=== PATIENT | female | born 1985 | race African-American/Black ===

== ENCOUNTER 2022-12-30 20:33 | Emergency (ER) | payer OTHER, SELFPAY ==
[2022-12-30 20:37] VITALS: BP 110/69; PULSE 77; RESP 18; TEMP 37.3; O2SAT 100; BMI 36.2
--- NOTE | 2022-12-30 20:52 | XR_ITS ---
The [address] [address] Patient Name: JAKE LEZAMA MRN: [id number] date: 1985 Sex: F Assigned Patient Location: ER Current Patient Location: ER Accession/Order Number: [id number] Exam Date: 12/30/2022 21:05 Report Date: 12/30/2022 21:29 At the request of: MUNIRA HYMAN Procedure: XR abdomen 1V EXAM: XR abdomen 1V HISTORY: Abdominal pain COMPARISON: X-rays 01/19/2022 TECHNIQUE: 2 views FINDINGS: IMPRESSION: Stool within the colon, however, the stool burden is unremarkable. The bowel gas pattern is nonobstructed. No free intraperitoneal air or visualized intra-abdominal calcification. Surgical clips within the left aspect of the epigastrium. No visualized osseous abnormality. Electronically authenticated by: LUCY GEORGE Date: 12/30/2022 21:29
--- NOTE | 2022-12-30 21:34 | ED.GENADUL1 ---
HPI - General Adult General Chief complaint: Abdominal Pain Stated complaint: Abdominal Pain Time Seen by Provider: 12/30/22 20:42 Source: patient Mode of arrival: walk-in Limitations: no limitations History of Present Illness HPI narrative: for the last week, the patient has not been passing formed stool like she normally does. She told me that she passes gas and small amounts of stool but not normal amounts. She has tried taking miralax and suppositories without improvement. She admits that she has been eating normally and not reducing her oral food intake. She also noted that she has hemorrhoids and has been seeing blood on the tissue paper. She admits to straining to try and pass the stool. Related Data Home Medications Medication Instructions Recorded Confirmed ergocalciferol (vitamin D2) 1,250 1,250 mcg PO DAILY 12/30/22 12/30/22 mcg (50,000 unit) capsule Previous Rx's Medication Instructions Recorded hyoscyamine sulfate 0.125 mg 0.125 mg PO Q6H PRN abdominal pain 12/30/22 sublingual tablet (Levsin/SL) #20 tabs peg 3350-electrolytes 236 240 ml PO .q20min #2,000 mL 12/30/22 gram-22.74 gram-6.74 gram-5.86 gram solution (Golytely) Allergies Allergy/AdvReac Type Severity Reaction Status Date / Time No Known Drug Allergies Allergy Verified 12/30/22 20:42 Exam Narrative Exam Narrative: Nurses notes and vital signs reviewed and patient is not hypoxic. afebrile General: Well-appearing and in no apparent distress. Skin: Warm, dry, no pallor noted. No rash. Eye: Pupils are equal, round and EOMI. No scleral icterus. Cardiovascular: Regular Rate and Rhythm without murmur, gallop or rub. Respiratory: No accessory muscle use or respiratory distress. Lungs are clear to auscultation, no wheezing, rales or rhonchi Back: No CVA tenderness Musculoskeletal: normal ROM GI: Abdomen is soft, non-distended. Normal bowel sounds. No masses appreciated. No tenderness to palpation. No rebound, guarding, or rigidity noted. Neurological: A&O x4. No cranial nerve dysfunction observed. No truncal ataxia. Moves all extremities. Sensation intact. Psychiatric: Cooperative and interactive. Normal mood and affect. Constitutional Vital Signs, click to edit/add: Last Vital Signs Temp 99.2 F 12/30/22 20:37 Pulse 77 12/30/22 20:37 Resp 18 12/30/22 20:37 BP 110/69 12/30/22 20:37 Pulse Ox 100 12/30/22 20:37 O2 Del Method Room Air 12/30/22 20:37 Course Vital Signs Vital signs: Vital Signs Temperature 99.2 F 12/30/22 20:37 Pulse Rate 77 12/30/22 20:37 Respiratory Rate 18 12/30/22 20:37 Blood Pressure 110/69 12/30/22 20:37 Pulse Oximetry 100 12/30/22 20:37 Oxygen Delivery Method Room Air 12/30/22 20:37 Temperature 99.2 F 12/30/22 20:37 Pulse Rate 77 12/30/22 20:37 Respiratory Rate 18 12/30/22 20:37 Blood Pressure 110/69 12/30/22 20:37 Pulse Oximetry 100 12/30/22 20:37 Oxygen Delivery Method Room Air 12/30/22 20:37 Medical Decision Making MDM Narrative Medical decision making narrative: x-rays reveal a distal colonic stool. The emergency Department nurses ordered to give the patient soapsuds enema. The patient was then discharged home with instructions to maintain a clear liquid diet until her constipation resolves, a prescription for GoLYTELY solution for constipation and Levsin for any pain. Given referral to Dr. Dupont for follow-up. Imaging Data Abdominal x-ray: Radiologist's impression: Patient Name: JAKE LEZAMA MRN: [id number] date: 1985 Sex: F Assigned Patient Location: ER Current Patient Location: Accession/Order Number: [id number] Exam Date: 12/30/2022 21:05 Report Date: 12/30/2022 21:29 At the request of: MUNIRA HYMAN Procedure: XR abdomen 1V EXAM: XR abdomen 1V HISTORY: Abdominal pain COMPARISON: X-rays 01/19/2022 TECHNIQUE: 2 views FINDINGS: IMPRESSION: Stool within the colon, however, the stool burden is unremarkable. The bowel gas pattern is nonobstructed. No free intraperitoneal air or visualized intra-abdominal calcification. Surgical clips within the left aspect of the epigastrium. No visualized osseous abnormality. Electronically authenticated by: LUCY GEORGE Date: 12/30/2022 21:29 Discharge Plan Discharge Chief Complaint: Abdominal Pain Clinical Impression: Constipation Patient Disposition: Home, Self-Care Time of Disposition Decision: 21:36 Prescriptions / Home Meds: New peg 3350-electrolytes [Golytely] 236-22.74-6.74 -5.86 gram recon soln 240 ml PO .q20min Qty: 2000 0RF Rx Instructions: until fecal effluent is clear hyoscyamine sulfate [Levsin/SL] 0.125 mg tablet, sublingual 0.125 mg PO Q6H PRN (Reason: abdominal pain) Qty: 20 0RF No Action ergocalciferol (vitamin D2) 1,250 mcg (50,000 unit) capsule 1,250 mcg PO DAILY Instructions: Constipation (ED), Hemorrhoids (ED) Stand Alone Forms: Portal Instructions Referrals: [facility] [Primary Care Provider] - 1 week Lukasz Dupont MD [Physician] - As soon as possible
--- NOTE | 2022-12-30 21:45 | PC.NURSE ---
Soap suds enema administered as ordered. Patient laying in bed at this time, patient will hold enema and go to BR after holding enema.
--- NOTE | 2022-12-30 22:02 | PC.NURSE ---
Patient up to BR and reports having large formed BM
== END 2022-12-30 22:03 | disposition home or self-care (01) ==
PROVIDERS: Emergency Provider Emergency Medicine
DX: K59.00 Constipation, unspecified (principal)
CPT/HCPCS: 74018; 99283

== ENCOUNTER 2024-02-02 16:22 | Emergency (ER) | payer OTHER, SELFPAY ==
[2024-02-02 16:27] VITALS: BP 112/73; PULSE 98; TEMP 36.7; O2SAT 98; BMI 31.2
--- OUTSIDE RECORDS SUMMARY | 2024-02-02 16:32 | XMS_ITS | CCD ---
Author Organization [facility] ion [facility] Care Team Providers Care Blending Machine Feeder Name Role Phone QIAN YIN Admitting Unavailable QIAN YIN Consulting Unavailable QIAN YIN Attending Unavailable [facility] Primary Care Unava ilable LISANDRA ARGUETA Consulting Unavailable SANDRA MARQUEZ Consulting Unavailable ELIZABETH CHAN Consulting Unavailable NON STAFF Primary Care Provider Unavailabl e NON STAFF Attending Provider Unavailable DAMARI, ELIGIO A Primary Care Unavailable DAMARI, ELIGIO A Primary Care Unavailable PANGULUR, MARYCARMEN N Admitting Unavailable PANGULUR, MARYCARMEN Blue Attending Unavailable DAMARI, ELIGIO A Primary Care Unavailable PANGULUR, MARYCARMEN N Admitting Unavailable PANGULUR, MARYCARMEN N Attending Unavailable DAMARI, ELIGIO A Primary Care Unavailable Christine Alarcon MD Primary Care Provider ROBYN-CHRISTINE ALFORD Primary Care Unavailable HAMDANI, ETTA YARELY T Admitting Unavailabl e CACHORRO, ETTA YARELY T Attending Unavailabl e JOSELITO MAO Attending Unavailable MD Carlos Champagne Attending Provider Carlos Champagne Attending Unavailable Carlos Champagne Admitting Unavailable Services, [facility] Primary Care Provider MELISSA SIMMONS Attending Unavailable [facility], [facility] Primary Care Unava ilable ROBYN-CHRISTINE ALFORD Attending Unavailable AL-NSOURCHRISTINE Referring Unavailable AL-NSOURJULIETTED Ching Primary Care Unavailable AL-NSOURCHRISTINE A Referring Unavailable AL-NSOUR, JULIETTED Ching Primary Care Unavailable AL-NSOURCHRISTINE A Referring Unavailable AL-NSOUR, JULIETTED A Primary Care Unavailable AL-NSOUR, MOHAMMAD A Referring Unavailable AL-NSOUR, MOHAMMAD A Attending Unavailable AL-NSOUR, MOHAMMAD A Primary Care Unavailable AL-NSOUR, MOHAMMAD A Attending Unavailable AL-NSOUR, MOHAMMAD A Referring Unavailable AL-NSOUR, MOHAMMAD A Primary Care Unavailable ACUÑA, CHELSIE L Primary Care Unavailable AL-NSOUR, MOHAMMAD A Referring Unavailable PANTERA, HEIDI Admitting Unavailable PANTERA, HEIDI Attending Unavailable AL-NSOUR, MOHAMMAD A Primary Care Unavailable AL-NSOUR, MOHAMMAD A Referring Unavailable AL-NSOUR, MOHAMMAD A Primary Care Unavailable SERVICES, [facility] Unava ilable MENON, IONA Attending Unavailable MENON, IONA Referring Unavailable SERVICES, [facility] Care Unava ilable SHEREE, CHELSIE L Referring Unavailable SERVICES, [facility] Unava ilable KOLEDA, MARIO ALBERTO Referring Unavailable SERVICES, [facility] Unava ilable DAUDI, SAYEEMA N Referring Unavailable SERVICES, [facility] Care Unava ilable DAUDI, SAYEEMA N Referring Unavailable SERVICES, [facility] Unava ilable PANGULUR MARYCARMEN N. Referring Unavailabl e SERVICES, [facility] Primary Care Unava ilable SERVICES, [facility] Primary Care Unava ilable GRACY ROCHA Attending UnavailGRACY Aviles Attending Unavailabl e GRACY ROCHA Referring Unavailabl e SERVICES, [facility] Unava ilable BJORN PIÑA Referring Unavailable SERVICES, [facility] Unava ilable Medications Current Medications Medication Drug Class(es) Dates Sig (Normalized) Sig (Original) benzoyl peroxide 50 mg/ml topical solution (3 sources) BENZOYL PEROXIDE 5 % external wash Apply topically 2 times daily APPLY TO AFFECTED AREA 0 Active bisacodyl 5 mg delayed release oral tablet (1 source) Stimulant Laxative Start: 06-02-2023 bisacodyl 5 MG EC tablet Indications: Rectal bleeding Please follow instructions given to you by your provider. 4 tablet 0 06/02/2023 Active calcium chloride 0.0014 meq/ml / potassium chloride 0.004 meq/ml / sodium chloride 0.103 meq/ml / sodium lactate 0.028 meq/ml injectable solution (1 source) Start: 04-28-2023 lactated ringers IV soln infusion Calcium Citrate / Vitamin D (3 sources) Calcium Citrate-Vitamin D (CALCIUM CITRATE CHEWY BITE PO) Take by mouth 2 times daily 0 Active clindamycin 10 mg/ml topical lotion (8 sources) Lincosamide Antibacterial Start: 09-19-2023 Clindamycin Phosphate Active 1 APPLIC TOPICAL Daily September 19, 2023 12:00am Start: 02-09-2023 clindamycin (C LEOCIN T) 1 % lotion APPLY TOPICALLY DAILY. APPLY THIN LATER TO AFFECTED AREAS ON THE BODY DURING FLARES 0 02/09/2023 Active ergocalciferol 1.25 mg oral capsule (3 sources) Provitamin D2 Compound Start: 12-23-2022 vitamin D (ERGOCALCIFEROL) 1.25 MG (29253 UT) CAPS capsule TAKE 1 CAPSULE WEEKLY 0 12/23/2022 Active hydrocortisone 25 mg/ml topical cream (2 sources) Corticosteroid Start: 08-30-2023 hydrocortisone (ANUSOL-HC) 2.5 % rectal cream Topical BID 08/30/2023 Active Start: 08-30-2023 hydrocortisone (ANUSOL-HC) 2.5 % CREA rectal cream Topical BID 28 g 0 08/30/2023 Active 10 ml lidocaine hydrochloride 10 mg/ml injection (1 source) Antiarrhythmic, Amide Local Anesthetic Start: 04-28-2023 End: 04-29-2023 lidocaine PF 1 % injection 1 mL lubiprostone 0.024 mg oral capsule (3 sources) Chloride Channel Activator Start: 06-05-2023 take 1 capsule by mouth once daily at breakfast lubiprostone (AMITIZA) 24 MCG capsule Take 1 capsule by mouth daily (with breakfast) 30 capsule 2 06/05/2023 Active Start: 03-01-2023 take 1 capsule by [facility] once daily at breakfast lubiprostone (AMITIZA) 24 MCG capsule Take 1 capsule by mouth daily (with breakfast) 30 capsule 2 03/01/2023 Active minocycline 50 mg oral capsule (6 sources) Tetracycline-class Drug Start: 09-19-2023 take 50 mg by mouth once daily Minocycline Active 50 MG PO Daily September 19, 2023 12:00am End: 11-29-2023 take 1 tablet by mouth in the morning minocycline (DYNACIN) 50 MG tablet Take 1 tablet (50 mg total) by mouth in the morning. 11/29/2023 Discontinued Multiple Vitamins-Minerals (MULTIVITAMIN ADULT PO) (3 sources) Multiple Vitamins-Minerals (MULTIVITAMIN ADULT PO) Take by mouth 2 times daily 0 Active Amhswqhzgrgs-Urv-Whce-Fa -Vit K (Bariatric Multivitamins) 45 mg iron- 800 mcg-120 mcg capsule (5 sources) Start: take 1 capsule by mouth once Mpirehpwljkb-Hib-Jyow-Fa -Vit K (Bariatric Multivitamins) 45 mg iron- 800 mcg-120 mcg capsule Active CAP PO September 19, 2023 12:00am pantoprazole 40 mg delayed release oral tablet (3 sources) Proton Pump Inhibitor Start: take 1 tablet by mouth in the morning pantoprazole (PROTONIX) 40 MG tablet TAKE 1 TABLET BY MOUTH IN THE MORNING AND IN THE EVENING 60 tablet 0 04/24/2023 Active Start: 03-28-2023 take 1 tablet by ramon th in the morning pantoprazole (PROTONIX) 40 MG tablet Take 1 tablet by mouth in the morning and 1 tablet in the evening. 60 tablet 0 03/28/2023 Active phentermine hydrochloride 37.5 mg oral tablet (4 sources) Sympathomimetic Amine Anorectic Start: 10-30-2023 take 1 tablet by mouth once daily 30 minutes after breakfast Phentermine (Adipex-P) 37.5 mg tablet Active 37.5 MG PO Daily October 30, 2023 12:00am must administer 30 minutes before or 1-2 hours after breakfast polyethylene glycol 3350 81076 mg powder for oral solution (1 source) Osmotic Laxative Start: 06-02-2023 polyethylene glycol (GLYCOLAX) 17 GM/SCOOP powder Indications: Rectal bleeding Please follow instructions provided to you by your provider. 238 g 0 06/02/2023 Active 5 ml sodium chloride 9 mg/ml injection (3 sources) Start: 04-28-2023 sodium chloride flush 0.9 % injection 5-40 mL Start: 04-28-2023 0.9 % sodium c hloride infusion Start: 04-28-2023 sodium chlorid e flush 0.9 % injection 5-40 mL sulfacetamide sodium 100 mg/ml topical lotion (1 source) Sulfonamide Antibacterial Start: 07-17-2023 sulfacetamide sodium , acne, 10 % suspension Apply thin layer to face once daily, 30 day supply. 07/17/2023 Active tretinoin 0.25 mg/ml topical cream (8 sources) Retinoid Start: 09-19-2023 Tretinoin Acti ve APPLIC TOPICAL Daily at bedtime September 19, 2023 12:00am tretinoin (RETIN -A) 0.025 % cream APPLY TO AFFECTED AREA EVERY DAY AT BEDTIME 0 Active Completed/Discontinued Medications Medication Drug Class(es) Dates Sig (Normalized) Sig (Original) ascorbic acid 250 mg chewable tablet (4 sources) Vitamin C End: 11-29-2023 ascorbic acid, vitamin C, 250 mg tablet,chewable Chew and swallow. 11/29/2023 Discontinued Ascorbic Acid (V ITAMIN C ADULT GUMMIES PO) Take by mouth Takes 2 gummies daily 0 Active calcium citrate 1500 mg / ergocalciferol 200 unt oral tablet (1 source) Provitamin D2 Compound End: 11-29-2023 calcium citrate-vitamin D2 315 mg-5 mcg (200 unit) tablet Take 2 capsules by mouth. 11/29/2023 Discontinued cyclobenzaprine hydrochloride 5 mg oral tablet (5 sources) Muscle Relaxant Start: 03-28-2022 End: 11-29-2023 cyclobenzaprine (FLEXERIL) 5 mg tablet 1-2 tablet at bedtime as needed 03/28/2022 11/29/2023 Discontinued take 1 tablet by ramon th three times daily as needed cyclobenzaprine (FLEXERIL) 10 mg tablet Take 1 tablet (10 mg total) by mouth 3 (three) times a day as needed. Active ibuprofen 800 mg oral tablet (1 source) Nonsteroidal Anti-inflammatory Drug Start: 06-12-2023 End: 11-29-2023 take 1 tablet by mouth every six hours as needed for pain ibuprofen (MOTRIN) 800 mg tablet Take 1 tablet (800 mg total) by mouth every 6 (six) hours as needed for pain. 30 tablet 06/12/2023 11/29/2023 Discontinued omeprazole 40 mg delayed release oral capsule (1 source) Proton Pump Inhibitor Start: 02-21-2022 End: 11-29-2023 omeprazole (PriLOSEC) 40 mg capsule 1 capsule 30 minutes before morning meal 02/21/2022 11/29/2023 Discontinued ondansetron 4 mg disintegrating oral tablet (1 source) Serotonin-3 Receptor Antagonist Start: 04-10-2022 End: 11-29-2023 take 1 tablet by mouth every eight hours as needed for nausea ondansetron ODT (ZOFRAN ODT) 4 mg disintegrating tablet Dissolve 1 tablet (4 mg total) on tongue every 8 (eight) hours as needed for nausea for up to 10 doses. 10 tablet 04/10/2022 11/29/2023 Discontinued Semaglutide (5 sources) Start: 09-19-2023 End: 10-30-2023 Semaglutide (Ozempic) 0.25 mg or 0.5 mg (2 mg/3 mL) pen injector Discontinued 0.25 MG SUBCUT every week 1.84 September 19, 2023 12:00am October 30, 2023 9:35am Start: 09-19-2023 Semaglutide (O zempic) 0.25 mg or 0.5 mg (2 mg/3 mL) pen injector Active 0.25 MG SUBCUT every week 1.84 September 19, 2023 12:00am Problems Active Problems Problem Classification Problem Date Documented Da te Episodic/Chronic Abdominal pain (1 source) Epigastric pain; Translations: [Epigastric pain] Onset: 03-08-2023 Episodic Administrative/social admission (20 sources) Patient encounter status; Translations: [Exercise counseling] 09-19-2023 Episodic Cancer of other GI organs; peritoneum (2 sources) Malignant carcinoid tumor of small intestine; 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] Onset: 04-28-2023 04-28-2023 Chronic Cancer; other and unspecified primary (5 sources) H/O: malignant neoplasm; Translations: [Personal history of malignant neoplasm, unspecified] 09-19-2023 Episodic Cancer; other and unspecified primary (7 sources) Personal history of malignant neoplasm, unspecified; Translations: [Personal history of malignant neuroendocrine tumor] 09-19-2023 Episodic Cancer; other and unspecified primary (2 sources) H/O: neoplasm; Translations: [Personal history of benign carcinoid tumor] Onset: 11-29-2023 11-29-2023 Episodic Cancer; other and unspecified primary (1 source) Personal history of benign carcinoid tumor; Translations: [Personal history of benign carcinoid tumor] Onset: 11-29-2023 Episodic Complications of surgical procedures or medical care (15 sources) History of subtotal thyroidectomy; Translations: [Postprocedural hypothyroidism] Onset: 11-29-2023 09-19-2023 Chronic Immunizations and screening for infectious disease (2 sources) Immunization due; Translations: [Encounter for immunization] Onset: 11-29-2023 11-29-2023 Episodic Malignant neoplasm without specification of site (2 sources) Primary malignant neuroendocrine neoplasm of duodenum; Translations: [Other malignant neuroendocrine tumors] Onset: 08-31-2023 08-31-2023 Chronic Neoplasms of unspecified nature or uncertain behavior (1 source) Neoplasm of unspecified behavior of bone, soft tissue, and skin; Translations: [Neoplasm of unspecified behavior of bone, soft tissue, and skin] Onset: 10-04-2023 Episodic Nonmalignant breast conditions (2 sources) Unspecified lump in the right breast, lower inner quadrant; Translations: [Unspecified lump in the left breast, lower inner quadrant] Onset: 12-05-2023 Episodic Nonspecific chest pain (4 sources) Chest pain, unspecified; Translations: [Other chest pain] Onset: 01-19-2022 Episodic Nutritional deficiencies (1 source) Vitamin D deficiency, unspecified; Translations: [Vitamin D deficiency, unspecified] Onset: 12-18-2023 Chronic Other female genital disorders (1 source) Unspecified condition associated with female genital organs and menstrual cycle; Translations: [Unspecified condition associated with female genital organs and menstrual cycle] Onset: 11-10-2023 Episodic Other gastrointestinal disorders (5 sources) Peritoneal cyst; Translations: [Other specified disorders of peritoneum] Onset: 12-23-2019 12-23-2019 Episodic Other gastrointestinal disorders (1 source) Bariatric surgery status; Translations: [Bariatric surgery status] Onset: 12-18-2023 Episodic Other nutritional; endocrine; and metabolic disorders (7 sources) Obese class II; Translations: [Obesity, unspecified] 09-19-2023 Chronic Other nutritional; endocrine; and metabolic disorders (7 sources) Body mass index 30+ - obesity; Translations: [Body mass index (BMI) 35.0-35.9, adult] Onset: 11-29-2023 09-19-2023 Chronic Other nutritional; endocrine; and metabolic disorders (8 sources) Body mass index (BMI) 35.0-35.9, adult; Translations: [Body Mass Index 35.0-35.9, adult] Onset: 11-29-2023 09-19-2023 Chronic Other nutritional; endocrine; and metabolic disorders (5 sources) Obesity, unspecified; Translations: [Obesity, unspecified] 09-19-2023 Chronic Residual codes; unclassified (7 sources) History of sleeve gastrectomy; Translations: [Acquired absence of stomach [part of]] Onset: 11-29-2023 09-19-2023 Episodic Residual codes; unclassified (8 sources) Acquired absence of stomach [part of]; Translations: [Personal history of surgery to other organs] Onset: 11-29-2023 09-19-2023 Episodic Residual codes; unclassified (1 source) History of uterine scar from previous surgery; Translations: [History of uterine scar from previous surgery] Onset: 11-29-2023 Episodic Thyroid disorders (2 sources) Hypothyroidism, unspecified; Translations: [Nontoxic goiter, unspecified] Onset: 08-21-2023 Chronic Unclassified (1 source) Establish Care Onset: 11-29-2023 Unclassified (1 source) Right Foot Pain Onset: 06-12-2023 Past or Other Problems Problem Classification Problem Date Documented Da te Episodic/Chronic Gastrointestinal hemorrhage (2 sources) Hemorrhage of anus and rectum; Translations: [Hemorrhage of anus and rectum] Onset: 06-22-2023 Episodic Mood disorders (1 source) Mood disorders Onset: 11-29-2023 11-29-2023 Other and unspecified benign neoplasm (3 sources) Polyp of duodenum; Translations: [Polyp of stomach and duodenum] Onset: 03-28-2023 03-28-2023 Episodic Other connective tissue disease (1 source) Pain in right foot; Translations: [Pain in right foot] Onset: 06-12-2023 Episodic Other connective tissue disease (1 source) Foot pain Onset: 06-12-2023 Episodic Other gastrointestinal disorders (4 sources) Constipation, unspecified; Translations: [CONSTIPATION UNSPECIFIED] Onset: 01-20-2022 Episodic Other gastrointestinal disorders (2 sources) Other specified disorders of peritoneum; Translations: [Other specified disorders of peritoneum] Onset: 12-23-2019 Episodic Other non-traumatic joint disorders (1 source) Pain in right knee; Translations: [Pain in right knee] Onset: 03-04-2023 Episodic Other non-traumatic joint disorders (1 source) Knee pain Onset: 03-04-2023 Episodic Residual codes; unclassified (7 sources) Acquired absence of both cervix and uterus; Translations: [Acquired absence of both cervix and uterus] Onset: 08-18-2015 09-19-2023 Episodic Results Test Name Value Interpretation Reference Range Facility CBC AND AUTO DIFFon 12-18-19 ABSOLUTE BASOPHIL 0.1 X10E9/L Normal 0.0-0.2 [facility] Comment on above: Performed By: #### 2 132-9, CBCA, CMP, 83092-3, 2777-1, FEPR, 2276-4, 19897-4, 03307-2, 2284-8 #### [facility] ([id number]) [address] [place] [address], [address] [address] #### [id number] #### [facility] ([id number]) [address] [place] [address]68[address] ABSOLUTE NEUTROPHIL 5.6 X10E9/L Normal 1.5-6.6 [facility] Comment on above: Performed By: #### 2 132-9, CBCA, CMP, 55883-4, 2777-1, FEPR, 2276-4, 07560-9, 66660-0, 2284-8 #### [facility] ([id number]) [address] [place] [address], [address] [place] [address] #### 99135-1 #### [facility] ([id number]) [address] [place] [address]111 Basophils/100 WBC (Bld) 1.0 % Normal [facility] Comment on above: Performed By: #### 2 132-9, CBCA, CMP, 39515-1, 2777-1, FEPR, 2276-4, 95565-8, 46466-3, 2284-8 #### [facility] ([id number]) [address], [address] [place] [address] #### 75721-3 #### [facility] ([id number]) [address] [place] [address]144 Eosinophils (Bld) [#/Vol] 0.1 10*3/uL Normal 0.0-0.4 [facility] Comment on above: Performed By: #### 2 132-9, CBCA, CMP, 23601-5, 2777-1, FEPR, 2276-4, 37297-8, 10830-3, 2284-8 #### [facility] ([id number]) [address], [address] [place] [address] #### [id number] #### [facility] ([id number]) [address] [place] [address] Eosinophils/100 WBC (Bld) 0.7 % Normal [facility] Comment on above: Performed By: #### 2 132-9, CBCA, CMP, 28593-5, 2777-1, FEPR, 2276-4, 37015-7, 86632-0, 2284-8 #### [facility] ([id number]) [address], [address] [place] [address] #### 01392-5 #### [facility] ([id number]) [address] [place] [address]84[address] Erythrocyte distribution width (RBC) [Ratio] 14.4 % Normal 11.5-15.0 [facility] Comment on above: Performed By: #### 2 132-9, CBCA, CMP, 06558-5, 2777-1, FEPR, 2276-4, 97076-0, 40549-1, 2284-8 #### [facility] ([id number]) [address], [address] [place] [address] #### 79962-6 #### [facility] ([id number]) [address] [place] [address] 83454 Hematocrit (Bld) [Volume fraction] 39.5 % Normal 35-47 [facility] Comment on above: Performed By: #### 2 132-9, CBCA, CMP, 54869-5, 2777-1, FEPR, 2276-4, 02518-5, 11409-5, 2284-8 #### [facility] ([id number]) [address], [address] [place] [address] #### 72439-9 #### [facility] ([id number]) [address] [place] [address] 04065 Hemoglobin (Bld) [Mass/Vol] 13.0 g/dL Normal 11.7-15.5 [facility] Comment on above: Performed By: #### 2 132-9, CBCA, CMP, 74803-6, 2777-1, FEPR, 2276-4, 95641-1, 64818-3, 2283-8 #### [facility] ([id number]) [address], [address] [place] [address] #### 75979-5 #### [facility] ([id number]) [address] [place] [address] 05565 Lymphocytes (Bld) [#/Vol] 4.0 10*3/uL High 1.0-3.5 [facility] Comment on above: Performed By: #### 2 132-9, CBCA, CMP, 92561-4, 2777-1, FEPR, 2276-4, 28216-6, 21533-2, 228-8 #### [facility] ([id number]) [address], [address] [place] [address] #### 75843-3 #### [facility] ([id number]) [address] [place] [address] 92138 Lymphocytes/100 WBC (Bld) 38.6 % Normal [facility] Comment on above: Performed By: #### 2 132-9, CBCA, CMP, 11913-9, 2777-1, FEPR, 2276-4, 15993-7, 11105-1, 228-8 #### [facility] ([id number]) [address], [address] [place] [address] #### 23846-2 #### [facility] ([id number]) [address] [place] [address] 04312 MCH (RBC) [Entitic mass] 28.2 pg Normal 27-34 [facility] Comment on above: Performed By: #### 2 132-9, CBCA, CMP, 50474-4, 2777-1, FEPR, 2276-4, 62991-7, 02801-7, 2283-8 #### [facility] ([id number]) [address], [address] [place] [address] #### 24005-4 #### [facility] ([id number]) [address] [place] [address]1989 MCHC (RBC) [Mass/Vol] 32.9 g/dL Normal 32-36 [facility] Comment on above: Performed By: #### 2 132-9, CBCA, CMP, 61027-2, 2777-1, FEPR, 2276-4, 42991-9, 68722-7, 228-8 #### [facility] ([id number]) [address], [address] [place] [address] #### 97713-1 #### [facility] ([id number]) [address] [place] [address] 01936 MCV (RBC) [Entitic vol] 86 fL Normal 80-100 [facility] Comment on above: Performed By: #### 2 132-9, CBCA, CMP, 71577-7, 2777-1, FEPR, 2276-4, 15735-3, 83459-9, 2284-8 #### [facility] ([id number]) [address], [address] [place] [address] #### 42638-3 #### [facility] ([id number]) [address] [place] [address]19 Monocytes (Bld) [#/Vol] 0.6 10*3/uL Normal 0-0.9 [facility] Comment on above: Performed By: #### 2 132-9, CBCA, CMP, 52742-2, 2777-1, FEPR, 2276-4, 24906-2, 01821-0, 2284-8 #### [facility] ([id number]) [address], [address] [place] [address] #### 76406-2 #### [facility] ([id number]) [address] [place] [address] 63180 Monocytes/100 WBC (Bld) 5.6 % Normal [facility] Comment on above: Performed By: #### 2 132-9, CBCA, CMP, 91675-5, 2777-1, FEPR, 2276-4, 38755-8, 22556-0, 2284-8 #### [facility] ([id number]) [address], [address] [place] [address] #### 53862-5 #### [facility] ([id number]) [address] [place] [address] 46568 Neutrophils/100 WBC (Bld) 54.1 % Normal [facility] Comment on above: Performed By: #### 2 132-9, CBCA, CMP, 08713-3, 2777-1, FEPR, 2276-4, 00349-0, 00730-3, 2284-8 #### [facility] ([id number]) [address], [address] [place] [address] #### 99306-6 #### [facility] ([id number]) [address] [place] [address] 42541 Platelet mean volume (Bld) [Entitic vol] 7.2 fL Normal 7-12 [facility] Comment on above: Performed By: #### 2 132-9, CBCA, CMP, 22346-6, 2777-1, FEPR, 2276-4, 13098-4, 99862-7, 2284-8 #### [facility] ([id number]) [address], [address] [place] [address] #### 87865-8 #### [facility] ([id number]) [address] [place] [address] 24585 Platelets (Bld) [#/Vol] 442 10*3/uL Normal 150-450 [facility] Comment on above: Performed By: #### 2 132-9, CBCA, CMP, 55634-9, 2777-1, FEPR, 2276-4, 64382-6, 46516-1, 2284-8 #### [facility] ([id number]) [address], [address] [place] [address] #### 71897-5 #### [facility] ([id number]) [address] [place] [address] 65231 RBC COUNT 4.60 X10E12/L Normal 3.80-5.20 [facility] Comment on above: Performed By: #### 2 132-9, CBCA, CMP, 36223-1, 2777-1, FEPR, 2276-4, 29797-7, 78401-8, 2284-8 #### [facility] ([id number]) [address], [address] [place] [address] #### 95542-9 #### [facility] ([id number]) [address] [place] [address] 55283 WBC (Bld) [#/Vol] 10.3 10*3/uL Normal 4.0-11.0 [facility] Comment on above: Performed By: #### 2 132-9, CBCA, CMP, 20347-8, 2777-1, FEPR, 2276-4, 68769-3, 74180-9, 2284-8 #### [facility] ([id number]) [address], [address] [place] [address] #### 82786-6 #### [facility] ([id number]) [address] [place] [address]231 COMPREHENSIVE METABOLIC PANE [facility] [facility] Albumin [Mass/Vol] 4.1 g/dL Normal 3.2-5.3 [facility] Comment on above: Performed By: #### 2 132-9, CBCA, CMP, 95077-7, 2777-1, FEPR, 2276-4, 22636-6, 98887-6, 2284-8 #### [facility] ([id number]) [address], [address] [place] [address] #### 76336-7 #### [facility] ([id number]) [address] [place] [address] ALP [Catalytic activity/Vol] 71 U/L Normal 39-130 [facility] Comment on above: Performed By: #### 2 132-9, CBCA, CMP, 64237-9, 2777-1, FEPR, 2276-4, 93285-6, 10259-1, 2284-8 #### [facility] ([id number]) [address], [address] [place] [address] #### [id number] #### [facility] ([id number]) [address] [place] [address] ALT [Catalytic activity/Vol] 12 U/L Normal 0-31 [facility] Comment on above: Performed By: #### 2 132-9, CBCA, CMP, 08322-8, 2777-1, FEPR, 2276-4, 97335-4, 16410-5, 2284-8 #### [facility] ([id number]) [address], [address] [place] [address] #### 91286-9 #### [facility] ([id number]) [address] [place] [address] Anion gap [Moles/Vol] 8 mmol/L Normal 5-15 [facility] Comment on above: Performed By: #### 2 132-9, CBCA, CMP, 55415-6, 2777-1, FEPR, 2276-4, 94403-7, 66697-8, 2284-8 #### [facility] ([id number]) [address], [address] [place] [address] #### 12028-2 #### [facility] ([id number]) [address] [place] [address] 23092 AST [Catalytic activity/Vol] 15 U/L Normal 0-41 [facility] Comment on above: Performed By: #### 2 132-9, CBCA, CMP, 39526-7, 2777-1, FEPR, 2276-4, 02003-9, 30719-0, 2284-8 #### [facility] ([id number]) [address], [address] [place] [address] #### 68837-8 #### [facility] ([id number]) [address] [place] [address]91 Bilirubin [Mass/Vol] 1.2 mg/dL Normal 0.3-1.2 [facility] Comment on above: Performed By: #### 2 132-9, CBCA, CMP, 23314-5, 2777-1, FEPR, 2276-4, 25660-7, 91437-3, 2284-8 #### [facility] ([id number]) [address], [address] [place] [address] #### 15859-9 #### [facility] ([id number]) [address] [place] [address]2902 Calcium [Mass/Vol] 9.2 mg/dL Normal 8.5-10.5 [facility] Comment on above: Performed By: #### 2 132-9, CBCA, CMP, 06876-5, 2777-1, FEPR, 2276-4, 55681-0, 80972-5, 2284-8 #### [facility] ([id number]) [address], [address] [place] [address] #### 17092-2 #### [facility] ([id number]) [address] [place] [address] 16191 Chloride [Moles/Vol] 105 mmol/L Normal 98-109 [facility] Comment on above: Performed By: #### 2 132-9, CBCA, CMP, 65997-9, 2777-1, FEPR, 2276-4, 85875-2, 71782-8, 2284-8 #### [facility] ([id number]) [address], [address] [place] [address] #### 58029-2 #### [facility] ([id number]) [address] [place] [address] 17037 CO2 [Moles/Vol] 27 mmol/L Normal 22-32 [facility] Comment on above: Performed By: #### 2 132-9, CBCA, CMP, 65245-9, 2777-1, FEPR, 2276-4, 62641-7, 34265-5, 2284-8 #### [facility] ([id number]) [address] [place] [address], [address] [place] [address] #### 85384-3 #### [facility] ([id number]) [address] [place] [address] 63427 Creatinine [Mass/Vol] 0.94 mg/dL Normal 0.40-1.00 [facility] Comment on above: Result Comment: METH OD TRACEABLE TO IDMS STANDARD Performed By: #### 2 132-9, CBCA, CMP, 29921-3, 2777-1, FEPR, 2276-4, 14770-6, 36335-6, 2284-8 #### [facility] ([id number]) [address] [place] [address], [address] [place] [address] #### 48619-2 #### [facility] ([id number]) [address] [place] [address] GFR/1.73 sq M.predicted among non-blacks MDRD (S/P/Bld) [Vol rate/Area] 80 mL/min/{1.73_m2} Normal >59 [facility] Comment on above: Result Comment: Reported eGFR is based on the CKD-EPI 2020 equation that does not use a race coefficient. Performed By: #### 2 132-9, CBCA, CMP, 95227-9, 2777-1, FEPR, 2276-4, 48962-6, 45741-7, 2284-8 #### [facility] ([id number]) [address] [place] [address], [address] [place] [address] #### 70292-1 #### [facility] ([id number]) [address] [place] [address]1978 Glucose [Mass/Vol] 94 mg/dL Normal 65-99 [facility] Comment on above: Performed By: #### 2 132-9, CBCA, CMP, 35005-7, 2777-1, FEPR, 2276-4, 20496-7, 71883-4, 2284-8 #### [facility] ([id number]) [address], [address] [place] [address] #### 81520-0 #### [facility] ([id number]) [address] [place] [address]283 Potassium [Moles/Vol] 3.9 mmol/L Normal 3.5-5.0 [facility] Comment on above: Performed By: #### 2 132-9, CBCA, CMP, 85318-1, 2777-1, FEPR, 2276-4, 53810-2, 63325-9, 2283-8 #### [facility] ([id number]) [address], [address] [place] [address] #### 80033-9 #### [facility] ([id number]) [address] [place] [address] 04878 Protein [Mass/Vol] 7.1 g/dL Normal 6.0-8.0 [facility] Comment on above: Performed By: #### 2 132-9, CBCA, CMP, 24908-4, 2777-1, FEPR, 2276-4, 13633-2, 40336-4, 2283- #### [facility] ([id number]) [address], [address] [place] [address] #### 12248-9 #### [facility] ([id number]) [address] [place] [address] 15042 Sodium [Moles/Vol] 140 mmol/L Normal 134-146 [facility] Comment on above: Performed By: #### 2 132-9, CBCA, CMP, 09933-2, 2777-1, FEPR, 2276-4, 34753-8, 72682-0, 228-8 #### [facility] ([id number]) [address], [address] [place] [address] #### 62018-0 #### [facility] ([id number]) [address] [place] [address] 81176 Urea nitrogen [Mass/Vol] 8 mg/dL Normal 5-23 [facility] Comment on above: Performed By: #### 2 132-9, CBCA, CMP, 14389-1, 2777-1, FEPR, 2276-4, 22212-7, 22688-7, 2284-8 #### [facility] ([id number]) [address], [address] [place] [address] #### 69646-0 #### [facility] ([id number]) [address] [place] [address] 22947 FERRITINon 12-18-2023 Ferritin [Mass/Vol] 19 ng/mL Normal 11-307 [facility] Comment on above: Performed By: #### C BCA, CMP #### [facility] ([id number]) [address], [address] [place] [address] Folate [Mass/Vol]on 12-18-19 24 FOLIC ACID 16.7 ng/mL Normal >5.8 [facility] Comment on above: Result Comment: NEW REFERENCE RANGE Performed By: #### C BCA, CMP #### [facility] ([id number]) [address], [address] [place] [address] IRON PROFILEon 12-18-2023 Iron [Mass/Vol] 62 ug/dL Normal 50-170 [facility] Comment on above: Performed By: #### C BCA, CMP #### [facility] ([id number]) [address], [address] [place] [address] IRON BINDING 368 ug/dL Normal 250-425 [facility] Comment on above: Performed By: #### C BCA, CMP #### [facility] ([id number]) [address], [address] [place] [address] IRON SATURATION 17 % SATURATION Normal 15-50 [facility] Comment on above: Performed By: #### C BCA, CMP #### [facility] ([id number]) [address] [facility] [address] [place] [address] Lipid 1996 panelon 4 Cholesterol [Mass/Vol] 239 mg/dL High 150-200 [facility] Comment on above: Performed By: #### C BCA, CMP #### [facility] ([id number]) [address], [address] [address] Cholesterol in HDL [Mass/Vol] 50 mg/dL Normal >39 [facility] Comment on above: Result Comment: HDL <40 mg/dL - High Risk HDL > or = 40mg/dL- Desirable HDL >60 mg/dL - Negative Risk Performed By: #### C BCA, CMP #### [facility] ([id number]) [address] [address] Cholesterol in LDL [Mass/Vol] 163 mg/dL High <130 [facility] Comment on above: Result Comment: LDL <100 mg/dL - Desirable LDL >160 mg/dL - High Risk Performed By: #### C BCA, CMP #### [facility] ([id number]) [address] [facility] [address] [place] [address] Cholesterol in VLDL [Mass/Vol] 26 mg/dL Normal 0-30 [facility] Comment on above: Performed By: #### C BCA, CMP #### [facility] ([id number]) [address] [address] [place] [address] CHOLESTEROL:HDL 4.8 Normal 1.0-5.0 [facility] Comment on above: Performed By: #### C NAOMI, CMP #### [facility] ([id number]) [address], [address] [place] [address] Triglyceride [Mass/Vol] 128 mg/dL Normal 27-150 P [facility] Comment on above: Performed By: #### Michael SALGADO, CMP #### [facility] ([id number]) [address], [address] [place] [address] MAGNESIUMon 12-18-2023 Magnesium [Mass/Vol] 1.9 mg/dL Normal 1.8-2.6 [facility] Comment on above: Performed By: #### Michael SALGADO, CMP #### [facility] ([id number]) [address], [address] [place] [address] PHOSPHORUSon 12-18-2023 Phosphate [Mass/Vol] 4.9 mg/dL Normal 2.4-4.9 [facility] Comment on above: Performed By: #### Michael SALGADO, CMP #### [facility] ([id number]) [address], [facility] [address] [place] [address] Thiamine (Bld) [Moles/Vol]on 12-18-2023 Thiamin (Vitamin B1), WB 106 nmol/L Normal 70-180 [facility] Comment on above: Result Comment: NOTE ADDITIONAL INFORMATION This test was developed and its performance characteristics determined by [facility] in a manner consistent with CLIA requirements. This test has not been cleared or approved by the U.S. Food and Drug Administration. Test Performed by: [address] [address] Doughnut Machine Operator: Eli Kwong Ph.D.; CLIA# [id number] Performed By: #### Michael SALGADO, CMP #### [facility] ([id number]) [address], [address] [place] [address] VITAMIN B12on 12-18-2023 Cobalamin (Vitamin B12) [Mass/Vol] 190 pg/mL Normal 180-914 [facility] Comment on above: Performed By: #### C NAOMI, CMP #### [facility] ([id number]) [address], [address] [place] [address] Vitamin D+Metabolites [Mass/ Vol]on 12-18-2023 VITAMIN D 25 HYD TOT 19.5 ng/mL Low 30-100 [facility] Comment on above: Result Comment: Vitamin D status 25 [place] Vitamin D Deficiency <20 ng/mL Insufficiency 20-29 ng/mL Sufficiency 30-100 ng/mL Toxicity >100 ng/mL NOTE: A pediatric reference range has not been established by the hazardous waste remover of this kit. The [place] [employer] recommends a Vitamin D level of = or >20ng/mL in infants and children. Performed By: #### C NAOMI, CMP #### [facility] ([id number]) [address], [address] [place] [address] MAMM DIAGNOSTIC BILATERAL W CADon 12-05-2023 MAMM DIAGNOSTIC BILATERAL W CAD MAMM DIAGNOSTIC BILATERAL W CAD JAKE DRAKE MCKINSTRY 1985 [id number], [id number] EXAM: MAMM DIAGNOSTIC BILATERAL W CAD, US BREAST BILAT - LIMITED, 12/05/2023 8:02 AM CLINICAL INDICATIONS: Unspecified lump in the right breast, lower inner quadrant; Unspecified lump in the left breast, lower inner quadrant, COMPARISON: None TECHNIQUE: Bilateral digital tomosynthesis MLO and CC views of the breasts were obtained, with creation of synthetic 2D views. Computer aided detection was utilized. FINDINGS: There are scattered areas of fibroglandular density. There are no suspicious masses, calcifications, or areas of architectural distortion. Bilateral Breast Ultrasound, Limited TECHNIQUE: Multiple real-time richard-scale images were performed in the inner lower quadrant of both breasts. FINDINGS: There is no focal mass, architectural distortion or abnormal vascularity visualized. COMBINED IMPRESSION: No mammographic or sonographic evidence of malignancy. BI-RADS: BI-RADS 1 - Negative RECOMMENDATION: Follow up per ACR recommendations or as clinically indicated.. Clinical follow-up is recommended. RISK ASSESSMENT: TC Lifetime risk: 6.44%. The patient's reported personal and family medical history was used calculate their Tyrer-zick lifetime risk of malignancy. Scores less than 20% are not considered high risk per ACR guidelines and patient should continue with the above recommendation. Patient was given the results before leaving the department. Finalized by Kev Taylor MD on 12/05/2023 8:54 AM 1 b FU ACR Normal [facility] US BREAST BILAT - LIMITEDon 12-05-2023 US BREAST BILAT - LIMITED US BREAST BILAT - LIMITED JAKE AREVALO 1985 [id number], [id number] EXAM: MAMM DIAGNOSTIC BILATERAL W CAD, US BREAST BILAT - LIMITED, 12/05/2023 8:02 AM CLINICAL INDICATIONS: Unspecified lump in the right breast, lower inner quadrant; Unspecified lump in the left breast, lower inner quadrant, COMPARISON: None TECHNIQUE: Bilateral digital tomosynthesis MLO and CC views of the breasts were obtained, with creation of synthetic 2D views. Computer aided detection was utilized. FINDINGS: There are scattered areas of fibroglandular density. There are no suspicious masses, calcifications, or areas of architectural distortion. Bilateral Breast Ultrasound, Limited TECHNIQUE: Multiple real-time richard-scale images were performed in the inner lower quadrant of both breasts. FINDINGS: There is no focal mass, architectural distortion or abnormal vascularity visualized. COMBINED IMPRESSION: No mammographic or sonographic evidence of malignancy. BI-RADS: BI-RADS 1 - Negative RECOMMENDATION: Follow up per ACR recommendations or as clinically indicated.. Clinical follow-up is recommended. RISK ASSESSMENT: TC Lifetime risk: 6.44%. The patient's reported personal and family medical history was used calculate their Tyrer-Cuzick lifetime risk of malignancy. Scores less than 20% are not considered high risk per ACR guidelines and patient should continue with the above recommendation. Patient was given the results before leaving the department. Finalized by Kev Taylor MD on 12/05/2023 8:54 AM 1 b FU ACR Normal [facility] Chromogranin Aon 11-19-2023 Chromogranin A <20 Normal 0-187 [facility] Comment on above: Result Comment: (NOT E) INTERPRETIVE INFORMATION: Chromogranin A, Serum This test is performed using the [employer] CGA II Kryptor kit. Results obtained with different methods or kits cannot be used interchangeably. Results cannot be interpreted as absolute evidence of the presence or absence of malignant disease and should be evaluated in combination with clinical symptoms, diagnostic evidence, and/or other laboratory parameters. The change of CgA concentration over time provides diagnostic information whether a tumor progression has occurred. An increase of CgA serum concentrations of more than 50% to a value of greater than 100 ng/ml between consecutive monitoring visits defines a positive test result, representing a higher probability that a tumor progression has occurred. A change of CgA serum concentrations of equal or less than 50% increase between monitoring visits or to a value of 100 ng/ml or less defines a negative test result, representing a lower probability that a tumor progression has occurred. Nontumor related elevations of Chromogranin A can be observed in gastrointestinal, cardiovascular, and renal disorders, cancers other than neuroendocrine tumors, as well as with proton pump inhibitor (PPI) therapy. It is recommended to stop PPI treatment for at least 14 days prior to testing. Performed By: [facility] [address] [place] [address] Tool Or Die Drawing Checker: Lorne Alarcon MD, PhD CLIA Number: [id number] Performed By: #### C DP, CP #### [place] [address] Doughnut Machine Operator: Naveen Adam MD #### ACHRGA #### [address] [address] Doughnut Machine Operator: Ion Franco MD CBC with Diffon 11-17-2023 Abs. Basophil 0.06 k/uL Normal 0.00-0.20 [facility] Comment on above: Performed By: #### C DP, CP #### [place] [address] Doughnut Machine Operator: Naveen Adam MD #### ACHRGA #### [address] [address] Doughnut Machine Operator: Ion Franco MD Abs.Imm.Granulocyte <0.03 Normal 0.00-0.30 [facility] Comment on above: Performed By: #### C DP, CP #### [place] [address] Doughnut Machine Operator: Naveen Adam MD #### ACHRGA #### [address] [address] Doughnut Machine Operator: Ion Franco MD Abs.Neutrophil (Seg) 5.12 k/uL Normal 1.50-8.10 [facility] Comment on above: Performed By: #### C DP, CP #### [place] [address] Doughnut Machine Operator: Naveen Adam MD #### ACHRGA #### [address] [address] Doughnut Machine Operator: Ion Franco MD Basophils/100 WBC (Bld) 1 % Normal 0-2 M [facility] Comment on above: Performed By: #### C DP, CP #### [address] [address] Doughnut Machine Operator: Naveen Adam MD #### ACHRGA #### [facility] [address] [place] [address] Doughnut Machine Operator: Ion Franco MD Eosinophils (Bld) [#/Vol] 0.08 10*3/uL Normal 0.00-0.44 [facility] Comment on above: Performed By: #### C DP, CP #### [place] [address] Doughnut Machine Operator: Naveen Adam MD #### ACHRGA #### [address] [id number] Doughnut Machine Operator: Ion Franco MD Eosinophils/100 WBC (Bld) 1 % Normal 1-4 [facility] Comment on above: Performed By: #### C DP, CP #### [place] [address] Doughnut Machine Operator: Naveen Adam MD #### ACHRGA #### [address] [id number] Doughnut Machine Operator: Ion Franco MD Erythrocyte distribution width (RBC) [Ratio] 14.0 % Normal 11.8-14.4 [facility] Comment on above: Performed By: #### C DP, CP #### [place] [address] Doughnut Machine Operator: Naveen Adam MD #### ACHRGA #### [facility] [address] [place] [address] Doughnut Machine Operator: Ion Franco MD Hematocrit (Bld) [Volume fraction] 40.7 % Normal 36.3-47.1 [facility] Comment on above: Performed By: #### C DP, CP #### [address] [address] Doughnut Machine Operator: Naveen Adam MD #### ACHRGA #### [facility] [address] [place] [address] Doughnut Machine Operator: Ion Franco MD Hemoglobin (Bld) [Mass/Vol] 12.9 g/dL Normal 11.9-15.1 [facility] Comment on above: Performed By: #### C DP, CP #### [address] [id number] Doughnut Machine Operator: Naveen Adam MD #### ACHRGA #### [facility] [address] [place], [place] [id number] Doughnut Machine Operator: Ion Franco MD Immature granulocytes/100 WBC (Bld) 0 % Normal 0 [facility] Comment on above: Performed By: #### C DP, CP #### [address] [address] Doughnut Machine Operator: Naveen Adam MD #### ACHRGA #### [facility] [address] [place] [address] Doughnut Machine Operator: Ion Franco MD Lymphocytes (Bld) [#/Vol] 2.85 10*3/uL Normal 1.10-3.70 [facility] Comment on above: Performed By: #### C DP, CP #### [address] [address] Doughnut Machine Operator: Naveen Adam MD #### ACHRGA #### [facility] [address] [place] [address] Doughnut Machine Operator: Ion Franco MD Lymphocytes/100 WBC (Bld) 33 % Normal 24-43 [facility] Comment on above: Performed By: #### C DP, CP #### [address] [address] Doughnut Machine Operator: Naveen Adam MD #### VIOLA #### [facility] [address] [place], [place] [id number] Doughnut Machine Operator: Ion Franco MD MCH (RBC) [Entitic mass] 27.5 pg Normal 25.2-33.5 [facility] Comment on above: Performed By: #### C DP, CP #### [address] [address] Doughnut Machine Operator: Naveen Adam MD #### VIOLA #### [facility] [address] [place], [place] [id number] Doughnut Machine Operator: Ion Franco MD MCHC (RBC) [Mass/Vol] 31.7 g/dL Normal 28.4-34.8 [facility] Comment on above: Performed By: #### C DP, CP #### [address] [address] Doughnut Machine Operator: Naveen Adam MD #### ACHRSHINE #### [facility] [address] [place], [place] [id number] Doughnut Machine Operator: Ion Franco MD MCV (RBC) [Entitic vol] 86.8 fL Normal 82.6-102.9 M [facility] Comment on above: Performed By: #### C DP, CP #### [address] [address] Doughnut Machine Operator: Naveen Adam MD #### ACHRGA #### [facility] [address] [place] [address] Doughnut Machine Operator: Ion Farnco MD Monocytes (Bld) [#/Vol] 0.44 10*3/uL Normal 0.10-1.20 [facility] Comment on above: Performed By: #### C DP, CP #### [address] [address] Doughnut Machine Operator: Naveen Adam MD #### ACHRGA #### [facility] [address] [place], [place] [id number] Doughnut Machine Operator: Ion Franco MD Monocytes/100 WBC (Bld) 5 % Normal 3-12 M [facility] Comment on above: Performed By: #### C DP, CP #### [address] [address] Doughnut Machine Operator: Naveen Adam MD #### ACHRGA #### [facility] [address] [place], [place] [id number] Doughnut Machine Operator: Ion Franco MD Neutrophil (Seg) 60 % Normal 36-65 [facility] Comment on above: Performed By: #### C DP, CP #### [address] [address] Doughnut Machine Operator: Naveen Adam MD #### ACHRGA #### [facility] [address] [place], [place] [id number] Doughnut Machine Operator: Ion Franco MD NRBC Automated 0.0 per 100 WBC Normal 0.0 [facility] Comment on above: Performed By: #### C DP, CP #### [address] [address] Doughnut Machine Operator: Naveen Adam MD #### ACHRGA #### [facility] [address] [place], [place] [id number] Doughnut Machine Operator: Ion Franco MD Platelet mean volume (Bld) [Entitic vol] 9.2 fL Normal 8.1-13.5 [facility] Comment on above: Performed By: #### C DP, CP #### [address] [address] Doughnut Machine Operator: Naveen Adam MD #### ACHRGA #### [facility] [address] [place], [place] [id number] Doughnut Machine Operator: Ion Franco MD Platelets (Bld) [#/Vol] 405 10*3/uL Normal 138-453 [facility] Comment on above: Performed By: #### C DP, CP #### [address] [address] Doughnut Machine Operator: Naveen Adam MD #### ACHRGA #### [facility] [address] [place], [place] [id number] Doughnut Machine Operator: Ion Franco MD RBC (Bld) [#/Vol] 4.69 10*6/uL Normal 3.95-5.11 [facility] Comment on above: Performed By: #### C DP, CP #### [address] [address] Doughnut Machine Operator: Naveen Adam MD #### ACHRGA #### [facility] [address] [place] [address] Doughnut Machine Operator: Ion Franco MD WBC (Bld) [#/Vol] 8.6 10*3/uL Normal 3.5-11.3 [facility] Comment on above: Performed By: #### C DP, CP #### [address] [address] Doughnut Machine Operator: Naveen Adam MD #### ACHRGA #### [facility] [address] [place] [address] Doughnut Machine Operator: Ion Franco MD Comp Metabolic Profon 2023 Albumin [Mass/Vol] 4.7 g/dL Normal 3.5-5.2 [facility] Comment on above: Performed By: #### C DP, CP #### [address] [address] Doughnut Machine Operator: Naveen Adam MD #### ACHRGA #### [facility] [address] [place], [place] [id number] Doughnut Machine Operator: Ion Franco MD Albumin/Glob Ratio 2.0 Normal 1.0-2.5 [facility] Comment on above: Performed By: #### C DP, CP #### [address] [address] Doughnut Machine Operator: Naveen Adam MD #### ACHRGA #### [facility] [address] [place], [place] [id number] Doughnut Machine Operator: Ion Franco MD Alkaline Phos 77 U/L Normal 35-104 [facility] Comment on above: Performed By: #### C DP, CP #### [address] [address] Doughnut Machine Operator: Naveen Adam MD #### ACHRGA #### [facility] [address] [place], [place] [id number] Doughnut Machine Operator: Ion Franco MD ALT [Catalytic activity/Vol] 13 U/L Normal 10-35 [facility] Comment on above: Performed By: #### C DP, CP #### [address] [address] Doughnut Machine Operator: Naveen Adam MD #### ACHRGA #### [facility] [address] [place], [place] [id number] Doughnut Machine Operator: Ion Franco MD Anion gap [Moles/Vol] 11 mmol/L Normal 9-16 [facility] Comment on above: Performed By: #### C DP, CP #### [address] [address] Doughnut Machine Operator: Naveen Adam MD #### ACHRGA #### [facility] [address], [place] [id number] Doughnut Machine Operator: Ion Franco MD AST [Catalytic activity/Vol] 20 U/L Normal 10-35 [facility] Comment on above: Performed By: #### C TY, CP #### [address] [address] Doughnut Machine Operator: Naveen Adam MD #### ACHRGA #### [facility] [address] [place] [address] Doughnut Machine Operator: Ion Franco MD Bilirubin [Mass/Vol] 1.3 mg/dL High 0.00-1.20 [facility] Comment on above: Performed By: #### C TY CP #### [address] [address] Doughnut Machine Operator: Naveen Adam MD #### ACHRGA #### [facility] [address] [place], [place] [id number] Doughnut Machine Operator: Ion Franco MD Calcium [Mass/Vol] 9.4 mg/dL Normal 8.6-10.4 [facility] Comment on above: Performed By: #### C TY CP #### [address] [address] Doughnut Machine Operator: Naveen Adam MD #### ACHRGA #### [facility] [address] [place], [place] [id number] Doughnut Machine Operator: Ion Franco MD Chloride [Moles/Vol] 104 mmol/L Normal 98-107 [facility] Comment on above: Performed By: #### C TY CP #### [address] [address] Doughnut Machine Operator: Naveen Adam MD #### ACHRGA #### [facility] [address] [place] [address] Doughnut Machine Operator: Ion Franco MD CO2 [Moles/Vol] 26 mmol/L Normal 20-31 [facility] Comment on above: Performed By: #### C DP, CP #### [facility] [address] [place] [address] Doughnut Machine Operator: Naveen Adam MD #### ACHRSHINE #### [facility] [address] [place], [place] [id number] Doughnut Machine Operator: Ion Franco MD Creatinine [Mass/Vol] 1.0 mg/dL High 0.50-0.90 [facility] Comment on above: Performed By: #### C TY, CP #### [facility] [employer] [address] [place] [address] Doughnut Machine Operator: Naveen Adam MD #### ACHRSHINE #### [facility] [address] [place] [address] Doughnut Machine Operator: Ion Franco MD GFR/1.73 sq M.predicted among non-blacks MDRD (S/P/Bld) [Vol rate/Area] 77 mL/min/{1.73_m2} Normal >60 [facility] Comment on above: Result Comment: These results are not intended for use in patients <18 years of age. eGFR results are calculated without a race factor using the 2020 CKD-EPI equation. Careful clinical correlation is recommended, particularly when comparing to results calculated using previous equations. The CKD-EPI equation is less accurate in patients with extremes of muscle mass, extra-renal metabolism of creatine, excessive creatine ingestion, or following therapy that affects renal tubular secretion. Performed By: #### C DP, CP #### [facility] [address] [place] [address] Doughnut Machine Operator: Naveen Adam MD #### ACHRGA #### [facility] [address] [place] [address] Doughnut Machine Operator: Ion Franco MD Glucose [Mass/Vol] 84 mg/dL Normal 74-99 [facility] Comment on above: Performed By: #### C DP, CP #### [facility] [address] [place] [address] Doughnut Machine Operator: Naveen Adam MD #### ACHRGA #### [facility] [address] [place] [address] Doughnut Machine Operator: Ion Franco MD Potassium [Moles/Vol] 3.9 mmol/L Normal 3.7-5.3 [facility] Comment on above: Performed By: #### C DP, CP #### [address] [address] Doughnut Machine Operator: Naveen Adam MD #### ACHRGA #### [facility] [address] [place] [address] Doughnut Machine Operator: Ion Franco MD Protein [Mass/Vol] 7.5 g/dL Normal 6.6-8.7 [facility] Comment on above: Performed By: #### C DP, CP #### [address] [address] Doughnut Machine Operator: Naveen Adam MD #### ACHRGA #### [facility] [address] [place] [address] Doughnut Machine Operator: Ion Franco MD Sodium [Moles/Vol] 141 mmol/L Normal 136-145 [facility] Comment on above: Performed By: #### C DP, CP #### [address] [address] Doughnut Machine Operator: Naveen Adam MD #### ACHRGA #### [facility] [address] [place] [address] Doughnut Machine Operator: Ion Franco MD Urea nitrogen [Mass/Vol] 5 mg/dL Low 6-20 [facility] Comment on above: Performed By: #### C DP, CP #### [address] [address] Doughnut Machine Operator: Naveen Adam MD #### ACHRGA #### [facility] [address] [place] [address] Doughnut Machine Operator: Ion Franco MD US PELVIC WITH TRANSVAGINALo n 11-11-2023 US PELVIC WITH TRANSVAGINAL US PELVIC WITH TRANSVAGINAL HISTORY: Adnexal cyst. Follow-up exam. History of hysterectomy and bilateral oophorectomy. COMPARISON: 09/20/2021 TECHNIQUE: Multiplanar transabdominal and transvaginal ultrasonography of the pelvis using grayscale imaging, supplemented by color Doppler as needed. FINDINGS: The uterus is absent consistent was prior hysterectomy. .The right ovary and left ovary are not visualized from prior oophorectomy. However, complex right adnexal lesion is visualized with cystic components measuring 3.6 x 5.7 x 3.7 cm which is not significantly changed since prior study.. No other adnexal masses. No fluid in the cul-de-sac.. IMPRESSION: Stable complex cystic right adnexal lesion since prior study which may represent hemorrhagic cyst/endometrioma. Continued follow-up with pelvic ultrasound in 6 months is suggested Absent uterus and ovaries from prior surgery. .. Finalized by Rustam Cardenas MD on 11/11/2023 6:00 AM [facility] 10-05-2023 L Specimen: [id number] Received: 10/05/23 Status: [facility] Num: [id number] Spec Type: Surgical Subm Dr: Carlos Champagne MD Tissues: A Skin-Other than Cyst, tag, debridement or plastic repair (RIGHT ORTHODOX) Procedures: HE, Gross/Micro L4 Age/ Patient Sex Location Account Attending Physician Jake Arevalo 38/F [place] [id number] Carlos Champagne MD SPEC NUM: [id number] RECD: 10/05/23 STATUS: [facility] NUM: [id number] RUTH: 10/05/23- SUBM DR: Carlos Champagne MD ENTERED: 10/05/[address] [facility] [address]: SPEC TYPE: Surgical DEPT: S ENTERED BY: [id number] RECV BY: [id number] ORDERED: HE, Gross/Micro L4 ORDERED: JESSIE Gross/Micro L4 Pathological Diagnosis Skin, right christianity, excisional biopsy: -Benign large epidermal inclusion cyst, excised Clinical Information Neoplasm of unspecified behavior, mass increasing in size primary biopsy, excisional biopsy Gross Description The specimen was received in formalin with the patient's name and right christianity is an unorientated lorenz-richard ellipse of skin measuring 0.8 x 0.4 and excised to a depth of 0.8 cm. The resection margin is inked black. The specimen is trisected to reveal a cystic cavity filled with cystic debris measuring 0.8 x 0.8 x 0.6 cm. The specimen is entirely submitted in cassette A1. Microscopic Description Microscopic examinations are performed supporting the above interpretation -------- Specimen: [id number] Received: 10/05/23 Status: [facility] A[facility]os Num: [id number] Spec Type: Surgical Subm Dr: Carlos Champagne MD Tissues: A Skin-Other than Cyst, tag, debridement or plastic repair (RIGHT ORTHODOX) Procedures: Kd ROMAN/Micro L4 -------- Patient: Jake Arevalo [id number] (Continued) -------- Specimen: Received: 10/05/23 (Continued) Signed (signature on file) Alvaro Villagran MD 10/13/23 1719 -------- Specimen: Received: 10/05/23 Status: [facility] Magañaismael Num: [id number] Spec Type: Surgical Subm Dr: Carlos Champagne MD Tissues: A Skin-Other than Cyst, tag, debridement or plastic repair (RIGHT ORTHODOX) Procedures: Kd ROMAN/Bebe Matthews -------- Patient: Jake Arevalo [id number] (Continued) -------- Specimen: [id number] Received: 10/05/23 (Continued) CPT Codes 49420 -------- -------- Specimen: [id number] Received: 10/05/23 Status: [facility] Num: [id number] Spec Type: Surgical Subm Dr: Carlos Champagne MD Tissues: A Skin-Other than Cyst, tag, debridement or plastic repair (RIGHT ORTHODOX) Procedures: Kd ROMAN/Bebe L4 -------- Patient: Jake Arevalo [id number] (Continued) -------- Signed (signature on file) Alvaro Villagran MD 10/13/23 3829 Normal [facility] CT ABDOMEN PELVIS W IV CONTR [place] 09-05-2023 CT ABDOMEN PELVIS W IV CONTRAST EXAMINATION: CT OF THE ABDOMEN AND PELVIS WITH CONTRAST 08/31/2023 1:11 pm TECHNIQUE: CT of the abdomen and pelvis was performed with the administration of intravenous contrast. Multiplanar reformatted images are provided for review. Automated exposure control, iterative reconstruction, and/or weight based adjustment of the mA/kV was utilized to reduce the radiation dose to as low as reasonably achievable. COMPARISON: 04/18/2023 PET-CT HISTORY: ORDERING SYSTEM PROVIDED HISTORY: Primary malignant neuroendocrine tumor of duodenum (HCC) TECHNOLOGIST PROVIDED HISTORY: STAT Creatinine as needed:->Yes neuroendocrine tumor small intestine, please compare to previous imaging Reason for Exam: neuroendocrine tumor small intestine, please compare to previous imaging. Primary malignant neuroendocrine tumor of duodenum FINDINGS: Lower Chest: No acute abnormality in the lung bases. No pleural or pericardial effusion. Mild cardiomegaly. 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 No suspicious hepatic lesion. Gallbladder is normal in appearance. Spleen is normal in attenuation and size. Pancreas enhances homogeneously without ductal dilatation or peripancreatic inflammation. Adrenal glands are normal caliber. Kidneys enhance symmetrically and normally without hydronephrosis. 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 Bowel is normal in caliber without obstruction or surrounding inflammatory change. The reported neuroendocrine tumor within the duodenum is not able to be appreciated on this exam. Appendectomy. Pelvis: Hysterectomy. Bilobed right adnexal cyst now measuring up to 4.9 cm transverse by 6.4 cm craniocaudal, not substantially changed in size relative to April 2023. Urinary bladder is nearly empty but otherwise appears grossly unremarkable. Peritoneum/Retroperit oneum: No free fluid, free air, or lymphadenopathy. Normal caliber aorta. Bones/Soft Tissues: No suspicious bony lesions. Postoperative changes along the lower anterior abdominal wall, unchanged. No inguinal adenopathy. IMPRESSION: Reported neuroendocrine tumor of the duodenum is not able to be appreciated on this exam. No findings of metastatic disease. Persistent bilobed right adnexal cyst measuring up to 6.4 cm. Recommend further evaluation with pelvic ultrasound on a routine basis. Interpreted by: Iona Ramirez DO Signed by: Iona Ramirez DO 09/05/23 Final result Normal [facility] Chromogranin Aon 09-02-2023 Chromogranin A 22 ng/mL Normal 0-187 [facility] Comment on above: Result Comment: (NOT E) INTERPRETIVE INFORMATION: Chromogranin A, Serum This test is performed using the [employer] CGA II Kryptor kit. Results obtained with different methods or kits cannot be used interchangeably. Results cannot be interpreted as absolute evidence of the presence or absence of malignant disease and should be evaluated in combination with clinical symptoms, diagnostic evidence, and/or other laboratory parameters. The change of CgA concentration over time provides diagnostic information whether a tumor progression has occurred. An increase of CgA serum concentrations of more than 50% to a value of greater than 100 ng/ml between consecutive monitoring visits defines a positive test result, representing a higher probability that a tumor progression has occurred. A change of CgA serum concentrations of equal or less than 50% increase between monitoring visits or to a value of 100 ng/ml or less defines a negative test result, representing a lower probability that a tumor progression has occurred. Nontumor related elevations of Chromogranin A can be observed in gastrointestinal, cardiovascular, and renal disorders, cancers other than neuroendocrine tumors, as well as with proton pump inhibitor (PPI) therapy. It is recommended to stop PPI treatment for at least 14 days prior to testing. Performed By: [facility] [address] [place] [address] Tool Or Die Drawing Checker: Lorne Alarcon MD, PhD CLIA Number: [id number] Performed By: #### Michael CRAWFORD CP #### [employer] [address] [place] [address] Doughnut Machine Operator: Naveen Adam MD #### VIOLA #### [facility] [address] [place] [address] Doughnut Machine Operator: Ion Franco MD CBC with Auto Differentialon 08-31-2023 Basophils (Bld) [#/Vol] 0.10 10*3/uL [employer] Basophils/100 WBC (Bld) 1 % 0 - 2 % B [facility] [employer] Eosinophils (Bld) [#/Vol] 0.10 10*3/uL [facility] Eosinophils/100 WBC (Bld) 1 % 1 - 4 % [facility] [employer] Erythrocyte distribution width (RBC) [Ratio] 14.0 % 11.8 - 14.4 % [facility] Hematocrit (Bld) [Volume fraction] 38.7 % 36.3 - 47.1 % [facility] Hemoglobin (Bld) [Mass/Vol] 12.6 g/dL 11.9 - 15.1 g/dL [facility] Immature granulocytes (Bld) [#/Vol] 0.00 10*3/uL [facility] Immature granulocytes/100 WBC (Bld) 0 % 0 [facility] Interpretation and review of laboratory results Abnormal [facility] Lymphocytes/100 WBC (Bld) 50 % High 24 - 44 % [facility] Lymphocytes/100 WBC (Bld) 5.16 % High [facility] Comment on above: R/O Chronic Lymphopr oliferative Disorder, recommend peripheral blood Flow Cytometry, if clinically indicated. MCH (RBC) [Entitic mass] 28.3 pg 25.2 - 33.5 pg [facility] MCHC (RBC) [Mass/Vol] 32.6 g/dL 28.4 - 34.8 g/dL [facility] MCV (RBC) [Entitic vol] 87.0 fL 82.6 - 102.9 fL [facility] Monocytes/100 WBC (Bld) 7 % 1 - 7 % B ON [facility] Monocytes/100 WBC (Bld) 0.72 % B ON [facility] Morphology Lenin (Bld) [Interp] Normal [facility] Neutrophils/100 WBC (Bld) 41 % 36 - 66 % [facility] Nucleated RBC/100 WBC (Bld) [Ratio] 0.0 % 0.0 per 100 WBC [facility] Platelet mean volume (Bld) [Entitic vol] 9.3 fL 8.1 - 13.5 fL [facility] Platelets (Bld) [#/Vol] 411 10*3/uL [facility] RBC (Bld) [#/Vol] 4.45 10*6/uL 3.95 - 5.1 1 m/uL [facility] Segmented neutrophils/100 WBC (Bld) 4.22 % [facility] WBC other (Bld) [#/Vol] 10.3 B ON [facility] CBC with Diffon 08-31-2023 Abs. Basophil 0.10 k/uL Normal 0.0-0.2 [facility] Comment on above: Performed By: #### C DP, CP #### [address] [address] Doughnut Machine Operator: Naveen Adam MD #### ACHRGA #### [facility] [address] [place], [place] [id number] Doughnut Machine Operator: Ion Franco MD Abs.Imm.Granulocyte 0.00 k/uL Normal 0.00-0.30 [facility] Comment on above: Performed By: #### C DP, CP #### [place] [address] Doughnut Machine Operator: Naveen Adam MD #### ACHRGA #### [facility] [address] [place] [id number] Doughnut Machine Operator: Ion Franco MD Abs.Neutrophil (Seg) 4.22 k/uL Normal 1.8-7.7 [facility] Comment on above: Performed By: #### C TY, CP #### [address] [address] Doughnut Machine Operator: Naveen Adam MD #### ACHRGA #### [facility] [address] [place], [place] [id number] Doughnut Machine Operator: Ion Franco MD Basophils/100 WBC (Bld) 1 % Normal 0-2 M [facility] Comment on above: Performed By: #### C DP, CP #### [place] [address] Doughnut Machine Operator: Naveen Adam MD #### ACHRGA #### [facility] [address] [place] [address] Doughnut Machine Operator: Ion Franco MD Eosinophils (Bld) [#/Vol] 0.10 10*3/uL Normal 0.0-0.4 [facility] Comment on above: Performed By: #### C DP, CP #### [address] [address] Doughnut Machine Operator: Naveen Adam MD #### ACHRGA #### [facility] [address] [place] [address] Doughnut Machine Operator: Ion Franco MD Eosinophils/100 WBC (Bld) 1 % Normal 1-4 [facility] Comment on above: Performed By: #### C DP, CP #### [place] [address] Doughnut Machine Operator: Naveen Adam MD #### ACHRGA #### [address] [address] Doughnut Machine Operator: Ion Franco MD Immature granulocytes/100 WBC (Bld) 0 % Normal 0 [facility] Comment on above: Performed By: #### C DP, CP #### [address] [address] Doughnut Machine Operator: Naveen Adam MD #### ACHRGA #### [address] [address] Doughnut Machine Operator: Ion Franco MD Lymphocytes (Bld) [#/Vol] 5.16 10*3/uL High 1.0-4.8 [facility] Comment on above: Result Comment: R/O Chronic Lymphoproliferative Disorder, recommend peripheral blood Flow Cytometry, if clinically indicated. Performed By: #### C DP, CP #### [place] [address] Doughnut Machine Operator: Naveen Adam MD #### ACHRGA #### [facility] [address] [place] [address] Doughnut Machine Operator: Ion Franco MD Lymphocytes/100 WBC (Bld) 50 % High 24-44 [facility] Comment on above: Performed By: #### C DP, CP #### [address] [address] Doughnut Machine Operator: Naveen Adam MD #### ACHRGA #### [facility] [address] [place] [address] Doughnut Machine Operator: Ion Franco MD Monocytes (Bld) [#/Vol] 0.72 10*3/uL Normal 0.1-0.8 [facility] Comment on above: Performed By: #### C DP, CP #### [address] [address] Doughnut Machine Operator: Naveen Adam MD #### ACHRGA #### [facility] [address] [place] [address] Doughnut Machine Operator: Ion Franco MD Monocytes/100 WBC (Bld) 7 % Normal 1-7 M [facility] Comment on above: Performed By: #### C DP, CP #### [address] [address] Doughnut Machine Operator: Naveen Adam MD #### ACHRGA #### [facility] [address] [place] [address] Doughnut Machine Operator: Ion Franco MD Morphology Lenin (Bld) [Interp] Normal Normal [facility] Comment on above: Performed By: #### C DP, CP #### [address] [address] Doughnut Machine Operator: Naveen Adam MD #### ACHRGA #### [facility] [address] [place] [address] Doughnut Machine Operator: Ion Franco MD Neutrophil (Seg) 41 % Normal 36-66 [facility] Comment on above: Performed By: #### C DP, CP #### [address] [place] [address] Doughnut Machine Operator: Naveen Adam MD #### ACHRGA #### [facility] [address] [place] [address] Doughnut Machine Operator: Ion Franco MD Erythrocyte distribution width (RBC) [Ratio] 14.0 % Normal 11.8-14.4 [facility] Comment on above: Performed By: #### C DP, CP #### [facility] [address] [place] [address] Doughnut Machine Operator: Naveen Adam MD #### ACHRGA #### [facility] [address] [place] [address] Doughnut Machine Operator: Ion Franco MD Hematocrit (Bld) [Volume fraction] 38.7 % Normal 36.3-47.1 [facility] Comment on above: Performed By: #### C DP, CP #### [address] [address] Doughnut Machine Operator: Naveen Adam MD #### ACHRGA #### [facility] [address] [place] [address] Doughnut Machine Operator: Ion Franco MD Hemoglobin (Bld) [Mass/Vol] 12.6 g/dL Normal 11.9-15.1 [facility] Comment on above: Performed By: #### C DP, CP #### [address] [address] Doughnut Machine Operator: Naveen Adam MD #### ACHRGA #### [facility] [address] [place] [address] Doughnut Machine Operator: Ion Franco MD MCH (RBC) [Entitic mass] 28.3 pg Normal 25.2-33.5 [facility] Comment on above: Performed By: #### C DP, CP #### [address] [address] Doughnut Machine Operator: Naveen Adam MD #### ACHRGA #### [facility] [address] [place] [address] Doughnut Machine Operator: Ion Franco MD MCHC (RBC) [Mass/Vol] 32.6 g/dL Normal 28.4-34.8 [facility] Comment on above: Performed By: #### C DP, CP #### [address] [address] Doughnut Machine Operator: Naveen Adam MD #### ACHRGA #### [facility] [address] [place] [address] Doughnut Machine Operator: Ion Franco MD MCV (RBC) [Entitic vol] 87.0 fL Normal 82.6-102.9 M [facility] Comment on above: Performed By: #### C DP, CP #### [place] [address] Doughnut Machine Operator: Naveen Adam MD #### ACHRGA #### [facility] [address] [place] [address] Doughnut Machine Operator: Ion Franco MD NRBC Automated 0.0 per 100 WBC Normal 0.0 [facility] Comment on above: Performed By: #### C DP, CP #### [address] [address] Doughnut Machine Operator: Naveen Adam MD #### ACHRGA #### [facility] [address] [place] [address] Doughnut Machine Operator: Ion Franco MD Platelet mean volume (Bld) [Entitic vol] 9.3 fL Normal 8.1-13.5 [facility] Comment on above: Performed By: #### C DP, CP #### [place] [address] Doughnut Machine Operator: Naveen Adam MD #### ACHRGA #### [facility] [address] [place] [address] Doughnut Machine Operator: Ion Franco MD Platelets (Bld) [#/Vol] 411 10*3/uL Normal 138-453 [facility] Comment on above: Performed By: #### C DP, CP #### [address] [address] Doughnut Machine Operator: Naveen Adam MD #### ACHRGA #### [facility] [address] [place] [address] Doughnut Machine Operator: Ion Franco MD RBC (Bld) [#/Vol] 4.45 10*6/uL Normal 3.95-5.11 [facility] Comment on above: Performed By: #### C DP, CP #### [address] [address] Doughnut Machine Operator: Naveen Adam MD #### ACHRGA #### [facility] [address] [place] [address] Doughnut Machine Operator: Ion Franco MD WBC (Bld) [#/Vol] 10.3 10*3/uL Normal 3.5-11.3 [facility] Comment on above: Performed By: #### C DP, CP #### [address] [address] Doughnut Machine Operator: Naveen Adam MD #### ACHRGA #### [facility] [address] [place], [place] [id number] Doughnut Machine Operator: Ion Franco MD Comp Metabolic Profon 2023 Albumin [Mass/Vol] 4.5 g/dL Normal 3.5-5.2 [facility] Comment on above: Performed By: #### C DP, CP #### [address] [address] Doughnut Machine Operator: Naveen Adam MD #### ACHRGA #### [facility] [address] [place], [place] [id number] Doughnut Machine Operator: Ion Franco MD ALT [Catalytic activity/Vol] 19 U/L Normal 10-35 [facility] Comment on above: Performed By: #### C DP, CP #### [address] [address] Doughnut Machine Operator: Naveen Adam MD #### ACHRGA #### [facility] [address] [place], [place] [id number] Doughnut Machine Operator: Ion Franco MD Anion gap [Moles/Vol] 11 mmol/L Normal 9-16 [facility] Comment on above: Performed By: #### C DP, CP #### [address] [address] Doughnut Machine Operator: Naveen Adam MD #### ACHRGA #### [facility] [address] [place] [id number] Doughnut Machine Operator: Ion Franco MD AST [Catalytic activity/Vol] 23 U/L Normal 10-35 [facility] Comment on above: Performed By: #### C DP, CP #### [address] [address] Doughnut Machine Operator: Naveen Adam MD #### ACHRGA #### [facility] [address] [place] [address] Doughnut Machine Operator: Ion Franco MD Bilirubin [Mass/Vol] 1.2 mg/dL Normal 0.00-1.20 [facility] Comment on above: Performed By: #### C DP, CP #### [address] [address] Doughnut Machine Operator: Naveen Adam MD #### ACHRGA #### [facility] [facility] [address] [place], [place] [id number] [employer] Operator: Ion Franco MD Calcium [Mass/Vol] 9.4 mg/dL Normal 8.6-10.4 [facility] Comment on above: Performed By: #### C DP, CP #### [facility] [address] [place] [address] [employer]nut Machine Operator: Naveen Adam MD #### ACHRGA #### [facility] [address], [place] [id number] Doughnut Machine Operator: Ion Franco MD Chloride [Moles/Vol] 102 mmol/L Normal 98-107 [facility] Comment on above: Performed By: #### C TY, CP #### [address] [address] Doughnut Machine Operator: Naveen Adam MD #### ACHRGA #### [facility] [address] [place] [id number] [employer] Operator: Ion Franco MD CO2 [Moles/Vol] 27 mmol/L Normal 20-31 [facility] Comment on above: Performed By: #### C TY, CP #### [address] [address] Doughnut Machine Operator: Naveen Adam MD #### ACHRGA #### [facility] [address], [place] [id number] [employer]nut Machine Operator: Ion Franco MD Creatinine [Mass/Vol] 0.9 mg/dL Normal 0.50-0.90 [facility] Comment on above: Performed By: #### C TY, CP #### [address] [address] Doughnut Machine Operator: Naveen Adam MD #### ACHRGA #### [facility] [address] [place] [address] Doughnut Machine Operator: Ion Franco MD Glucose [Mass/Vol] 78 mg/dL Normal 74-99 [facility] Comment on above: Performed By: #### C DP, CP #### [facility] [address] [place] [address] Doughnut Machine Operator: Naveen Adam MD #### ACHRGA #### [facility] [address] [place] [address] Doughnut Machine Operator: Ion Franco MD Potassium [Moles/Vol] 4.3 mmol/L Normal 3.7-5.3 [facility] Comment on above: Performed By: #### C DP, CP #### [facility] [address] [place] [address] D[employer]nut Machine Operator: Naveen Adam MD #### ACHRGA #### [facility] [address] [place] [address] Doughnut Machine Operator: Ion Franco MD Protein [Mass/Vol] 7.7 g/dL Normal 6.6-8.7 [facility] Comment on above: Performed By: #### C DP, CP #### [facility] [address] [place] [address] Doughnut Machine Operator: Naveen Adam MD #### ACHRGA #### [facility] [address] [place] [address] Doughnut Machine Operator: Ion Franco MD Sodium [Moles/Vol] 140 mmol/L Normal 136-145 [facility] Comment on above: Performed By: #### C DP, CP #### [facility] [address] [place] [address] Doughnut Machine Operator: Naveen Adam MD #### ACHRGA #### [facility] [address] [place] [address] Doughnut Machine Operator: Ion Franco MD Urea nitrogen [Mass/Vol] 11 mg/dL Normal 6-20 [facility] Comment on above: Performed By: #### C DP, CP #### [facility] [address] [place] [address] Doughnut Machine Operator: Naveen Adam MD #### ACHRGA #### [facility] [address] [place], [place] [phone] Doughnut Machine Operator: Ion Franco MD Albumin/Glob Ratio 1.0 Normal 1.0-2.5 [facility] Comment on above: Performed By: #### C DP, CP #### [address] [address] Doughnut Machine Operator: Naveen Adam MD #### ACHRGA #### [facility] [address], [place] [id number] Doughnut Machine Operator: Ion Franco MD Alkaline Phos 79 U/L Normal 35-104 [facility] Comment on above: Performed By: #### C DP, CP #### [address] [address] Doughnut Machine Operator: Naveen Adam MD #### ACHRGA #### [facility] [address] [place] [phone] D[employer] Operator: Ion Franco MD GFR/1.73 sq M.predicted among non-blacks MDRD (S/P/Bld) [Vol rate/Area] 83 mL/min/{1.73_m2} Normal >60 [facility] Comment on above: Result Comment: These results are not intended for use in patients <18 years of age. eGFR results are calculated without a race factor using the 2020 CKD-EPI equation. Careful clinical correlation is recommended, particularly when comparing to results calculated using previous equations. The CKD-EPI equation is less accurate in patients with extremes of muscle mass, extra-renal metabolism of creatine, excessive creatine ingestion, or following therapy that affects renal tubular secretion. Performed By: #### C DP, CP #### [address] [address] Doughnut Machine Operator: Naveen Adam MD #### ACHRGA #### [facility] [address] [place] [address] Doughnut Machine Operator: Ion Franco MD Comprehensive Metabolic Pane torrey 08-31-2023 Albumin/Globulin [Mass ratio] 1.0 {ratio} 1.0 - 2.5 [facility] ALP [Catalytic activity/Vol] 79 U/L 35 - 104 U/L [facility] Est, Glom Filt Rate 83 - PINF [facility] Comment on above: These results are not intended for use in patients <18 years of age. eGFR results are calculated without a race factor using the 2020 CKD-EPI equation. Careful clinical correlation is recommended, particularly when comparing to results calculated using previous equations. The CKD-EPI equation is less accurate in patients with extremes of muscle mass, extra-renal metabolism of creatine, excessive creatine ingestion, or following therapy that affects renal tubular secretion. [facility] US THYROIDon 08-23-2023 US THYROID US THYROID CLINICAL INFORMATION: Thyroid goiter. TECHNIQUE: Real time sonography of the thyroid gland performed. COMPARISON: No relevant prior studies available. FINDINGS: Postoperative changes of right hemithyroidectomy. No focal sonographic appearance of soft tissue in the right thyroidectomy bed. Left thyroid lobe measures 5.1 x 2.2 x 1.8 cm. Thyroid isthmus measures 0.3 cm. No visualized thyroid nodules are extra thyroidal abnormality by technique. IMPRESSION: * Postoperative changes of right thyroidectomy. * Unremarkable left thyroid lobe and isthmus, by ultrasound. ACR TI-RADS recommendations: TR5 (greater than or equal to 7 points) - FNA if greater than or equal to 1cm, follow-up ultrasound if nodule is 0.5 - 0.9 cm every year for 5 years. TR4 (4 - 6 points) - FNA if greater than or equal to 1.5 cm, follow-up ultrasound if nodule is 1 -1.4 cm at 1, 2, 3 and 5 years. TR3 (3 points) - FNA if greater than or equal to 2.5 cm, follow-up ultrasound if nodule is 1.5 -2.4 cm at 1, 3 and 5 years. TR2 (2 points) & TR1 (0 points) - No FNA or follow-up. Finalized by Nilson Salomon on 08/23/2023 9:12 AM Normal [facility] Surgical Pathology Reporton 04-28-2023 Surgical Pathology Report (NOTE) Path Number: [id number] -- Diagnosis -- A. 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 -NEGATIVE FOR H. PYLORI ORGANISMS ON BEATRIZ STAIN. B. DUODENUM POST POLYPECTOMY SITE, BIOPSY: -DUODENAL MUCOSA WITH A NORMAL VILLOUS ARCHITECTURE AND NO FEATURES OF CELIAC DISEASE. -NEGATIVE FOR NEOPLASM/MALIGNANCY. Tye Logan M.D. 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 JAKE AREVALO, GASTRIC BIOPSY Received in formalin is one lorenz-white tissue fragment, 0.3 x 0.2 x 0.1 cm. Entirely 1cs. B. JAKE AREVALO, DUODENUM POST POLYPECTOMY SITE BIOPSY Received in formalin are five lorenz-white tissue fragments from < 0.1 to 0.3 cm and are 0.9 x 0.2 x 0.1 cm in aggregate. Entirely 1cs. jj tm Griffin Mcdonald/kb2:05/01/2023 Microscopic Description A, B. Microscopic examination performed. B. Synaptophysin and chromogranin immunostains were performed and reveal no nests of neuroendocrine tumor cells. Controls react as expected. Processing Lab: [address] [id number] Interpretation Performed at [address] [id number] SURGICAL PATHOLOGY CONSULTATION Patient Name: JAKE AREVALO [facility] Rec: [id number] [facility] [employer] [facility] ANATOMIC PATHOLOGY [address] [place] [address]. [place], [place] [address] Normal [facility] Surgical Pathology Report (NOTE) Path Number: [id number] INTERPRETATION FINE NEEDLE ASPIRATION, EUS, DUODENAL MASS: NEGATIVE FOR MALIGNANCY. COMMENT: THE CELL BLOCK CONTAINS A FEW FRAGMENTS OF BLAND FIBROMUSCULAR TISSUE. IMMUNOSTAIN FOR SYNAPTOPHYSIN (CONTROL APPROPRIATE) IS NEGATIVE FOR NEUROENDOCRINE NEOPLASM. Electronically Signed Out Vidal Rivas M.D. 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 Gross Description DUODENAL MASS Specimen received in CytoLyt solution, light red fluid. MICROSCOPIC DESCRIPTION Microscopic examination performed. Non Insole Stiffener Thin Prep x 1, Cell Block w/ BEATRIZ x 1, Synapto (no charge) x 1, Ki67 (no charge) x 1 Processing Lab: [address] [id number] Interpretation performed at [address] [address] NONGYNECOLOGICAL CYTOPATHOLOGY CONSULTATION Patient Name: JAKE AREVALO [facility] Rec: [id number] [facility] [employer] [facility] ANATOMIC PATHOLOGY [address] [facility]. [place], [place] [address] Normal [facility] Chromogranin Aon 04-20-2023 Chromogranin A 29 ng/mL Normal 0-187 [facility] Comment on above: Result Comment: (NOT E) INTERPRETIVE INFORMATION: Chromogranin A, Serum This test is performed using the [employer] CGA II Kryptor kit. Results obtained with different methods or kits cannot be used interchangeably. Results cannot be interpreted as absolute evidence of the presence or absence of malignant disease and should be evaluated in combination with clinical symptoms, diagnostic evidence, and/or other laboratory parameters. The change of CgA concentration over time provides diagnostic information whether a tumor progression has occurred. An increase of CgA serum concentrations of more than 50% to a value of greater than 100 ng/ml between consecutive monitoring visits defines a positive test result, representing a higher probability that a tumor progression has occurred. A change of CgA serum concentrations of equal or less than 50% increase between monitoring visits or to a value of 100 ng/ml or less defines a negative test result, representing a lower probability that a tumor progression has occurred. Nontumor related elevations of Chromogranin A can be observed in gastrointestinal, cardiovascular, and renal disorders, cancers other than neuroendocrine tumors, as well as with proton pump inhibitor (PPI) therapy. It is recommended to stop PPI treatment for at least 14 days prior to testing. Performed by [employer], [address] [place] [id number] [email or web address], Ion Franco MD, Lab. Director CLIA Number: [id number] Performed By: #### C DP, CP #### [address] [address] Doughnut Machine Operator: Naveen Adam MD #### ACHRGA #### [employer] [address] [address] Doughnut Machine Operator: Ion Franco MD CBC with Diffon 04-18-2023 Abs. Basophil 0.07 k/uL Normal 0.00-0.20 [facility] Comment on above: Performed By: #### C DP, CP #### [address] [address] Doughnut Machine Operator: Naveen Adam MD #### ACHRGA #### [address] [address] Doughnut Machine Operator: Ion Franco MD Abs.Imm.Granulocyte <0.03 Normal 0.00-0.30 [facility] Comment on above: Performed By: #### C DP, CP #### [address] [address] Doughnut Machine Operator: Naveen Adam MD #### ACHRGA #### [facility] [employer] [address] [place] [address] Doughnut Machine Operator: Ion Franco MD Abs.Neutrophil (Seg) 5.11 k/uL Normal 1.50-8.10 [facility] Comment on above: Performed By: #### C DP, CP #### [address] [address] Doughnut Machine Operator: Naveen Adam MD #### ACHRGA #### [facility] [address] [place] [address] Doughnut Machine Operator: Ion Franco MD Basophils/100 WBC (Bld) 1 % Normal 0-2 [facility] Comment on above: Performed By: #### C DP, CP #### [address] [address] Doughnut Machine Operator: Naveen Adam MD #### ACHRGA #### [facility] [address] [place] [address] Doughnut Machine Operator: Ion Franco MD Eosinophils (Bld) [#/Vol] 0.08 10*3/uL Normal 0.00-0.44 [facility] Comment on above: Performed By: #### C DP, CP #### [address] [address] Doughnut Machine Operator: Naveen Adam MD #### ACHRGA #### [facility] [address] [place] [address] Doughnut Machine Operator: Ion Franco MD Eosinophils/100 WBC (Bld) 1 % Normal 1-4 [facility] Comment on above: Performed By: #### C DP, CP #### [address] [address] Doughnut Machine Operator: Naveen Adam MD #### ACHRGA #### [facility] [address] [place] [address] Doughnut Machine Operator: Ion Franco MD Erythrocyte distribution width (RBC) [Ratio] 13.9 % Normal 11.8-14.4 [facility] Comment on above: Performed By: #### C DP, CP #### [address] [address] Doughnut Machine Operator: Naveen Adam MD #### ACHRGA #### [facility] [address] [place] [address] Doughnut Machine Operator: Ion Franco MD Hematocrit (Bld) [Volume fraction] 40.6 % Normal 36.3-47.1 [facility] Comment on above: Performed By: #### C DP, CP #### [address] [address] Doughnut Machine Operator: Naveen Adam MD #### ACHRGA #### [facility] [address] [place] [address] Doughnut Machine Operator: Ion Franco MD Hemoglobin (Bld) [Mass/Vol] 13.3 g/dL Normal 11.9-15.1 [facility] Comment on above: Performed By: #### C DP, CP #### [address] [address] Doughnut Machine Operator: Naveen Adam MD #### ACHRGA #### [facility] [address] [place] [address] Doughnut Machine Operator: Ion Franco MD Immature granulocytes/100 WBC (Bld) 0 % Normal 0 [facility] Comment on above: Performed By: #### C DP, CP #### [address] [address] Doughnut Machine Operator: Naveen Adam MD #### ACHRGA #### [facility] [address] [place] [address] Doughnut Machine Operator: Ion Franco MD Lymphocytes (Bld) [#/Vol] 3.25 10*3/uL Normal 1.10-3.70 [facility] Comment on above: Performed By: #### C DP, CP #### [address] [address] Doughnut Machine Operator: Naveen Adam MD #### ACHRGA #### [facility] [address] [place] [address] Doughnut Machine Operator: Ion Franco MD Lymphocytes/100 WBC (Bld) 36 % Normal 24-43 [facility] Comment on above: Performed By: #### C DP, CP #### [address] [id number] Doughnut Machine Operator: Naveen Adam MD #### ACHRGA #### [facility] [address] [place], [place] [id number] Doughnut Machine Operator: Ion Franco MD MCH (RBC) [Entitic mass] 28.6 pg Normal 25.2-33.5 [facility] Comment on above: Performed By: #### C TY, CP #### [place] [address] Doughnut Machine Operator: Naveen Adam MD #### ACHRGA #### [facility] [address] [place] [address] Doughnut Machine Operator: Ion Franco MD MCHC (RBC) [Mass/Vol] 32.8 g/dL Normal 28.4-34.8 [facility] Comment on above: Performed By: #### C TY, CP #### [place] [address] Doughnut Machine Operator: Naveen Adam MD #### ACHRGA #### [facility] [address], [place] [id number] Doughnut Machine Operator: Ion Franco MD MCV (RBC) [Entitic vol] 87.3 fL Normal 82.6-102.9 M [facility] Comment on above: Performed By: #### C TY, CP #### [place] [address] Doughnut Machine Operator: Naveen Adam MD #### ACHRGA #### [facility] [address] [place], [place] [id number] Doughnut Machine Operator: Ion Franco MD Monocytes (Bld) [#/Vol] 0.55 10*3/uL Normal 0.10-1.20 [facility] Comment on above: Performed By: #### C DP, CP #### [address] [address] Doughnut Machine Operator: Naveen Adam MD #### ACHRGA #### [facility] [address] [place], [place] [id number] Doughnut Machine Operator: Ion Franco MD Monocytes/100 WBC (Bld) 6 % Normal 3-12 M [facility] Comment on above: Performed By: #### C DP, CP #### [place] [address] Doughnut Machine Operator: Naveen Adam MD #### ACHRGA #### [facility] [address] [place], [place] [id number] Doughnut Machine Operator: Ion Franco MD Neutrophil (Seg) 56 % Normal 36-65 [facility] Comment on above: Performed By: #### C DP, CP #### [place] [address] Doughnut Machine Operator: Naveen Adam MD #### ACHRGA #### [facility] [address] [place], [place] [id number] Doughnut Machine Operator: Ion Franco MD NRBC Automated 0.0 per 100 WBC Normal 0.0 [facility] Comment on above: Performed By: #### C DP, CP #### [place] [address] Doughnut Machine Operator: Naveen Adam MD #### ACHRGA #### [facility] [address] [place] [address] Doughnut Machine Operator: Ion Franco MD Platelet mean volume (Bld) [Entitic vol] 9.2 fL Normal 8.1-13.5 [facility] Comment on above: Performed By: #### C DP, CP #### [facility] [place] [address] Doughnut Machine Operator: Naveen Adam MD #### ACHRGA #### [facility] [address] [place], [place] [id number] Doughnut Machine Operator: Ion Franco MD Platelets (Bld) [#/Vol] 406 10*3/uL Normal 138-453 [facility] Comment on above: Performed By: #### C DP, CP #### [address] [address] Doughnut Machine Operator: Naveen Adam MD #### ACHRGA #### [facility] [address] [place], [place] [id number] Doughnut Machine Operator: Ion Franco MD RBC (Bld) [#/Vol] 4.65 10*6/uL Normal 3.95-5.11 [facility] Comment on above: Performed By: #### C DP, CP #### [address] [address] Doughnut Machine Operator: Naveen Adam MD #### ACHRGA #### [facility] [address] [place], [place] [phone] Doughnut Machine Operator: Ion Franco MD WBC (Bld) [#/Vol] 9.1 10*3/uL Normal 3.5-11.3 [facility] Comment on above: Performed By: #### C DP, CP #### [address] [address] Doughnut Machine Operator: Naveen Adam MD #### ACHRGA #### [facility] [address] [place], [place] [id number] Doughnut Machine Operator: Ion Franco MD Comp Metabolic Profon 2023 Albumin [Mass/Vol] 4.3 g/dL Normal 3.5-5.2 [facility] Comment on above: Performed By: #### C DP, CP #### [address] [address] Doughnut Machine Operator: Naveen Adam MD #### ACHRGA #### [facility] [address] [place], [place] [id number] Doughnut Machine Operator: Ion Franco MD Albumin/Glob Ratio 1.0 Normal 1.0-2.5 [facility] Comment on above: Performed By: #### C DP, CP #### [address] [address] Doughnut Machine Operator: Naveen Adam MD #### ACHRGA #### [facility] [address] [place], [place] [phone] Doughnut Machine Operator: Ion Franco MD Alkaline Phos 80 U/L Normal 35-104 [facility] Comment on above: Performed By: #### C DP, CP #### [address] [address] Doughnut Machine Operator: Naveen Adam MD #### ACHRGA #### [facility] [address] [place], [place] [id number] Doughnut Machine Operator: Ion Franco MD ALT [Catalytic activity/Vol] 18 U/L Normal 10-35 [facility] Comment on above: Performed By: #### C DP, CP #### [address] [address] Doughnut Machine Operator: Naveen Adam MD #### ACHRGA #### [facility] [address] [place], [place] [id number] Doughnut Machine Operator: Ion Franco MD Anion gap [Moles/Vol] 12 mmol/L Normal 9-16 [facility] Comment on above: Performed By: #### C DP, CP #### [address] [address] Doughnut Machine Operator: Naveen Adam MD #### ACHRGA #### [facility] [address] [place] [address] Doughnut Machine Operator: Ion Franco MD AST [Catalytic activity/Vol] 21 U/L Normal 10-35 [facility] Comment on above: Performed By: #### C DP, CP #### [address] [address] Doughnut Machine Operator: Naveen Adam MD #### ACHRGA #### [facility] [address] [place], [place] [id number] Doughnut Machine Operator: Ion Franco MD Bilirubin [Mass/Vol] 0.8 mg/dL Normal 0.00-1.20 [facility] Comment on above: Performed By: #### C DP, CP #### [address] [address] Doughnut Machine Operator: Naveen Adam MD #### ACHRGA #### [facility] [address] [place], [place] [id number] Doughnut Machine Operator: Ion Franco MD Calcium [Mass/Vol] 9.3 mg/dL Normal 8.6-10.4 [facility] Comment on above: Performed By: #### C DP, CP #### [address] [address] Doughnut Machine Operator: Naveen Adam MD #### ACHRGA #### [facility] [address] [place], [place] [id number] Doughnut Machine Operator: Ion Franco MD Chloride [Moles/Vol] 104 mmol/L Normal 98-107 [facility] Comment on above: Performed By: #### C DP, CP #### [address] [address] Doughnut Machine Operator: Naveen Adam MD #### ACHRGA #### [facility] [address] [place] [address] Doughnut Machine Operator: Ion Franco MD CO2 [Moles/Vol] 26 mmol/L Normal 20-31 [facility] Comment on above: Performed By: #### C DP, CP #### [address] [address] Doughnut Machine Operator: Naveen Adam MD #### ACHRGA #### [facility] [address] [place] [address] Doughnut Machine Operator: Ion Franco MD Creatinine [Mass/Vol] 0.9 mg/dL Normal 0.50-0.90 [facility] Comment on above: Performed By: #### C TY, CP #### [address] [id number] Doughnut Machine Operator: Naveen Adam MD #### ACHRGA #### [facility] [address] [place] [address] Doughnut Machine Operator: Ion Franco MD GFR/1.73 sq M.predicted among non-blacks MDRD (S/P/Bld) [Vol rate/Area] mL/min/{1.73_m2} Normal >60 [facility] Comment on above: Result Comment: These results are not intended for use in patients <18 years of age. eGFR results are calculated without a race factor using the 2020 CKD-EPI equation. Careful clinical correlation is recommended, particularly when comparing to results calculated using previous equations. The CKD-EPI equation is less accurate in patients with extremes of muscle mass, extra-renal metabolism of creatine, excessive creatine ingestion, or following therapy that affects renal tubular secretion. Performed By: #### C TY, CP #### [address] [address] [employer] Operator: Naveen Adam MD #### ACHRGA #### [facility] [address] [place] [address] Doughnut Machine Operator: Ion Franco MD Glucose [Mass/Vol] 89 mg/dL Normal 74-99 [facility] Comment on above: Performed By: #### C DP, CP #### [address] [address] Doughnut Machine Operator: Naveen Adam MD #### ACHRGA #### [facility] [address] [place] [address] Doughnut Machine Operator: Ion Franco MD Potassium [Moles/Vol] 4.1 mmol/L Normal 3.7-5.3 [facility] Comment on above: Performed By: #### C DP, CP #### [address] [address] Doughnut Machine Operator: Naveen Adam MD #### ACHRGA #### [facility] [address] [place] [phone] [employer] Operator: Ion Franco MD Protein [Mass/Vol] 7.6 g/dL Normal 6.6-8.7 [facility] Comment on above: Performed By: #### C DP, CP #### [address] [address] D[employer]nut Machine Operator: Naveen Adam MD #### ACHRGA #### [facility] [address] [place] [id number] [employer] Operator: Ion Franco MD Sodium [Moles/Vol] 142 mmol/L Normal 136-145 [facility] Comment on above: Performed By: #### C DP, CP #### [address] [address] Doughnut [employer] Operator: Naveen Adam MD #### ACHRGA #### [facility] [address] [place] [address] Doughnut Machine Operator: Ion Franco MD Urea nitrogen [Mass/Vol] 8 mg/dL Normal 6-20 [facility] Comment on above: Performed By: #### C DP, CP #### [employer] [address] [place] [address] Doughnut Machine Operator: Naveen Adam MD #### DESHAWNGA #### [facility] [employer] [address] [place] [address] Doughnut Machine Operator: Ion Franco MD PET CT TUMOR IMAGE SKULL THI GH DOTATATEon 04-18-[address] TUMOR IMAGE SKULL THIGH DOTATATE EXAMINATION: WHOLE BODY PET/CT 04/18/2023 TECHNIQUE: Following IV injection of 4.6 mCi of gallium 68 Dotatate, PET tumor imaging was acquired from the base of the skull to the mid thighs. Computed tomography was used for purposes of attenuation correction and anatomic localization. Fusion imaging was utilized for interpretation. Uptake time 60 min. 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 FINDINGS: HEAD/NECK: There is significant change in head position between the CT and PET imaging, limiting evaluation, although the activity appears to be physiologic. CHEST: No DOTATATE avid pulmonary nodules or lymphadenopathy. ABDOMEN/PELVIS: There is heterogeneous activity along the duodenum. Physiologic activity within the liver, spleen, kidneys, and bowel. No DOTATATE activity associated with a 5.1 x 4.6 cm soft tissue density right adnexal mass. Status post hysterectomy. BONES/SOFT TISSUE: No abnormal activity within the bones. INCIDENTAL CT FINDINGS: Postsurgical changes at the stomach. IMPRESSION: 1. Heterogeneous activity along the duodenum may be physiologic, but could represent the duodenal tumor. 2. No DOTATATE avid metastatic disease. 3. 5.1 cm right adnexal soft tissue density mass without activity. This could be the ovary including the possibility of an ovarian cyst. If this has not been evaluated elsewhere, consider pelvic ultrasound. Patient appears to be status post hysterectomy. Interpreted by: Erasmo Baltazar MD Signed by: Erasmo Baltazar MD 04/18/23 Final result Normal [facility] 1. Heterogeneous activity along the duodenum may be physiologic, but could represent the duodenal tumor. 2. No DOTATATE avid metastatic disease. 3. 5.1 cm right adnexal soft tissue density mass without activity. This could be the ovary including the possibility of an ovarian cyst. If this has not been evaluated elsewhere, consider pelvic ultrasound. Patient appears to be status post hysterectomy. [facility] EXAMINATION: WHOLE BODY PET/CT 04/18/2023 TECHNIQUE: Following IV injection of 4.6 mCi of gallium 68 Dotatate, PET tumor imaging was acquired from the base of the skull to the mid thighs. Computed tomography was used for purposes of attenuation correction and anatomic localization. Fusion imaging was utilized for interpretation. Uptake time 60 min. 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 FINDINGS: HEAD/NECK: There is significant change in head position between the CT and PET imaging, limiting evaluation, although the activity appears to be physiologic. CHEST: No DOTATATE avid pulmonary nodules or lymphadenopathy. ABDOMEN/PELVIS: There is heterogeneous activity along the duodenum. Physiologic activity within the liver, spleen, kidneys, and bowel. No DOTATATE activity associated with a 5.1 x 4.6 cm soft tissue density right adnexal mass. Status post hysterectomy. BONES/SOFT TISSUE: No abnormal activity within the bones. INCIDENTAL CT FINDINGS: Postsurgical changes at the stomach. [facility] Erasmo Baltazar MD - 04/18/2023 EXAMINATION: WHOLE BODY PET/CT 04/18/2023 TECHNIQUE: Following IV injection of 4.6 mCi of gallium 68 Dotatate, PET tumor imaging was acquired from the base of the skull to the mid thighs. Computed tomography was used for purposes of attenuation correction and anatomic localization. Fusion imaging was utilized for interpretation. Uptake time 60 min. 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 FINDINGS: HEAD/NECK: There is significant change in head position between the CT and PET imaging, limiting evaluation, although the activity appears to be physiologic. CHEST: No DOTATATE avid pulmonary nodules or lymphadenopathy. ABDOMEN/PELVIS: There is heterogeneous activity along the duodenum. Physiologic activity within the liver, spleen, kidneys, and bowel. No DOTATATE activity associated with a 5.1 x 4.6 cm soft tissue density right adnexal mass. Status post hysterectomy. BONES/SOFT TISSUE: No abnormal activity within the bones. INCIDENTAL CT FINDINGS: Postsurgical changes at the stomach. IMPRESSION: 1. Heterogeneous activity along the duodenum may be physiologic, but could represent the duodenal tumor. 2. No DOTATATE avid metastatic disease. 3. 5.1 cm right adnexal soft tissue density mass without activity. This could be the ovary including the possibility of an ovarian cyst. If this has not been evaluated elsewhere, consider pelvic ultrasound. Patient appears to be status post hysterectomy. [facility] [employer] [facility] Radiology Study observation (narrative) [facility] PET CT TUMOR IMAGE SKULL THI GH DOTATATEOrdered By: Erasmo Baltazar on 04-18-2023 [facility] Work Phone: Surgical Pathology Reporton 03-28-2023 Surgical Pathology Report (NOTE) Path Number: [id number] -- Diagnosis -- DUODENAL POLYP, POLYPECTOMY: -WELL-DIFFERENTIATED NEUROENDOCRINE TUMOR, GRADE 1, INVADING THE SUBMUCOSA -TUMOR FOCALLY EXTENDS TO THE DEEP CAUTERIZED MARGIN Gordy Clark D.O. Electronically Signed Out lj/03/29/2023 Clinical Information Pre-Op Diagnosis: EPIGASTRIC ABDOMINAL PAIN Operative Findings: DUODENAL POLYP Operation Performed: EGD BIOPSY kb Source of Specimen A: DUODENAL POLYP Gross Description JAKE AREVALO, DUODENAL POLYP Received in formalin is a 0.8 x 0.7 x 0.3 cm polypoid portion of lorenz tissue, inked and trisected. Entirely 1cs. jj tm Tye Logan M.D./kb2:03/28/2023 Microscopic Description Polypoid shaped portions of duodenal type mucosa are noted. Within the submucosa a proliferation of Jean glands are noted. The mucosa demonstrates nests of cells with somewhat monotonous oval shaped nuclei and moderate amounts of cytoplasm. Within this region no significant cytologic atypia or increased mitotic activity is noted. Immunostains for synaptophysin and chromogranin show strong positive staining. Ki-67 immunostaining demonstrates less than 3% staining within the cells of interest (all controls adequate) PROCEDURE: Polypectomy TUMOR SITE: Duodenum HISTOLOGIC TYPE AND GRADE: Well-differentiated neuroendocrine tumor MITOTIC RATE (PER 10 HPF): Less than 2 per 2 mm2 KI-67 LABELING INDEX (%): Less than 3% TUMOR SIZE: 6 mm TUMOR FOCALITY: Unifocal TUMOR EXTENSION-SMALL INTESTINE: Invades the submucosa TUMOR EXTENSION-AMPULLA: Not applicable LYMPHOVASCULAR INVASION: Not identified MARGINS (IF ALL NEGATIVE, DISTANCE TO CLOSEST): Tumor focally noted at deep cauterized margin LYMPH NODES: - NUMBER EXAMINED: 0 - NUMBER INVOLVED: Not applicable DISTANT MESTASIS: Not applicable -DISTANT SITE(S) INVOLVED, IF APPLICABLE: Not applicable PATHOLOGIC STAGE CLASSIFICATION: pT1, pN not assigned, pM not applicable CAP Duodenum/AmpullaNET 2.0.0.0 . Processing Lab: [address] [address] Interpretation Performed at [address] [address] SURGICAL PATHOLOGY CONSULTATION Patient Name: JAKE AREVALO [facility] Rec: [id number] [facility] [employer] CON[facility] PATHOLOGISTS [facility] ANATOMIC PATHOLOGY [address] [place] [id number] [facility] Surgical Pathology Reporton 03-08-2023 Surgical Pathology Report (NOTE) Path Number: [id number] -- Diagnosis -- DUODENAL POLYP, BIOPSY: -WELL-DIFFERENTIATED NEUROENDOCRINE TUMOR (GRADE 1). Tye Logan M.D. Electronically Signed Out riya/03/09/2023 Clinical Information Pre-Op Diagnosis: ABDOMINAL PAIN, EPIGASTRIC Operative Findings: DUODENUM POLYP TO CHECK FOR CARCINOID Operation Performed: EGD BIOPSY kb Source of Specimen A: DUODENAL POLYP TO CHECK FOR CARCINOID Gross Description AMANDA BELLE POLYP Received in formalin are two lorenz-white tissue fragments from 0.2 to 0.3 cm and are 0.5 x 0.2 x 0.1 cm in aggregate. Entirely 1cs. venu Clark D.O./kb2:03/08/2023 Microscopic Description Microscopic examination performed. Sections show duodenal mucosa with nests of cells with uniform nuclei and eosinophilic to clear cytoplasm within the lamina propria. No mitotic figures identified. Immunostains were performed to better characterize these cells. These cells are positive for synaptophysin and chromogranin immunostains. Ki-67 shows less than 1% nuclear staining. Controls react as expected. This immunoprofile supports a diagnosis of a well-differentiated neuroendocrine tumor, grade 1. For quality systems specialist, slides also reviewed by additional pathologist (Dr. Watts), who concurs with the diagnosis. Processing Lab: [address] [phone] Interpretation Performed at [address] [phone] SURGICAL PATHOLOGY CONSULTATION Patient Name: JAKE AREVALO [facility] Rec: [id number] [facility] ANATOMIC PATHOLOGY [facility]. [place], [place] [address] Normal [facility] XR KNEE RT 3 VWSon 4 XR KNEE RT 3 VWS XR KNEE RT 3 VWS CLINICAL INFORMATION: Acute right knee pain. TECHNIQUE: Right knee, 3 views. COMPARISON: None. FINDINGS No fracture or malalignment. No radiopaque foreign body or periosteal reaction. Moderate joint effusion. IMPRESSION: * Moderate joint effusion without radiographic evidence of osseous pathology. Approved by Resident Alden Jarvis MD on 03/04/2023 12:48 PM I, Elizabeth Whitlock MD have personally reviewed the image(s) and agree with and/or edited the report Finalized by Elizabeth Whitlock MD on 03/04/2023 12:50 PM Normal [facility] CBC AND AUTO DIFFon 03-03-19 24 ABSOLUTE BASOPHIL 0.1 X10E9/L Normal 0.0-0.2 [facility] Comment on above: Performed By: #### C BCA, CMP #### [facility] ([id number]) [address], [address] [place] [address] ABSOLUTE NEUTROPHIL 5.0 X10E9/L Normal 1.5-6.6 [facility] Comment on above: Performed By: #### C BCA, CMP #### [facility] ([id number]) [address], [address] [place] [address] Basophils/100 WBC (Bld) 0.7 % Normal P [facility] Comment on above: Performed By: #### C NAOMI, CMP #### [facility] ([id number]) [address] [address] [place] [address] Eosinophils (Bld) [#/Vol] 0.1 10*3/uL Normal 0.0-0.4 [facility] Comment on above: Performed By: #### C BCA, CMP #### [facility] ([id number]) [address] [address] [place] [address] Eosinophils/100 WBC (Bld) 1.0 % Normal [facility] Comment on above: Performed By: #### C BCA, CMP #### [facility] ([id number]) [address] [address] [place] [address] Erythrocyte distribution width (RBC) [Ratio] 13.9 % Normal 11.5-15.0 [facility] Comment on above: Performed By: #### C NAOMI, CMP #### [facility] ([id number]) [address] [address] [place] [address] Hematocrit (Bld) [Volume fraction] 38.8 % Normal 35-47 [facility] Comment on above: Performed By: #### C BCA, CMP #### [facility] ([id number]) [address] [address] [place] [address] Hemoglobin (Bld) [Mass/Vol] 13.0 g/dL Normal 11.7-15.5 [facility] Comment on above: Performed By: #### C BCA, CMP #### [facility] ([id number]) [address] [address] [place] [address] Lymphocytes (Bld) [#/Vol] 3.3 10*3/uL Normal 1.0-3.5 [facility] Comment on above: Performed By: #### C BCA, CMP #### [facility] ([id number]) [address] [place] [address] Lymphocytes/100 WBC (Bld) 36.7 % Normal [facility] Comment on above: Performed By: #### C BCA, CMP #### [facility] ([id number]) [address] [place] [address] MCH (RBC) [Entitic mass] 28.6 pg Normal 27-34 [facility] Comment on above: Performed By: #### C NAOMI, CMP #### [facility] ([id number]) [address] [place] [address] MCHC (RBC) [Mass/Vol] 33.4 g/dL Normal 32-36 [facility] Comment on above: Performed By: #### C NAOMI, CMP #### [facility] ([id number]) [address] [place] [address] MCV (RBC) [Entitic vol] 86 fL Normal 80-100 [facility] Comment on above: Performed By: #### C NAOMI, CMP #### [facility] ([id number]) [address] [place] [address] Monocytes (Bld) [#/Vol] 0.5 10*3/uL Normal 0-0.9 [facility] Comment on above: Performed By: #### C BCA, CMP #### [facility] ([id number]) [address] [place] [address] Monocytes/100 WBC (Bld) 5.4 % Normal [facility] Comment on above: Performed By: #### C BCA, CMP #### [facility] ([id number]) [address] [place] [address] Neutrophils/100 WBC (Bld) 56.2 % Normal [facility] Comment on above: Performed By: #### C BCA, CMP #### [facility] ([id number]) [address] [place] [address] Platelet mean volume (Bld) [Entitic vol] 7.0 fL Normal 7-12 [facility] Comment on above: Performed By: #### C BCA, CMP #### [facility] ([id number]) [address] [place] [address] Platelets (Bld) [#/Vol] 407 10*3/uL Normal 150-450 [facility] Comment on above: Performed By: #### C BCA, CMP #### [facility] ([id number]) [address] [place] [address] RBC COUNT 4.53 X10E12/L Normal 3.80-5.20 [facility] Comment on above: Performed By: #### C BCA, CMP #### [facility] ([id number]) [address] [place] [address] WBC (Bld) [#/Vol] 8.9 10*3/uL Normal 4.0-11.0 [facility] Comment on above: Performed By: #### C BCA, CMP #### [facility] ([id number]) [address] [place] [address] COMPREHENSIVE METABOLIC PANE Torrey 03-03-2023 Albumin [Mass/Vol] 4.2 g/dL Normal 3.2-5.3 [facility] Comment on above: Performed By: #### C BCA, CMP #### [facility] ([id number]) [address] [place] [address] ALP [Catalytic activity/Vol] 72 U/L Normal 39-130 [facility] Comment on above: Performed By: #### C BCA, CMP #### [facility] ([id number]) [address] [place] [address] ALT [Catalytic activity/Vol] 19 U/L Normal 0-31 [facility] Comment on above: Performed By: #### C BCA, CMP #### [facility] ([id number]) [address] [place] [address] Anion gap [Moles/Vol] 7 mmol/L Normal 5-15 [facility] Comment on above: Performed By: #### C BCA, CMP #### [facility] ([id number]) [address] [place] [address] AST [Catalytic activity/Vol] 18 U/L Normal 0-41 [facility] Comment on above: Performed By: #### C BCA, CMP #### [facility] ([id number]) [address] [place] [address] Bilirubin [Mass/Vol] 0.9 mg/dL Normal 0.3-1.2 [facility] Comment on above: Performed By: #### C BCA, CMP #### [facility] ([id number]) [address] [place] [address] Calcium [Mass/Vol] 9.2 mg/dL Normal 8.5-10.5 [facility] Comment on above: Performed By: #### C BCA, CMP #### [facility] ([id number]) [address] [place] [address] Chloride [Moles/Vol] 102 mmol/L Normal 98-109 [facility] Comment on above: Performed By: #### C BCA, CMP #### [facility] ([id number]) [address] [place] [address] CO2 [Moles/Vol] 30 mmol/L Normal 22-32 [facility] Comment on above: Performed By: #### C BCA, CMP #### [facility] ([id number]) [address] [place] [address] Creatinine [Mass/Vol] 0.78 mg/dL Normal 0.40-1.00 [facility] Comment on above: Result Comment: METH OD TRACEABLE TO IDMS STANDARD Performed By: #### C BCA, CMP #### [facility] ([id number]) [address] [place] [address] eGFR (CKD-EPI) NON-RACE DEPENDENT >90 Normal >59 [facility] Comment on above: Result Comment: Reported eGFR is based on the CKD-EPI 2020 equation that does not use a race coefficient. Performed By: #### C BCA, CMP #### [facility] ([id number]) [address] [place] [address] Glucose [Mass/Vol] 77 mg/dL Normal 65-99 [facility] Comment on above: Performed By: #### C BCA, CMP #### [facility] ([id number]) [address] [place] [address] Potassium [Moles/Vol] 3.6 mmol/L Normal 3.5-5.0 [facility] Comment on above: Performed By: #### C BCA, CMP #### [facility] ([id number]) [address] [place] [address] Protein [Mass/Vol] 7.2 g/dL Normal 6.0-8.0 [facility] Comment on above: Performed By: #### C BCA, CMP #### [facility] ([id number]) [address] [place] [address] Sodium [Moles/Vol] 139 mmol/L Normal 134-146 [facility] Comment on above: Performed By: #### C BCA, CMP #### [facility] ([id number]) [address] [place] [address] Urea nitrogen [Mass/Vol] 10 mg/dL Normal 5-23 [facility] Comment on above: Performed By: #### C BCA, CMP #### [facility] ([id number]) [address] [facility] [place] [address] COVID-19 Positive/NegativeOr dered By: NON STAFF on 05-30-2022 SARS-CoV-2 (COVID-19) N gene CHASE+probe Ql (Resp) Negative Negative [facility] Comment on above: Testing for SARS-CoV -2 by RT-PCRThis test was developed and its performance characteristics determined by [employer] ([employer]) and validated at the [facility]. This test has not been FDA cleared or approved. This test has been authorized by FDA under an Emergency Use Authorization (EUA). This test has been validated in accordance with the FDA's Guidance Document (Policy for Diagnostics Testing in Laboratories Certified to Perform High Complexity Testing under CLIA prior to Emergency Use Authorization for Coronavirus Disease-2019 during the Public Health Emergency) issued on May 09, 2019. This test is only authorized for the duration of time the declaration that circumstances exist justifying the authorization of the emergency use of in vitro diagnostic tests for detection of SARS-CoV-2 virus and/or diagnosis of COVID-19 infection under section 564(b)(1) of the Act, 21 U.S.C. 360bbb-3(b)(1), unless the authorization is terminated or revoked sooner. Laboratory - Microbiology an d Antimicrobial susceptibilityOrdered By: NON STAFF on 05-30-2022 SARS-CoV-2 (COVID-19) RNA CHASE+probe Ql (Unsp spec) N/A [facility] CARDIAC JOSE J 3-6on 2 CK [Catalytic activity/Vol] 92 U/L Normal 26-192 [facility] Comment on above: Performed By: #### C MREP #### [facility] [address] [place], [place] [address] Dr. Felix Villagran CK.MB [Mass/Vol] 0.53 ng/mL Normal <=3.60 [facility] Comment on above: Performed By: #### C MREP #### [facility] [address] [place] [address] Dr. Felix Villagran HSTROP 3.5 pg/mL Critically low 4.0-51.3 [facility] Comment on above: Result Comment: CUT- OFF POINTS HAVE BEEN ESTABLISHED BASED ON THE FOURTH UNIVERSAL DEFINITIONS OF MYOCARDIAL INFARCTION. THE UPPER REFERENCE LIMIT (URL) OF TROPONIN, DEFINED THE 99TH PERCENTILE OF cTnI DISTRIBUTION IN A REFERENCE POPULATION, HAS BEEN CONFIRMED THE DECISION THRESHOLD FOR PA DIAGNOSIS. Performed By: #### C MREP #### [facility] [address] [place] [address] Dr. Felix Villagran CARDIAC JOSE J ADMITon 022 CK [Catalytic activity/Vol] 114 U/L Normal 26-192 [facility] Comment on above: Performed By: #### C FAISAL, BMP #### [facility] [address] [place] [address] Dr. Felix Villagran CK.MB [Mass/Vol] 0.91 ng/mL Normal <=3.60 [facility] Comment on above: Performed By: #### C FAISAL, BMP #### [facility] [address] [place] [address] Dr. Felix Villagran HSTROP <4.0 Normal 4.0-51.3 [facility] Comment on above: Result Comment: CUT- OFF POINTS HAVE BEEN ESTABLISHED BASED ON THE FOURTH UNIVERSAL DEFINITIONS OF MYOCARDIAL INFARCTION. THE UPPER REFERENCE LIMIT (URL) OF TROPONIN, DEFINED THE 99TH PERCENTILE OF cTnI DISTRIBUTION IN A REFERENCE POPULATION, HAS BEEN CONFIRMED THE DECISION THRESHOLD FOR PA DIAGNOSIS. Performed By: #### C FAISAL, BMP #### [facility] [address] [place] [address] Dr. Felix Villagran MELL 27 ng/mL Normal 9-82 [facility] Comment on above: Performed By: #### C FAISAL, BMP #### [facility] [address] [place] [address] Dr. Felix Villagran CBC AUTO DIFFon 01-19-2022 BASO # 0.1 103/ul Normal 0.0-0.1 [facility] Comment on above: Performed By: #### C BC #### [facility] [address] [place] [address] Dr. Felix Villagran Basophils/100 WBC (Bld) 0.7 % Normal 0.2-2.0 [facility] Comment on above: Performed By: #### C BC #### [facility] [address] [place] [address] Dr. Felix Villagran EO # 0.2 103/ul Normal 0.0-0.7 [facility] Comment on above: Performed By: #### C BC #### [facility] [address] [place] [address] Dr. Felix Villagran Eosinophils/100 WBC (Bld) 1.4 % Normal 0.9-7.0 [facility] Comment on above: Performed By: #### C BC #### [facility] [address] [place] [address] Dr. Felix Villagran Erythrocyte distribution width (RBC) [Ratio] 13.3 % Normal 11.0-15.0 [facility] Comment on above: Performed By: #### C BC #### [facility] [address] [place] [address] Dr. Felix Villagran Hematocrit (Bld) [Volume fraction] 36.7 % Normal 36.0-48.0 [facility] Comment on above: Performed By: #### C BC #### [facility] [address] [place] [address] Dr. Felix Villagran Hemoglobin (Bld) [Mass/Vol] 12.5 g/dL Normal 12.0-16.0 [facility] Comment on above: Performed By: #### C BC #### [facility] [address] [place] [address] Dr. Felix Villagran IG # 0.03 10e3/ul Normal 0.00-0.03 [facility] Comment on above: Performed By: #### C BC #### [facility] [address] [place] [address] Dr. Felix Villagran IG % 0.2 % Normal 0.0-0.5 [facility] Comment on above: Performed By: #### C BC #### [facility] [address] [place] [address] [address] Felix Villagran LYMPH # 4.8 103/ul Critically high 1.2-3.8 [facility] Comment on above: Performed By: #### C BC #### [facility] [address] [place] [address] Dr. Felix Villagran Lymphocytes/100 WBC (Bld) 39.4 % Normal 20.5-60.0 [facility] Comment on above: Performed By: #### C BC #### [facility] Laboratory [address] [place] [address] Dr. Felix Villagran MANUAL DIFF REQ NO Normal [facility] Comment on above: Performed By: #### C BC #### [facility] [address] [place] [address] Dr. Felix Villagran MCH (RBC) [Entitic mass] 29.1 pg Normal 26.7-34.0 [facility] Comment on above: Performed By: #### C BC #### [facility] [address] [place] [address] Dr. Felix Villagran MCHC (RBC) [Mass/Vol] 34.1 g/dL Normal 29.9-35.2 [facility] Comment on above: Performed By: #### C BC #### [facility] [address] [place] [address] Dr. Felix Villagran MCV (RBC) [Entitic vol] 85.5 fL Normal 81.0-99.0 [facility] Comment on above: Performed By: #### C BC #### [facility] [address] [place] [address] Dr. Felix Villagran MONO # 0.7 103/ul Normal 0.3-0.8 [facility] Comment on above: Performed By: #### C BC #### [facility] [address] [place] [address] Dr. Felix Villagran Monocytes/100 WBC (Bld) 5.4 % Normal 1.7-12.0 [facility] Comment on above: Performed By: #### C BC #### [facility] [address] [place] [address] Dr. Felix Villagran NEUT # 6.5 103/ul Normal 1.4-6.5 [facility] Comment on above: Performed By: #### C BC #### [facility] [address] [place] [address] Dr. Felix Villagran Neutrophils/100 WBC (Bld) 52.9 % Normal 43.0-75.0 [facility] Comment on above: Performed By: #### C BC #### [facility] [address] [place] [address] Dr. Felix Villagran Platelet mean volume (Bld) [Entitic vol] 9.1 fL Critically low 9.5-13.5 [facility] Comment on above: Performed By: #### C BC #### [facility] [address] [place] [address] Dr. Felix Villagran PLT 350 103/ul Normal 150-450 [facility] Comment on above: Performed By: #### C BC #### [facility] [address] [place] [address] Dr. Felix Villagran RBC 4.29 106/ul Normal 4.20-5.40 [facility] Comment on above: Performed By: #### C BC #### [facility] [address] [place] [address] Dr. Felix Villagran WBC 12.3 103/ul Critically high 4.0-11.0 The [facility] Comment on above: Performed By: #### C BC #### [facility] [address] [place] [address] Dr. Felix Villagran CTA CHEST WO W CONon 022 CTA CHEST WO W CON CTA CHEST WO W CON: 01/19/2022 12:37 AM EST CLINICAL HISTORY: 36 years old Female with CHEST PAIN, UNSPECIFIED. TECHNIQUE: CTA CHEST WO W CON was performed with axial CT images through the thorax as well as sagittal and coronal reformations also obtained after intravenous administration of contrast. Dose reduction techniques were achieved by using automated exposure control and/or adjustment of mA and/or kV according to patient size and/or use of iterative reconstruction technique. COMPARISON: Chest x-ray performed 01/18/2022. FINDINGS: The pulmonary arteries are well opacified with no evidence of filling defect to suggest pulmonary embolism. The thoracic aorta is normal in course and caliber without aneurysm or dissection. The heart appears normal with no evidence of pericardial effusion. There are no enlarged mediastinal lymph nodes. The tracheobronchial tree is patent. The lungs are clear. There is no consolidation, mass or pleural effusion. There is no pneumothorax. Gastric bypass post surgical change. The osseous structures are unremarkable. Nonvisualized right thyroid gland likely surgically resected. IMPRESSION: Normal CT thorax. No pulmonary embolus identified. No thoracic aneurysm or dissection. The lungs are clear. Electronically authenticated by: SANDRA MARQUEZ Date: 2022-01-19 02:30 Normal [facility] D-DIMERon 01-19-2022 D-DIMER 0.64 mg/L FEU Critically high <=0.59 The [facility] Comment on above: Performed By: #### D DIM #### [facility] [address] [place] [address] Dr. Felix Villagran D-DIMER COMMENTS SEE BELOW Normal [facility] Comment on above: Result Comment: Incr eases in D-Dimer concentration observed with thromboembolic events can be variable due to localization, size, and age of the thrombus. Therefore, a thromboembolic event cannot be diagnosed with certainty on the basis of the reference range. D-Dimers may also be elevated for a variety of disorders including: advanced age, , coronary disease, cancer, liver disease, infection, inflammation, hematoma, DIC, trauma, post-surgery, diabetes, thrombolytic or anticoagulant therapy, stress, and generalized hospitalization. Performed By: #### D DIM #### [facility] [address] [place] [address] Dr. Felix Villagran PROF CHEM 8 (BAS METB)on Anion gap [Moles/Vol] 11.3 mmol/L Normal [facility] Comment on above: Performed By: #### C FAISAL, BMP #### [facility] [address] [place] [address] Dr. Felix Villagran Calcium [Mass/Vol] 8.7 mg/dL Normal 8.5-10.1 [facility] Comment on above: Performed By: #### C FAISAL, BMP #### [facility] [address] [address] [address] Felix Villagran Chloride [Moles/Vol] 102 mmol/L Normal 98-107 [facility] Comment on above: Performed By: #### C FAISAL, BMP #### [facility] [address] [address] [address] Felix Villagran CO2 [Moles/Vol] 28.3 mmol/L Normal 21.0-32.0 [facility] Comment on above: Performed By: #### C FAISAL, BMP #### [facility] [address] [address] [address] Felix Villagran Creatinine [Mass/Vol] 0.90 mg/dL Normal 0.55-1.02 [facility] Comment on above: Performed By: #### C FAISAL, BMP #### [facility] [address] [place] [address] Dr. Felix Villagran EGFR-AF ANGOLAN >60 Normal >=60 [facility] Comment on above: Performed By: #### C FAISAL, BMP #### [facility] [address] [address] [address] Felix Villagran EGFR-NON AF ANGOLAN >60 Normal >=60 [facility] Comment on above: Performed By: #### C FAISAL, BMP #### [facility] [address] [address] [address] Felix Villagran Glucose [Mass/Vol] 86 mg/dL Normal 74-106 [facility] Comment on above: Performed By: #### C FAISAL, BMP #### [facility] [address] [address] [address] Felix Villagran Potassium [Moles/Vol] 3.6 mmol/L Normal 3.5-5.1 [facility] Comment on above: Performed By: #### C FAISAL, BMP #### [facility] [address] [address] [address] Felix Villagran Sodium [Moles/Vol] 138 mmol/L Normal 136-145 [facility] Comment on above: Performed By: #### C FAISAL, BMP #### [facility] [address] [place], [place] [address] Dr. Felix Villagran Urea nitrogen [Mass/Vol] 16.0 mg/dL Normal 7.0-18.0 [facility] Comment on above: Performed By: #### C FAISAL, IQRA #### [facility] [address] [place], [place] [address] Dr. Felix Villagran Urea nitrogen/Creatinine [Mass ratio] 17.8 mg/mg Normal [facility] Comment on above: Performed By: #### C FAISAL, IQRA #### [facility] [address] [place], [place] [address] Dr. Felix Villagran XR ABD FLAT_UPon 01-19-2022 XR ABD FLAT_UP EXAM: XR ABD FLAT_UP HISTORY: constipation COMPARISON: None. TECHNIQUE: Supine and upright views of the abdomen. FINDINGS: Multiple surgical clips in the upper abdomen and right pelvis. Nonspecific likely nonobstructive bowel gas pattern. No evidence of free intraperitoneal air. Mild colonic stool burden. No pathologic calcifications demonstrated. Visualized osseous structures appear grossly intact. Mild apex right curvature of the upper lumbar spine. IMPRESSION: Nonspecific, likely nonobstructive bowel gas pattern. No free air detected. If clinical concern persists, consider follow-up radiographs and/or CT. Electronically authenticated by: ELIZABETH CHAN Date: 2022-01-19 01:06 Normal [facility] XR CHEST 1 Von 01-19-2022 XR CHEST 1 V CHEST X-RAY HISTORY: Chest pain COMPARISON: None. TECHNIQUE: 1 view chest is submitted for review. FINDINGS: The lungs are adequately expanded without evidence for acute infiltrate or effusion. The cardiac silhouette is enlarged. Pulmonary vascularity is unremarkable. Osseous structures are within expected limits for patients age. . IMPRESSION: Mild cardiomegaly. Electronically authenticated by: LISANDRA ARGEUTA Date: 2022-01-18 23:52 Normal [facility] Vital Signs Date Time Vital Sign Value Performing Clinician Lizbeth escobedo 11-29-2023 15:54-0400 Body height 160 cm Melissa Simmons MD Work Phone: [employer] 11-29-2023 15:54-0400 Body mass index (BMI) [Ratio] 35.89 kg/m2 Melissa Simmons MD Work Phone: [facility] 11-29-2023 15:54-0400 Body temperature 97.7 [degF] Melissa Simmons MD Work Phone: [facility] 11-29-2023 15:54-0400 Body weight 91.9 kg Melissa Simmons MD Work Phone: [facility] 11-29-2023 15:54-0400 Diastolic blood pressure 62 mm[Hg] Melissa Simmons MD Work Phone: [facility] 11-29-2023 15:54-0400 Heart rate 97 /min Melissa Simmons MD Work Phone: [facility] 11-29-2023 15:54-0400 SaO2% (BldA) [Mass fraction] 98 % Melissa Simmons MD Work Phone: [facility] 11-29-2023 15:54-0400 Systolic blood pressure 118 mm[Hg] Melissa Simmons MD Work Phone: [facility] 11-27-2023 16:10-0400 Body mass index (BMI) [Ratio] 35.5 kg/m2 MD Carlos Champagne Work Phone: [facility] 11-27-2023 14:26-0400 Body height 164.47 cm MD Carlos Champagne Work Phone: [facility] 11-27-2023 14:26-0400 Body weight 90.71 kg MD Carlos Champagne Work Phone: [facility] 10-30-2023 09:25-0400 Body height 164.47 cm MD Carlos Champagne Work Phone: [facility] 10-30-2023 09:25-0400 Body mass index (BMI) [Ratio] 35.2 kg/m2 MD Carlos Champagne Work Phone: [facility] 10-30-2023 09:25-0400 Body weight 95.33 kg MD Carlos Champagne Work Phone: [facility] 10-30-2023 09:25-0400 Diastolic blood pressure 62 mm[Hg] MD Carlos Champagne Work Phone: [facility] 10-30-2023 09:25-0400 Heart rate 76 /min MD Carlos Champagne Work Phone: [facility] 10-30-2023 09:25-0400 Respiratory rate 18 /min MD Carlos Champagne Work Phone: [facility] 10-30-2023 09:25-0400 SaO2% (BldA) [Mass fraction] 100 % MD Carlos Champagne Work Phone: [facility] 10-30-2023 09:25-0400 Systolic blood pressure 106 mm[Hg] MD Carlos Champagne Work Phone: [facility] 09-19-2023 11:02-0400 Body height 164.47 cm [facility] 09-19-2023 11:02-0400 Body mass index (BMI) [Ratio] 35.5 kg/m2 [facility] 09-19-2023 11:02-0400 Body weight 96.16 kg [facility] 09-19-2023 11:02-0400 Diastolic blood pressure 64 mm[Hg] [facility] 09-19-2023 11:02-0400 Heart rate 64 /min [facility] 09-19-2023 11:02-0400 Respiratory rate 18 /min [facility] 09-19-2023 11:02-0400 SaO2% (BldA) [Mass fraction] 100 % [facility] 09-19-2023 11:02-0400 Systolic blood pressure 103 mm[Hg] [facility] 04-28-2023 16:45-0400 Body temperature 96.8 [degF] Etta Ramachandran MD Work Phone: [facility] 04-28-2023 16:45-0400 Diastolic blood pressure 88 mm[Hg] Etta [facility]achandran MD [facility] Phone: [facility] [employer] 04-28-2023 16:45-0400 Heart rate 74 /min Etta Ramachandran MD Work Phone: [facility] [employer] 04-28-2023 16:45-0400 Respiratory rate 15 /min Etta Ramachandran MD Work Phone: [facility] [employer] 04-28-2023 16:45-0400 SaO2% (BldA) [Mass fraction] 97 % Etta Ramachandran MD Work Phone: [facility] [employer] 04-28-2023 16:45-0400 Systolic blood pressure 109 mm[Hg] Etta Ramachandran MD Work Phone: [facility] 04-28-2023 13:02-0400 Body height 160 cm Etta Ramachandran MD Work Phone: [facility] 04-28-2023 13:02-0400 Body mass index (BMI) [Ratio] 35.43 kg/m2 Etta Ramachandran MD Work Phone: [facility] 04-28-2023 13:02-0400 Body weight 90.72 kg Etta Ramachandran MD Work Phone: [facility] Encounters Encounter Date Encounter Type Care Provider Facility Start: 12-18-2023 End: 12-18-2023 ambulatory BJORN PIÑA [facility] Start: 12-05-2023 End: 12-05-2023 ambulatory BRANNON MURRAY [facility] Start: 11-29-2023 End: 11-29-2023 Office outpatient new 45 minutes Melissa Simmons MD Work Phone: [facility] Comment on above: Immunization due (Pr imary Dx); History of benign carcinoid tumor; Peritoneal cyst; H/O gastric sleeve; H/O partial thyroidectomy; BMI 35.0-35.9,adult; H/O section Start: 11-29-2023 End: 11-29-2023 ambulatory SHANNON Ornelas [facility] Start: 11-27-2023 End: 11-27-2023 ambulatory MD Carlos Champagne Work Phone: [facility] Work Phone: Start: 11-27-2023 End: 11-27-2023 Patient encounter procedure MD Carlos Champagne Work Phone: [facility] Work Phone: Start: 11-17-2023 End: 11-17-2023 ambulatory [facility] Start: 11-10-2023 End: 11-10-2023 ambulatory MARIO ALBERTO [facility] Start: 10-30-2023 End: 10-30-2023 ambulatory MD Carlos Champagne Work Phone: [facility] Work Phone: Start: 10-30-2023 End: 10-30-2023 Patient encounter procedure MD Carlos Champagne Work Phone: [facility] Work Phone: Start: 10-11-2023 End: 10-11-2023 ambulatory MD Carlos Champagne Work Phone: [facility] Work Phone: Start: 10-11-2023 End: 10-11-2023 Patient encounter procedure MD Carlos Champagne Work Phone: [facility] Work Phone: Start: 10-04-2023 End: 10-04-2023 ambulatory Carlos Champagne [facility] Work Phone: Start: 10-04-2023 End: 10-04-2023 Departed Referred MD Carlos Champagne Work Phone: [facility] [employer] Work Phone: Start: 09-19-2023 End: 09-19-2023 ambulatory [facility] Work Phone: Start: 09-19-2023 End: 09-19-2023 Patient encounter procedure [facility] Work Phone: Start: 08-31-2023 End: 08-31-2023 Subsequent hospital visit by physician Christine Alarcon MD Work Phone: [facility] Draw Comment on above: 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) Start: 08-31-2023 End: 09-02-2023 ambulatory LEENAMAHAMED Ching [facility] Start: 08-21-2023 End: 08-21-2023 [facility] Start: 07-17-2023 End: 07-17-2023 ambulatory JOSELITO MAO Not Available Start: 06-22-2023 End: 06-22-2023 ambulatory HEDII [facility] Start: 06-12-2023 End: 06-13-2023 Emergency department patient visit IONA [facility] Start: 04-28-2023 End: 04-28-2023 ambulatory [facility] Start: 04-28-2023 End: 04-28-2023 Subsequent hospital visit by physician Etta Ramachandran MD Work Phone: [facility] Comment on above: 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) Start: 04-25-2023 End: 04-25-2023 ambulatory CHRISTINE CAR[facility]ONCLIVEUCHE [facility] Start: 04-18-2023 End: 04-20-2023 Subsequent hospital visit by physician Christine Alarcon MD Work Phone: [facility] Comment on above: Arrived Start: 04-18-2023 End: 04-20-2023 [facility] Start: 03-28-2023 End: 03-28-2023 ambulatory [facility] Start: 03-23-2023 End: 03-28-2023 ambulatory [facility] Start: 03-08-2023 End: 03-08-2023 ambulatory [facility] Start: 03-04-2023 End: 03-05-2023 Emergency department patient visit GRACY ROCHA [facility] Start: 03-03-2023 End: 03-03-2023 ambulatory MARYCARMEN STEPHENS [facility] Start: 03-02-2023 End: 03-07-2023 ambulatory [facility] Start: 05-30-2022 End: 05-30-2022 ambulatory NON STAFF [facility] Work Phone: Start: 05-30-2022 End: 05-30-2022 Patient encounter procedure [facility] Ref COVID Swab Start: 01-19-2022 End: 01-19-2022 ambulatory QIAN HUMPHREY Facility:[facility]1 Procedures Date Procedure Procedure Detail Performing Clinician Start: 11-29-2023 H/O: section H/O section Melissa Simmons MD Work Phone: Start: 11-29-2023 Adult depression screening assessment Melissa Simmons MD Work Phone: Start: 08-31-2023 Comprehensive metabolic panel Christine Alarcon MD Work Phone: Start: 04-18-[address] attenuation skull base mid-thigh Christine Alarcon MD Work Phone: Start: 08-18-2015 H/O: hysterectomy History of hysterectomy Plan of Treatment Date Care Activity Detail Author Start: 09-13-2033 DTaP,Tdap and Td Vaccines (2 - Td or Tdap) DTaP,Tdap and Td Vaccines (2 - Td or Tdap) [facility] Start: 11-28-2024 Adult BMI Screening [facility]ening [facility] Start: 11-28-2024 Depression Screening [facility]ening [facility] Start: 11-28-2024 Tobacco Screening Tobacco Screening [facility] Start: 06-03-2024 End: 06-03-2024 Patient encounter procedure 06/03/2024 11:00 AM EDT Office Visit [facility] [address] [place] [address] [place] [phone] Melissa Simmons MD [address] [place] [address] [facility] Start: 12-05-2023 End: 12-05-2023 Patient encounter procedure 12/05/2023 8:30 AM EDT Appointment [facility] [address] [place] [phone] [facility] Start: 12-05-2023 Subsequent hospital visit by physician 12/05/2023 8:00 AM EDT Hospital Encounter [facility] Mamm[facility]/DEXA Imaging [address] [place] [phone] [facility] Start: 12-04-2023 End: 12-04-2023 Patient encounter procedure 12/04/2023 1:45 PM EDT Office Visit [facility] [address] [place] [phone] Heidi Donnelly MD [address] [place] [address] RTC in 3 months. [facility] Comment on above: RTC in 3 months. Start: 10-08-2023 COVID-19 Vaccine ( season) COVID-19 Vaccine ( season) [facility] Start: 09-07-2023 Influenza vaccination Flu vaccine (#1) [facility] Start: 09-05-2023 End: 09-05-2023 Patient encounter procedure 09/05/2023 2:00 PM EDT Office Visit [address] [address] Christine Alarcon MD [address] [place] [address] 3 MONTH F/U [facility] Comment on above: 3 MONTH F/U Start: 06-02-2023 End: 06-02-2023 Patient encounter procedure 06/02/2023 10:00 AM EDT Office Visit [facility] [address] [place] [phone] Timmy Fuentes APRN - NP [address] [place] [address] RTC 3-4 mo [facility] Comment on above: RTC 3-4 mo Start: 05-09-2023 End: 05-09-2023 Patient encounter procedure 05/09/2023 9:30 AM EDT Office Visit [address] [address] Christine Alarcon MD [address] [place] [address] 2 week f/u [facility] Comment on above: 2 week f/u Start: 04-28-2023 End: 04-28-2023 Gi endoscopic us s&i ENDOSCOPIC ULTRASOUND 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) 04/28/2023 2:39 PM EDT [facility] Start: 04-25-2023 End: 04-25-2023 Patient encounter procedure 04/25/2023 9:30 AM EDT Office Visit [address] [address] Christine Alarcon MD [address] [facility] [place], [place] [id number] get PET scan and Labs [facility] Comment on above: get PET scan and Labs Start: 10-07-2022 COVID-19 Vaccine ( season) COVID-19 Vaccine ( season) [facility] Start: 2004 DTaP/Tdap/Td vaccine (1 - Tdap) DTaP/Tdap/Td vaccine (1 - Tdap) [facility] Start: 2003 Adult BMI Follow Up Plan Adult BMI Follow Up Plan [facility] Start: 2003 Hepatitis C screening Hepatitis C screen [facility] Start: 2000 HIV screening HIV screen [facility] [employer] Start: 1997 Depression Screen Depression Screen [facility] Start: 1986 Varicella vaccine (1 of 2 - 2-dose childhood series) Varicella vaccine (1 of 2 - 2-dose childhood series) [facility] Start: 1985 Hepatitis B vaccine (1 of 3 - 3-dose series) Hepatitis B vaccine (1 of 3 - 3-dose series) [facility] End: 08-31-2023 Chromogranin A [facility] [email or web address] [facility] Work Phone: Comment on above: 1 Occurrences starting 08/31/2023 until 08/31/2023 Oxygen therapy [Minimum Data Set] Initiate Oxygen Therapy Protocol Respiratory Care Routine As Needed until discontinued starting 04/28/2023 [facility] [employer] Work Phone: Comment on above: As Needed until discontinued starting Surgical Pathology Surgical Path ology Lab Routine 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) Release Upon Ordering for 1 Occurrences starting 04/28/2023 [facility] [email or web address] [facility] Work Phone: Comment on above: Release Upon Ordering for 1 Occurrences starting 04/28/2023 End: 04-28-2023 SURGICAL PATHOLOGY REPORT SURGICAL PATHOLOGY REPORT Lab Routine Once for 1 Occurrences starting 04/28/2023 until 04/28/2023 [facility] [employer] Comment on above: Once for 1 Occurrences starting 04/28/19 24 until 04/28/2023 Immunizations Immunization Date Immunization Notes Care Provider [facility] 11-29-2023 influenza, injectabl e, madin josee canine kidney, preservative free Melissa Simmons MD Work Phone: [facility] 11-29-2023 Immunization, In Clinic,; Translations: [Drug or medicament (substance)] Melissa Simmons MD Work Phone: [facility] 12-11-2020 influenza, injectabl e, quadrivalent, preservative free Melissa Simmons MD Work Phone: [facility] Payers Date Payer Category Payer Self-pay 2019 Medicaid HMO [employer] [id number] 1985 Unknown [id number] 1985 Unknown [id number] 1985 Unknown [id number] 1985 Unknown [id number] 1985 Unknown [id number] 1985 Unknown [id number] 1985 Unknown [id number] 1985 Unknown [id number] 1985 Unknown [id number] 2.16.840.1.924793.3.579.2.175 1985 Unknown [id number] 2.16.840.1.938419.3.579.2.175 1985 Unknown [id number] 2.16.840.1.963969.3.579.2.175 1985 Unknown [id number] 2.16.840.1.973933.3.579.2.175 1985 Unknown [id number] 2.16.840.1.793839.3.579.2.175 1985 Unknown [id number] 2.16.840.1.930087.3.579.2.175 1985 Unknown [id number] 2.16.840.1.063392.3.579.2.175 1985 Unknown [id number] 2.16.840.1.282268.3.579.2.175 1985 Unknown [id number] 2.16.840.1.111610.3.579.2.1286 1985 Unknown [id number] 2.16.840.1.714786.3.579.2.1286 1985 Unknown [id number] 2.16.840.1.221555.3.579.2.1286 1985 Unknown [id number] 2.16.840.1.671497.3.579.2.1286 1985 Unknown [id number] 2.16.840.1.707476.3.579.2.1286 1985 Unknown [id number] 2.16.840.1.248115.3.579.2.1286 1985 Unknown [id number] 2.840.1.293909.3.579.2.1286 1985 Unknown [id number] 2.16840.1.349694.3.579.2.1286 1985 Unknown [id number] 2.16840.1.920718.3.579.2.1286 1985 Unknown [id number] 2.840.1.571627.3.579.2.1286 1959 Unknown [id number] Unknown Vic[employer] BC/BS [id number] Unknown [id number] 2..840.1.961481.3.579.2.531 Social History Date Type Detail Facility Tobacco smoking status NHIS Unknown if ever smoked [facility] Work Phone: Start: 1985 Sex Assigned At Female [facility] Start: 10-06-2021 End: 04-10-2022 Tobacco smoking status NHIS Never smoked tobacco [facility] Start: 10-06-2021 End: 04-10-2022 Tobacco use and exposure Smokeless tobacco non-user [facility] Start: 04-04-2023 End: 11-29-2023 Alcohol intake Ex-drinker (finding) [facility] Start: 03-11-2020 End: 04-04-2023 History of Social function [facility] Start: 03-11-2020 End: 04-04-2023 Tobacco use panel [facility] Start: 1985 Sex Assigned At Not on file [facility] Physical abuse Denies [employer] [facility] Start: 09-11-2014 Sex Female (finding) [facility] NEGATED: Highlighted row [facility] Medical Equipment Procedure Code Equipment Code Equipment Origin al Text Equipment Identifier Dates Clip Hemostasis Mantis 2.8mm X 235cm - [id number] ([id number] , [id number] [facility] Start: 03-28-2023 Clinical Notes 04-28-2023 to 11-29-2023 Melissa Simmons MD - 11/29/2023 3:45 PM EDT Note Date & Type Note Facility 11-29-2023 History of Presen t illness Narrative Images from the original note were not included. [address] [place] [address] [address] [facility] [id number] Patient: Jake Arevalo Date of : 1985 Encounter Date: 11/29/2023 SUBJECTIVE: HISTORY OF PRESENT ILLNESS: Chief Complaint: Chief Complaint Patient presents with Establish Care Patient ID: Jake is a 38 y.o. female New pt here to establish with new PCP Past medical history known for surgical menopause at the age of 32, s/p thyroidectomy 2/2 nodule, s/p gastric sleeve (Dec 2016), pelvic ultrasound showing multiple peritoneal cysts, recent diagnosis of carcinoid tumor with endoscopic resection. She did have a colonoscopy completed at the same time which revealed hemorrhoids. -patient obtains PET scan every 3 months to follow carcinoid. Gastric sleave bypass. - 5 years ago, dec 2016 At peak was 260bs originally At lowest after was 198lbs 3 children, al c-sections Ages 13, 12, 8 All pregnancies went to term. No gestational diabetes or HTN disorders. 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 No pertinent family history. SOCIAL HISTORY: Social History Socioeconomic History Marital status: Single Spouse name: Not on file Number of children: Not on file Years of education: Not on file Highest education level: Not on file Occupational History Not on file Tobacco Use Smoking status: Never Smokeless tobacco: Never Vaping Use Vaping status: Never Used Substance and Sexual Activity Alcohol use: Not Currently Drug use: Not Currently Sexual activity: Yes Partners: Male control/protection: Surgical Other Topics Concern Not on file Social History Narrative Not on file Social Drivers of Health Financial Resource Strain: Not on file Food Insecurity: No Food Insecurity (11/29/2023) Hunger Screening Food Insecurity - Worry: Never True Food Insecurity - Inability: Never True Transportation Needs: Not on file Physical Activity: Not on file Stress: Not on file Social Connections: Not on file Interpersonal Safety: Not on file Housing Instability: Not on file ALLERGY: No Known Allergies MEDICATIONS Current Outpatient Medications Medication Sig Dispense Refill cyclobenzaprine (FLEXERIL) 10 mg tablet Take 1 tablet (10 mg total) by mouth 3 (three) times a day as needed. hydrocortisone (ANUSOL-HC) 2.5 % rectal cream Topical BID phentermine (ADIPEX-P) 37.5 mg tablet Take 1 tablet (37.5 mg total) by mouth every morning before breakfast. sulfacetamide sodium, acne, 10 % suspension Apply thin layer to face once daily, 30 day supply. Immunization, In Clinic, once. Sign this order to satisfy the OSBOP Positive ID requirements for immunization orders. phentermine (ADIPEX-P) 37.5 mg tablet Take 1 tablet (37.5 mg total) by mouth every morning before breakfast. No current facility-administered medications for this visit. PHYSICAL EXAMINATION: Vitals: 11/29/23 1554 BP: 118/62 Pulse: 97 Temp: 36.5 C (97.7 F) TempSrc: Oral SpO2: 98% Weight: 91.9 kg (202 lb 9.6 oz) Height: 160 cm (5' 3 ) Physical Exam Vitals reviewed. Constitutional: General: She is not in acute distress. Appearance: Normal appearance. Eyes: Extraocular Movements: Extraocular movements intact. Pupils: Pupils are equal, round, and reactive to light. Cardiovascular: Rate and Rhythm: Normal rate and regular rhythm. Pulses: Normal pulses. Heart sounds: Normal heart sounds. Pulmonary: Effort: Pulmonary effort is normal. No respiratory distress. Breath sounds: Normal breath sounds. No wheezing or rhonchi. Abdominal: General: Bowel sounds are normal. There is no distension. Palpations: Abdomen is soft. There is no mass. Tenderness: There is no abdominal tenderness. There is no right CVA tenderness, left CVA tenderness or guarding. Musculoskeletal: Cervical back: Normal range of motion and neck supple. Neurological: Mental Status: She is alert and oriented to person, place, and time. Mental status is at baseline. Labs, imaging, and records: I have personally obtained and reviewed the relevant labs/imaging. ASSESSMENT/PLAN: Jake was seen today for establish care. Diagnoses and all orders for this visit: Immunization due - Flucelvax vaccine 6m+ YRS plus Preservative Free IM History of benign carcinoid tumor Peritoneal cyst H/O gastric sleeve H/O partial thyroidectomy BMI 35.0-35.9,adult H/O section MELISSA SIMMONS MD Family Medicine Physician [facility] 11/29/23 This note was completed with voice recognition software. The document was reviewed for errors however some may still be present. Please do not hesitate to contact/Epic msg the author to verify any questions/concerns. documented in this encounter [facility] 09-05-2023 Chief complaint+Reason for visit Narrative Reason for Visit BMI 35.0-35.9,adult Dietary surveillance and counseling Exercise counseling H/O gastric sleeve H/O partial thyroidectomy History of hysterectomy History of malignant neuroendocrine tumor Obesity, Class II, BMI 35-39.9 [facility] Work Phone: 1(595) 771-322307-30-2024 Chief complaint+Reason for visit Narrative * Chief Complaint Referral Chelsie garcia [facility] ( 09/05/23) D49.2 Reason for Visit BMI 35.0-35.9,adult Dietary surveillance and counseling Exercise counseling H/O gastric sleeve H/O partial thyroidectomy History of hysterectomy History of malignant neuroendocrine tumor Obesity, Class II, BMI 35-39.9 [facility] Work Phone: 1(246) 710-787407-30-2024 Chief complaint+Reason for visit Narrative * Chief Complaint Referral Chelsie garcia [facility] ( 09/05/23) D49.2 6 week f/u Reason for Visit BMI 35.0-35.9,adult Dietary surveillance and counseling Exercise counseling H/O gastric sleeve H/O partial thyroidectomy History of hysterectomy History of malignant neuroendocrine tumor Obesity, Class II, BMI 35-39.9 BMI 35.0-35.9,adult Dietary surveillance and counseling Exercise counseling H/O gastric sleeve H/O partial thyroidectomy History of hysterectomy History of malignant neuroendocrine tumor Obesity, Class II, BMI 35-39.9 [facility] Work Phone: 1(912) 875-773007-30-2024 Chief complaint+Reason for visit Narrative * Chief Complaint Referral Chelsie Hankins [facility] (LM 09/05/23) D49.2 6 week f/u wm 1st after class Reason for Visit BMI 35.0-35.9,adult Dietary surveillance and counseling Exercise counseling H/O gastric sleeve H/O partial thyroidectomy History of hysterectomy History of malignant neuroendocrine tumor Obesity, Class II, BMI 35-39.9 BMI 35.0-35.9,adult Dietary surveillance and counseling Exercise counseling H/O gastric sleeve H/O partial thyroidectomy History of hysterectomy History of malignant neuroendocrine tumor Obesity, Class II, BMI 35-39.9 [facility] Work Phone: 1(295) 588-833405-06-2024 NoteXR FOOT RT MIN 3 VWS Procedure: Right foot radiographs performed Number of views:3 History:Pain and swelling Comparison:None Findings: There is no fracture, dislocation, or destructive lesion. Impression: No acute findings. Finalized by Xena Schaffer DO on 06/12/2023 12:07 [facility] 04-28-2023 Hospital Discharge instructions* Discharge Instructions* Etta Ramachandran MD - 04/28/2023 3:[address] [facility] POST-ENDOSCOPY INSTRUCTIONS 1. ACTIVITY No driving, operating machinery, or making important decisions for 24 hours. Resume normal activity after 24 hours. You may return to work after 24 hours. 2. DIET Resume your usual diet unless specified below. 3. MEDICATIONS Resume your usual medications. Do not consume alcohol, tranquilizers, or sleeping medications for 24 hour unless advised by your physician. 4. PHYSICIAN FOLLOW-UP / INSTRUCTIONS Please call the office/clinic in 10 days for biopsy results: [ ] GI office: Follow up with your family physician as planned. 6. NORMAL CHANGES YOU MAY EXPERIENCE AFTER ENDOSCOPY: EGD/EUS Sore throat after EGD/EUS A bloated feeling and belching from air in stomach You may feel fatigued for the next 24-48 hours due to the prep and sedation 7. CALL YOUR PHYSICIAN IF YOU EXPERIENCE ANY OF THE FOLLOWING A. Passing blood rectally or vomiting blood (color may be red or black) B. Severe abdominal pain or tenderness (that is not relieved by passing air) C. Fever, chills, or excessive sweating D. Persistent nausea or vomiting E. 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) Malignant carcinoid tumor of the duodenum documented in this [facility]* Diagnosis Primary malignant neuroendocrine tumor of duodenum (HCC) documented in this [facility] note* Diagnosis Onset Date Resolution Status BMI 35.0-35.9,adult acute Dietary surveillance and counseling acute Exercise counseling acute H/O gastric sleeve acute H/O partial thyroidectomy ac [place] History of hysterectomy August 18, 2015 a cute History of malignant neuroendocrine tumor acute Obesity, Class II, BMI 35-39.9 [facility] Work Phone: evaluation note* Diagnosis Onset Date Resolution Status BMI 35.0-35.9,adult acute Dietary surveillance and counseling acute Exercise counseling acute H/O gastric sleeve acute H/O partial thyroidectomy ac [place] History of hysterectomy August 18, 2015 a cute History of malignant neuroendocrine tumor acute Obesity, Class II, BMI 35-39.9 acute BMI 35.0-35.9,adult acute Dietary surveillance and counseling acute Exercise counseling acute H/O gastric sleeve acute H/O partial thyroidectomy ac [place] History of hysterectomy August 18, 2015 a cute History of malignant neuroendocrine tumor acute Obesity, Class II, BMI 35-39.9 [facility] Work Phone: Evaluation note* Diagnosis Immunization due- Primary History of benign carcinoid tumor Peritoneal cyst Other specified disorder of peritoneum H/O gastric sleeve H/O partial thyroidectomy BMI 35.0-35.9,adult H/O section documented [facility] SystemInstructionsNot on filedocumented in this encounter [facility] Summary Purpose Family History No Family History Records Found Relationship Condition Age at Onset Recorded Date/T ananth son Asthma Unknown Advance Directives No Advanced Directives Records Found Advance Directive Response Recorded Date/ Time Advance Directives No May 30, 2 023 10:24am Chief Complaint and Reason for Visit Chief Complaint z20.822 Additional Source Comments INFORMATION SOURCE (unrecogn ized section and content) DATE CREATED AUTHOR 01/27/2022 [facility] DATE CREATED AUTHOR AUTHOR'S ORGANIZ ATION 04/07/2023 [facility] DATE CREATED AUTHOR AUTHOR'S ORGANIZ ATION 05/05/2023 [facility] DATE CREATED AUTHOR AUTHOR'S ORGANIZ ATION 07/17/[address] [facility] EPIC DATE CREATED AUTHOR AUTHOR'S ORGANIZ ATION 10/17/2023 [facility] DATE CREATED AUTHOR AUTHOR'S ORGANIZ ATION 12/01/2023 [facility] DATE CREATED AUTHOR AUTHOR'S ORGANIZ ATION 12/06/2023 [facility] DATE CREATED AUTHOR AUTHOR'S ORGANIZ ATION 12/23/2023 [facility] Care Teams (unrecognized sec tion and content) Team Status: Active Member Role Status Dates NON STAFF Primary Care Provider Active Team Status: Inactive Member Role Status Dates NON STAFF Primary Care Provider, Attending Provider Active Blending Machine Feeder Relationship Specialty Start Date End Date Christine Alarcon MD [address] [place] [address] PCP - General Hematology and Oncology 04/18/23 Blending Machine Feeder Relationship Specialty Start Date End Date Christine Alarcon MD [address] [place] [address] PCP - General Hematology and Oncology 04/18/23 Blending Machine Feeder Relationship Specialty Start Date End Date Christine Alarcon MD [address] [place] [address] PCP - General Hematology and Oncology 04/18/23 Team Status: Active Member Role Status Dates Chelsie Acuña MD Primary Care Provider Active Team Status: Inactive Member Role Status Dates Chelsie Acuña MD Primary Care Provider Active Start: September 19, 2023 End: September 19, 2023 Mariza Sotelo DNP Attending Provider Active S tart: September 19, 2023 End: September 19, 2023 Team Status: Inactive Member Role Status Dates Carlos Champagne MD Attending Provider Active Start: October 04, 2023 End: October 04, 2023 Team Status: Active Member Role Status Dates Mariza Sotelo DNP Primary Care Provider Active Team Status: Inactive Member Role Status Dates BRIDGETTE Pan Attending Provider Active Start: October 11, 2023 End: October 11, 2023 Mariza Sotelo DNP Primary Care Provider Active Start: October 11, 2023 End: October 11, 2023 Team Status: Inactive Member Role Status Dates Mariza Sotelo DNP Primary Care Provid er, Attending Provider Active Start: October 30, 2023 End: October 30, 2023 Team Status: Inactive Member Role Status Dates Mariza Sotelo DNP Primary Care Provider Active Start: November 27, 2023 End: November 27, 2023 BRIDGETTE Tam Attending Provider Active S tart: November 27, 2023 End: November 27, 2023 Blending Machine Feeder Relationship Specialty Start Date End Date [facility] [address] [place], [place] PCP - General Family Medicine 11/21/16 Goals (unrecognized section and content) Goals may be documented in a n alternate sectionGoals may be documented in an alternate sectionGoals may be documented in an alternate sectionGoals may be documented in an alternate sectionGoals may be documented in an alternate sectionGoals may be documented in an alternate sectionNot on filedocumented as of this encounter Reason for Visit (unrecogniz ed section and content) Specialty Diagnoses / Procedures Referred By Nicholas echeverria Referred To Contact Radiology Diagnoses Cyst of peritoneal cavity Procedures PET CT TUMOR IMAGE SKULL THIGH DOTATATE [facility] [place] [address] [place] [address] Referral ID Status Reason Start Date Expiration Date Visits Re quested Visits Authorized [id number] Closed 04/18/2023 05/18/2023 1 1 Specialty Diagnoses / Procedures Referred By Nicholas t Referred To Contact Diagnoses 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) [C7A.010] Procedures CHG GI ENDOSCOPIC US S&I ENDOSCOPIC ULTRASOUND WITH PATHOLOGY Etta Ramachandran MD [address] [place] [address] [facility] [address] [place] [address] Referral ID Status Reason Start Date Expiration Date Visits Re quested Visits Authorized [id number] 1 1 Reason Comments Establish Care Scheduled Active and Recently Administ ered Medications (unrecognized section and content) Medication Order 04/26/2023 04/27/2023 04/28/2023 sodium chloride flush 0.9 % injection 5-40 mL 5-40 mL, IntraVENous, EVERY 12 HOURS SCHEDULED (2 times per day), First dose on Mon04/28/23 at 2100, Until Discontinued, For Line Patency: Peripheral IV = 5 mL; Midline or Central Line = 10 mL/lumen. If following IV push medication, administer flush at same rate as the IV push. Flush volume is determined by type of infusion therapy being given. For non-viscous solutions use: Peripheral IV = 5 mL Midline or Central Line = 10 mL/lumen For viscous solutions (i.e. blood components, parenteral nutrition, contrast media, or after obtaining blood sample) use: Peripheral IV = 10 mL Midline or Central Line = 20 mL/lumen, Pre-op (day of surgery) 2100 (Due) Continuous Medication Order 04/26/2023 04/27/2023 04/28/2023 lactated ringers IV soln infusion IntraVENous, at 125 mL/hr, CONTINUOUS, Starting on Mon04/28/23 at 1330, Pre-op (day of surgery) 1323 (New Bag - Prov ider: Lou Holcomb RN)1437 (Paused - Provider: QUYEN Sumner CRNA - Comment: Switch to gravity)1438 (Restarted - Provider: QUYEN Sumner CRNA)1600 (Stopped - Provider: QUYEN Henderson CRNA) PRN Medication Order 04/26/2023 04/27/2023 04/28/2023 0.9 % sodium chloride infusion IntraVENous, at 5-250 mL/hr, PRN, if patient receiving piggyback infusions and maintenance fluids are not ordered OR KVO fluids to protect IV site / prevent frequent line interruptions/ long duration, Starting on Mon04/28/23 at 1302, For piggyback infusion, administer at same rate as piggyback for a total of 25 mL. Enter 25 mL into dose field and piggyback rate into rate field of order. If piggyback is infusing at a rate less than 100 mL/hr, enter 25 mL into dose field and 100 mL/hr into rate field of order. For KVO fluids, enter rate of 20 mL/hr or less into rate field of order., Pre-op (day of surgery) lidocaine PF 1 % injection 1 mL 1 mL, IntraDERmal, ONCE PRN, 1 dose, Starting on Mon04/28/23 at 1303, Until 04/29/23 at 1303, IV start, Pre-op (day of surgery) sodium chloride flush 0.9 % injection 5-40 mL 5-40 mL, IntraVENous, PRN, Starting on Mon04/28/23 at 1302, Until Discontinued, Line Care, After every IV line use, For Line Patency: Peripheral IV = 5 mL; Midline or Central Line = 10 mL/lumen. If following IV push medication, administer flush at same rate as the IV push. Flush volume is determined by type of infusion therapy being given. For non-viscous solutions use: Peripheral IV = 5 mL Midline or Central Line = 10 mL/lumen For viscous solutions (i.e. blood components, parenteral nutrition, contrast media, or after obtaining blood sample) use: Peripheral IV = 10 mL Midline or Central Line = 20 mL/lumen, Pre-op (day of surgery) FOR RECORDS PERTAINING TO PATIENTS WHO ARE OR HAVE BEEN ENROLLED IN A CHEMICAL DEPENDENCY/SUBSTANCEABUSE PROGRAM, SOME INFORMATION MAY BE OMITTED. This clinical summary was aggregated from multiple sources. Caution should be exercised in using it in the provision of clinical care. This summary normalizes information from multiple sources, and as a consequence, information in this document may materially change the coding, format and clinical context of patient data. In addition, data may be omitted in some cases. CLINICAL DECISIONS SHOULD BE BASED ON THE PRIMARY CLINICAL RECORDS. [facility]. provides no warranty or guarantee of the accuracy or completeness of information in this document.
[2024-02-02 16:52] LABS: Bilirubin Urine NEGATIVE (NEGATIVE); Blood Urine NEGATIVE (NEGATIVE); Clarity Urine CLEAR (CLEAR); Color Urine YELLOW (YELLOW); Glucose Urine UA NEGATIVE (NEGATIVE); Ketones Urine NEGATIVE (NEGATIVE); Leukocyte Esterase Urine NEGATIVE (NEGATIVE); Nitrite Urine NEGATIVE (NEGATIVE); Protein Urine TRACE mg/dL (NEG/TRACE); Specific Gravity Urine >=1.030 (1.005-1.025); Urobilinogen Urine 0.2 EU/dL (0.2-1.0)
[2024-02-02] MEDS: ONDANSETRON 4 MG RAPDIS TABLET SL (16:52)
[2024-02-02 16:53] LABS: Urine Microscopic Indicated NO
[2024-02-02 16:55] LABS: HCG Qualitative Urine* NEGATIVE (NEGATIVE); Internal Control Within Normal Limits
--- NOTE | 2024-02-02 17:20 | ED_ITS ---
HPI HPI - General Adult General Chief complaint: Nausea/Vomiting/Diarrhea Stated complaint: abdomen pain Time Seen by Provider: 02/02/24 16:32 Source: patient Mode of arrival: walk-in Limitations: no limitations History of Present Illness HPI narrative: The patient was evaluated almost 3 days ago by her primary care doctor diagnosed with sinusitis and started on amoxicillin, she developed some nausea and no vomiting She has been taking the amoxicillin for the last 3 days and she had some diarrhea to. The patient just feeling generalized tiredness and decreased appetite with no chest pain no abdominal pain Related Data Home Medications ?Medication ?Instructions ?Recorded ?Confirmed ergocalciferol (vitamin D2) 1,250 1,250 mcg PO DAILY 12/30/22 02/02/24 mcg (50,000 unit) capsule phentermine 37.5 mg tablet mg 02/02/24 Previous Rx's ?Medication ?Instructions ?Recorded hyoscyamine sulfate 0.125 mg 0.125 mg PO Q6H PRN abdominal pain 12/30/22 sublingual tablet (Levsin/SL) #20 tabs peg 3350-electrolytes 236 240 ml PO .q20min #2,000 mL 12/30/22 gram-22.74 gram-6.74 gram-5.86 gram solution (Golytely) ondansetron 4 mg disintegrating 4 mg PO Q8H PRN nausea and 02/02/24 tablet vomiting #10 tabs Allergies Allergy/AdvReac Type Severity Reaction Status Date / Time No Known Drug Allergies Allergy Verified 12/30/22 20:42 Opioid HPI Opioid Management Most Recent Opioid Data: No Data to Display Review of Systems ROS Status of ROS 10 or more systems reviewed and unremark able except as noted in history and below PFSH PFSH Social History Little interest or pleasure in doing things: not at all Feeling down, depressed, or hopeless: not at all Exam Narrative Exam Narrative: Nurses notes and vital signs reviewed and patient is not hypoxic. General: Well-appearing and in no apparent distress. Skin: Warm, dry, no pallor noted. No rash. Head: Normocephalic, atraumatic. Neck: Supple, non-tender. Eye: Pupils are equal, round and EOMI. No scleral icterus. Ears, Nose, Mouth, and Throat: TM are clear, bilateral nasal. oral mucosa is moist, no posterior oropharynx erythema, uvula is mid-line Cardiovascular: Regular Rate and Rhythm without murmur, gallop or rub. Respiratory: No accessory muscle use or respiratory distress. Lungs are clear to auscultation, no wheezing, rales or rhonchi Chest Wall: no tenderness Back: No midline thoracic or lumbar vertebral tenderness. No CVA tenderness Musculoskeletal: normal ROM, no calf or popliteal tenderness, no lower extremity edema/swelling GI: Abdomen is soft, non-distended. Normal bowel sounds. No masses appreciated. No tenderness to palpation. No rebound, guarding, or rigidity noted. Neurological: A&O x4. No cranial nerve dysfunction observed. No truncal ataxia. Moves all extremities. Sensation intact. Psychiatric: Cooperative and interactive. Normal mood and affect. Constitutional Vital Signs, click to edit/add: Last Vital Signs Temp 98.1 F 02/02/24 16:27 Pulse 98 H 02/02/24 16:27 Resp 18 02/02/24 16:27 BP 112/73 02/02/24 16:27 Pulse Ox 98 02/02/24 16:27 O2 Del Method Room Air 02/02/24 16:27 Course Vital Signs Vital signs: Vital Signs Temperature 98.1 F 02/02/24 16:27 Pulse Rate 98 H 02/02/24 16:27 Respiratory Rate 18 02/02/24 16:27 Blood Pressure 112/73 02/02/24 16:27 Pulse Oximetry 98 02/02/24 16:27 Oxygen Delivery Method Room Air 02/02/24 16:27 Temperature 98.1 F 02/02/24 16:27 Pulse Rate 98 H 02/02/24 16:27 Respiratory Rate 18 02/02/24 16:27 Blood Pressure 112/73 02/02/24 16:27 Pulse Oximetry 98 02/02/24 16:27 Oxygen Delivery Method Room Air 02/02/24 16:27 Medical Decision Making MDM Narrative Medical decision making narrative: The patient COVID and flu test are negative Her presentation mostly secondary to viral illness with her decreased p.o. intake and the generalized body ache and head heaviness She will just continue her sinusitis treatment in addition to Zofran provided for supportive care The patient instructed on hydration and monitoring her symptoms she will come back to us in case of any new symptoms or concerns The patient is to follow up with primary care physician in next 2-3 days or to return to the emergency department should any of the signs or symptoms worsen or new symptoms develop. The patient agrees with the following Diagnosis and Treatment plan and the patient will be discharged home. Lab Data Labs: Lab Results 02/02/24 02/02/24 Range/Units 16:40 17:15 Urine Color Yellow (YELLOW) Urine Clarity Clear (CLEAR) Urine pH 6.0 (5.0-9.0) Ur Specific [place] >=1.030 A (1.005-1.025) Urine Protein Trace (NEG/TRACE) mg/dL Urine Glucose (UA) Negative (NEGATIVE) mg/dL Urine Ketones Negative (NEGATIVE) mg/dL Urine Occult Blood Negative (NEGATIVE) Urine Nitrite Negative (NEGATIVE) Urine Bilirubin Negative (NEGATIVE) Urine Urobilinogen 0.2 (0.2-1.0) EU/dL Ur Leukocyte Esterase Negative (NEGATIVE) Urine HCG, Qual Negative (NEGATIVE) Influenza Type A Ag Negative Influenza Type B Ag Negative SARS-CoV-2 Ag (CV2AG) Negative (NEGATIVE) Discharge Plan Discharge Chief Complaint: Nausea/Vomiting/Diarrhea Clinical Impression: Acute viral syndrome Patient Disposition: Home, Self-Care Time of Disposition Decision: 17:35 Condition: Good Prescriptions / Home Meds: New ondansetron 4 mg tablet,disintegrating 4 mg PO Q8H PRN (Reason: nausea and vomiting) Qty: 10 0RF No Action phentermine 37.5 mg tablet ergocalciferol (vitamin D2) 1,250 mcg (50,000 unit) capsule 1,250 mcg PO DAILY peg 3350-electrolytes [Golytely] 236-22.74-6.74 -5.86 gram recon soln 240 ml PO .q20min Qty: 2000 0RF Rx Instructions: until fecal effluent is clear hyoscyamine sulfate [Levsin/SL] 0.125 mg tablet, sublingual 0.125 mg PO Q6H PRN (Reason: abdominal pain) Qty: 20 0RF Print Language: Colombian Instructions: Acute Nausea and Vomiting (DC), Viral Syndrome (ED) Referrals: [facility] [Physician] - 1 week
[2024-02-02 17:32] LABS: Influenza Virus A Antigen Negative; Influenza Virus B Antigen Negative; Internal Control Within Normal Limits; SARS-CoV-2 Ag NEGATIVE (NEGATIVE)
[2024-02-02 17:44] VITALS: BP 116/82; PULSE 89; TEMP 36.8; O2SAT 99
== END 2024-02-02 17:45 | disposition home or self-care (01) ==
PROVIDERS: Emergency Provider Emergency Medicine; PCP Student in an Organized Health Care Education/Training Program
DX: B34.9 Viral infection, unspecified (principal)
CPT/HCPCS: 81003; 84703; 87804; 87811; 99284; Q0162

== ENCOUNTER 2024-12-14 23:44 | Emergency (ER) | payer OTHER, SELFPAY ==
[2024-12-14 23:49] VITALS: BP 123/73
[2024-12-14 23:50] VITALS: O2SAT 100
[2024-12-14 23:54] VITALS: BP 123/73; PULSE 80; TEMP 36.6; O2SAT 99; BMI 35.4
[2024-12-15] VITALS (8 sets, daily range): BP systolic 94–95; BP diastolic 65–68; PULSE 68–79; O2SAT 99–100
--- NOTE | 2024-12-15 00:06 | XR_ITS ---
[facility] [place] [id number] Patient Name: JAKE LEZAMA MRN: [id number] date: 1985 Sex: F Assigned Patient Location: ER Current Patient Location: Accession/Order Number: [id number] Exam Date: 12/15/2024 00:10 Report Date: 12/15/2024 08:34 At the request of: QIAN YIN MD Procedure: XR chest 2V XR chest 2V 12/15/2024 12:18 AM SIGNS AND SYMPTOMS: Chest and abdominal pain PROTOCOL: Frontal and lateral radiographs of the chest COMPARISON: 01/19/2022 FINDINGS: The trachea is midline. The heart and mediastinal structures are within normal limits. The lung parenchyma is clear. The bony thorax is intact. Surgical clips are noted in the epigastric region. XR/XR chest 2V IMPRESSION: No acute cardiopulmonary pathology. Impression dictated by: Rah Leach M.D. 12/15/2024 8:34 AM Dictation Location: [place] [id number] Electronically authenticated by: [id number] Y Date: 12/15/2024 08:34
--- NOTE | 2024-12-15 00:06 | ED_ITS ---
HPI HPI - General Adult General Chief complaint: Abdominal Pain Stated complaint: chest pain/abd pain Time Seen by Provider: 12/14/24 23:59 Mode of arrival: walk-in History of Present Illness HPI narrative: presents complaining of fleeting short last episodes of left sided chest pain that radiate to her neck. Last few seconds and then resolves. No associated dyspnea. 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 No fever, chills Related Data Home Medications ?Medication ?Instructions ?Recorded ?Confirmed ergocalciferol (vitamin D2) 1,250 1,250 mcg PO DAILY 1 03/01/22 02/02/24 mcg (50,000 unit) capsule Allergies Allergy/AdvReac Type Severity Reaction Status Date / Time No Known Drug Allergies Allergy Verified 12/14/24 23:53 Review of Systems ROS Status of ROS 10 or more systems reviewed and unremark able except as noted in history and below PFSH PFSH Social History Little interest or pleasure in doing things: not at all Feeling down, depressed, or hopeless: not at all Exam Constitutional Vital Signs, click to edit/add: Last Vital Signs Temp 97.9 F 12/14/24 23:54 Pulse 68 12/15/24 02:30 Resp 7 L 12/15/24 02:30 BP 94/65 12/15/24 01:26 Pulse Ox 100 12/15/24 01:25 O2 Del Method Room Air 12/15/24 01:25 Common normals: no apparent distress, average body habitus, oriented x3, no limitations, healthy appearing, alert and well nourished [facility] Common normals: normocephalic and head/scalp atraumatic Eye Common normals: EOMs intact bilaterally and conjunctivae normal Respiratory Common normals: normal respiratory effort, no retractions, no use of accessory muscles and clear to auscultation bilaterally Cardio Common normals: regular rate, regular rhythm, S1 normal heart sound and S2 normal heart sound GI Common normals: Normal to inspection, nondistended, normoactive bowel sounds present, soft to palpation and non-tender Extremity Common normals: normal to inspection and full ROM Neuro Common normals: oriented x3, CN's II-XII intact bilaterally, moves all extremities and no focal motor deficits Psych Appearance: grossly normal Course Vital Signs Vital signs: Vital Signs Blood Pressure 123/73 12/14/24 23:49 Temperature 97.9 F 12/14/24 23:54 Pulse Rate 68 12/15/24 02:30 Respiratory Rate 7 L 12/15/24 02:30 Blood Pressure 94/65 12/15/24 01:26 Pulse Oximetry 100 12/15/24 01:25 Oxygen Delivery Method Room Air 12/15/24 01:25 Medical Decision Making MDM Narrative Medical decision making narrative: presents with atypical chest pain. Short lasting (seconds) fleeting pain left chest to her neck. No associated dyspnea or nausea. workup in the ED neg including troponin, d-dimer, cxray and normal EKG. Patient reassurred and discharged home to follow up with her doctor Lab Data Labs: Lab Results 12/15/24 12/15/24 Range/Units 00:10 02:03 WBC 14.1 H (4.0-11.0) 10^3/uL RBC 4.42 (4.20-5.40) 10^6/uL Hgb 11.8 L (12.0-16.0) g/dL Hct 36.7 (36.0-48.0) % MCV 83.0 (81.0-99.0) fL MCH 26.7 (26.7-34.0) pg MCHC 32.2 (29.9-35.2) g/dL RDW 14.8 (11.0-15.0) % Plt Count 432 (150-450) 10^3/uL MPV 8.4 L (9.5-13.5) fL Neut % (Auto) 56.9 (43.0-75.0) % Lymph % (Auto) 34.4 (20.5-60.0) % [place] % (Auto) 6.8 (1.7-12.0) % Eos % (Auto) 0.8 L (0.9-7.0) % Baso % (Auto) 0.7 (0.2-2.0) % Neut # (Auto) 8.0 H (1.4-6.5) 10^3/uL Lymph # (Auto) 4.9 H (1.2-3.8) 10^3/uL [place] # (Auto) 1.0 H (0.3-0.8) 10^3/uL Eos # (Auto) 0.1 (0.0-0.7) 10^3/uL Baso # (Auto) 0.1 (0.0-0.1) 10^3/uL Abs Immat Gran (auto) 0.06 H (0.00-0.03) 10^3/uL Imm/Tot Granulo (auto) 0.4 (0.0-0.5) % D-Dimer 0.48 (<=0.59) mg/L FEU Sodium 141 (136-145) mmol/L Potassium 3.3 L (3.5-5.1) mmol/L Chloride 106 (98-107) mmol/L Carbon Dioxide 29.6 (21.0-32.0) mmol/L Anion Gap 8.7 BUN 11.0 (7.0-18.0) mg/dL Creatinine 0.84 (0.55-1.02) mg/dL Est GFR ( Amer) >60 (>=60 mL/min/1.73m^2) Est GFR (Non-Af Amer) >60 (>=60 mL/min/1.73m^2) BUN/Creatinine Ratio 13.1 Glucose 106 (74-106) mg/dL Lactate 1.5 (0.4-2.0) mmol/L Calcium 8.4 L (8.5-10.1) mg/dL Total Bilirubin 0.4 (0.2-1.0) mg/dL AST 11 L (15-37) U/L ALT 25 (14-59) U/L Alkaline Phosphatase 83 (46-116) U/L Troponin I High Sens <4.0 L <4.0 L (4.0-51.3) pg/mL Total Protein 6.6 (6.4-8.2) g/dL Albumin 3.1 L (3.4-5.0) g/dL Globulin 3.5 g/dL Albumin/Globulin Ratio 0.9 Lipase 46.0 (16.0-77.0) U/L Discharge Plan Discharge Chief Complaint: Abdominal Pain Clinical Impression: Atypical chest pain Patient Disposition: Home, Self-Care Prescriptions / Home Meds: No Action ergocalciferol (vitamin D2) 1,250 mcg (50,000 unit) capsule 1,250 mcg PO DAILY Print Language: Bangladeshi Instructions: Noncardiac Chest Pain (ED) Additional Instructions: follow up with your doctor next week for recheck Referrals: Radhika Serrano ND [Primary Care Provider] - 1 week
--- OUTSIDE RECORDS SUMMARY | 2024-12-15 00:14 | XMS_ITS | CCD ---
Author Organization [facility] [place] [facility] Care Team Providers Care Oracle Bpm Developer Name Role Phone QIAN YIN Admitting Unavailable QIAN YIN Consulting Unavailable QIAN YIN Attending Unavailable [facility] Primary Care Unava ilable LISANDRA ARGUETA Consulting [...] Unavailable Christine Alarcon MD Primary Care Provider [phone] CHRISTINE ALARCON Primary Care Unavailable HAMDANI, ETTA YARELY T Admitting Unavailabl e CACHORRO ETTA YARELY T Attending Unavailabl MD Carlos Hansen Attending Provider [phone] Carlos Champagne Attending Unavailable Carlos Champagne Admitting Unavailable MELISSA SERRANO Attending Unavailable SERVICES, [facility] Primary Care Unava ilable Services, [facility] Primary Care Provider Unavailable Primary Care Provider UnavailCHRISTINE Lunsford Referring Unavailable MELISSA SERRANO Primary Care Unavailable BJORN PIÑA Referring Unavailable MELISSA SERRANO Primary Care Unavailable BJORN PIÑA Referring Unavailable SERVICES, [facility] Primary Care Unava ilable CHELSIE ACUÑA Referring Unavailable SERVICES, [facility] Primary Care Unava ilable IONA MENON Attending Unavailable IONA MENON Referring Unavailable SERVICES, [facility] Primary Care Unava ilable SERVICES, [facility] Care Unava ilable DAUDI, SAYEEMA N Referring Unavailable SERVICES, [facility] Care Unava ilable DAUDI, SAYEEMA N Referring Unavailable SERVICES, [facility] Care Unava ilable KOLEDA, MARIO ALBERTO Referring Unavailable SERVICES, [facility] Care Unava ilable ALNSOUR, MOHAMMAD A Attending Unavailable ALNSOUR, MOHAMMAD A Referring Unavailable ALNSOUR, MOHAMMAD A Primary Care Unavailable ALNSOUR, MOHAMMAD A Referring Unavailable ALNSOUR, MOHAMMAD A Primary Care Unavailable ALNSOUR, MOHAMMAD A Referring Unavailable ACUÑA, CHELSIE L Primary Care Unavailable ALNSOUR, MOHAMMAD A Primary Care Unavailable PANTERA, AIJAZ Admitting Unavailable PANTERA, DEJAZ Attending Unavailable Mariza Sotelo DNP Primary Care Provider Mariza Sotelo DNP Attending Provider Melissa Serrano MD Primary Care Provider ALY SANTA Attending Unavailable PETITTI, JOSELITO Flower Attending Unavailable RUSALY MOLINA Attending Unavailable PETITTKimmy, JOSELITO Flower Attending Unavailable PETITTKimmy, JOSELITO Flower Attending Unavailable PETITTKimmy, JOSELITO Flower Attending Unavailable PETITTI, JOSELITO Flower Attending Unavailable PETITTI, JOSELITO Flower Attending Unavailable PETITTI, JOSELITO Flower Attending Unavailable Medications Current Medications MedicationDrug Class(es)DatesSig (Normalized)Sig (Original)benzoyl peroxide 50 mg/ml topical solution (9 sources)Start: 07-11-2022 End: 17-04-3425objaqpd peroxide 5 % external wash Indications: Acne vulgaris Apply topically 2 (two) times a day. 90 g 11 07/11/2022 04/01/2024 Discontinued betamethasone 1 mg/ml topical cream (20 sources)CorticosteroidStart: 86-02-2507bfqrtcuhqivdm valerate (Valisone) 0.1 % cream Indications: Other allergic contact dermatitis Apply thin layer (1 g) to hands bid/prn. Hold when clear. 30 days. 45 g 3 04/04/2024 ActiveStart: 60-67-3420gkngvbamnsjxm dipropionate (Diprolene) 0.05 % ointment Indications: Other allergic contact dermatitis Apply to affected areas, up to twice a day when flared, do not use one the face, groin, or underarms, 30 day supply 45 g 11 04/01/2024 Activebisacodyl 5 mg delayed release oral tablet (1 source)Stimulant LaxativeStart: 74-25-0893btsvvzqff 5 MG EC tablet Indications: Rectal bleeding Please follow instructions given to you by your provider. 4 tablet 0 06/02/2023 Activecalcium chloride 0.0014 meq/ml / potassium chloride 0.004 meq/ml / sodium chloride 0.103 meq/ml / sodium lactate 0.028 meq/ml injectable solution (1 source)Start: 27-75-7820dqqzzmir ringers IV soln infusionCalcium Citrate / Vitamin D (3 sources)Calcium Citrate-Vitamin D (CALCIUM CITRATE CHEWY BITE PO) Take by mouth 2 times daily 0 Activecholecalciferol 0.25 mg oral capsule (1 source)Vitamin DStart: 19-01-9884vvcp 1 capsule by mouth once daily Cholecalciferol (Vitamin D3) 250 mcg (10,000 unit) capsule Active 250 MCG PO Daily September 092:00am Complies with drug therapyClascoterone (1 source)Start: 04-65-8722Uxwglctldhrj (Winlevi) 1 % cream Active APPLIC TOPICAL September 09, 2024 12:00am Complies with drug therapyClascoterone (Winlevi) 1 % cream (9 sources)Start: 50-72-1661Ydlfnztrfckk (Winlevi) 1 % cream Indications: Acne vulgaris Apply to face twice daily, 30 day supply 60 g 11 08/12/2024 Active ergocalciferol 1.25 mg oral capsule (3 sources)Provitamin D2 CompoundStart: 07-07-4060hbwjqpi D (ERGOCALCIFEROL) 1.25 MG (59114 UT) CAPS capsule TAKE 1 CAPSULE WEEKLY 0 12/23/2022 Active hydrocortisone 25 mg/ml topical cream (20 sources)CorticosteroidStart: 06-85-3668pqouxgchuiejhv (ANUSOL-HC) 2.5 % rectal cream Topical BID 08/30/2023 ActiveStart: 29-05-6993yscyxozpbzugep (ANUSOL-HC) 2.5 % CREA rectal cream Topical BID 28 g 0 08/30/2023 ActiveStart: 61-23-5966lodqvvjwxzlryd 2.5 % ointment Indications: Allergic dermatitis due to other chemical product Apply thin layer to affected areas bid prn for flares 60 g 2 11/15/2022 Activeammonium lactate 120 mg/ml topical cream (20 sources)Start: 03-26-2024 End: 80-75-4724xskxphfj lactate (Amlactin) 12 % cream Indications: Corns and callosities Apply topically Daily 140g 3 03/26/2024 03/26/2025 Hdhxdi66 ml lidocaine hydrochloride 10 mg/ml injection (1 source)Antiarrhythmic, Amide Local AnestheticStart: 04-28-2023 End: 56-82-8705jlpydwace PF 1 % injection 1 mLlubiprostone 0.024 mg oral capsule (3 sources)Chloride Channel ActivatorStart: 99-37-3372eguf 1 capsule by mouth once daily at breakfastlubiprostone (AMITIZA) 24 MCG capsule Take 1 capsule by mouth daily (with breakfast) 30 capsule 2 06/05/2023 ActiveStart: 30-37-4416grov 1 capsule by mouth once daily at breakfastlubiprostone (AMITIZA) 24 MCG capsule Take 1 capsule by mouth daily (with breakfast) 30 capsule 2 03/01/2023 Active meloxicam 15 mg oral tablet (20 sources)Nonsteroidal Anti-inflammatory DrugStart: 03-26-2024 End: 24-79-6428lmli 1 tablet by mouth once dailymeloxicam (Mobic) 15 MG tablet Indications: Plantar fasciitis TAKE 1 TABLET BY MOUTH EVERY DAY 30 tablet 05/20/2024 ActiveMultiple Vitamin (multivitamin) tablet (20 sources)take 1 tablet by mouth once dailyMultiple Vitamin (multivitamin) tablet Take 1 tablet by mouth Daily Activetake 1 tablet by mouth in the morning Multiple Vitamin (multivitamin) tablet Take 1 tablet by mouth in the morning. ActiveMultiple Vitamins-Minerals (MULTIVITAMIN ADULT PO) (3 sources)Multiple Vitamins-Minerals (MULTIVITAMIN ADULT PO) Take by mouth 2 times daily 0 UgmjpvQggeszcimius-Piz-Uzcs-Fa-Vit K (Bariatric Multivitamins) 45 mg iron- 800 mcg-120 mcg capsule (10 sources)Start: 34-95-8820jydf 1 capsule by mouth once Vhojephejpyo-Rdb-Rebw-Fa-Vit K (Bariatric Multivitamins) 45 mg iron- 800 mcg-120 mcg capsule ActiveCAP PO September 19, 2023 12:00am Complies with drug therapy Start: 44-48-7027dkwk 1 capsule by mouth gmxaEihtmrrsgohd-Rzp-Sylg-Fa-Vit K (Bariatric Multivitamins) 45 mg iron- 800 mcg-120 mcg capsule ActiveCAP PO September 18, 2023 11:00pmStart: 69-86-2639ahgo 1 capsule by mouth once Pbddbbecufpw-Tna-Qrag-Fa-Vit K (Bariatric Multivitamins) 45 mg iron- 800 mcg-120 mcg capsule ActiveCAP PO September 19, 2023 12:00amnitroglycerin 0.02 mg/mg topical ointment (20 sources)Nitrate VasodilatorStart: 03-26-2024 End: 54-16-8994tretuknwjzley (Juan Jose-Bid) 2 % ointment Indications: Pernio, initial encounter Place 0.5 inches over 6 hours on the skin every 6 (six) hours during the day Apply to affected toes. 30 g 03/26/2024 03/26/2025 Active pantoprazole 40 mg delayed release oral tablet (3 sources)Proton Pump InhibitorStart: 72-20-8731gqej 1 tablet by mouth in the morningpantoprazole (PROTONIX) 40 MG tablet TAKE 1 TABLET BY MOUTH IN THE MORNING AND IN THE EVENING 60 tablet 0 04/24/2023 ActiveStart: 58-30-6732tohw 1 tablet by mouth in the morningpantoprazole (PROTONIX) 40 MG tablet Take 1 tablet by mouth in the morning and 1 tablet in the evening. 60 tablet 0 03/28/2023 Activepolyethylene glycol 3350 03199 mg powder for oral solution (1 source)Osmotic LaxativeStart: 14-41-4938rofagwfezfhp glycol (GLYCOLAX) 17 GM/SCOOP powder Indications: Rectal bleeding Please follow instructions provided to you by your provider. 238 g 0 06/02/2023 Active5 ml sodium chloride 9 mg/ml injection (3 sources)Start: 16-53-9754vywbmb chloride flush 0.9 % injection 5-40 mLStart: .9 % sodium chloride infusionStart: 88-56-9987cpebhi chloride flush 0.9 % injection 5-40 mLspironolactone 100 mg oral tablet (2 sources)Aldosterone AntagonistStart: 29-67-3343hkbu 1 tablet by mouth once dailyspironolactone (Aldactone) 100 MG tablet Indications: Acne vulgaris Take 1 tablet, by mouth, once daily, 30 days 30 tablet 11 04/01/2024 ActiveStart: 79-21-2408vvba 1 tablet by mouth once dailyspironolactone (Aldactone) 100 MG tablet Indications: Acne vulgaris Take 1 tablet, by mouth, once daily, 30 days 30 tablet 11 04/01/2024 Activesulfacetamide sodium 100 mg/ml topical lotion (8 sources)Sulfonamide AntibacterialStart: 07-17-2023 End: 15-53-3246jkopofgpdcnsh sodium, acne, 10 % suspension Apply thin layer to face once daily, 30 day supply. 07/17/2023 Active Completed/Discontinued Medications MedicationDrug Class(es)DatesSig (Normalized)Sig (Original)ascorbic acid 250 mg chewable tablet (4 sources)Vitamin C End: 05-02-0391rfzmqvmy acid, vitamin C, 250 mg tablet,chewable Chew and swallow. 11/29/2023 DiscontinuedAscorbic Acid (VITAMIN C ADULT GUMMIES PO) Take by mouth Takes 2 gummies daily 0 Activeazelaic acid 200 mg/ml topical cream (19 sources)Start: 04-01-2024 End: 29-60-6447xsoktni acid (Azelex) 20 % cream Indications: Acne vulgaris Apply thin layer to face, once daily, 30 day supply 50 g 04/01/2024 11/19/2024 Discontinuedcalcium citrate 1500 mg / ergocalciferol 200 unt oral tablet (1 source)Provitamin D2 Compound End: 45-99-2477gbyoscn citrate-vitamin D2 315 mg-5 mcg (200 unit) tablet Take 2 capsules by mouth. 11/29/2023 Discontinuedclindamycin 10 mg/ml topical lotion (19 sources)Lincosamide AntibacterialStart: 09-19-2023 End: 91-81-5939Llwlbyzhhsy Phosphate 1 % lotion Discontinued 1 APPLIC TOPICAL Daily September 19, 2023 12:00am April 15, 2024 9:29amStart: 07-17-2023 End: 53-93-9089dqqaxnqhbzq (Cleocin T) 1 % lotion Indications: Acne vulgaris Apply thin later to affected areas onthe body during flares, 30 day supply 60 mL 11 07/17/2023 04/01/2024 DiscontinuedStart: 69-29-1307zrjakckhdhm (CLEOCIN T) 1 % lotion APPLY TOPICALLY DAILY. APPLY THIN LATER TO AFFECTED AREAS ON THEBODY DURING FLARES 0 02/09/2023 Activecyclobenzaprine hydrochloride 5 mg oral tablet (6 sources)Muscle RelaxantStart: 03-28-2022 End: 43-90-2888pgfuyrsquxobrxy (FLEXERIL) 5 mg tablet 1-2 tablet at bedtime as needed 03/28/2022 11/29/2023 Discontinuedtake 1 tablet by mouth three times daily as neededcyclobenzaprine (FLEXERIL) 10 mg tablet Take 1 tablet (10 mg total) by mouth 3 (three) times a day as needed. Activedoxycycline monohydrate 50 mg oral capsule (13 sources)Tetracycline-class DrugStart: 05-13-2024 End: 35-32-6406ruso 1 capsule by mouth twice dailyDoxycycline Monohydrate 50 mg capsule Discontinued 50 MG PO Twice daily May 27, 2024 12:00am September 09, 2024 9:38amibuprofen 800 mg oral tablet (1 source)Nonsteroidal Anti-inflammatory DrugStart: 06-12-2023 End: 19-48-5218lbqq 1 tablet by mouth every six hours as needed for pain ibuprofen (MOTRIN) 800 mg tablet Take 1 tablet (800 mg total) by mouth every 6 (six) hours as needed for pain. 30 tablet 06/12/2023 11/29/2023 Discontinued minocycline 50 mg oral capsule (17 sources)Tetracycline-class DrugStart: 07-17-2023 End: 68-94-4296jokv 1 capsule by mouth once dailyMinocycline 50 mg capsule Discontinued 50 MG PO Daily September 19, 2023 12:00am April 15, 2024 9:29am End: 45-02-8860juhj 1 tablet by mouth in the morningminocycline (DYNACIN) 50 MG tablet Take 1 tablet (50 mg total) by mouth in the morning. 11/29/2023 D iscontinuedomeprazole 40 mg delayed release oral capsule (1 source)Proton Pump InhibitorStart: 02-21-2022 End: 50-61-5521iqkdlgykku (PriLOSEC) 40 mg capsule 1 capsule 30 minutes before morning meal 02/21/2022 11/29/2023 Discontinuedondansetron 4 mg disintegrating oral tablet (1 source)Serotonin-3 Receptor AntagonistStart: 04-10-2022 End: 42-27-6455mxkn 1 tablet by mouth every eight hours as needed for nausea ondansetron ODT (ZOFRAN ODT) 4 mg disintegrating tablet Dissolve 1 tablet (4 mg total) on tongue every 8 (eight) hours as needed for nausea for up to 10 doses. 10 tablet 04/10/2022 11/29/2023 Discontinuedphentermine hydrochloride 37.5 mg oral tablet (20 sources)Sympathomimetic Amine AnorecticStart: 10-30-2023 End: 14-76-0921rcqu 1 tablet by mouth once daily 30 minutes after breakfast Phentermine (Adipex-P) 37.5 mg tablet Discontinued 37.5 MG PO Daily August 08, 2024 1:26pm September 09, 2024 9:52am must administer 30 minutes before or 1- 2 hours after breakfastSemaglutide (10 sources)Start: 09-19-2023 End: 04-89-8798Kytnqrtacjm (Ozempic) 0.25 mg or 0.5 mg (2 mg/3 mL) pen injector Discontinued 0.25 MG SUBCUT every week 1.84 September 18, 2023 11:00pm October 30, 2023 8:35amStart: 09-19-2023 End: 46-17-2834Gmejvwwgebj (Ozempic) 0.25 mg or 0.5 mg (2 mg/3 mL) pen injector Discontinued 0.25 MG SUBCUT every week 1.84 September 19, 2023 12:00am October 30, 2023 9:35amStart: 62-16-5859Thmocykgbnu (Ozempic) 0.25 mg or 0.5 mg (2 mg/3 mL) pen injector Active 0.25 MG SUBCUT every week 1.84 September 19, 2023 12:00amtretinoin 0.25 mg/ml topical cream (13 sources)RetinoidStart: 09-19-2023 End: 45-82-5770Gmpijknuq 0.025 % cream Discontinued APPLIC TOPICAL Daily at bedtime September 19, 2023 12:00am April 15, 2024 9:29amtretinoin (RETIN-A) 0.025 % cream APPLY TO AFFECTED AREA EVERY DAY AT BEDTIME 0 Active Problems Active Problems Problem ClassificationProblemDateDocumented DateEpisodic/ChronicAbdominal pain (1 source)Epigastric pain; Translations: [Epigastric pain]Onset: 03-08-2023 EpisodicAdministrative/social admission (20 sources)Patient encounter status; Translations: [Exercise counseling] 87-92-6991VcbdetukDqkzqtdz reactions (2 sources)Allergic contact dermatitis; Translations: [Allergic contact dermatitis due to other agents]50-21-3431KoyyynmeRcsvte of other GI organs; peritoneum (2 sources)Malignant carcinoid tumor of small intestine; 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]Onset: 995601-27-2689Dlycjcb Cancer; other and unspecified primary (12 sources)H/O: malignant neoplasm; Translations: [Personal history of malignant neoplasm, unspecified]70-09-9335FfivayzeUqxwmhv on above:of duodenum Cancer; other and unspecified primary (18 sources)Personal history of malignant neoplasm, unspecified; Translations: [Personal history of malignant neuroendocrine tumor]23-49-9311VsqrhhliMqcopd; other and unspecified primary (1 source)Personal history of benign carcinoid tumor; Translations: [Personal history of benign carcinoid tumor]Onset: 74-06-2377QwjnylibKbrikzowlndzg of surgical procedures or medical care (20 sources)History of subtotal thyroidectomy; Translations: [Postprocedural hypothyroidism]Onset: 308847-67-6791NwrmmuaNenavqekn of lipid metabolism (17 sources)Mixed hyperlipidemia; Translations: [Mixed hyperlipidemia]01-22-2024 ChronicImmunizations and screening for infectious disease (2 sources)Encounter for immunization; Translations: [Immunization due]Onset: 034596-20-4826KhbkiqgfOrnlkaptk neoplasm without specification of site (3 sources)Primary malignant neuroendocrine neoplasm of duodenum; Translations: [Other malignant neuroendocrine tumors]Onset: hronic Neoplasms of unspecified nature or uncertain behavior (1 source)Neoplasm of unspecified behavior of bone, soft tissue, and skin; Translations: [Neoplasm of unspecified behavior of bone, soft tissue, and skin] Onset: 22-72-6852YkjzwplvKtxzqhyyjjg chest pain (4 sources)Chest pain, unspecified; Translations: [Other chest pain]Onset: 71-14-4148JfddqodpIokscyfatur deficiencies (1 source)Vitamin D deficiency, unspecified; Translations: [Vitamin D deficiency, unspecified]Onset: 13-24-0582ZckorliZwokj acquired deformities (2 sources)Equinus contracture of the ankle; Translations: [Contracture, right ankle]13-18-4600SyojzdpHlofg acquired deformities (2 sources)Equinus contracture of the ankle; Translations: [Contracture, left ankle]55-11-9870HrgcfqrVtriw connective tissue disease (3 sources)Plantar fasciitis; Translations: [Plantar fascial fibromatosis] 08-39-7871XesqwhsbYlaqu connective tissue disease (2 sources)Pain in both feet; Translations: [Pain in right foot]03-26-2024 EpisodicOther gastrointestinal disorders (1 source)Other specified disorders of peritoneum; Translations: [Other specified disorders of peritoneum]Onset: 53-62-0216AyjmfiwyXgcqf gastrointestinal disorders (1 source)Bariatric surgery status; Translations: [Bariatric surgery status] Onset: 65-35-0814SlzuqdmvFgmkx injuries and conditions due to external causes (2 sources)Chilblains; Translations: [Chilblains, initial encounter]03-26-2024 EpisodicOther nutritional; endocrine; and metabolic disorders (12 sources)Obese class II; Translations: [Obesity, unspecified]09-19-2023 ChronicOther nutritional; endocrine; and metabolic disorders (20 sources)Body mass index 30+ - obesity; Translations: [Body mass index (BMI) 35.0-35.9, adult]Onset: 084992-89-4080RzwiposSakae nutritional; endocrine; and metabolic disorders (8 sources)Body mass index (BMI) 35.0-35.9, adult; Translations: [Body Mass Index 35.0-35.9, adult]Onset: 335754-72-1068HbkljoaDsroc nutritional; endocrine; and metabolic disorders (5 sources)Obesity, unspecified; Translations: [Obesity, unspecified]09-19-2023 ChronicOther nutritional; endocrine; and metabolic disorders (18 sources)Obese class I; Translations: [Class 1 obesity]82-70-6883DdzjbffYrcat nutritional; endocrine; and metabolic disorders (1 source)Body mass index (BMI) 33.0-33.9, adult; Translations: [Body Mass Index 33.0-33.9, adult]49-75-4457RswydsfSbppe nutritional; endocrine; and metabolic disorders (10 sources)Body mass index (BMI) 32.0-32.9, adult; Translations: [Body Mass Index 32.0-32.9, adult]77-26-2705UmkselnPlihn nutritional; endocrine; and metabolic disorders (7 sources)Abnormal weight gain; Translations: [Abnormal weight gain]01-22-2024 EpisodicOther nutritional; endocrine; and metabolic disorders (10 sources)Abnormal weight gain; Translations: [Abnormal weight gain]01-22-2024 EpisodicOther skin disorders (2 sources)Callosity; Translations: [Corns and callosities]68-58-5221Ysfmeera Other skin disorders (15 sources)Acne vulgaris; Translations: [Acne vulgaris]73-17-3583Gqwowdbz Residual codes; unclassified (19 sources)Acquired absence of stomach [part of]; Translations: [Personal history of surgery to other organs]Onset: 363854-59-1789TpsvmbvaXqyyzuxm codes; unclassified (1 source)History of uterine scar from previous surgery; Translations: [History of uterine scar from previoussurgery]Onset: 28-45-1687UnpgmdfrMbxdpuj disorders (2 sources)Hypothyroidism, unspecified; Translations: [Nontoxic goiter, unspecified]Onset: 99-69-3773TzggbrdIjdhluuxejsq (1 source)Establish CareOnset: 75-56-1079Jndcjufykvgq (1 source)Right Foot PainOnset: 06-12-2023 Past or Other Problems Problem ClassificationProblemDateDocumented DateEpisodic/ChronicCancer; other and unspecified primary (3 sources)H/O: neoplasm; Translations: [Personal history of benign carcinoid tumor]Onset: 498184-80-8451SchnwguaVkhquhlmtutxtkdd hemorrhage (2 sources)Hemorrhage of anus and rectum; Translations: [Hemorrhage of anus and rectum]Onset: 45-30-2397BbibqxrkQhmg disorders (2 sources)Mood disordersOnset: 621067-40-4632Gvrsakgnjwon breast conditions (2 sources)Unspecified lump in the right breast, lower inner quadrant; Translations: [Unspecified lump in the left breast, lower inner quadrant]Onset: 49-22-5133SboghxwuXzzqp and unspecified benign neoplasm (3 sources)Polyp of duodenum; Translations: [Polyp of stomach and duodenum] Onset: 724363-42-8922ZeflirfpItiaa connective tissue disease (1 source)Pain in right foot; Translations: [Pain in right foot]Onset: 10-33-1826ApdbxxggNbgmw connective tissue disease (1 source)Foot painOnset: 40-68-5811SorohncwCmpyc female genital disorders (1 source)Unspecified condition associated with female genital organs and menstrual cycle; Translations: [Unspecified condition associated with female genital organs and menstrual cycle]Onset: 23-12-9193HqthegsrJfaql gastrointestinal disorders (3 sources)Constipation, unspecified; Translations: [CONSTIPATION UNSPECIFIED] Onset: 90-79-1811DzqcyzrwRzkpk gastrointestinal disorders (6 sources)Peritoneal cyst; Translations: [Other specified disorders of peritoneum]Onset: 994548-41-2437SmgvosldUsedfjeb codes; unclassified (15 sources)History of sleeve gastrectomy; Translations: [Acquired absence of stomach [part of]]Onset: 398808-17-0584RkeddhnkIzfirhur codes; unclassified (18 sources)Acquired absence of both cervix and uterus; Translations: [Acquired absence of both cervix and uterus]Onset: 547317-31-8578Brogzmfw Results Test NameValueInterpretationReference RangeFacilityCBC AND AUTO DIFFon 33-38-7699BNLUHDGB BASOPHIL0.1 X10E9/LNormal0.0-0.2PWyandot [facility] Hospital Comment on above:Performed By: #### CBCA, CMP ####[facility] ([id number])[address] [place] [address]#### CHROMG ####[facility] ([id number])[address] [place] [address] 86428FLQEPRMR NEUTROPHIL3.9 X10E9/LNormal1.5-6.6[facility] Comment on above:Performed By: #### CBCA, CMP ####[facility] ([id number])[address] [place] [address] 70[address]#### CHROMG ####[facility] ([id number])[address] [place] [address] 35836Apytidgft/100 WBC (Bld)1.0 %NormalProBaylor Scott And White The Heart Hospital – PlanoComment on above:Performed By: #### CBCA, CMP ####[facility] ([id number])[address] [place] [address] 33432#### CHROMG ####[facility] ([id number])[address] [place] [address] 56762Tufqknoutkt (Bld) [#/Vol]0.1 10*3/uLNormal0.0-0.4[facility] Comment on above:Performed By: #### CBCA, CMP ####[facility] ([id number])[address] [place] [address] 66655#### CHROMG ####[facility] ([id number])[address] [place] [address] 63958Zxluwhqdcjw/100 WBC (Bld)1.0 %NormalProBaylor Scott And White The Heart Hospital – PlanoComment on above:Performed By: #### CBCA, CMP ####[facility] ([id number])[address] [facility], [address] [place] [address]#### CHROMG ####[facility] ([id number])[address] [place] [address] 97881Sqzoxvnsmqp distribution width (RBC) [Ratio]14.9 %Usjwkn67.5-15.0ProBaylor Scott And White The Heart Hospital – PlanoComment on above:Performed By: #### CBCA, CMP ####[facility] ([id number])[address] [facility], [address] [place] [address] 62[address]#### CHROMG ####[facility] ([id number])[address] [place] [address] 54842Drgoqodbgk (Bld) [Volume fraction]38.6 %Reszml37-58OcoEfnjmqBaylor Scott And White The Heart Hospital – PlanoComment on above:Performed By: #### CBCA, CMP ####[facility] ([id number])[facility], [address] [place] [address]#### CHROMG ####[facility] ([id number])[address] [place] [address] 16952Dqurdvgbnn (Bld) [Mass/Vol]12.6 g/iGMyiwfa83.7-15.5ProMedGlendale Memorial Hospital and Health CenterComment on above:Performed By: #### CBCA, CMP ####[facility] ([id number]) [facility], [address] [place] [address]#### CHROMG ####[facility] ([id number])[address] [place] [address] 14556Uqfbgzbaoua (Bld) [#/Vol]2.5 10*3/uLNormal1.0-3.5PWyandot Memorial HospitalComment on above:Performed By: #### CBCA, CMP ####[facility] ([id number])[address] [facility] [address], [place] [address]#### CHROMG ####[facility] ([id number])[address] [place] [address] 16689Jmeggudcvub/100 WBC (Bld)35.7 %NormalProBaylor Scott And White The Heart Hospital – PlanoComment on above:Performed By: #### CBCA, CMP ####[facility] ([id number])[address] [facility] [address], [place] [address]#### CHROMG ####[facility] ([id number])[address] [place] [address] 44803OEV (RBC) [Entitic mass]27.6 ujJipdft13-38HpbPyubvlBaylor Scott And White The Heart Hospital – PlanoComment on above:Performed By: #### CBCA, CMP ####[facility] ([id number])[address] [facility] [address] [place] [address]#### CHROMG ####[facility] ([id number])[address] [place] [address] 99650KYOU (RBC) [Mass/Vol]32.5 g/tOVuwkfs75-49MwuRfbontBaylor Scott And White The Heart Hospital – PlanoComment on above:Performed By: #### CBCA, CMP ####[facility] ([id number])[address] [facility] [address] [place] [address]#### CHROMG ####[facility] ([id number])[address] [place] [address] 78118VCE (RBC) [Entitic vol]85 eWCxhoop57-797RpjRsbspf Fremont HospitalComment on above:Performed By: #### CBCA, CMP ####[facility] ([id number])[address] [facility] [address] [place] [address]#### CHROMG ####[facility] ([id number])[address] [place] [address] 93495Kvwwwkmvr (Bld) [#/Vol]0.4 10*3/uLNormal0-0.9ProUniversity Hospitals Beachwood Medical Centerca [facility], Ingleside CampusComment on above:Performed By: #### CBCA, CMP ####[facility] ([id number])[address] [facility], [address] [place] [address]#### CHROMG ####[facility] ([id number])[address] [place] [address] 55788Jinqljchn/100 WBC (Bld)6.1 %NormalVan Wert County Hospitalca [facility] Comment on above:Performed By: #### CBCA, CMP ####[facility] ([id number])0 [facility] [address] [place] [address]#### CHROMG ####[facility] ([id number])[address] [place] [address] 34635Bvtlzzqesyz/100 WBC (Bld)56.2 %NormalProBaylor Scott And White The Heart Hospital – PlanoComment on above:Performed By: #### CBCA, CMP ####[facility] ([id number])[address] [facility], [address] [place] [address]#### CHROMG ####[facility] ([id number])[address] [place] [address] 98320Spxysmhd mean volume (Bld) [Entitic vol]7.2 fLNormal7-12ProMedica [facility], Ingleside CampusComment on above:Performed By: #### CBCA, CMP ####[facility] ([id number])[address] [facility] [address] [place] [address]#### CHROMG ####[facility] ([id number])[address] [place] [address] 76070Jeoxwqkat (Bld) [#/Vol]429 10*3/pMQbcxlx912-862GyyBxvbwi Fremont HospitalComment on above:Performed By: #### CBCA, CMP ####[facility] ([id number])[address] [place] [address]#### CHROMG ####[facility] ([id number])[address] [place] [address] 62100AVY COUNT4.56 X10E12/LNormal3.80-5.20ProBaylor Scott And White The Heart Hospital – PlanoComkresge eye institute on above:Performed By: #### CBCA, CMP ####[facility] ([id number])[address] [place] [address]#### CHROMG ####[facility] ([id number])[address] [place] [address] 34504IRU (Bld) [#/Vol]7.0 10*3/uLNormal4.0-11.0ProBaylor Scott And White The Heart Hospital – PlanoComkresge eye institute on above:Performed By: #### CBCA, CMP ####[facility] ([id number])[address] [place] [address]#### CHROMG ####[facility] ([id number])[address] [place] [address] 48020YWXSHBTXUGHS Aon 11-22-6126UUXGIKXDAZOZ A<15Ahguap3-464 Fort Hamilton HospitalComkresge eye institute on above:Result Comment: NOTE INTERPRETIVE INFORMATION: Chromogranin A, Serum This test is performed using the [employer] CGA II Kryptor kit. Results obtained with [...] 14 days prior to testing. Performed by [employer], [address] [place] [address] [email or web address], Ion Franco MD, Lab. Director HERMANN Number: [id number] By: #### CBCA, CMP ####[facility] ([id number])[address] [address]#### CHROMG ####[facility] ([id number])[address] [place] [address] 85587PFRZOQSNEFTAJ METABOLIC PANELon 44-84-3527Bshmmen [Mass/Vol] 4.2 g/dLNormal3.2-5.3ProMedica [facility], Ingleside CampusComment on above:Performed By: #### CBCA, CMP ####[facility] ([id number])[facility] [address]#### CHROMG ####[facility] ([id number])[address] [place] [address] 24368WPJ [Catalytic activity/Vol]71 U/COgfjqh24-963QwqXyklcg [facility], Ingleside CampusComment on above: Performed By: #### CBCA, CMP ####[facility] ([id number])[address] [facility], [address] [address]#### CHROMG ####[facility] ([id number])[address] [place] [address] [place] [address]647RIZ [Catalytic activity/Vol]14 U/LNormal0-31PWyandot Memorial HospitalComment on above: Performed By: #### CBCChing, CMP ####[facility] ([id number])0 [facility], [address] [place] [address]#### CHROMG ####[facility] ([id number])[address] [place] [address] 41979Aypqc gap [Moles/Vol]10 mmol/LNormal5-15ProBaylor Scott And White The Heart Hospital – PlanoComment on above: Performed By: #### CBCChing, CMP ####[facility] ([id number])0 [facility], [address] [place] [address]#### CHROMG ####[facility] ([id number])[address] [place] [address] 37351IPF [Catalytic activity/Vol]21 U/LNormal0-41ProBaylor Scott And White The Heart Hospital – PlanoComment on above: Performed By: #### CBCChing, CMP ####[facility] ([id number])0 [facility], [address] [place] [address]#### CHROMG ####[facility] ([id number])[address] [place] [address] 23785Kuioxdrfc [Mass/Vol]1.1 mg/dLNormal0.3-1.2PWyandot Memorial HospitalComment on above: Performed By: #### CBCA, CMP ####[facility] ([id number])0 [facility], [address] [place] [address]#### CHROMG ####[facility] ([id number])[address] [place] [address] 18794Irzuzzg [Mass/Vol]9.1 mg/dLNormal8.5-10.5PWyandot Memorial HospitalComment on above: Performed By: #### CBCA, CMP ####[facility] ([id number])[address] [address]#### CHROMG ####[facility] ([id number])[address] [place] [address] 06184Riyjundz [Moles/Vol]104 mmol/QKnwynn51-165DbbZwpwwrBaylor Scott And White The Heart Hospital – PlanoComment on above: Performed By: #### CBCA, CMP ####[facility] ([id number])[address] [address]#### CHROMG ####[facility] ([id number])[address] [place] [address] 16773BF2 [Moles/Vol]27 mmol/OCnbovv90-02GwsQaeusq [facility], Ingleside CampusComment on above:Performed By: #### CBCA, CMP ####[facility] ([id number])[address] [place] [address]#### CHROMG ####[facility] ([id number])[address] [place] [address] 36193Jfkrgqbcwx [Mass/Vol]0.89 mg/dL Normal0.40-1.00ProBaylor Scott And White The Heart Hospital – PlanoComment on above:Result Comment: METHOD TRACEABLE TO IDMS STANDARDPerformed By: #### CBCA, CMP ####[facility] ([id number])[address] [address]#### CHROMG ####[facility] ([id number])[address] [place] [address] 46436QLS/1.73 sq M.predicted among non-blacks MDRD (S/P/Bld) [Vol rate/Area]85 mL/min/{1.73_m2}Normal>59ProBaylor Scott And White The Heart Hospital – PlanoComment on above:Result Comment: Reported eGFR is based on the CKD-EPI 2020 equation that does not use a race coefficient.Performed By: #### CBCA, CMP ####[facility] ([id number])[address] [place] [address]#### CHROMG ####[facility] ([id number])[address] [place] [address], [place] [address]Oksqlep [Mass/Vol]75 mg/fJUxewkr28-00ZasTvpayyBaylor Scott And White The Heart Hospital – PlanoComment on above:Performed By: #### CBCA, CMP ####[facility] ([id number])0 [facility] [address] [place] [address]#### CHROMG ####[facility] ([id number])[address] [place] [address] 09937Ecdxyztvv [Moles/Vol]3.9 mmol/LNormal3.5-5.0ProBaylor Scott And White The Heart Hospital – PlanoComment on above:Performed By: #### CBCA, CMP ####[facility] ([id number])[address] [place] [address] [place] [address]#### CHROMG ####[facility] ([id number])[address] [place] [address] 10024Xixapts [Mass/Vol]7.0 g/dLNormal6.0-8.0ProBaylor Scott And White The Heart Hospital – PlanoComment on above:Performed By: #### CBCA, CMP ####[facility] ([id number])[address] [place] [address] [place] [address]#### CHROMG ####[facility] ([id number])[address] [place] [address] [place] [address]Xyfuwt [Moles/Vol]141 mmol/PNrhadn266-187CwlSkakhw Fremont HospitalComment on above:Performed By: #### CBCA, CMP ####[facility] ([id number])[address] [place] [address] [address], [place] [address]#### CHROMG ####[facility] ([id number])[address] [place] [address] [place] [address]Pzhb nitrogen [Mass/Vol]10 mg/dLNormal5-23Fort Hamilton HospitalComment on above:Performed By: #### CBCA, CMP ####[facility] ([id number])[address] [place] [address] [place] [address], [place] [address]#### CHROMG ####[facility] ([id number])[address] [place] [address], [place] [address]Xrfswqm D+Metabolites [Mass/Vol]on 81-79-8834VUSSNTO D 25 HYD TOT26.2 ng/lTGpg51-817KlzJdbxigBaylor Scott And White The Heart Hospital – PlanoComment on above:Result Comment: Vitamin D status 25 [place] Vitamin D Deficiency <20 ng/mL Insufficiency 20-29 ng/mL Sufficiency 30-100 ng/mL Toxicity >100 ng/mL NOTE: A pediatric reference range has not been established by the rn plastics of this kit. The [employer] recommends a Vitamin D level of = or >20ng/mL in infants and children.Performed By: #### 21363-2 ####[facility] ([id number])[address] [place] [address] [place] [address] 86343VGW AND AUTO DIFFon 75-29-6983QONWCYGM BASOPHIL0.1 X10E9/LNormal0.0-0.2PWyandot Memorial Hospital Comment on above:Performed By: #### CBCA, CMP, FEPR, 93472-9, 47263-5, 2777-1, 2276-4, 2284-8, 2132-9, 09562-3 #### [facility] ([id number]) [address] [place] [address], [address] [place] [address] #### 55769-9 #### [facility] ([id number]) [address] [place] [address] 65663UZVGANHG NEUTROPHIL5.6 X10E9/LNormal1.5-6.6ProBaylor Scott And White The Heart Hospital – PlanoComment on above:Performed By: #### CBCA, CMP, FEPR, 48855-1, 95018-9, 2777-1, 2276-4, 2284-8, 2131-9, 50697-8 #### [facility] ([id number]) [address] [facility], [address] [place] [address] #### 55030-7 #### [facility] ([id number]) [address] [place] [address] 30402Fntwyvsui/100 WBC (Bld)1.0 %NormalProBaylor Scott And White The Heart Hospital – Plano Comment on above:Performed By: #### CBCA, CMP, FEPR, 63919-4, 42213-7, 2777-1, 2276-4, 2284-8, 2131-9, 06440-6 #### [facility] ([id number]) [address], [address] [place] [address] #### 35520-8 #### [facility] ([id number]) [address] [place] [address] 81962Pnxsetklrkd (Bld) [#/Vol]0.1 10*3/uLNormal0.0-0.4ProBaylor Scott And White The Heart Hospital – PlanoComment on above:Performed By: #### CBCA, CMP, FEPR, 37970-8, 12024-8, 2777-1, 2276-4, 2284-8, 2131-9, 92474-6 #### [facility] ([id number]) [address], [address] [place] [address] #### 01554-7 #### [facility] ([id number]) [address] [place] [address] 48613Nhlbgrqtrts/100 WBC (Bld)0.7 %NormalFort Hamilton Hospital Comment on above:Performed By: #### CBCA, CMP, FEPR, 77616-9, 06019-9, 2777-1, 2276-4, 2284-8, 2132-9, 70448-9 #### [facility] ([id number]) [address] [place] [address], [address] [place] [address] #### 83103-8 #### [facility] ([id number]) [address] [place] [address] 21961Eahphcsapbv distribution width (RBC) [Ratio]14.4 %Normal 11.5-15.0ProBaylor Scott And White The Heart Hospital – PlanoComment on above:Performed By: #### CBCA, CMP, FEPR, 49962-8, 05116-0, 2777-1, 2276-4, 2284-8, 2-9, 19781-5 #### [facility] ([id number]) [address] [place] [address], [address] [address] #### 34342-8 #### [facility] ([id number]) [address] [place] [address] 15731Aygmzuhsix (Bld) [Volume fraction]39.5 %Mdcoay71-70CscAfnqfhBaylor Scott And White The Heart Hospital – PlanoComment on above:Performed By: #### CBCA, CMP, FEPR, 87194-4, 71412-4, 2777-1, 2276-4, 2284-8, 2132-9, 91352-8 #### [facility] ([id number]) [address] [place] [address], [address] [place] [address] #### 18823-4 #### [facility] ([id number]) [address] [place] [address] 54667Urpbhnbjsm (Bld) [Mass/Vol]13.0 g/oZMjuwnx68.7-15.5PWyandot Memorial HospitalComment on above:Performed By: #### CBCA, CMP, FEPR, 51723-4, 76185-5, 2777-1, 2276-4, 2284-8, 2132-9, 45387-0 #### [facility] ([id number]) [address] [place] [address], [address] [place] [address] #### 18966-6 #### [facility] ([id number]) [address] [place] [address] 85283Jofoicevzge (Bld) [#/Vol]4.0 10*3/uLHigh1.0-3.5PWyandot Memorial HospitalComment on above:Performed By: #### CBCA, CMP, FEPR, 50124-8, 62100-8, 2777-1, 2276-4, 2284-8, 2-9, 76341-9 #### [facility] ([id number]) [address] [place] [address], [address] [place] [address] #### 22277-7 #### [facility] ([id number]) [address] [place] [address] 73992Rrbcrsyewkr/100 WBC (Bld)38.6 %NormalFort Hamilton Hospital Comment on above:Performed By: #### CBCA, CMP, FEPR, 44138-7, 55723-3, 2777-1, 2276-4, 2284-8, 2132-9, 73741-0 #### [facility] ([id number]) [address] [place] [address], [address] [place] [address] #### 43480-9 #### [facility] ([id number]) [address] [place] [address] 14567NII (RBC) [Entitic mass]28.2 vtGtzxya70-43MxdPppwgnBaylor Scott And White The Heart Hospital – PlanoComment on above:Performed By: #### CBCA, CMP, FEPR, 90344-4, 14643-2, 2777-1, 2276-4, 2284-8, 2131-9, 21874-3 #### [facility] ([id number]) [address], [address] [place] [address] #### 78977-5 #### [facility] ([id number]) [address] [place] [address] 60420NUZB (RBC) [Mass/Vol]32.9 g/dQRdzozn12-19AvsUauaxrBaylor Scott And White The Heart Hospital – PlanoComment on above:Performed By: #### CBCA, CMP, FEPR, 13122-5, 14947-8, 2777-1, 2276-4, 2284-8, 2131-9, 77609-3 #### [facility] ([id number]) [address], [address] [place] [address] #### 99175-8 #### [facility] ([id number]) [address] [place] [address] 92828ETH (RBC) [Entitic vol]86 nJNloyfs95-536AzxMlgoti [facility]remont HospitalComment on above:Performed By: #### CBCA, CMP, FEPR, 32797-5, 25124-4, 7-1, 2276-4, 2284-8, 2131-9, 34502-6 #### [facility] ([id number]) [address], [address] [place] [address] #### 42074-8 #### [facility] ([id number]) [address] [place] [address] 20227Qqhjnjsbz (Bld) [#/Vol]0.6 10*3/uLNormal0-0.9ProBaylor Scott And White The Heart Hospital – PlanoComment on above:Performed By: #### CBCA, CMP, FEPR, 74195-3, 12098-9, 2777-1, 2276-4, 2284-8, 2132-9, 58901-1 #### [facility] ([id number]) [address], [address] [place] [address] #### 75120-2 #### [facility] ([id number]) [address] [place] [address] 46112Dbepwbtpj/100 WBC (Bld)5.6 %[facility] Comment on above:Performed By: #### CBCA, CMP, FEPR, 07947-5, 46642-5, 2777-1, 2276-4, 2284-8, 2-9, 90928-0 #### [facility] ([id number]) [address], [address] [place] [address] #### 15455-9 #### [facility] ([id number]) [address] [place] [address] 63655Mysachtxnjb/100 WBC (Bld)54.1 %[facility] Comment on above:Performed By: #### CBCA, CMP, FEPR, 91223-3, 09655-1, 2777-1, 2276-4, 2284-8, 2131-9, 21907-4 #### [facility] ([id number]) [address], [address] [place] [address] #### 80717-9 #### [facility] ([id number]) [address] [place] [address] 86528Fjphzvhw mean volume (Bld) [Entitic vol]7.2 fLNormal7-12 ProMedicSierra Vista Regional Medical CenterComment on above:Performed By: #### CBCA, CMP, FEPR, 93090-8, 67605-1, 2777-1, 2276-4, 2284-8, 2132-9, 12383-8 #### [facility] ([id number]) [address] [facility], [address] [place] [address] #### 19848-0 #### [facility] ([id number]) [address] [place] [address] 97524Ipfganvvi (Bld) [#/Vol]442 10*3/jRGqjywm472-739HkcVshedv [facility]remont HospitalComment on above:Performed By: #### CBCA, CMP, FEPR, 63799-5, 55334-8, 2777-1, 2276-4, 2284-8, 2132-9, 34427-9 #### [facility] ([id number]) [address] [facility], [address] [place] [address] #### 43318-0 #### [facility] ([id number]) [address] [place] [address] 47640AHV COUNT4.60 X10E12/LNormal3.80-5.20[facility] Comment on above:Performed By: #### CBCA, CMP, FEPR, 25629-5, 22896-9, 2777-1, 2276-4, 2284-8, 2132-9, 38686-0 #### [facility] ([id number]) [address] [facility], [address] [place] [address] #### 45763-7 #### [facility] ([id number]) [address] [place] [address] 04847RUR (Bld) [#/Vol]10.3 10*3/uLNormal4.0-11.0ProBaylor Scott And White The Heart Hospital – PlanoComment on above:Performed By: #### CBCA, CMP, FEPR, 97983-6, 54397-2, 2777-1, 2276-4, 2284-8, 2132-9, 71732-5 #### [facility] ([id number]) [address], [address] [place] [address] #### 05600-3 #### [facility] ([id number]) [address] [place] [address] 43174KJYKDOZGRZICK METABOLIC PANELon 80-32-8461Tucnxsj [Mass/Vol]4.1 g/dLNormal3.2-5.3PWyandot Memorial HospitalComment on above:Performed By: #### CBCA, CMP, FEPR, 22296-2, 61275-7, 2777-1, 2276-4, 2284-8, 2132-9, 37056-7 #### [facility] ([id number]) [address] [place] [address], [address] [place] [address] #### 27720-2 #### [facility] ([id number]) [address] [place] [address] 20234GUL [Catalytic activity/Vol]71 U/MZejxgi86-967FwiRfvzvq [facility] Ingleside CampusComment on above:Performed By: #### CBCA, CMP, FEPR, 33158-1, 75087-7, 2777-1, 2276-4, 2284-8, 2132-9, 49651-5 #### [facility] ([id number]) [address] [place] [address], [address] [place] [address] #### 41125-6 #### [facility] ([id number]) [address] [place] [address] 37090AEN [Catalytic activity/Vol]12 U/LNormal0-31PWyandot Memorial HospitalComment on above:Performed By: #### CBCA, CMP, FEPR, 13555-0, 59066-5, 2777-1, 2276-4, 2284-8, 2132-9, 11904-1 #### [facility] ([id number]) [address] [place] [address], [address] [place] [address] #### 21756-1 #### [facility] ([id number]) [address] [place] [address] 10150Lpsyy gap [Moles/Vol]8 mmol/LNormal5-15ProBaylor Scott And White The Heart Hospital – PlanoComment on above:Performed By: #### CBCA, CMP, FEPR, 07415-9, 43438-5, 2777-1, 2276-4, 2284-8, 2132-9, 94792-3 #### [facility] ([id number]) [address], [address] [place] [address] #### 49717-6 #### [facility] ([id number]) [address] [place] [address] [id number] [Catalytic activity/Vol]15 U/LNormal0-41ProBaylor Scott And White The Heart Hospital – PlanoComment on above:Performed By: #### CBCA, CMP, FEPR, 98018-9, 17321-5, 2777-1, 2276-4, 2284-8, 2131-9, 45785-6 #### [facility] ([id number]) [address], [address] [place] [address] #### 76718-0 #### [facility] ([id number]) [address] [place] [address] 90969Dcvmesmbv [Mass/Vol]1.2 mg/dLNormal0.3-1.2PWyandot Memorial HospitalComment on above:Performed By: #### CBCA, CMP, FEPR, 38636-2, 54158-0, 2777-1, 2276-4, 2284-8, 2132-9, 84977-7 #### [facility] ([id number]) [address], [address] [place] [address] #### 36509-7 #### [facility] ([id number]) [address] [place] [address] 39160Qpiotlz [Mass/Vol]9.2 mg/dLNormal8.5-10.5PWyandot Memorial HospitalComment on above:Performed By: #### CBCA, CMP, FEPR, 66595-1, 74604-6, 2777-1, 2276-4, 2284-8, 2131-9, 03802-1 #### [facility] ([id number]) [address], [address] [place] [address] #### 66299-0 #### [facility] ([id number]) [address] [place] [address] 05086Veuizbte [Moles/Vol]105 mmol/IAswsuo01-922UcpGwujyyBaylor Scott And White The Heart Hospital – PlanoComment on above:Performed By: #### CBCA, CMP, FEPR, 04351-8, 87586-0, 7-1, 2276-4, 4-8, 2131-9, 26978-2 #### [facility] ([id number]) [address], [address] [place] [address] #### 83955-3 #### [facility] ([id number]) [address] [place] [address] 05767DV7 [Moles/Vol]27 mmol/WHyggxd04-17PlaQkfkosWyandot Memorial Hospital Comment on above:Performed By: #### CBCA, CMP, FEPR, 41165-3, 43069-4, 7-1, 6-4, 4-8, 2131-9, 44519-9 #### [facility] ([id number]) [address], [address] [place] [address] #### 12904-6 #### [facility] ([id number]) [address] [place] [address] 94932Xsxidhnnpp [Mass/Vol]0.94 mg/dLNormal0.40-1.00Fort Hamilton HospitalComment on above:Result Comment: METHOD TRACEABLE TO IDMS STANDARD Performed By: #### CBCA, CMP, FEPR, 18121-6, 77972-4, 2777-1, 2276-4, 2284-8, 2131-9, 97328-8 #### [facility] ([id number]) [address], [address] [place] [address] #### 90098-5 #### [facility] ([id number]) [address] [place] [address] 95167KBG/1.73 sq M.predicted among non-blacks MDRD (S/P/Bld) [Vol rate/Area]80 mL/min/{1.73_m2}Normal>59ProBaylor Scott And White The Heart Hospital – PlanoComment on above:Result Comment: Reported eGFR is based on the CKD-EPI 2020 equation that does not use a race coefficient.Performed By: #### CBCChing, CMP, FEPR, 61570-2, 97829-3, 7-1, 6-4, 4-8, 2131-9, 30663-1 #### [facility] ([id number]) [address] [facility] [place] [address] #### 68924-7 #### [facility] ([id number]) [address] [place] [address] 88866Fixvhlb [Mass/Vol]94 mg/dKAolfbl83-70OclRfamlvFort [facility] Hospital Comment on above:Performed By: #### CBCA, CMP, FEPR, 72524-2, 58995-2, 7-1, 6-4, 4-8, 2131-9, 06259-8 #### [facility] ([id number]) [address] [facility] [facility], [address] [place] [address] #### 22052-1 #### [facility] ([id number]) [address] [place] [address] 10982Qqkcuxsqb [Moles/Vol]3.9 mmol/LNormal3.5-5.0ProBaylor Scott And White The Heart Hospital – PlanoComment on above:Performed By: #### CBCA, CMP, FEPR, 22515-8, 75631-2, 2777-1, 2276-4, 2284-8, 2131-9, 40609-3 #### [facility] ([id number]) [address] [place] [address], [address] [place] [address] #### 41166-8 #### [facility] ([id number]) [address] [place] [address] 35963Mlnuhpv [Mass/Vol]7.1 g/dLNormal6.0-8.0ProBaylor Scott And White The Heart Hospital – PlanoComment on above:Performed By: #### CBCA, CMP, FEPR, 86750-1, 87887-3, 7-1, 6-4, 2283-8, 2131-10, 16623-9 #### [facility] ([id number]) [address] [place] [address], [address] [place] [address] #### 86745-8 #### [facility] ([id number]) [address] [place] [address] 73055Kozmgv [Moles/Vol]140 mmol/EXbxoge425-468WutJsxdre Fremont HospitalComment on above:Performed By: #### CBCA, CMP, FEPR, 44986-0, 27958-3, 7-1, 2276-4, 2284-8, 2131-10, 30815-7 #### [facility] ([id number]) [address] [place] [address], [address] [place] [address] #### 85696-0 #### [facility] ([id number]) [address] [place] [address] 64926Cpwb nitrogen [Mass/Vol]8 mg/dLNormal5-23ProBaylor Scott And White The Heart Hospital – PlanoComment on above:Performed By: #### CBCA, CMP, FEPR, 08672-1, 58144-1, 2777-1, 2276-4, 2284-8, 9, 59141-1 #### [facility] ([id number]) [address] [facility], [address] [place] [address] #### 65811-8 #### [facility] ([id number]) [address] [place] [address] 97233POQEGXNInq 29-50-1231Vqwhjlhk [Mass/Vol]19 ng/lOGxbzcz89-395 ProMLoma Linda University Medical CenterComment on above:Performed By: #### CBCA, CMP, FEPR, 11451-6, 42350-8, 7-1, 2276-4, 2283-8, 2131-10, 87667-1 ####[facility] ([id number])[address] [place] [address], [place] [address]#### 50275-1 ####[facility] ([id number])[address] [place] [address] 05190Plpcxf [Mass/Vol]on 93-59-0114BHYHT ACID16.7 ng/mLNormal >5.8ProBaylor Scott And White The Heart Hospital – PlanoComment on above:Result Comment: NEW REFERENCE RANGEPerformed By: #### CBCA, CMP, FEPR, 26069-5, 35003-0, 7-1, 2276-4, 2283- 8, 2131-10, 63473-7 ####[facility] ([id number])[address] [place] [address], [address] [address]#### 94013-6 ####[facility] ([id number])[address] [place] [address] 12613SFZZ PROFILEon 56-96-6359Hhng [Mass/Vol]62 ug/nYUlipaw90-332WdcEjimth Fremont HospitalComment on above:Performed By: #### CBCA, CMP, FEPR, 08651-1, 10405-0, 2777-1, 2276-4, 4-8, 9, 70416-6 #### [facility] ([id number]) [address], [address] [place] [address] #### 52220-7 #### [facility] ([id number]) [address] [place] [address] 96214NGWR ABSZDLF446 ug/cKGxumlk303-413XyaWcelme [facility] Comment on above:Performed By: #### CBCA, CMP, FEPR, 45961-5, 10683-4, 2777-1, 2276-4, 2284-8, 9, 85657-6 #### [facility] ([id number]) [address] [facility], [address] [place] [address] #### 00161-9 #### [facility] ([id number]) [address] [place] [address] 55446YJWY GOGRRSITLO13 % JKXVLAHRDLHjjbkr00-52VyqCkbnxd [facility]remont HospitalComment on above:Performed By: #### CBCA, CMP, FEPR, 84229-5, 19092-5, 7-1, 6-4, 4-8, 2131-10, 70118-2 #### [facility] ([id number]) [address] [facility], [address] [place] [address] #### 97530-1 #### [facility] ([id number]) [address] [place] [address] 94074Vvnrl 1996 panelon 10-21-9287Xpkbrtyqcmv [Mass/Vol]239 mg/dL Ynyv295-315HptMexknqBaylor Scott And White The Heart Hospital – PlanoComment on above:Performed By: #### CBCA, CMP, FEPR, 37837-0, 80807-6, 2777-1, 2276-4, 4-8, 2131-9, 93837-7 #### [facility] ([id number]) [address] [facility], [address] [place] [address] #### 17006-8 #### [facility] ([id number]) [address] [place] [address] 84262Pffjinaltig in HDL [Mass/Vol]50 mg/dLNormal>39ProBaylor Scott And White The Heart Hospital – PlanoComkresge eye institute on above:Result Comment: HDL <40 mg/dL - High Risk HDL > or = 40mg/dL- Desirable HDL >60 mg/dL - Negative Risk Performed By: #### CBCA, CMP, FEPR, 17233-8, 55591-6, 2777-1, 2276-4, 2284-8, 2132-9, 11760-9 #### [facility] ([id number]) [address] [place] [address], [address] [place] [address] #### 44904-8 #### [facility] ([id number]) [address] [place] [address] 89754Hymlswqonaj in LDL [Mass/Vol]163 mg/dLHigh<130ProBaylor Scott And White The Heart Hospital – PlanoComment on above:Result Comment: LDL <100 mg/dL - Desirable LDL >160 mg/dL - High Risk Performed By: #### CBCA, CMP, FEPR, 42717-0, 01903-0, 2777-1, 2276-4, 2284-8, 2132-9, 79793-5 #### [facility] ([id number]) [address] [place] [address], [address] [place] [address] #### 47297-8 #### [facility] ([id number]) [address] [place] [address] 12230Pzqlnmritbk in VLDL [Mass/Vol]26 mg/dLNormal0-30ProBaylor Scott And White The Heart Hospital – PlanoComment on above:Performed By: #### CBCA, CMP, FEPR, 38632-2, 48074-9, 2777-1, 2276-4, 2284-8, 2-9, 12249-4 #### [facility] ([id number]) [address] [facility], [address] [place] [address] #### 52719-2 #### [facility] ([id number]) [address] [place] [address] 66390NPNLDPYYYAQ:HDL4.9Xfmnyi7.0-5.0[facility] Comment on above:Performed By: #### CBCA, CMP, FEPR, 86473-9, 22023-2, 2777-1, 2276-4, 2284-8, 2131-9, 94323-3 #### [facility] ([id number]) [address], [address] [place] [address] #### 63560-8 #### [facility] ([id number]) [address] [place] [address] 33249Gyzhjekfdnih [Mass/Vol]128 mg/hSRcevwo12-377KzcAnkhcm Fremont HospitalComment on above:Performed By: #### CBCA, CMP, FEPR, 18600-5, 40388-6, 2777-1, 2276-4, 2284-8, 2131-9, 64603-9 #### [facility] ([id number]) [address] [facility], [address] [place] [address] #### 21862-3 #### [facility] ([id number]) [address] [place] [address] 85988JGYMVWWFLar 65-75-6653Hqbfjinox [Mass/Vol]1.9 mg/dLNormal 1.8-2.6ProBaylor Scott And White The Heart Hospital – PlanoComment on above:Performed By: #### CBCA, CMP, FEPR, 29110-3, 58899-5, 7-1, 2276-4, 4-8, 2131-9, 35130-5 #### [facility] ([id number]) [address] [place] [address], [address] [place] [address] #### 01121-0 #### [facility] ([id number]) [address] [place] [address] 26498BHZXBETTCSjn 36-34-2904Njzntwbke [Mass/Vol]4.9 mg/dLNormal 2.4-4.9ProBaylor Scott And White The Heart Hospital – PlanoComment on above:Performed By: #### CBCA, CMP, FEPR, 07686-1, 69997-9, 2776-1, 6-4, 2283-8, 9, 78984-2 ####[facility] ([id number])[address] [place] [address], [address] [place] [address]#### 45180-5 ####[facility] ([id number])[address] [place] [address] 41103Mfrqxdmc (Bld) [Moles/Vol]on 45-79-3151Gxffjdg (Vitamin B1), WB106 nmol/VXqhehm95-438GptZpkywmBaylor Scott And White The Heart Hospital – PlanoComment on above:Result Comment: NOTE ADDITIONAL INFORMATION This test was developed and its performance characteristics determined by [facility] in a manner consistent with CLIA requirements. This test has not been cleared or approved by the U.S. Food and Drug Administration. Test Performed by: [facility] [address] [place] [address] Hospital Food Service Worker: Eli Kwong Ph.D.; CLIA# [id number] By: #### CBCA, CMP, FEPR, 27050-4, 50910-2, 2777-1, 2276-4, 2284-8, 2131-9, 04544-5 ####[facility] ([id number])[address] [address] [place] [address]#### 57230-6 ####[facility] ([id number])[address] [place] [address] 87561BHNRYLD B12on 89-67-6513Swowhoeze (Vitamin B12) [Mass/Vol] 190 pg/rEZjtqck914-815UyzHtlted [facility] Ingleside CampusComment on above:Performed By: #### CBCA, CMP, FEPR, 25923-5, 25969-7, 7-1, 6-4, 2283-8, 2131-10, 73310-6 ####[facility] ([id number])[address] [address]#### 77591-5 ####[facility] ([id number])[address] [place] [address] 03443Znlwcdz D+Metabolites [Mass/Vol]on 25-61-3450SBCBUIK D 25 HYD TOT19.5 ng/bOVnv73-395EbiFsstur [facility] Comment on above:Result Comment: Vitamin D status 25 [place] Vitamin D Deficiency <20 ng/mL Insufficiency 20-29 ng/mL Sufficiency 30-100 ng/mL Toxicity >100 ng/mL NOTE: A pediatric reference range has not been established by the rn plastics of this kit. The [employer] Pediatric[employer] recommends a Vitamin D level of = or >20ng/mL in infants and children.Performed By: #### CBCA, CMP, FEPR, 88123-3, 33010-0, 7-1, 6- 4, 4-8, 2131-9, 39816-1 ####[facility] ([id number])[address] [facility], [address] [address]#### 82814-1 ####[facility] ([id number])[address] [place] [address], [place], [place] [address]OLYX DIAGNOSTIC BILATERAL W CADon 92-35-0627VWBA DIAGNOSTIC BILATERAL W CADMAMM DIAGNOSTIC BILATERAL W CAD JAKE AREVALO 1985 [id number], [id number] EXAM: MAMM DIAGNOSTIC BILATERAL W CAD, US [...] MD on 12/05/2023 8:54 AM 1 b MARISA ACRNormBerger Hospital BREAST BILAT - LIMITEDon 90-65-0087TQ BREAST BILAT - LIMITEDUS BREAST BILAT - LIMITED JAKE AREVALO 1985 [id number], [id number] EXAM: MAMM DIAGNOSTIC BILATERAL W CAD, US [...] on 12/05/2023 8:54 AM 1 b FU ACRNoThe Bellevue HospitalChromogranin Aon 24-91-4279Peebglvfyjvs A <75Tjjhct3-565IqvmoMansfield HospitalComment on above:Result Comment: (NOTE) INTERPRETIVE INFORMATION: Chromogranin A, Serum This test is performed using the [employer] CGA II Kryptor kit. Results obtained with [...] 14 days prior to testing. Performed By: [facility] [address] [place] [address] Porcelain Waxer: Lorne Alarcon MD, PhD CLIA Number: [id number] By: #### CHRISTINE BURNETTE #### [facility] [address] [place] [address] Hospital Food Service Worker: Naveen Adam MD #### VIOLA #### [facility] [facility] [address] [place] [phone] Hospital Food Service Worker: CHALO Tom with Diffon 54-18-2939Eru. Basophil0.06 k/uL Normal0.00-0.20Mansfield HospitalComment on above:Performed By: #### VASILE CDP #### [facility] [address] [place] [address] Hospital Food Service Worker: Naveen Adam MD #### VIOLA #### [facility] [employer] [facility] [address] [place] [phone] Hospital Food Service Worker: Wilber Tom.Imm.Granulocyte<0.58Ojycnk7.00-0.30Mansfield HospitalComment on above:Performed By: #### CP, CDP #### [facility] [address] [place] [address] [phone] Hospital Food Service Worker: Naveen Adam MD #### ACHRGA #### [facility] [address] [place] [address] Hospital Food Service Worker: Wilber Tom.Neutrophil (Seg)5.12 k/uLNormal1.50-8.10M[facility]field HospitalComment on above:Performed By: #### CP, CDP #### [facility] [address] [place] [address] [phone] Hospital Food Service Worker: Naveen Adam MD #### ACHRGA #### [facility] [address] [place] [address] Hospital Food Service Worker: Ion Franco MDBasophils/100 WBC (Bld)1 %Normal0-2MSharp Grossmont HospitalComment on above:Performed By: #### VASILE, CDP #### [facility] [address] [place] [address] Hospital Food Service Worker: Naveen Adam MD #### ACHRGA #### [facility] [address] [place] [address] Hospital Food Service Worker: Ion Franco MDEosinophils (Bld) [#/Vol]0.08 10*3/uLNormal 0.00-0.44M[facility]field HospitalComment on above:Performed By: #### CP, CDP #### [facility] [address] [place] [address] Hospital Food Service Worker: Naveen Adam MD #### ACHRGA #### [facility] [address] [place] [address] Hospital Food Service Worker: Ion Franco MDEosinophils/100 WBC (Bld)1 %Normal1-4M[facility]field HospitalComment on above:Performed By: #### CP, CDP #### [facility] [address] [place] [address] [phone] Hospital Food Service Worker: Naveen Adam MD #### ACHRGA #### [facility] [address] [place] [address] Hospital Food Service Worker: Ion Franco MDErythrocyte distribution width (RBC) [Ratio]14.0 %Otfhov09.8-14.4M[facility]field HospitalComment on above:Performed By: #### CP, CDP #### [facility] [address] [place] [address] Hospital Food Service Worker: Naveen Adam MD #### ACHRGA #### [facility] [address] [place] [phone] Hospital Food Service Worker: Ion Franco MDHematocrit (Bld) [Volume fraction]40.7 %Normal 36.3-47.1MSharp Grossmont HospitalComment on above:Performed By: #### CP, CDP #### [facility] [address] [place] [address] [phone] Hospital Food Service Worker: Naveen Adam MD #### ACHRGA #### [facility] [address] [place], [place] [address] Hospital Food Service Worker: Ion Franco MDHemoglobin (Bld) [Mass/Vol]12.9 g/dLNormal 11.9-15.1MSharp Grossmont HospitalComment on above:Performed By: #### CP, CDP #### [facility] [address] [place] [address] [phone] Hospital Food Service Worker: Naveen Adam MD #### ACHRGA #### [facility] [address] [place] [address] Hospital Food Service Worker: Kerri Tom granulocytes/100 WBC (Bld)0 %Normal0 [facility] HospitalComment on above:Performed By: #### CP, CDP #### [address] [address] Hospital Food Service Worker: Naveen Adam MD #### ACHRGA #### [facility] [address] [place] [address] Hospital Food Service Worker: Ion Franco MDLymphocytes (Bld) [#/Vol]2.85 10*3/uLNormal 1.10-3.70M[facility]field HospitalComment on above:Performed By: #### CP, CDP #### [address] [address] Hospital Food Service Worker: Naveen Adam MD #### ACHRGA #### [facility] [address] [place] [address] Hospital Food Service Worker: Yancy Tommphocytes/100 WBC (Bld)33 %Wztmhv27-09OvnrzMansfield HospitalComment on above:Performed By: #### CP, CDP #### [address] [address] Hospital Food Service Worker: Naveen Adma MD #### ACHRGA #### [facility] [address] [place] [address] Hospital Food Service Worker: TIGRE Tom (RBC) [Entitic mass]27.5 tkWraddb19.2-33.5 [facility] HospitalComment on above:Performed By: #### CP, CDP #### [address] [address] Hospital Food Service Worker: Naveen Adam MD #### ACHRGA #### [facility] [address] [place] [address] Hospital Food Service Worker: TIGRE TomC (RBC) [Mass/Vol]31.7 g/uAJbudij68.4-34.8 [facility] HospitalComment on above:Performed By: #### CP, CDP #### [address] [address] Hospital Food Service Worker: Naveen Adam MD #### ACHRGA #### [facility] [address] [place] [address] Hospital Food Service Worker: RK TomCV (RBC) [Entitic vol]86.8 rIMmbvwg20.6-102.9 [facility] HospitalComment on above:Performed By: #### CP, CDP #### [address] [address] Hospital Food Service Worker: Naveen Adam MD #### ACHRGA #### [facility] [address] [place] [address] Hospital Food Service Worker: RK Tomonocytes (Bld) [#/Vol]0.44 10*3/uLNormal 0.10-1.20M[facility]field HospitalComment on above:Performed By: #### CP, CDP #### [address] [address] Hospital Food Service Worker: Naveen Adam MD #### ACHRGA #### [facility] [address] [place] [address] Hospital Food Service Worker: RK Tomonocytes/100 WBC (Bld)5 %Normal3-12M[facility]field HospitalComment on above:Performed By: #### CP, CDP #### [address] [address] Hospital Food Service Worker: Naveen Adam MD #### ACHRGA #### [facility] [address] [place] [address] Hospital Food Service Worker: Ion Franco MDNeutrophil (Seg)60 %Bghuak38-01BmcyyMansfield HospitalComment on above:Performed By: #### CP, CDP #### [facility] [address] [place] [address] Hospital Food Service Worker: Naveen Adam MD #### ACHRGA #### [facility] [address] [place] [address] Hospital Food Service Worker: Ion Franco MDNRBC Automated0.0 per 100 WBCNormal0.0Mansfield HospitalComment on above:Performed By: #### CP, CDP #### [facility] [address] [place] [address] Hospital Food Service Worker: Naveen Adam MD #### ACHRGA #### [facility] [address] [place] [address] Hospital Food Service Worker: Jaguar Tom mean volume (Bld) [Entitic vol]9.2 fL Normal8.1-13.5Mansfield HospitalComment on above:Performed By: #### VASILE, CDP #### [facility] [address] [place] [address] Hospital Food Service Worker: Naveen Adam MD #### ACHRGA #### [facility] [address] [place] [address] Hospital Food Service Worker: ALEXANDER Tomlatelets (Bld) [#/Vol]405 10*3/dLFtjlkz162-284 [facility] HospitalComment on above:Performed By: #### CP, CDP #### [facility] [address] [place] [address] Hospital Food Service Worker: Naveen Adam MD #### ACHRGA #### [facility] [address] [place] [address] Hospital Food Service Worker: Ion Franco MDRBC (Bld) [#/Vol]4.69 10*6/uLNormal3.95-5.11M[facility]field HospitalComment on above:Performed By: #### CP, CDP #### [facility] [address] [place] [address] Hospital Food Service Worker: Naveen Adam MD #### ACHRGA #### [facility] [address] [place] [address] Hospital Food Service Worker: Ion Franco MDWBC (Bld) [#/Vol]8.6 10*3/uLNormal3.5-11.3MSharp Grossmont HospitalComment on above:Performed By: #### CP, CDP #### [facility] [address] [place] [address] Hospital Food Service Worker: Naveen Adam MD #### ACHRGA #### [facility] [address] [place] [address] Hospital Food Service Worker: CHALO Tomomp Metabolic Profon 76-28-7242Auohham [Mass/Vol]4.7 g/dLNormal3.5-5.2[facility]ery [facility] Health FarmComment on above: Performed By: #### VASILE, CDP #### [facility] [address] [place] [address] Hospital Food Service Worker: Naveen Adam MD #### ACHRGA #### [facility] [address] [place] [address] Hospital Food Service Worker: Ion Franco MDAlbumin/Glob Ratio2.6Yhajia2.0-2.5M[facility]field HospitalComment on above:Performed By: #### CP, CDP #### [facility] [address] [place] [address] Hospital Food Service Worker: Naveen Adam MD #### ACHRGA #### [facility] [address] [place] [address] Hospital Food Service Worker: Seamus Tomkaline Phos77 U/YLvpsmd04-002EqakvMansfield HospitalComment on above:Performed By: #### CP, CDP #### [facility] [address] [place] [address] Hospital Food Service Worker: Naveen Adam MD #### ACHRGA #### [facility] [address] [place], [place] [address] Hospital Food Service Worker: Ion Franco MDALT [Catalytic activity/Vol]13 U/OAwzvkw71-00 [facility] HospitalComment on above:Performed By: #### CP, CDP #### [facility] [address] [place] [address] Hospital Food Service Worker: Naveen Adam MD #### ACHRGA #### [facility] [address] [place], [place] [address] Hospital Food Service Worker: Ion Franco MDAnion gap [Moles/Vol]11 mmol/LNormal9-16[facility] HospitalComment on above:Performed By: #### VASILE, CDP #### [facility] [address] [place] [address] Hospital Food Service Worker: Naveen Adam MD #### ACHRGA #### [facility] [address] [place], [place] [address] Hospital Food Service Worker: Ion Franco MDAST [Catalytic activity/Vol]20 U/YJggpfb83-17 [facility] HospitalComment on above:Performed By: #### CP, CDP #### [facility] [address] [place] [address] Hospital Food Service Worker: Naveen Adam MD #### ACHRGA #### [facility] [address] [place], [place] [address] Hospital Food Service Worker: Ion Franco MDBilirubin [Mass/Vol]1.3 mg/dLHigh0.00-1.20[facility] HospitalComment on above:Performed By: #### CP, CDP #### [facility] [address] [place] [address] Hospital Food Service Worker: Naveen Adam MD #### ACHRGA #### [facility] [address] [place], [place] [address] Hospital Food Service Worker: CHALO Tomalcium [Mass/Vol]9.4 mg/dLNormal8.6-10.4[facility] HospitalComment on above:Performed By: #### CP, CDP #### [facility] [address] [place] [address] [phone] Hospital Food Service Worker: Naveen Adam MD #### ACHRGA #### [facility] [address] [place], [place] [address] Hospital Food Service Worker: Ion Franco MDChloride [Moles/Vol]104 mmol/OAutjfu02-298VkqkxMansfield HospitalComment on above:Performed By: #### CP, CDP #### [facility] [address] [place] [address] Hospital Food Service Worker: Naveen Adam MD #### ACHRGA #### [facility] [address] [place], [place] [id number] Hospital Food Service Worker: Ion Franco MDCO2 [Moles/Vol]26 mmol/CYsvmkc80-80ZcaopMansfield HospitalComment on above:Performed By: #### CP, CDP #### [address] [address] Hospital Food Service Worker: Naveen Adam MD #### ACHRGA #### [facility] [address] [place], [place] [id number] Hospital Food Service Worker: CHALO Tomreatinine [Mass/Vol]1.0 mg/dLHigh0.50-0.90Mansfield HospitalComment on above:Performed By: #### CP, CDP #### [facility] [address] [place] [id number] Hospital Food Service Worker: Naveen Adam MD #### ACHRGA #### [facility] [address] [place], [place] [id number] Hospital Food Service Worker: Ion Franco MDGFR/1.73 sq M.predicted among non-blacks MDRD (S/P/Bld) [Vol rate/Area]77 mL/min/{1.73_m2}Normal>60[facility] FarmComment on above:Result Comment: These results are not intended for [...] or following therapy that affects renal tubular secretion.Performed By: #### VASILE, CDP #### [place] [id number] Hospital Food Service Worker: Naveen Adam MD #### ACHRGA #### [facility] [address] [place], [place] [id number] Hospital Food Service Worker: Ion Franco MDGlucose [Mass/Vol]84 mg/rIKjrloi66-32EeatySharp Grossmont HospitalComment on above:Performed By: #### VASILE, CDP #### [place] [id number] Hospital Food Service Worker: Naveen Adam MD #### ACHRGA #### [facility] [address] [place], [place] [id number] Hospital Food Service Worker: ALEXANDER Tomotassium [Moles/Vol]3.9 mmol/LNormal3.7-5.3[facility] FarmComment on above:Performed By: #### VASILE, CDP #### [place] [address] Hospital Food Service Worker: Naveen Adam MD #### ACHRGA #### [facility] [address] [place], [place] [id number] Hospital Food Service Worker: ALEXANDER Tomrotein [Mass/Vol]7.5 g/dLNormal6.6-8.7Mansfield HospitalComment on above:Performed By: #### CP, CDP #### [facility] [address] [place] [address] Hospital Food Service Worker: Naveen Adam MD #### ACHRGA #### [facility] [address] [place], [place] [id number] Hospital Food Service Worker: MAURI Tomodium [Moles/Vol]141 mmol/DPrbalo450-162IhnpgMansfield HospitalComment on above:Performed By: #### CP, CDP #### [facility] [address] [place] [address] Hospital Food Service Worker: Naveen Adam MD #### ACHRGA #### [facility] [address] [place], [place] [id number] Hospital Food Service Worker: Ion Franco MDUrea nitrogen [Mass/Vol]5 mg/dLLow6-20Mansfield HospitalComment on above:Performed By: #### VASILE, CDP #### [facility] [address] [place] [address] Hospital Food Service Worker: Naveen Adam MD #### ACHRGA #### [facility] [address] [place], [place] [id number] Hospital Food Service Worker: Ion Franco MDUS PELVIC WITH TRANSVAGINALon [id number] PELVIC WITH TRANSVAGINALUS PELVIC WITH TRANSVAGINAL HISTORY: Adnexal cyst. Follow-up [...] by Rustam Cardenas MD on 11/11/2023 6:00 AMNormalProMedica [facility] [id number]: [id number] Received: 10/05/23 Status: [facility] Num: [id number] Spec Type: Surgical Subm Dr: Carlos Champagne MD Tissues: A Skin-Other than Cyst, tag, debridement or plastic repair (RIGHT JAINISM) Procedures: HE, Gross/Micro L4 Age/ Patient Sex Location Account Attending Physician Jake Arevalo 38/F [place] [id number] Carlos Champagne MD SPEC NUM: [id number] RECD: 10/05/23 STATUS: [facility] NUM: [id number] RUTH: 10/05/23- SUBM DR: Carlos Champagne MD ENTERED: 10/05/[address] [facility] [address]: SPEC TYPE: Surgical DEPT: S ENTERED BY: [id number] RECV BY: [id number] ORDERED: HE, Gross/Micro L4 ORDERED: HE, Gross/Micro L4 Pathological Diagnosis Skin, right quaker, excisional biopsy: -Benign large epidermal inclusion cyst, excised Clinical Information Neoplasm of unspecified behavior, mass increasing in size primary biopsy, excisional biopsy Gross Description The specimen was received in formalin with the patient's name and right quaker is an unorientated lorenz-richard ellipse of skin measuring 0.8 x 0.4 and excised to a depth of 0.8 cm. The resection margin is inked black. The specimen is trisected to reveal a cystic cavity filled with cystic debris measuring 0.8 x 0.8 x 0.6 cm. The specimen is entirely submitted in cassette A1. Microscopic Description Microscopic examinations are performed supporting the above interpretation Specimen: [id number] Received: 10/05/23 Status: [facility] Num: [id number] Spec Type: Surgical Subm Dr: Carlos Champagne MD Tissues: A Skin-Other than Cyst, tag, debridement or plastic repair (RIGHT JAINISM) Procedures: Kd ROMAN/Bebe L4 Patient: NuhaJake johansen [id number] (Continued) Specimen: Received: 10/05/23 (Continued) Signed (signature on file) Alvaro Villagran MD 10/13/23 1719 Specimen: [id number] Received: 10/05/23 Status: [facility] Num: [id number] Spec Type: Surgical Subm Dr: Carlos Champagne MD Tissues: A Skin-Other than Cyst, tag, debridement or plastic repair (RIGHT JAINISM) Procedures: Kd ROMAN/Bebe L4 Patient: Jake Arevalo [id number] (Continued) Specimen: [id number] Received: 10/05/23 (Continued) CPT Codes 64384 Specimen: [id number] Received: 10/05/23 Status: [facility] Num: [id number] Spec Type: Surgical Subm Dr: Carlos Champagne MD Tissues: A Skin-Other than Cyst, tag, debridement or plastic repair (RIGHT JAINISM) Procedures: HE, Gross/Micro L4 Patient: Jake Arevalo [id number] (Continued) Signed (signature on file) Alvaro Villagran MD 10/13/[address] [place] [address] Physician GroupGA ABDOMEN PELVIS W IV CONTRASTon [id number] ABDOMEN PELVIS W IV CONTRASTEXAMINATION: CT OF THE ABDOMEN AND PELVIS WITH [...] nearly empty but otherwise appears grossly unremarkable. Peritoneum/Retroperitoneum: No free fluid, free air, or lymphadenopathy. [...] Signed by: Iona Ramirez DO 09/05/23 Final resultNormalMerMercy General HospitalChromogranin Aon 09-02-2023 Chromogranin A22 ng/mLNormal0-187Mansfield HospitalComment on above:Result Comment: (NOTE) INTERPRETIVE INFORMATION: Chromogranin A, Serum This test is performed using the [employer] CGA II Kryptor kit. Results obtained with [...] 14 days prior to testing. Performed By: [facility] [employer] [address] [place] [address] Porcelain Waxer: Lorne Alarcon MD, PhD CLIA Number: [id number] By: #### ACHRGA #### [facility] [address] [place] [address] Hospital Food Service Worker: Ion Franco MD #### CP, CDP #### [employer] [address] [place] [address] Hospital Food Service Worker: Naveen Adam [facility] with Auto Differentialon 31-19-1150Gyfxqkazm (Bld) [#/Vol]0.10 10*3/uLBON SECOURS MERCY HEALTHBasophils/100 WBC (Bld)1 %0 - 2 %[facility] HEALTHEosinophils (Bld) [#/Vol]0.10 10*3/uLBON SECOURS MERCY HEALTHEosinophils/100 WBC (Bld)1 %1 - 4 %[facility] Erythrocyte distribution width (RBC) [Ratio]14.0 %11.8 - 14.4 %[facility] HEALTHHematocrit (Bld) [Volume fraction]38.7 %36.3 - 47.1 %[facility] HEALTHHemoglobin (Bld) [Mass/Vol]12.6 g/dL11.9 - 15.1 g/dLBON SECOURS MERCY HEALTHImmature granulocytes (Bld) [#/Vol]0.00 10*3/uLBON [facility]OURS [facility]CY [facility]ALTH Immature granulocytes/100 WBC (Bld)0 %0B[facility] HEALTHInterpretation and review of laboratory resultsAbnormalBON SECOURS MERCY HEALTHLymphocytes/100 WBC (Bld)50 %High24 - 44 %[facility] HEALTHLymphocytes/100 WBC (Bld)5.16 %HighBON SECOURS MERCY HEALTHComment on above:R/O Chronic Lymphoproliferative Disorder, recommend peripheral blood Flow Cytometry, if clinically indicated. MCH (RBC) [Entitic mass]28.3 pg25.2 - 33.[address] ELIZABETH HOSPITALHC (RBC) [Mass/Vol]32.6 g/dL28.4 - 34.8 g/dLBON ST. ELIZABETH HOSPITALV (RBC) [Entitic vol]87.0 fL82.6 - 102.9 fLMARTINSVILLE MEMORIAL HOSPITALMonocytes/100 WBC (Bld)7 %1 - 7 %BON [facility] HOSPITALMonocytes/100 WBC (Bld)0.72 %[facility] Morphology Lenin (Bld) [Interp]NormalBON [facility] CL[facility] UNION HOSPITALNeutrophils/100 WBC (Bld)41 %36 - 66 %BON [facility] HOSPITALNucleated RBC/100 WBC (Bld) [Ratio]0.0 %0.0 per 100 WBCBON C[facility]INIC UNION HOSPITALPlatelet mean volume (Bld) [Entitic vol]9.3 fL8.1 - 13.5 fLBON [facility]INIC UNION HOSPITALPlatelets (Bld) [#/Vol]411 10*3/uLBON [facility] UNION HOSPITALRBC (Bld) [#/Vol]4.45 10*6/uL3.95 - 5.11 m/uLMARTINSVILLE MEMORIAL HOSPITALSegmented neutrophils/100 WBC (Bld)4.22 %BON [facility] UNION HOSPITALWBC other (Bld) [#/Vol]10.3BON SECTHEDACARE REGIONAL MEDICAL CENTER–NEENAHCBC with Diffon 80-88-1732Muw. Basophil0.10 k/uLNormal0.0-0.2[facility] FarmComment on above:Performed By: #### ACHRGA #### [facility] [address] [place] [address] Hospital Food Service Worker: Ion Franco MD #### VASILE, CHRISTINE #### [employer] [address] [place] [address] Hospital Food Service Worker: Wilber Mckinnon.Imm.Granulocyte0.00 k/uLNormal0.00-0.30Mansfield HospitalComment on above:Performed By: #### ACHRGA #### [facility] [address] [place] [address] Hospital Food Service Worker: Ion Franco MD #### CP, CDP #### [address] [phone] Hospital Food Service Worker: Wilber Mckinnon.Neutrophil (Seg)4.22 k/uLNormal1.8-7.7Mansfield HospitalComment on above:Performed By: #### ACHRGA #### [facility] [address] [place] [address] Hospital Food Service Worker: Ion Franco MD #### CP, CDP #### [address] [phone] Hospital Food Service Worker: Naveen Adam MDBasophils/100 WBC (Bld)1 %Normal0-2MSharp Grossmont HospitalComment on above:Performed By: #### ACHRGA #### [facility] [address] [place] [address] Hospital Food Service Worker: Ion Franco MD #### CP, CDP #### [address] [phone] Hospital Food Service Worker: Naveen Adam MDEosinophils (Bld) [#/Vol]0.10 10*3/uLNormal 0.0-0.4Mansfield HospitalComment on above:Performed By: #### ACHRGA #### [facility] [address] [place] [address] Hospital Food Service Worker: Ion Franco MD #### CP, CDP #### [address] [address] Hospital Food Service Worker: Naveen Adam MDEosinophils/100 WBC (Bld)1 %Normal1-4Mansfield HospitalComment on above:Performed By: #### ACHRGA #### [facility] [address] [place] [address] Hospital Food Service Worker: Ion Franco MD #### CP, CDP #### [address] [address] Hospital Food Service Worker: Naveen Adam MDImmature granulocytes/100 WBC (Bld)0 %Normal0 Mansfield HospitalComment on above:Performed By: #### ACHRGA #### [facility] [address] [place] [address] Hospital Food Service Worker: Ion Franco MD #### CP, CDP #### [address] [address] Hospital Food Service Worker: Naveen Adam MDLymphocytes (Bld) [#/Vol]5.16 10*3/uLHigh1.0-4.8 Mansfield HospitalComment on above:Result Comment: R/O Chronic Lymphoproliferative Disorder, recommend peripheral blood Flow Cytometry, if clinically indicated.Performed By: #### ACHRGA #### [facility] [address] [place] [address] Hospital Food Service Worker: Ion Franco MD #### CP, CDP #### [address] [address] Hospital Food Service Worker: Naveen Adam MDLymphocytes/100 WBC (Bld)50 %Qvpw05-96WwtwrMansfield HospitalComment on above:Performed By: #### ACHRGA #### [facility] [address] [place] [address] Hospital Food Service Worker: Ion Franco MD #### CP, CDP #### [address] [address] Hospital Food Service Worker: RK Mckinnononocytes (Bld) [#/Vol]0.72 10*3/uLNormal0.1-0.8 [facility]field HospitalComment on above:Performed By: #### ACHRGA #### [facility] [address] [place] [address] Hospital Food Service Worker: Ion Franco MD #### CP, CDP #### [address] [address] Hospital Food Service Worker: RK Mckinnononocytes/100 WBC (Bld)7 %Normal1-7Mansfield HospitalComment on above:Performed By: #### ACHRGA #### [facility] [address] [place] [address] Hospital Food Service Worker: Ion Franco MD #### CP, CDP #### [address] [address] Hospital Food Service Worker: RK Mckinnonorphology Lenin (Bld) [Interp]NormalNormalMansfield HospitalComment on above:Performed By: #### ACHRGA #### [facility] [address] [place] [address] Hospital Food Service Worker: Ion Franco MD #### CP, CDP #### [address] [address] Hospital Food Service Worker: Naveen Adam MDNeutrophil (Seg)41 %Fpgucz99-52ZbygiMansfield HospitalComment on above:Performed By: #### ACHRGA #### [facility] [address] [place] [address] Hospital Food Service Worker: Ion Franco MD #### CP, CDP #### [address] [address] Hospital Food Service Worker: Naveen Adam MDErythrocyte distribution width (RBC) [Ratio]14.0 %Zkfpyz43.8-14.4Mansfield HospitalComment on above:Performed By: #### ACHRGA #### [facility] [address] [place] [address] Hospital Food Service Worker: Ion Franco MD #### CP, CDP #### [address] [phone] Hospital Food Service Worker: Naveen Adam MDHematocrit (Bld) [Volume fraction]38.7 %Normal 36.3-47.1MSharp Grossmont HospitalComment on above:Performed By: #### ACHRGA #### [facility] [address] [place] [address] Hospital Food Service Worker: oIn Franco MD #### CP, CDP #### [address] [phone] Hospital Food Service Worker: Naveen Adam MDHemoglobin (Bld) [Mass/Vol]12.6 g/dLNormal 11.9-15.1MSharp Grossmont HospitalComment on above:Performed By: #### ACHRGA #### [facility] [address] [place], [place] [id number] Hospital Food Service Worker: Ion Franco MD #### CP, CDP #### [address] [phone] Hospital Food Service Worker: RK MckinnonCH (RBC) [Entitic mass]28.3 puElzacs43.2-33.5 Mansfield HospitalComment on above:Performed By: #### ACHRGA #### [facility] [address] [place] [address] Hospital Food Service Worker: Ion Franco MD #### CP, CDP #### [address] [phone] Hospital Food Service Worker: RK MckinnonCHC (RBC) [Mass/Vol]32.6 g/xYCbwxvt98.4-34.8 Mansfield HospitalComment on above:Performed By: #### ACHRGA #### [facility] [address] [place] [address] Hospital Food Service Worker: Ion Franco MD #### CP, CDP #### [address] [phone] Hospital Food Service Worker: Naveen Adam MDMCV (RBC) [Entitic vol]87.0 uBRhtywl04.6-102.9 Mansfield HospitalComment on above:Performed By: #### ACHRGA #### [facility] [address] [place] [address] Hospital Food Service Worker: Ion Franco MD #### CP, CDP #### [place] [phone] Hospital Food Service Worker: Naveen Adam MDNRBC Automated0.0 per 100 WBCNormal0.0Mansfield HospitalComment on above:Performed By: #### ACHRGA #### [facility] [address] [place] [address] Hospital Food Service Worker: Ion Franco MD #### CP, CDP #### [place] [phone] Hospital Food Service Worker: Kena Mckinnonteyulia mean volume (Bld) [Entitic vol]9.3 fL Normal8.1-13.5Mansfield HospitalComment on above:Performed By: #### ACHRGA #### [facility] [address] [place] [address] Hospital Food Service Worker: Ion Franco MD #### CP, CDP #### [place] [phone] Hospital Food Service Worker: ALEXANDER Mckinnonlatelets (Bld) [#/Vol]411 10*3/jJEgoxse730-548 Mansfield HospitalComment on above:Performed By: #### ACHRGA #### [facility] [address] [place] [address] Hospital Food Service Worker: Ion Franco MD #### CP, CDP #### [address] [phone] Hospital Food Service Worker: Naveen Adam [facility] ([facility]) [#/Vol]4.45 10*6/uLNormal3.95-5.11 [facility] HospitalComment on above:Performed By: #### ACHRGA #### [facility] [address] [place] [address] Hospital Food Service Worker: Ion Franco MD #### CP, CDP #### [address] [address] Hospital Food Service Worker: Naveen Adam [facility] [#/Vol]10.3 10*3/uLNormal3.5-11.3MSharp Grossmont HospitalComment on above:Performed By: #### ACHRGA #### [facility] [address] [place] [address] Hospital Food Service Worker: Ion Franco MD #### CP, CDP #### [address] [phone] Hospital Food Service Worker: Naveen Adam [facility] Metabolic Profon 27-67-6213Vpytheq [Mass/Vol]4.5 g/dLNormal3.5-5.2BON [facility]ION HOSPITALComment on above: Performed By: #### ACHRGA #### [facility] [address] [place] [address] Hospital Food Service Worker: Ion Franco MD #### CP, CDP #### [address] [phone] Hospital Food Service Worker: Naveen Adam MDALT [Catalytic activity/Vol]19 U/WOsecdi73-87MLN [facility] HOSPITALComment on above:Performed By: #### ACHRGA #### [facility] [address] [place] [address] Hospital Food Service Worker: Ion Franco MD #### CP, CDP #### [address] [phone] Hospital Food Service Worker: Naveen Adam MDAnion gap [Moles/Vol]11 mmol/LNormal9-16BON [facility] HEALTHComment on above:Performed By: #### ACHRGA #### [facility] [address] [place] [address] Hospital Food Service Worker: Ion Franco MD #### CP, CDP #### [place] [phone] Hospital Food Service Worker: Naveen Adam MDAST [Catalytic activity/Vol]23 U/LAbpotf54-96SAW [facility] HEALTHComment on above:Performed By: #### ACHRGA #### [facility] [address] [place] [address] Hospital Food Service Worker: Ion Franco MD #### CP, CDP #### [place] [address] Hospital Food Service Worker: Naveen Adam MDBilirubin [Mass/Vol]1.2 mg/dLNormal0.00-1.20[facility] HEALTHComment on above:Performed By: #### ACHRGA #### [facility] [address] [place] [address] Hospital Food Service Worker: Ion Franco MD #### CP, CDP #### [address] [phone] Hospital Food Service Worker: CHALO Mckinnonalcium [Mass/Vol]9.4 mg/dLNormal8.6-10.4[facility] HEALTHComment on above:Performed By: #### ACHRGA #### [facility] [address] [place] [address] Hospital Food Service Worker: Ion Franco MD #### CP, CDP #### [facility] [address] [place] [address] Hospital Food Service Worker: CHALO Mckinnonhloride [Moles/Vol]102 mmol/BHnxmap07-744IEF [facility] HEALTHComment on above:Performed By: #### ACHRGA #### [facility] [address] [place], [place] [address] Hospital Food Service Worker: Ion Franco MD #### CP, CDP #### [facility] [address] [place] [address] Hospital Food Service Worker: Naveen Adam MDCO2 [Moles/Vol]27 mmol/XStdkxj10-80NKV [facility] HEALTHComment on above:Performed By: #### ACHRGA #### [facility] [address] [place], [place] [id number] Hospital Food Service Worker: Ion Franco MD #### CP, CDP #### [facility] [address] [place] [address] Hospital Food Service Worker: CHALO Mckinnonreatinine [Mass/Vol]0.9 mg/dLNormal0.50-0.90B[facility] HEALTHComment on above:Performed By: #### ACHRGA #### [facility] [address] [place] [address] Hospital Food Service Worker: Ion Franco MD #### CP, CDP #### [facility] [address] [place] [address] Hospital Food Service Worker: Naveen Adam MDGlucose [Mass/Vol]78 mg/mHReglxt65-14XKW [facility] HOSPITALComment on above:Performed By: #### ACHRGA #### [facility] [address] [place] [address] Hospital Food Service Worker: Ion Franoc MD #### CP, CDP #### [facility] [address] [place] [phone] Hospital Food Service Worker: Naveen Adam MDPotassium [Moles/Vol]4.3 mmol/LNormal3.7-5.3[facility] HEALTHComment on above:Performed By: #### ACHRGA #### [facility] [address] [place] [address] Hospital Food Service Worker: Ion Franco MD #### CP, CDP #### [facility] [address] [place] [address] Hospital Food Service Worker: Naveen Adam MDProtein [Mass/Vol]7.7 g/dLNormal6.6-8.7[facility] HEALTHComment on above:Performed By: #### ACHRGA #### [facility] [address] [place] [id number] Hospital Food Service Worker: Ion Franco MD #### CP, CDP #### [facility] [address] [place] [address] Hospital Food Service Worker: Naveen Adam MDSodium [Moles/Vol]140 mmol/AUofzjt860-079SVC [facility] HEALTHComment on above:Performed By: #### ACHRGA #### [facility] [address] [place] [address] Hospital Food Service Worker: Ion Franco MD #### CP, CDP #### [facility] [address] [place] [address] Hospital Food Service Worker: Naveen Adam MDUrea nitrogen [Mass/Vol]11 mg/dLNormal6-20[facility] HEALTHComment on above:Performed By: #### ACHRGA #### [facility] [address] [place] [address] Hospital Food Service Worker: Ion Franco MD #### CP, CDP #### [facility] [address] [place] [address] Hospital Food Service Worker: Naveen Adam MDAlbumin/Glob Ratio1.4Odvqki6.0-2.5M[facility]field HospitalComment on above:Performed By: #### ACHRGA #### [facility] [address] [place] [address] Hospital Food Service Worker: Ion Franco MD #### CP, CDP #### [facility] [address] [place] [phone] Hospital Food Service Worker: Pedro Mckinnon Phos79 U/TEoypgv99-652WtpryMansfield HospitalComment on above:Performed By: #### ACHRGA #### [facility] [address] [place] [address] Hospital Food Service Worker: Ion Franco MD #### CP, CDP #### [address] [phone] Hospital Food Service Worker: Naveen Adam MDGFR/1.73 sq M.predicted among non-blacks MDRD (S/P/Bld) [Vol rate/Area]83 mL/min/{1.73_m2}Normal>60M[facility]field HospitalComment on above:Result Comment: These results are not intended for [...] or following therapy that affects renal tubular secretion.Performed By: #### ACHRGA #### [facility] [address] [place] [address] Hospital Food Service Worker: Ion Franco MD #### CP, CDP #### [address] [phone] Hospital Food Service Worker: Naveen Adam [facility] FAIRVIEWomprehpaulding county hospital Metabolic Panelon 08-31-2023 Albumin/Globulin [Mass ratio]1.0 {ratio}1.0 - 2.5B[facility] HEALTHALP [Catalytic activity/Vol]79 U/L35 - 104 U/LBON [facility] SpazioDati MART[facility] FERRY HOSPITALEst, Glom Filt Rate83- PINFBON [facility] NXVISIONComment on above: These results are not intended [...] following therapy that affects renal tubular secretion. BON [facility] NXVISIONUS THYROIDon [id number] THYROIDUS THYROID CLINICAL INFORMATION: Thyroid goiter. TECHNIQUE: Real time sonography of the thyroid gland performed. COMPARISON: No relevant prior studies available. FINDINGS: Postoperative changes of right hemithyroidectomy. No focal sonographic appearance of soft tissue inthe right thyroidectomy bed. Left thyroid lobe measures [...] greater than or equal to 1cm, follow-up ultrasoundif nodule is 0.5 - 0.9 cm every year for 5 years. TR4 (4 - 6 points) - FNA if greater than or equal to 1.5 cm, follow-up ultrasound if nodule is 1 -1.4 cm at 1, 2, 3 and 5 years. TR3 (3 points) - FNA if greater than or equal to 2.5 cm, follow-up ultrasound if nodule is 1.5 -2.4cm at 1, 3 and 5 years. TR2 (2 points) & TR1 (0 points) - No FNA or follow-up. Finalized by Nislon Salomon on 08/23/2023 9:12 [facility] Hospitalurgical Pathology Reporton [id number] Pathology Report(NOTE) Path Number: [id number] -- Diagnosis -- A. STOMACH, BIOPSY: -GASTRIC [...] cells. Controls react as expected. Processing Lab: [address] [address] Interpretation Performed at [address] [phone] SURGICAL PATHOLOGY CONSULTATION Patient Name: JAKE AREVALO [facility] Rec: [id number] [facility] [employer] [facility] ANATOMIC PATHOLOGY [address] [place] [address]. [place] [address] [facility] Path Number: [id number] INTERPRETATION FINE NEEDLE ASPIRATION, EUS, DUODENAL MASS: NEGATIVE FOR MALIGNANCY. COMMENT: THE CELL BLOCK CONTAINS A FEW FRAGMENTS OF BLAND FIBROMUSCULAR TISSUE. IMMUNOSTAIN FOR SYNAPTOPHYSIN (CONTROL APPROPRIATE) IS NEGATIVE FOR NEUROENDOCRINE NEOPLASM. Electronically Signed Out Vidal Rivas M.D. 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 Gross Description DUODENAL MASS Specimen received in CytoLyt solution, light red fluid. MICROSCOPIC DESCRIPTION Microscopic examination performed. Non Canopy Inspector Thin Prep x 1, Cell Block w/ BEATRIZ x 1, Synapto (no charge) x 1, Ki67 (no charge) x 1 Processing Lab: [address] [phone] Interpretation performed at [address] [phone] NONGYNECOLOGICAL CYTOPATHOLOGY CONSULTATION Patient Name: JAKE AREVALO [facility] Rec: [id number] [facility] [employer] [facility] [facility] ANATOMIC PATHOLOGY [address] [facility]. [place], [place] [address] [facility] TUMOR IMAGE SKULL THIGH DOTATATEon . Heterogeneous activity along the duodenum may be physiologic, but could represent the duodenal tumor. 2. No DOTATATE avid metastatic disease. 3. 5.1 cm right adnexal soft tissue density mass without activity. This could be the ovary including the possibility of an ovarian cyst. If this has not been evaluated elsewhere, consider pelvic ultrasound. Patient appears to be status post hysterectomy. MHPN RIS CONSOLIDATEDEXAMINATION: WHOLE BODY PET/CT 04/18/2023 TECHNIQUE: Following IV [...] CT FINDINGS: Postsurgical changes at the stomach. Erasmo Rodriguez MD - 04/18/2023 EXAMINATION: WHOLE BODY PET/CT [...] Patient appears to be status post hysterectomy. [facility] [employer] M[facility] FERRY HOSPITALRadiology Study observation (narrative)[facility] Spaz[employer] M[facility] FERRY HOSPITALPET CT TUMOR IMAGE SKULL THIGH DOTATATEOrdered By: Erasmo Baltazar on [id number] HAV[facility]IONAL MEDICAL CENTERAppy Pie Work Phone: Surgical Pathology Reporton [id number] Pathology Report(NOTE) Path Number: [id number] -- Diagnosis -- DUODENAL POLYP, POLYPECTOMY: -WELL-DIFFERENTIATED NEUROENDOCRINE TUMOR, GRADE 1, INVADING THE SUBMUCOSA -TUMOR FOCALLY EXTENDS TO THE DEEP CAUTERIZED MARGIN Gordy Clark D.O. Electronically Signed Out tiff/03/29/2023 Clinical Information Pre-Op Diagnosis: EPIGASTRIC ABDOMINAL PAIN Operative Findings: DUODENAL POLYP Operation Performed: EGD BIOPSY kb Source of Specimen A: DUODENAL POLYP Gross Description JAKE AREVALO DUODENAL POLYP Received in formalin is a [...] applicable CAP Duodenum/AmpullaNET 2.0.0.0 . Processing Lab: [address] [id number] Interpretation Performed at [address] [phone] SURGICAL PATHOLOGY CONSULTATION Patient Name: JAKE AREVALO [facility] Rec: [id number] [facility] ANATOMIC PATHOLOGY [address] [place] [address]. [place], [place] [address] [facility]Tri[facility] Hospitalurgical Pathology Reporton [id number] Pathology Report(NOTE) Path Number: [id number] -- Diagnosis -- DUODENAL POLYP, BIOPSY: -WELL-DIFFERENTIATED NEUROENDOCRINE TUMOR (GRADE 1). Tye Logan M.D. Electronically Signed Out 03/09/2023 Clinical Information Pre-Op Diagnosis: ABDOMINAL PAIN, EPIGASTRIC Operative Findings: DUODENUM POLYP TO CHECK FOR CARCINOID Operation Performed: EGD BIOPSY kb Source of Specimen A: DUODENAL POLYP TO CHECK FOR CARCINOID Gross Description JAKE AREVALO DUODENUM POLYP Received in formalin are two lorenz-white tissue fragments from 0.2 to 0.3 cm and are 0.5 x 0.2 x 0.1 cm in aggregate. Entirely 1cs. jj tm Gordy Clark D.O./kb2:03/08/2023 Microscopic Description Microscopic examination performed. [...] well-differentiated neuroendocrine tumor, grade 1. For quality assurance monitor body, slides also reviewed by additional pathologist (Dr. Watts), who concurs with the diagnosis. Processing Lab: [address] [address] Interpretation Performed at [address] [phone] SURGICAL PATHOLOGY CONSULTATION Patient Name: JAKE AREVALO [facility] Rec: [id number] [facility] ANATOMIC PATHOLOGY [address] [place] [address]. [place], [place] [id number] [facility] HospitalCOVID-19 Positive/Negative Ordered By: NON STAFF on 01-12-9296UCPR-CoV-2 (COVID-19) N gene CHASE+probe Ql (Resp)NegativeNegativeKing'S Daughters Medical Center OhioComment on above:Testing for SARS-CoV-2 by RT-PCRThis test was developed and its performance characteristics determined by [employer] ([employer]) and validated at the [facility] [place]. This test has not been FDA cleared [...] unless the authorization is terminated or revoked sooner.Laboratory - Microbiology and Antimicrobial susceptibilityOrdered By: NON STAFF on 05-30-2022 SARS-CoV-2 (COVID-19) RNA CHASE+probe Ql (Unsp spec)N/[facility] HospitalCARDIAC JOSE J 3-6on [id number] [Catalytic activity/Vol]92 U/DDkhmyp83-983 [facility] HospitalComment on above:Performed By: #### CMREP #### [facility] [address] [place] [address] Dr. Felix William.MB [Mass/Vol]0.53 ng/mLNormal<=3.60[facility] Comment on above:Performed By: #### CMREP #### [facility] [address] [place], [place] [address] Dr. Felix OlmsteadTROP3.5 pg/mLCritically low4.0-51.3The [facility] HospitalComment on above:Result Comment: CUT-OFF POINTS HAVE BEEN ESTABLISHED BASED ON THE FOURTH UNIVERSAL DEFINITIONS OF MYOCARDIAL INFARCTION. THE UPPER REFERENCE LIMIT (URL) OF TROPONIN, DEFINED THE 99TH PERCENTILE OF cTnI DISTRIBUTION IN A REFERENCE POPULATION, HAS BEEN CONFIRMED THE DECISION THRESHOLD FOR IN DIAGNOSIS.Performed By: #### CMREP #### [facility] [address] [address] [address] Felix Zelaya JOSE J ADMITon [id number] [Catalytic activity/Vol]114 U/L Hmjscm42-958Ehd [facility] Hospitalment on above:Performed By: #### CMADM, BMP #### [facility] [address] [place] [address] Dr. Felix William.MB [Mass/Vol]0.91 ng/mLNormal<=3.60[facility] [place] Comment on above:Performed By: #### CMADM, BMP #### [facility] [address] [place] [address] Dr. Felix OlmsteadTROP<4.3Faqrat7.0-51.3The [facility] HospitalComment on above: Result Comment: CUT-OFF POINTS HAVE BEEN ESTABLISHED BASED ON THE FOURTH UNIVERSAL DEFINITIONS OF MYOCARDIAL INFARCTION. THE UPPER REFERENCE LIMIT (URL) OF TROPONIN, DEFINED THE 99TH PERCENTILE OF cTnI DISTRIBUTION IN A REFERENCE POPULATION, HAS BEEN CONFIRMED THE DECISION THRESHOLD FOR IN DIAGNOSIS.Performed By: #### CMADM, BMP #### [facility] [address] [place] [address] Dr. Felix RosalesO27 ng/mLNormal9-82[facility] on above: Performed By: #### CMADM, BMP #### [facility] [address] [place] [address] Dr. Felix Duff AUTO DIFFon [id number] #0.1 103/ulNormal0.0-0.1The [facility] HospitalComment on above:Performed By: #### CBC #### [facility] [address] [place] [address] Dr. Felix Emersonsophils/100 WBC (Bld)0.7 %Normal0.2-2.0[facility] Comment on above:Performed By: #### CBC #### [facility] [address] [place] [address] Dr. Washington ChangECarmen #0.2 103/ulNormal0.0-0.7The [facility]ody HospitalComment on above: Performed By: #### CBC #### [facility] [address] [place] [address] Dr. Felix Lopezosinophils/100 WBC (Bld)1.4 %Normal0.9-7.0[facility] Comment on above:Performed By: #### CBC #### [facility] [address] [place] [address] Dr. Felix Lopezrythrocyte distribution width (RBC) [Ratio]13.3 %Hjssew93.0-15.0 The [facility] HospitalComment on above:Performed By: #### CBC #### [facility] [address] [place] [address] Dr. Felix VillagranHematocrit (Bld) [Volume fraction]36.7 %Gzwixk23.0-48.0The [facility] HospitalComment on above:Performed By: #### CBC #### [facility] [address] [place] [address] Dr. Felix VillagranHemoglobin (Bld) [Mass/Vol]12.5 g/aZUojnry56.0-16.0The [facility] HospitalComment on above:Performed By: #### CBC #### [facility] [address] [place] [address] Dr. Felix Oneal #0.03 10e3/ulNormal0.00-0.03The [facility] HospitalComment on above:Performed By: #### CBC #### [facility] [address] [place] [address] Dr. Felix Oneal %0.2 %Normal0.0-0.5The [facility] HospitalComment on above: Performed By: #### CBC #### [facility] [address] [place] [address] Dr. Felix Gilbert #4.8 103/ulCritically high1.2-3.8[facility] Comment on above:Performed By: #### CBC #### [facility] [address] [place] [address] Dr. Felix Rodriguezmphocytes/100 WBC (Bld)39.4 %Ssmzvy76.5-60.0The [facility] HospitalComment on above:Performed By: #### CBC #### [facility] [address] [place] [address] Dr. Felix Morales DIFF REQNONormalThe [facility] HospitalComment on above: Performed By: #### CBC #### [facility] [address] [place] [address] Dr. Felix Nunez (RBC) [Entitic mass]29.1 vuEbsbli13.7-34.0The [facility] HospitalComment on above:Performed By: #### CBC #### [facility] [address] [place] [address] Dr. Felix Nunez (RBC) [Mass/Vol]34.1 g/pOMbgfpn90.9-35.2The [facility] HospitalComment on above:Performed By: #### CBC #### [facility] [address] [place] [address] Dr. Felix Nunez (RBC) [Entitic vol]85.5 jOCefgjc69.0-99.0The [facility] HospitalComment on above:Performed By: #### CBC #### [facility] [address] [place] [address] Dr. Felix Escalante #0.7 103/ulNormal0.3-0.8The [facility] HospitalComment on above:Performed By: #### CBC #### [facility] [address] [place] [address] Dr. Felix Liangocytes/100 WBC (Bld)5.4 %Normal1.7-12.0[facility] Comment on above:Performed By: #### CBC #### [facility] [address] [place] [address] Dr. Felix Marie #6.5 103/ulNormal1.4-6.5The [facility] HospitalComment on above:Performed By: #### CBC #### [facility] [address] [place] [address] Dr. Felix Kaurutrophils/100 WBC (Bld)52.9 %Givkon94.0-75.0The [facility] HospitalComment on above:Performed By: #### CBC #### [facility] [address] [place] [address] Dr. Felix Patel mean volume (Bld) [Entitic vol]9.1 fLCritically low 9.5-13.5The [facility] HospitalComment on above:Performed By: #### CBC #### [facility] [address] [place] [address] Dr. Felix VillagranPLT350 103/osQqynkv397-579Lmc [facility] HospitalComment on above: Performed By: #### CBC #### [facility] [address] [place] [address] Dr. Felix VillagranRBC4.29 106/ulNormal4.20-5.40The [facility] HospitalComment on above:Performed By: #### CBC #### [facility] [address] [place] [address] Dr. Felix VillagranWBC12.3 103/ulCritically high4.0-11.0The [facility] HospitalComment on above:Performed By: #### CBC #### [facility] [address] [place] [address] Dr. Felix Gibson CHEST WO W CONon [id number] CHEST WO W CONCTA CHEST WO W CON: 01/19/2022 12:37 AM [...] Electronically authenticated by: SANDRA MARQUEZ Date: 2022-01-19 02:30Normal The [facility] HospitalD-DIMERon [id number]-DIMER0.64 mg/L FEUCritically high <=0.59The [facility] HospitalComment on above:Performed By: #### DDIM #### [facility] [address] [place] [address] Dr. Felix Little-DIMER COMMENTSSEE BELOWPutnam County Memorial HospitalalThRegency Hospital Cleveland WestComment on above:Result Comment: Increases in D-Dimer concentration observed with thromboembolic events [...] stress, and generalized hospitalization. Performed By: #### DDIM #### [facility] [address] [place] [address] Dr. Felix VillagranPROF CHEM 8 (BAS METB)on 68-77-3786Xzoko gap [Moles/Vol]11.3 mmol/LNormalThe [facility] HospitalComment on above:Performed By: #### CMADM, BMP #### [facility] [address] [place] [address] Dr. Felix VillagranCalcium [Mass/Vol]8.7 mg/dLNormal8.5-10.1[facility] [place] Comment on above:Performed By: #### CMADM, BMP #### [facility] [address] [place] [address] Dr. Felix VillagranChloride [Moles/Vol]102 mmol/JTegbsw12-110Wxu [facility] Comment on above:Performed By: #### CMADM, BMP #### [facility] [address] [address] [address] Felix VillagranCO2 [Moles/Vol]28.3 mmol/NEwuhgw37.0-32.0[facility] Comment on above:Performed By: #### CMADM, BMP #### [facility] [address] [address] [address] Felix VillagranCreatinine [Mass/Vol]0.90 mg/dLNormal0.55-1.02The [facility] HospitalComment on above:Performed By: #### CMADM, BMP #### [facility] [address] [address] [address] Felix LopezGFR-AF ITALIAN>60Normal>=60The [facility] HospitalComment on above:Performed By: #### CMADM, BMP #### [facility] [address] [address] [address] Felix LopezGFR-NON AF ITALIAN>60Normal>=60The [facility] HospitalComment on above:Performed By: #### CMADM, BMP #### [facility] [address] [address] [address] Felix VillagranGlucose [Mass/Vol]86 mg/vRDyjtrd48-756BbyKing'S Daughters Medical Center [place] Comment on above:Performed By: #### CMADM, BMP #### [facility] [address] [address] [address] Felix VillagranPotassium [Moles/Vol]3.6 mmol/LNormal3.5-5.1[facility] Comment on above:Performed By: #### CMADM, BMP #### [facility] [address] [address] [address] Felix VillagranSodium [Moles/Vol]138 mmol/ABsyedw919-951Wgj [facility] Comment on above:Performed By: #### CMADM, BMP #### [facility] [address] [address] [address] Felix VillagranUrea nitrogen [Mass/Vol]16.0 mg/dLNormal7.0-18.0The [facility] HospitalComment on above:Performed By: #### LILIAN, BMP #### [facility] [address] [address] [address] Felix VillagranUrea nitrogen/Creatinine [Mass ratio]17.8 mg/mgFulton County Health CenterComkresge eye institute on above:Performed By: #### LILIAN, BMP #### [facility] [address] [place], [place] [address] Dr. Felix VillagranXR ABD FLAT_UPon [id number] ABD FLAT_UPEXAM: XR ABD FLAT_UP HISTORY: constipation COMPARISON: None. [...] Electronically authenticated by: ELIZABETH CHAN Date: 2022-01-19 01:06[facility] CenterXR [facility] 1 Von [id number] CHEST 1 VCHEST X-RAY HISTORY: Chest pain COMPARISON: None. TECHNIQUE: 1 view chest is submitted for review. FINDINGS: The lungs are adequately expanded without evidence for acute infiltrate or effusion. The cardiac silhouette is enlarged. Pulmonary vascularity is unremarkable. Osseous structures are within expected limits for patients age. . IMPRESSION: Mild cardiomegaly. Electronically authenticated by: LISANDRA ARGUETA Date: 2022-01-18 23:52[facility] Vital Signs Date TimeVital SignValuePerforming CsexarzjuZywqlvvq52-22-2073 09:Body vmjukb758.99 cmMariza Sotelo [facility] Work Phone: [facility] [place]08-04-2025 09:270400 Body mass index (BMI) [Ratio]33.6 kg/c7XehvcksiMariza Sotelo [facility] Work Phone: [facility] [place]08-04-2025 09:040 Body .4 kgMariza Sotelo DNP Work Phone: [facility] [place]08-04-2025 09:27-0400 Diastolic blood mm[Hg]Mariza Sotelo DNP Work Phone: [facility] [place]08-04-2025 09:27-0400 Heart rate99 /Lidia Sotelo DNP Work Phone: [facility] [place]08-04-2025 09:27-0400 Respiratory rate18 /Lidia Sotelo DNP Work Phone: [facility] [place]08-04-2025 09:27-0400 Systolic blood hekxmjez709 mm[Hg]Mariza Sotelo DNP Work Phone: [facility] [place]06-09-2025 11:47-0400 Body fmdaoq494.47 cmKing'S Daughters Medical Center [place]06-09-2025 11:47-0400Body mass index (BMI) [Ratio]32.8 kg/r1WteixoosdKing'S Daughters Medical Center [place]06-09-2025 11:47-0400Body npqmen33.7 [facility]06-09-2025 11:47-0400Diastolic blood rnibkrkc18 mm[Hg][facility] [place] 07-15-2024 11:47-0400Heart rate96 /[facility] 07-15-2024 11:47-0400Respiratory rate18 /[facility] 07-15-2024 11:47-0400Systolic blood mm[Hg][facility] [place]04-21-2025 09:26-0400Body ggugbn007.47 cmKing'S Daughters Medical Center [place]04-21-2025 09:26-0400Body mass index (BMI) [Ratio]32.3 kg/h5OnazdjfnkKing'S Daughters Medical Center [place]04-21-2025 09:26-0400Body tqrisb28.5 kgKing'S Daughters Medical Center [place]04-21-2025 09:26-0400Diastolic blood fxedbtpk81 mm[Hg][facility] [place]04-21-2025 09:26-0400Heart rate86 /[facility]04-21-2025 09:26-2351VlZ3% (BldA) [Mass fraction]100 %[facility] [place]04-21-2025 09:26-0400Systolic blood szwsybfz758 mm[Hg] [facility] [place]03-10-2025 09:24-0400Body .47 cm [facility] [place]03-10-2025 09:24-0400Body mass index (BMI) [Ratio]32.8 kg/d3GdqwrotaoKing'S Daughters Medical Center [place]03-10-2025 09:24-0400Body ofujqm88.7 kgKing'S Daughters Medical Center [place]03-10-2025 09:24-0400Diastolic blood dppsnvee05 mm[Hg][facility] [place]03-10-2025 09:24-0400 Respiratory rate16 /[facility]03-10-2025 09:24-0400 SaO2% (BldA) [Mass fraction]99 %[facility] [place]03-10-2025 09:24-0400Systolic blood hzncsfwu631 mm[Hg][facility] [place] 04-01-2024 10:21-0500Diastolic blood czfcejii60 mm[Hg]Joselito Staples MD Work Phone: [facility] HealthcareAegburybci13-26-9922 10:21-0500Systolic blood lmiutuxf750 mm[Hg]Joselito Staples MD Work Phone: [facility] HealthcareGprnyqowrf01-88-4706 08:51-0500Body hvyiah440 cm Aly Santa DPM Work Phone: [phone] HealthcareIosfouclmz53-21-8689 08:51-0500Body mass index (BMI) [Ratio]33.48 kg/f9PsrfvxwAly Santa DPJohnson Work Phone: [phone] HealthcareRlteqiwvcf00-49-2588 08:51-0500Body uwmzlt72.73 kgAly Santa DPM Work Phone: [facility] HealthcareKiixiygtaw26-22-0520 09:24-0500Body jjfhew848.47 cmKing'S Daughters [facility] Center [place]01-27-2025 09:24-0500Body mass index (BMI) [Ratio]32.3 kg/g7XwlipzixpKing'S Daughters Medical Center [place]01-27-2025 09:24-0500Body swxelj45.34 kgKing'S Daughters Medical Center [place]01-27-2025 09:24-0500Diastolic blood ksdcdwar61 mm[Hg][facility] [place]01-27-2025 09:24-0500 Heart rate86 /[facility]01-27-2025 09:24-0500 Respiratory rate18 /[facility]01-27-2025 09:24-0500 SaO2% (BldA) [Mass fraction]100 %[facility] [place]01-27-2025 09:24-0500Systolic blood ypjbpnsc874 mm[Hg][facility] [place] 01-22-2024 09:27-0500Body conzcr232.47 cmKing'S Daughters Medical Center [place] 01-22-2024 09:27-0500Body mass index (BMI) [Ratio]32.8 kg/m9PczohvtisKing'S Daughters Medical Center [place]12-16-2024 09:27-0500Body npgjiu37.96 kgKing'S Daughters Medical Center [place]12-16-2024 09:27-0500Diastolic blood dmofvdin15 mm[Hg][facility] [place]12-16-2024 09:27-0500Heart rate89 /[facility]12-16-2024 09:27-0500Respiratory rate18 /[facility]12-16-2024 09:27-5871UbD9% (BldA) [Mass fraction]100 %[facility] [place]12-16-2024 09:27-0500Systolic blood bdjkalqu717 mm[Hg][facility] [place]11-04-2024 09:27-0500Body rtynbd639.47 cmKing'S Daughters Medical Center [place]11-04-2024 09:27-0500Body mass index (BMI) [Ratio]33 kg/a1SnuscdenjKing'S Daughters Medical Center [place]11-04-2024 09:27-0500Body .44 kg [facility] [place]11-04-2024 09:27-0500Diastolic blood escgmhwo66 mm[Hg][facility] [place]11-04-2024 09:27-0500Heart rate78 /min [facility] [place]11-04-2024 09:27-0500Respiratory rate18 /min [facility] [place]11-04-2024 09:27-8617VfU8% (BldA) [Mass fraction]100 %[facility] [place]11-04-2024 09:27-0500Systolic blood dkibxzik119 mm[Hg][facility] [place]10-23-2024 15:54-0400 Body wzednd327 cmMelissa Serrano MD Work Phone: [phone]10-23-2024 15:54-0400Body mass index (BMI) [Ratio]35.89 kg/p9LyprlvgMelissa Serrano MD Work Phone: [phone]10-23-2024 15:54-0400Body eqsnsnciwah75.7 [degF]Melissa Serrano MD Work Phone: [facility]10-23-2024 15:54-0400Body cxnemd89.9 kgMelissa Serrano MD Work Phone: [facility]10-23-2024 15:54-0400Diastolic blood bybhsmjz52 mm[Hg]Melissa Serrano MD Work Phone: [facility]10-23-2024 15:54-0400Heart rate 97 /minMuwilfred Serrano MD Work Phone: [facility]10-23-2024 15:54-2225VdM1% (BldA) [Mass fraction]98 %Melissa Serrano MD Work Phone: [facility]10-23-2024 15:54-0400Systolic blood ddnyjpig733 mm[Hg]Melissa Serrano MD Work Phone: [facility]10-21-2024 16:10-0400Body mass index (BMI) [Ratio]35.5 kg/m2MD Carlos Champagne Work Phone: [facility] [place]10-21-2024 14:26-0400 Body kqhezn805.47 cmMD Carlos Surfield Work Phone: [phone] [place], [place] 624[address]10-21-2024 14:26-0400 Body bhumfr57.71 kgMD Carlos Champagne Work Phone: [phone] [place], [place] 6245409-23-2024 09:25-0400 Body .47 cmMD Carlos Champagne Work Phone: [phone] [place], [place] 6245409-23-2024 09:25-0400 Body mass index (BMI) [Ratio]35.2 kg/m2MD Carlos Champagne Work Phone: [phone] [place], [place] 6245409-23-2024 09:25-0400 Body hfoxog95.33 kgMD Carlos Champagne Work Phone: [phone] [place], [place] 6245409-23-2024 09:25-0400 Diastolic blood fsueowgl52 mm[Hg]MD Carlos Champagne Work Phone: [phone] [place], [place] 6245409-23-2024 09:25-0400 Heart rate76 /minMD Carlos Champagne Work Phone: [phone] [place], [place] 6245409-23-2024 09:25-0400 Respiratory rate18 /minMD Carlos Champagne Work Phone: [phone] [place], [place] 6245409-23-2024 09:25-0400 SaO2% (BldA) [Mass fraction]100 %MD Carlos Champagne Work Phone: [phone] [place], [place] 6245409-23-2024 09:25-0400 Systolic blood mttqiehr152 mm[Hg]MD Carlos Champagne Work Phone: [phone]08-13-2024 11:02-0400 Body .47 cmKing'S [facility]aughters [facility] [place]08-13-2024 11:020400Body mass index (BMI) [Ratio]35.5 kg/s5UbzpqkngmKing'S Daughters Medical Center [place]08-13-2024 11:020400Body rxagql47.16 kgKing'S Daughters Medical Center [place]08-13-2024 11:02-0400Diastolic blood wmtzgrud18 mm[Hg][facility] [place] 09-19-2023 11:02-0400Heart rate64 /[facility] 09-19-2023 11:02-0400Respiratory rate18 /[facility] 09-19-2023 11:02-1853YmN8% (BldA) [Mass fraction]100 %[facility] [place]08-13-2024 11:02-0400Systolic blood yvejqshg813 mm[Hg][facility] [place]2024 16:45-0400Body xymffftmjiq18.8 [degF]Etta Ramachandran MD Work Phone: [facility]2024 16:45-0400Diastolic blood lalgjews72 mm[Hg]Etta Ramachandran MD Work Phone: [facility]2024 16:45-0400Heart rate74 /Amy Ramachandran MD Work Phone: [facility]2024 16:45-0400 Respiratory rate15 /minScamilo Ramachandran MD Work Phone: [facility]2024 16:45-8030DkN1% (BldA) [Mass fraction]97 %Etta Ramachandran MD Work Phone: [facility]2024 16:45-0400Systolic blood yryocweg208 mm[Hg]Etta Ramachandran MD Work Phone: [facility]2024 13:02-0400Body ewslff009 cmScamilo Ramachandran MD Work Phone: [facility]2024 13:02-0400Body mass index (BMI) [Ratio]35.43 kg/m2Etta Ramachandran MD Work Phone: [facility]2024 13:02-0400Body qmgwyv74.72 kgEtta Ramachandran MD Work Phone: [facility] Encounters Encounter DateEncounter TypeCare ProviderFacilityStart: 11-19-2024 End: 56-71-8587rrekgxkukcRPQVI A PETITTINot AvailableStart: 11-19-2024 End: 07-61-9926Kvbuyx outpatient visit 25 minutesEmily Ching Staples MD Work Phone: [facility] DermatologyComment on above:Acne vulgaris (Primary Dx)Start: 11-19-2024 End: 64-20-6388Blqqmv flowsheetEmina Staples MD Work Phone: PARRISH[facility] Phillips DermatologyStart: 11-19-2024 End: 92-02-3903Tbvnfb Alondra Staples MD Work Phone: [facility] Phillips DermatologyStart: 11-07-2024 End: 06-97-2276Whqbmiytf encounterLatrice Chong CMAProMedica Physicians Family MedicineComment on above:AppointmentStart: 10-22-2024 End: 91-10-1341Cfxhrk Alondra Staples MD Work Phone: [facility] DermatologyStart: 10-22-2024 End: 31-44-7886Uewwdk flowsPeter Staples MD Work Phone: [facility] Phillips DermatologyStart: 10-22-2024 End: 90-24-8003Ajlgqq outpatient visit 5 minutesEmily Ching Staples MD Work Phone: [facility] Phillips DermatologyComment on above:Acne vulgaris (Primary Dx)Start: 10-22-2024 End: 35-59-4098ejvtgskdroDOUQP A PETITTINot AvailableStart: 09-18-2024 End: 18-64-0821ceyoltrbgzJWORD A PETITTINot AvailableStart: 09-18-2024 End: 00-67-5208Bprnwe outpatient visit 5 minutesEmily Ching Staples MD Work Phone: MISHA Phillips DermatologyComment on above:Acne vulgaris (Primary Dx)Start: 09-09-2024 End: 51-07-6029eufitwhbppTsqbypjc Kapjohana [facility] Work Phone: [facility] Work Phone: Start: 09-09-2024 End: 27-98-8510Etovqzq encounter procedureMariza Davisjohana Ornelas [facility] Work Phone: Start: 08-12-2024 End: 68-14-7653Iqjmdk flowsheetEmina Staples MD Work Phone: noms SWS DERMStart: 08-12-2024 End: 91-92-3900Mrtxmc flowsheetEmnia Staples MD Work Phone: noms SWS DERMStart: 08-12-2024 End: 66-59-2147ihnhietrjsWLDQV A PETITTINot AvailableStart: 08-12-2024 End: 22-88-4290Xtmnit outpatient visit 25 minutesEmily Ching Staples MD Work Phone: noms SWS DERMComment on above:Acne vulgarisStart: 07-15-2024 End: 15-87-2620pzieyvymlfYuwzqdhjzGalion [facility] Work Phone: Start: 07-15-2024 End: 31-95-1031Mlrzsqu encounter procedureUnitypoint [facility] Work Phone: Start: 07-08-2024 End: 56-49-9904Wyvgnn flowsheetEmina Staples MD Work Phone: noms SWS DERMStart: 07-08-2024 End: 07-69-5910Wjnovg flowsheetEmina Staples MD Work Phone: noms SWS DERMStart: 07-08-2024 End: 78-51-3178Flfmuu outpatient visit 5 minutesEmily Ching Staples MD Work Phone: noms SWS DERMComment on above:Acne vulgaris (Primary Dx)Start: 07-08-2024 End: 77-72-7603cucxlfghhuRZWJR A PETITTINot AvailableStart: 06-03-2024 End: 28-41-3365Nlmiql outpatient visit 25 minutesEmina Staples MD Work Phone: noms [facility] DERMComment on above:Acne vulgaris (Primary Dx)Start: 06-03-2024 End: 36-95-7785biprlcvjniBJXVH A PETITTINot AvailableStart: 06-03-2024 End: 69-65-9320Xryzdh flowsheetJoselito Staples MD Work Phone: noms SWS DERMStart: 06-03-2024 End: 01-22-3794Lwuwyu flowsheetEmina Staples MD Work Phone: noms [facility] DERMStart: 05-27-2024 End: 73-01-4598jojllcetgkJbsvkhvobGalion Community Hospital Work Phone: Start: 05-27-2024 End: 62-01-9330Jjyxyfy encounter procedureFirrappahannock general hospital Physician GroupWEISMAN CHILDR[facility] Work Phone: Start: 05-19-2024 End: 96-99-0710JymrtwKhebutd Grisel Santa DPM Work Phone: noms PODIATRYComment on above:Plantar fasciitis Start: 05-13-2024 End: 04-99-9057dimxesygxpGXVDR CARDERProMedica Baton Rouge HospitalStart: 04-22-2024 End: 62-97-9051zmlnsmxkreRRHGSRO S ARGENISNot AvailableStart: 04-15-2024 End: 88-95-3924jaxfmirpmwTpehydhchGalion Community Hospital Work Phone: Start: 04-15-2024 End: 64-23-1822Ygdzlpl encounter procedureFirrappahannock general hospital Physician Group-[facility] Work Phone: Start: 04-01-2024 End: 04-05-5649Qyhazmsonam Staples MD Work Phone: noms [facility] DERMStart: 04-01-2024 End: 45-16-5215Spwykz flowsheetEmina Staples MD Work Phone: noms SWS DERMStart: 04-01-2024 End: 40-42-5867zcspsieqiaGKRLV A PETITTINot AvailableStart: 04-01-2024 End: 87-68-9464Qthxaz outpatient visit 25 minutesEmina Staples MD Work Phone: noms [facility] DERMComment on above:Acne vulgaris (Primary Dx); Other allergic contact dermatitisStart: 03-26-2024 End: 63-21-5499Zxusda flowsheetAnthony S Rusher DPM Work Phone: noms PODIATRYStart: 03-26-2024 End: 19-89-3313Rivids flowsheetAnthony S Rusher DPM Work Phone: noms PODIATRYStart: 03-26-2024 End: 73-27-0214ubouhqswuqBKYXBUQ S RUSHERNot AvailableStart: 03-26-2024 End: 62-54-2746Esnirq outpatient visit 25 minutesAnthony S Rusher DPM Work Phone: noms PODIATRYComment on above:Plantar fasciitis (Primary Dx); Pain in both feet; Pernio, initial encounter; Equinus contracture of right ankle; Equinus contracture of left ankle; Corns and callositiesStart: 03-04-2024 End: 74-01-3456rnbjhfyzhzFvwphhergGalion Community Hospital Work Phone: Start: 03-04-2024 End: 01-01-8879Ludjsmk [facility] procedureD[facility] Work Phone: Start: 01-22-2024 End: 85-42-7838Oypifxn encounter procedureD[facility] Work Phone: Start: 12-18-2023 End: 49-45-4310ozxaynhemvIJKEA [facility] Ohiotart: 12-11-2023 End: 83-54-9810Rngnwma encounter procedureD[facility] Work Phone: Start: 12-05-2023 End: 99-59-0500sevnydtrjoNAPHSEB N [facility] Hospitaltart: 11-29-2023 End: 12-19-8368Ijcseu outpatient new 45 Camilaferceleste Serrano MD Work Phone: [facility] Physicians Family MedicineComment on above: Immunization due (Primary Dx); History of benign carcinoid tumor; Peritoneal cyst; H/O gastric sleeve; H/O partial thyroidectomy; BMI 35.0-35.9,adult; H/O sectionStart: 11-29-2023 End: 88-99-8137twlwwztvjzTLIFZGL M [facility] PPGStart: 11-27-2023 End: 83-32-8710xxaarumfuxJA Gregory Surfield Work Phone: [facility] Work Phone: Start: 11-27-2023 End: 68-92-2976Ncdkith encounter procedureMD Carlos Champagne Work Phone: [facility] Work Phone: Start: 11-17-2023 End: 00-41-8825wsvcxqgmxoVNLPGVDT A [facility] Start: 11-10-2023 End: 89-88-1738whgvqkotixFKQOPB [facility] HospitalStart: 10-30-2023 End: 09-54-3290zoxtsypacqMM Gregory Surfield Work Phone: [facility] Work Phone: Start: 10-30-2023 End: 80-79-1509Zltfpon encounter procedureMD Carlos Champagne Work Phone: [facility] Work Phone: Start: 10-11-2023 End: 79-37-0494snawtuqdmuIH Gregory Surfield Work Phone: [facility] Work Phone: Start: 10-11-2023 End: 28-41-4133Yvtimrr encounter procedureME Carlos Champagne Work Phone: [facility]ician GroupWEISMAN [facility] Work Phone: Start: 10-04-2023 End: 59-18-8821qefyscjeonYgvsutzHolzer Medical Center [facility] Work Phone: Start: 10-04-2023 End: 30-28-0197Aeckbzvy ReferredMD Carlos Champagne Work Phone: [facility]-Lab Main [place] Work Phone: Start: 09-19-2023 End: 58-22-6399nrcophgbwoUfphawtpkSelect Medical [facility] Work Phone: Start: 09-19-2023 End: 47-44-7841Wslzsal encounter procedureD[facility] Hospital [facility] Work Phone: Start: 08-31-2023 End: 78-17-4752Rvtcjvrohh hospital visit by Maria Fernanda Alarcon MD Work Phone: stvz [facility] Lab DrawComment on above:Primary malignant neuroendocrine tumor of duodenum (HCC)Start: 08-31-2023 End: 68-06-7665mwlspjuysyQPHTCVPI A [facility] Start: 08-21-2023 End: 22-49-2631byozngvfudPBEEF L MULLINDetwiler Memorial Hospitaltart: 06-22-2023 End: 77-11-3421epruvzriwkDWFGSFXN A [facility] Start: 06-12-2023 End: 82-20-1650Diqjsydtu department patient visitAMBER [facility] Hospitaltart: 04-28-2023 End: 72-41-9172oqetbuaoylKWJSUPEEMichaela [facility] [facility] Hospitaltart: 04-28-2023 End: 67-33-8016Lbotljigyr hospital visit by Patricia Ramachandran MD Work Phone: staz ORComment on above: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 HospitalStart: 03-23-2023 End: 25-17-2037kvribzkdriKETMC A [facility] Hospitaltart: 03-08-2023 End: 13-40-0263mbddevaxzfBPJHSPremier Healthtart: 03-02-2023 End: 97-76-8286mnehapsohxOODTHStafford District Hospital HospitalStart: 05-30-2022 End: 38-78-0583obgragrrcpPXI STAFFUniversity Hospitals [facility] Work Phone: Start: 05-30-2022 End: 70-09-9294Opqazvs encounter procedureUniversity Hospitals [facility] Ctr-[place] Ref COVID SwabStart: 01-19-2022 End: 07-43-4175gtmtdtuzljIBFTG PARKERFacility:H1 Procedures DateProcedureProcedure DetailPerforming ClinicianStart: 11-29-2023H/O: sectionH/O sectionMelissa Serrano MD Work Phone: Start: 84-34-5459Vhlwz depression screening assessment Melissa Serrano MD Work Phone: Start: 87-72-9869Syndpzhbhqmnj metabolic panelMoprasanth Alarcon MD Work Phone: Start: 58-02-1310Zjm imaging ct attenuation skull base mid-thighMoprasanth Alarcon MD Work Phone: Start: 08-18-2015H/O: hysterectomyHistory of hysterectomyJekindra Ornelas DNP Plan of Treatment DateCare ActivityDetailAuthorStart: 30-79-7772JBzM,Tdap and Td Vaccines (2 - Td or Tdap)DTaP,Tdap and Td Vaccines (2 - Td or Tdap)[facility] SystemStart: 12-24-2024 End: 65-83-1963Wgnmmrq encounter cuqtmxtor76/18/2025 9:30 AM EST Office Visit [facility] [address] [place] [address] Joselito Staples MD [address] [place] [address] NOMGrisel Phillips DermatologyStart: 11-28-2024 Adult BMI ScreeningAdult BMI ScreeningProTuscarawas Hospital SystemStart: 11-28-2024 Depression ScreeningDepression ScreeningMemorial Health [facility] SystemStart: 11-28-2024 Tobacco ScreeningTobacco ScreeningProTuscarawas Hospital SystemStart: 11-25-2024 End: 21-65-7995Mphdrvx encounter mzwykwjpz37/20/2025 8:30 AM EDT Office Visit [facility] [address] [place] [address] Mariia Glaser PA [address] [place] [address] M[facility] Phillips DermatologyStart: 11-21-2024 End: 05-47-5065Uzrjkim encounter procedureNOMS SWS DERMStart: 10-22-2024 End: 38-05-2898Puynnjo encounter procedureNOMS [place] DermatologyComment on above:ArrivedStart: 28-46-7819LIVOV-19 Vaccine ( season)COVID-19 Vaccine ( season)[facility] SystemStart: 17-46-1017Qorjwjoza vaccinationNONY HealthcareStart: 09-18-2024 End: 84-40-8637Grxmsvh encounter okrxwgipv95/13/2025 1:00 PM EDT Office Visit [facility] [address] [place] [address] Joselito Staples MD [address] [place] [address] NOMS SWS DERMStart: 08-12-2024 End: 44-19-4428Qqvrsfe encounter tbssibrpn40/07/2025 9:40 AM EDT Office Visit [facility] [address] [place] [address] Joselito Staples MD [address] [place], [place] [id number] [facility] DERMStart: 07-15-2024 End: 10-89-3705Qthxtmw encounter rezwpfqws65/09/2025 9:30 AM EDT Office Visit [facility] [address] [place] [address] Joselito Staples MD [address] [place] [address] [facility] DERMStart: 07-08-2024 End: 51-48-2677Kndmipl encounter procedureNOMS [facility] DERMComment on above:Arrived Start: 06-03-2024 End: 12-46-4752Applwax encounter procedureProMedica Physicians Family Medicine Comment on above:ArrivedStart: 04-22-2024 End: 08-11-6231Czivkkj encounter aysdmgapw59/17/2025 9:00 AM EDT Office Visit [facility] [address] [place] [address] Aly Santa, DPJohnson [address] [place] [address] NOMS PODIATRYStart: 04-01-2024 End: 35-83-6809Puczsva encounter uylzhhvlp09/24/2025 9:30 AM EST Office Visit [facility] [address] [place] [address] Joselito Staples MD [address] [place] [address] NOMS SWS DERMStart: 12-05-2023 End: 50-85-5179Bxxvlgx encounter /29/2024 8:30 AM EDT Appointment [facility] - Ultrasound [address] [place] [address] [phone] Good [facility] - UltrasoundStart: 29-70-2491Tlopvnyltq hospital visit by nvicomprj88/29/2024 8:00 AM EDT Hospital Encounter [facility] - Mammography/DEXA Imaging [address] [place] [address] [phone] Medical Center - Mammography/DEXA ImagingStart: 12-04-2023 End: 55-00-3777Wggwnbl encounter /28/2024 1:45 PM EDT Office Visit [facility] [address] [place] [address] Shen Donnelly MD [address] [facility] [place], [place] [id number] RTC in 3 months.[facility] GastroenterologyComment on above:RTC in 3 months.Start: 27-32-8902SXQXN-19 Vaccine ( season)COVID-19 Vaccine ( season)[facility] SystemStart: 81-22-3417Dpunidtro vaccinationFlu vaccine (#1)[facility]ITALStart: 09-05-2023 End: 48-22-3958Yfaoywj encounter qwmecmrza34/30/2024 2:00 PM EDT Office Visit [facility] [address] [place] [address] [id number] Christine Alarcon MD [address] [place] [address] 3 MONTH F/[facility] Comment on above:3 MONTH F/UStart: 06-02-2023 End: 11-98-7501Awxxbez encounter yhzdozvtc79/26/2024 10:00 AM EDT Office Visit [facility] [address] [place] [address] Timmy Fuentes APRN - NP [address] [place], [place] RTC 3-4 [facility] GastroenterologyComment on above:RTC 3-4 moStart: 05-09-2023 End: 93-96-1233Xvqvryj encounter eiuowtmsv97/02/2024 9:30 AM EDT Office Visit [place] [id number] Christine Alarcon MD [address] [place] [address] 2 week f/[facility] Comment on above:2 week f/uStart: 04-28-2023 End: 82-30-4926Fi endoscopic us s&iENDOSCOPIC ULTRASOUND 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) 04/28/2023 2:39 PM [facility] Start: 04-25-2023 End: 61-33-9895Vctiiae encounter agmpizvby01/19/2024 9:30 AM EDT Office Visit [address] [address] Christine Alarcon MD [address] [place] [address] get PET scan and LabsMERGEARY COMMUNITY HOSPITALComment on above:get PET scan and LabsStart: 72-20-5341RSSUO-19 Vaccine ( season)COVID-19 Vaccine ( season)[facility] Amino Apps [facility]ITALStart: 55-91-2356Axgeqoxkp for malignant neoplasm of cervixNOMS HealthcareStart: 39-05-0569Ptqieyhuq for malignant neoplasm of cervixPap Smear NOMS HealthcareStart: 62-06-5868SCbL/Tdap/Td vaccine (1 - Tdap)DTaP/Tdap/Td vaccine (1 - Tdap)[facility] Amino Apps [facility]PITALStart: 64-35-9783Xtjqw BMI Follow Up PlanAdult BMI Follow Up PlanMemorial Health System [facility] SystemStart: 20-04-9652Hnxldcjzk C screeningHepatitis C screenBON HAVASU REGIONAL MEDICAL CENTERProRetina Therapeutics [place] Healthart: 74-38-2066UQF screeningHIV screenBON HAVASU REGIONAL MEDICAL CENTERAppy PieSlinger: 76-46-2291Kwlgisvcfm Screen Depression ScreenBALDPATE HOSPITALProRetina Therapeutics [place] Healthart: 74-92-5234Uzaqatren vaccine (1 of 2 - 2-dose childhood series)Varicella vaccine (1 of 2 - 2-dose childhood series)BALDPATE HOSPITALProRetina Therapeutics [facility]ITALStart: 91-60-1529Cvmugknyi B vaccine (1 of 3 - 3- dose series)Hepatitis B vaccine (1 of 3 - 3-dose series)Pidefarma End: 43-04-8644Schurprwrafp ABOBlue Vimessa Phone: Comment on above:1 Occurrences starting 08/31/2023 until 08/31/2023Oxygen therapy [Minimum Data Set]Initiate Oxygen Therapy Protocol Respiratory Care Routine As Needed until discontinued starting 04/07 Vimessa Phone: Comment on above:As Needed until discontinued starting 04/28/2023Surgical PathologySurgical Pathology Lab Routine 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) Release Upon Ordering for 1 Occurrences starting 04/28/2023 Vimessa Phone: Comment on above:Release Upon Ordering for 1 Occurrences starting 04/28/2023 End: 78-15-1737AAGRARPT PATHOLOGY REPORTSURGICAL PATHOLOGY REPORT Lab Routine Once for 1 Occurrences starting 04/28/2023 until 04/28/2023 [facility] on above:Once for 1 Occurrences starting 04/28/2023 until 04/28/2023 Immunizations Immunization DateImmunizationNotesCare XkvikrqmGkdawvbe33-54-9691gqxvvsqyx, injectable, madin josee canine kidney, preservative freeMuhamid Zach COLINDRES Work Phone: [facility] CenterNmzhsc03-41-0321Qsbcwfgagaxz, In Clinic,; Translations: [Drug or medicament (substance)]Melissa Serrano MD Work Phone: [facility] CenterKgcyuz65-61-9307gheipwvdv virus vaccine, unspecified formulationJoselito Staples MD Work Phone: [facility] HealthcareEajlwhhnwg53-12-9668aqnoiclrl, injectable, quadrivalent, preservative freeMuhamid Zach COLINDRES Work Phone: [facility] Payers DatePayer CategoryPayerPolicy [id number]-pay2020Medicaid (Managed Care)[facility] MEDICAID Member Subscriber Plan / Payer (Effective 2019-Present) Name: Jake Arevalo Relation to Subscriber: Self Name: Jake Arevalo Payer ID: Not on file Group ID: Not on file Type: Not on file Address: [address] [id number] 2020Medicaid [facility] [place] [id number] 2.16.840.1.495786.3.57[id number] 2.16.840.1.274705.3.57[id number] 2.16.840.1.210058.3.57[id number] 2.16.840.1.145069.3.57[id number] 2.16.840.1.465914.3.57[id number] 2.16.840.1.446114.3.57[id number] 2.16.840.1.901936.3.57[id number] 2.16.840.1.601936.3.579.[id number] 2.16.840.1.568455.3.57[id number] 2.16.840.1.417752.3.579.2.[id number] 2.16.840.1.674810.3.57[id number] 2.16.840.1.613430.3.57[id number] 2.16.840.1.755240.3.57[id number] 2.16.840.1.948709.3.579.2.[id number] 2.16.840.1.342224.3.579.2.[id number] 2.16.840.1.913456.3.579.2.655868-65-5259Uttyiuz077717703 2.16.840.1.756211.3.579.2.[id number] 2.16.840.1.478607.3.57[id number] 2.16840.1.472052.3.57[id number] 2.16840.1.776477.3.579.[id number] 2.16840.1.156730.3.579.2.5[id number] 2.16840.1.724531.3.579.2.3[id number] 2.16.840.1.639930.3.579.2.[id number] 2.16840.1.287057.3.579.2.359633-00-4654Bsmquou9447909 2.16840.1.062261.3.579.2.889960-12-4473Xkytqeu5351456 2.16.840.1.605881.3.579.2.948737-16-2445Smepvex0749697 2.16.840.1.101959.3.579.2.520867-24-5761Hndhvdv8355598 2.16840.1.094829.3.57[id number] 2..840.1.628227.3.579.2.682463-77-9361Czogjlr595077460496EelgkucGrtmrd / [id number] s316h7he-7008-6812-l4so-[id number] 2.16.840.1.609709.3.579.2.531 Social History DateTypeDetailFacilityTobacco smoking status NHISUnknown if ever smokedCleveland Clinic [facility] Work Phone: Start: 05-06-0248Wsh Assigned At BirthFeSamaritan Hospitaltart: 10-06-2021 End: 54-37-0445Nukngma smoking status NHISNever smoked tobaccoBON CLEVEL[facility] CLIN[facility] UNION HOSPITALStart: 10-06-2021 End: 27-87-4771Ipmvbrc use and exposureSmokeless tobacco non-userMARTINSVILLE MEMORIAL HOSPITALStart: 04-04-2023 End: 63-00-7561Tyhdceo intakeEx-drinker (finding)BON [facility] HOSPITALStart: 04-04-2023 End: 87-80-0410Wcfowvw of Social functionMARTINSVILLE MEMORIAL HOSPITALStart: 04-04-2023 End: 41-57-8017Mydsill use panelMARTINSVILLE MEMORIAL HOSPITALStart: 44-02-1950Yzg Assigned At BirthNot on fileMARTINSVILLE MEMORIAL HOSPITALStart: 78-79-5147Cqzcnvfv abuseDeniesMARTINSVILLE MEMORIAL HOSPITALStart: 09-11-2014 End: 88-43-8037OnkPcrvih (finding)[facility] OhioNEGATED: Highlighted rowMorrow County HospitalNEGATED: Highlighted row [facility] Medical Equipment Procedure CodeEquipment CodeEquipment Original TextEquipment IdentifierDatesClip Hemostasis Mantis 2.8mm X 235cm - [id number], [id number]_[facility] FDAStart: 03-28-2023 Clinical Notes 04-28-2023 to 11-19-2024 Note Date & RcffLgxtDqtjzdko32-19-5583 History of Present illness Narrative* Joselito Staples MD - 11/19/2024 2:05 PM EDT Follow up Diagnosis: Acne Location: face Last visit: 1 month ago Symptoms: not as many break outs Status: comes and goes Current treatment: Winlevi cream Pt also would like another peel today. All pertinent medical history, medications, and allergies were reviewed. General Exam: alert, oriented to person, place, and time, normal affect, well appearing Unaccompanied A focused exam completed based on patient reported problems, see below: Skin Exam 1. ACNE VULGARIS Head - Anterior (Face) Scattered inflammatory papules and post inflammatory hyperpigmentation, not at treatment goal. Will give Winlevi more time to work, can stop azelaic acid cream as patient reports this is not helping. Can switch to salicylic acid peels to see if this helps more - emphasized to notify office if irritation post peel occurs. Chemical Peel Pre-Procedure: The procedure was explained to patient and/or parent and all questions were answered. Risks were reviewed, including the risk of dyspigmentation. Verbal consent was obtained today. Procedure: The treatment area was cleansed with soap & water. A large cotton- tipped applicator was used to apply the peel solution uniformly over the area. Care was given to avoid the periorbitaland nasal creases. The patient tolerated the procedure well Indication: Acne Treatment number: 5 Treated Area(s): entire face Solution: 20% Salicylic Acid Neutralization: yes Post procedure: Post-Procedure Instruction sheet given Patient to notify office if irritation from peel and HC cream can be called in, follow up in 1 month for peel. Existing Treatments - Clascoterone (Winlevi) 1 % cream - Apply to face twice daily, 30 day supply Next Visit: 4 weeks peel only SA documented in this encounterCitizens Memorial HealthcareRyrybkpdwf42-94-9911 Miscellaneous Notes* Telephone Encounter - Latrice Chong CMA - 11/07/2024 11:32 AM EDT Care Coordination Outreach performed to coordinate overdue appointments, testing, and/or follow-up care: Yes Audit/Outreach Date: November 07, 2024 Reason: Well Person Method: Telephone and MyChart Outreach Attempt: First Outcome: Left Message and Letter Sent Next PCP Appointment: N/A Tests/Referrals Pended: N/A Resources/Education Provided: Additional Comments: Left message for patient to contact office to schedule yearly wellness visit. Letter sent. documented in this encounterC[facility]10-[facility]-20[facility] Telephone encounter Note* Telephone Encounter - Latrice Chong CMA - 11/07/2024 11:32 AM EDT Care Coordination Outreach performed to coordinate overdue appointments, testing, and/or follow-up care: Yes Audit/Outreach Date: November 07, 2024 Reason: Well Person Method: Telephone and MyChart Outreach Attempt: First Outcome: Left Message and Letter Sent Next PCP Appointment: N/A Tests/Referrals Pended: N/A Resources/Education Provided: Additional Comments: Left message for patient to contact office to schedule yearly wellness visit. Letter sent. [facility]09-16-2025 History of Present illness Narrative* Joselito Staples MD - 10/22/2024 9:30 AM EDT Chemical Peel Location: entire face Date of last peel: 09/18/2024 Type of peel: 35% Glycolic Acid All pertinent medical history, medications, and allergies were reviewed. General Exam: alert, oriented to person, place, and time, normal affect, well appearing Unaccompanied A focused exam completed based on patient reported problems, see below: Skin Exam 1. ACNE VULGARIS Head - Anterior (Face) Scattered inflammatory papules and post inflammatory hyperpigmentation, not at treatment goal. Chemical Peel Pre-Procedure: The procedure was explained to patient and/or parent and all questions were answered. Risks were reviewed, including the risk of dyspigmentation. Written consent was obtained today or at a prior visit. Procedure: The treatment area was cleansed with soap & water. A large cotton- tipped applicator was used to apply the peel solution uniformly over the area. Care was given to avoid the periorbitaland nasal creases. The patient tolerated the procedure well Indication: Acne Treatment number: 5 Treated Area(s): entire face Solution: 35% Glycolic Acid Neutralization: yes Post procedure: Post-Procedure Instruction sheet given Related Medications azelaic acid (Azelex) 20 % cream Apply thin layer to face, once daily, 30 day supply Clascoterone (Winlevi) 1 % cream Apply to face twice daily, 30 day supply Next Visit: 1 month, chemical peel and follow up documented in this encounterCitizens Memorial [id number] History of Present illness Narrative* Joselito Staples MD - 09/18/2024 1:00 PM EDT Chemical Peel Location: entire face Date of last peel: 08/12/2024 Type of peel: 35% Glycolic Acid All pertinent medical history, medications, and allergies were reviewed. General Exam: alert, oriented to person, place, and time, normal affect, well appearing Unaccompanied A focused exam completed based on patient reported problems, see below: Skin Exam 1. ACNE VULGARIS Head - Anterior (Face) Scattered inflammatory papules and post inflammatory hyperpigmentation, not at treatment goal. Chemical Peel Pre-Procedure: The procedure was explained to patient and/or parent and all questions were answered. Risks were reviewed, including the risk of dyspigmentation. Written consent was obtained today or at a prior visit. Procedure: The treatment area was cleansed with soap & water. A large cotton- tipped applicator was used to apply the peel solution uniformly over the area. Care was given to avoid the periorbitaland nasal creases. The patient tolerated the procedure well Indication: Acne Treatment number: 4 Treated Area(s): entire face Solution: 35% Glycolic Acid Neutralization: yes Post procedure: Post-Procedure Instruction sheet given Related Medications azelaic acid (Azelex) 20 % cream Apply thin layer to face, once daily, 30 day supply Clascoterone (Winlevi) 1 % cream Apply to face twice daily, 30 day supply Next Visit: 1 month, chemical peel 2 months, follow up documented in this encounterCitizens Memorial [id number] History of Present illness Narrative* Joselito Staples MD - 08/12/2024 9:35 AM EDT Follow up Diagnosis: Acne Location: face Last visit: 07/08/2024 Status: no change Tried/failed: tretinoin 0.025% cream at bedtime, sulfacetamide lotion every day and benzoyl peroxide cream-had face swelling and irritation, discontinued all topicals - had to stop topicals due to adverse reaction, minocycline Current treatment: Azelic acid every day and doxycycline 50 mg bid, denies any side effects. Has tried >90 days of minocycline/doxycycline treatment. Chemical Peel Location: entire face Date of last peel: 07/08/2024 Type of peel: 35% Glycolic Acid All pertinent medical history, medications, and allergies were reviewed. General Exam: alert, oriented to person, place, and time, normal affect, well appearing Unaccompanied A focused exam completed based on patient reported problems, see below: Skin Exam 1. ACNE VULGARIS Head - Anterior (Face) Scattered inflammatory papules and post inflammatory hyperpigmentation, not at treatment goal. Stop doxycycline 50 mg. Continue Azelaic acid 20 % cream apply topically to face. glycolic peel completed today, reviewed chemical peel in detail, and review consent for chemical peel, chemical peelscan be completed monthly. Start Winlevi 1 % cream, apply to face BID. Discussed Aldactone 25 mg with patient to start if Winlevi if isn't approved. Patient would greatly benefit from anti androgenic topical, is hesistant to start spironolactone given baseline lower blood pressure. Notify office anyworsening despite treatment. Follow up in 1 month for a chemical peel and 3 month acne follow up. Chemical Peel Pre-Procedure: The procedure was explained to patient and/or parent and all questions were answered. Risks were reviewed, including the risk of dyspigmentation. Written consent was obtained today or at a prior visit. Procedure: The treatment area was cleansed with soap & water. A large cotton- tipped applicator was used to apply the peel solution uniformly over the area. Care was given to avoid the periorbitaland nasal creases. The patient tolerated the procedure well Indication: Acne Treatment number: 3 Treated Area(s): entire face Solution: 35% Glycolic Acid Neutralization: yes Post procedure: Post-Procedure Instruction sheet given Clascoterone (Winlevi) 1 % cream - Head - Anterior (Face) Apply to face twice daily, 30 day supply Related Medications azelaic acid (Azelex) 20 % cream Apply thin layer to face, once daily, 30 day supply Next Visit: 1 month chemical peel, 3 month follow up for acne documented in this encounterCitizens Memorial [id number] Evaluation note* Diagnosis Onset Date Resolution Status Admit Date Abnormal weight gain acuteJune 2024 11:41amBMI 32.0-32.9,adultacuteJune 2024 11:41amDietary surveillance and counselingacuteJune 2024 11:41amExercise counselingacute Hetal 2024 11:41amH/O gastric sleeveacuteJune 2024 11:41amH/O partial thyroidectomyacuteJune 2024 11:41amHistory of hysterectomyJuly 2015 acuteJune 2024 11:41amHistory of malignant neuroendocrine tumoracuteJune 2024 11:41amMixed hyperlipidemiaacuteJune 2024 11:41amObesity, Class I, BMI 30-34.9acuteJune 2024 11:41amAbnormal weight gainacuteAugust 2024 9:04amBMI 33.0-33.9,adultacuteAugust 2024 9:04amDietary surveillance and counselingacuteAugust 2024 9:04amExercise counselingacuteAugust 2024 9:04amH/O gastric sleeveacuteAugust 2024 9:04amH/O partial thyroidectomyacuteAugust 2024 9:04amHistory of hysterectomyJuly 2015 acuteAugust 2024 9:04amHistory of malignant neuroendocrine tumoracuteAugust 2024 9:04amMixed hyperlipidemiaacuteAugust 2024 9:04amObesity, Class I, BMI 30-34.9acuteAugust 2024 9:04am [facility] Work Phone: 1(140) 791-342406-02-2025 History of Present illness Narrative* Joselito Staples MD - 07/08/2024 9:45 AM EDT Chemical Peel Location: Entire face Date of last peel: One month ago Type of peel: 35% Glycolic Acid Response: Mild redness, Tolerated last peel well All pertinent medical history, medications, and allergies were reviewed. General Exam: alert, oriented to person, place, and time, normal affect, well appearing Unaccompanied A focused exam completed based on patient reported problems, see below:p Skin Exam 1. ACNE VULGARIS Head - Anterior (Face) Patient has 2 month follow up Chemical Peel Pre-Procedure: The procedure was explained to patient and/or parent and all questions were answered. Risks were reviewed, including the risk of dyspigmentation. Written consent was obtained today or at a prior visit. Procedure: The treatment area was cleansed with soap & water. A large cotton- tipped applicator was used to apply the peel solution uniformly over the area. Care was given to avoid the periorbitaland nasal creases. The patient tolerated the procedure well Indication: Acne Treatment number: 2 Treated Area(s): entire face Solution: 35% Glycolic Acid Neutralization: yes Post procedure: Post-Procedure Instruction sheet given Related Medications azelaic acid (Azelex) 20 % cream Apply thin layer to face, once daily, 30 day supply doxycycline (Monodox) 50 MG capsule Take 1 capsule, by mouth, twice daily, 30 days Next Visit: 1 months follow up Acne/ Chemical peel documented in this encounterCitizens Memorial [id number] History of Present illness Narrative* Joselito Staples MD - 06/03/2024 3:05 PM EDT Images from the original note were not included. Follow up Diagnosis: Acne Location: face Last visit: 04/01/24 Status: no change Tried/failed: tretinoin 0.025% cream at bedtime, sulfacetamide lotion every day and benzoyl peroxide cream-had face swelling and irritation, discontinued all topicals, minocycline Current treatment: Azelic acid every day and doxycycline 50 mg bid, denies any side effects. Patient declined starting spirolactone, pt reports she has low blood pressure, did not feel comfortable starting. Patient would like to discuss chemical peels for scarring. Discontinued Minocycline at last visit. Chemical Peel Location: entire face Date of last peel: first peel Type of peel: 35% Glycolic Acid All pertinent medical history, medications, and allergies were reviewed. General Exam: alert, oriented to person, place, and time, normal affect, well appearing Unaccompanied A focused exam completed based on patient reported problems, see below: Skin Exam 1. ACNE VULGARIS Head - Anterior (Face) Mostly clear with few papules, worsening PIH on chin - not yet at treatment goal Patient was counseled that this condition is chronic and can be controlled, but not cured. Continue Azelaic acid apply topically to face and continue doxycycline 50 mg PO bid, add in glycolic peel today, reviewed chemical peel in detail, and review consent for chemical peel, chemical peelscan be completed monthly. Follow up in 1 month for a chemical peel and 2 month follow up. Notify office any worsening despite treatment. Chemical Peel Pre-Procedure: The procedure was explained to patient and/or parent and all questions were answered. Risks were reviewed, including the risk of dyspigmentation. Written consent was obtained today or at a prior visit. Procedure: The treatment area was cleansed with rubbing alcohol on a 3 x 3 gauze. Circular motions were used to cover the entire surface while avoiding the periorbital areas and nasal creases. This process was then repeated. The peel solution was poured into the applicator cup. A 2 x 2 gauze was dipped into the solution and, using a circular motion, was applied to the treatment areas. Care was given to avoid the periorbital areas and nasal creases. This process was repeated until the solution was all used. The patient tolerated the procedure well Indication: Acne Treatment number: 1 Treated Area(s): entire face Solution: 35% Glycolic Acid Neutralization: yes Post procedure: Post-Procedure Instruction sheet given Related Medications azelaic acid (Azelex) 20 % cream Apply thin layer to face, once daily, 30 day supply doxycycline (Monodox) 50 MG capsule Take 1 capsule, by mouth, twice daily, 30 days Next Visit: 1 month chemical peel, 2 month follow up for acne documented in this encounterCitizens Memorial [id number] Evaluation note* Diagnosis Onset Date Resolution Status Admit Date Abnormal weight gain acuteApril 2024 9:20amBMI 32.0-32.9,adultacuteApril 2024 9:20am Dietary surveillance and counselingacuteApril 2024 9:20amExercise counselingacuteApril 2024 9:20amH/O gastric sleeveacuteApril 2024 9:20amH/O partial thyroidectomyacuteApril 2024 9:20amHistory of hysterectomyJuly 2015acuteApril 2024 9:20amHistory of malignant neuroendocrine tumoracuteApril 2024 9:20amMixed hyperlipidemiaacuteApril 2024 9:20amObesity, Class I, BMI 30-34.9acuteApril 2024 9:20am Abnormal weight gainacuteJune 2024 11:41amBMI 32.0-32.9,adultacuteJune 2024 11:41amDietary surveillance and counselingacuteJune 2024 11:41am Exercise counselingacuteJune 2024 11:41amH/O gastric sleeveacuteJune 2024 11:41amH/O partial thyroidectomyacuteJune 2024 11:41amHistory of hysterectomyJuly 2015acuteJune 2024 11:41amHistory of malignant neuroendocrine tumoracuteJune 2024 11:41amMixed hyperlipidemiaacuteJune 2024 11:41amObesity, Class I, BMI 30-34.9acuteJune 2024 11:41am [facility] Work Phone: 1(589) 976-509102-24-2025 History of Present illness Narrative* Joselito Staples MD - 04/01/2024 9:30 AM EST Images from the original note were not included. Follow up Diagnosis: Acne Location: face Last visit: 07/17/2023 Status:Still breaking out Current treatment: minocycline 50 mg every day Tried/failed: tretinoin 0.025% cream at bedtime, sulfacetamide lotion every day and benzoyl peroxide cream-had face swelling and irritation, discontinued all topicals All pertinent medical history, medications, and allergies were reviewed. General Exam: alert, oriented to person, place, and time, normal affect, well appearing Unaccompanied A focused exam completed based on patient reported problems, see below: 1. Acne vulgaris Head - Anterior (Face) Scattered comedones and inflammatory papules, worse along the jaw line- no improvement since last visit. The patient was counseled that it may take up to 2-3 months to notice significant improvement of the acne. The use of non-comedogenic cleansers and moisturizers was recommended. Discontinue minocycline. Start Azelaic acid once daily at bedtime (get [employer] brand if not covered by insurance). Start Spironolactone 100 mg once daily. Discussed spironolactone as a treatment option. Patient denies history of low blood pressure, kidney problems, or current /plans to become . Caution with first dose - monitor for dizziness/lightheadedness, caution driving after first dose. Encouraged patient to stay hydrated while on this medication and avoid potassium supplements. Avoid while on this medication, discontinue immediately if occurs. Notify office if side effects develop. Plan to follow up in 2 months. azelaic acid (Azelex) 20 % cream - Head - Anterior (Face) Apply thin layer to face, once daily, 30 day supply spironolactone (Aldactone) 100 MG tablet - Head - Anterior (Face) Take 1 tablet, by mouth, once daily, 30 days 2. Other allergic contact dermatitis Left Hand - Anterior, Right Hand - Anterior Scaly erythematous plaques. Flaring today Discussed that atopic dermatitis is a chronic condition that can be controlled but not cured. Has tried/failed triamcinolone in the past. Start betamethasone 0.05% ointment bid prn when flared, hold if smooth/asymptomatic. Encouraged daily moisturizing and gentle cleansers to prevent flares. Notifyoffice if flaring despite treatment. Related Medications betamethasone dipropionate (Diprolene) 0.05 % ointment Apply to affected areas, up to twice a day when flared, do not use one the face, groin, or underarms, 30 day supply Next Visit: 2 months documented in this encounterCitizens Memorial [id number] History of Present illness Narrative* Aly Santa, M - 03/26/2024 8:45 AM EST Images from the original note were not included. Subjective Patient ID: Jake Arevalo is a 39 y.o. 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 Pain ongoing for about a month, as well as the numbness coldness. Pt has tried soaking feet, topical foot pain cream, insoles. SS: 8.5-9). HPI This is an established patient who presents to clinic with multiple concerns. Patient concerned about pain on the bottom of her feet. This is present throughout the day but seems to be worse towards the end of the day and at night after she has been sitting down for awhile. Symptoms described as sharp, aching along the plantar aspect of both feet. Additionally she is concerned about numbness and tingling sensations in the toes. This has been going on for about a month and seems to be worse withcold exposure. She states that at the end of the day her toes feel numb and they tingle. She wraps a heating blanket around her feet and that does seem to help a lot with the tingling sensations. Review of Systems Constitutional: Negative for activity change and fatigue. Respiratory: Negative for chest tightness and shortness of breath. Cardiovascular: Negative for chest pain and leg swelling. Musculoskeletal: Positive for gait problem. Negative for arthralgias and joint swelling. Skin: Negative for color change and wound. Neurological: Positive for numbness. Negative for weakness. Psychiatric/Behavioral: Negative for agitation and behavioral problems. Hematological: Does not bruise/bleed easily. Allergic/Immunologic: Negative for immunocompromised state. Past medical History Past Medical History: Diagnosis Date Thyroid nodule (CMS/HCC) Medications Current Outpatient Medications: clindamycin (Cleocin T) 1 % lotion, Apply thin later to affected areas on the body during flares, 30 day supply, Disp: 60 mL, Rfl: 11 hydrocortisone 2.5 % ointment, Apply thin layer to affected areas bid prn for flares, Disp: 60 g, Rfl: 2 minocycline 50 MG capsule, Take 1 capsule (50 mg) by mouth Daily, Disp: 30 capsule, Rfl: 11 Multiple Vitamin (multivitamin) tablet, Take 1 tablet by mouth in the morning., Disp: , Rfl: phentermine (Adipex-P) 37.5 MG tablet, TAKE 1 TABLET DAILY FOR 30 DAYS MUST ADMINISTER 30 MINUTES BEFORE OR 1-2 HOURS AFTER BREAKFAST, Disp: , Rfl: sulfacetamide suspension (Klaron) 10 % lotion topical, Apply thin layer to face once daily, 30 day supply., Disp: 118 mL, Rfl: 11 ammonium lactate (Amlactin) 12 % cream, Apply topically Daily, Disp: 140 g, Rfl: 3 benzoyl peroxide 5 % external wash, Apply topically 2 (two) times a day. (Patient not taking: Reported on 03/26/2024), Disp: 90 g, Rfl: 11 meloxicam (Mobic) 15 MG tablet, Take 1 tablet (15 mg) by mouth Daily, Disp: 30 tablet, Rfl: 0 nitroglycerin (Juan Jose-Bid) 2 % ointment, Place 0.5 inches over 6 hours on the skin every 6 (six) hours during the day Apply to affected toes., Disp: 30 g, Rfl: 0 Allergies Patient has no known allergies. Past Surgical History Past Surgical History: Procedure Laterality Date SECTION, CLASSIC 2004, 2011, 01/21/15 THYROIDECTOMY Right 02/25/2015 hemithyroidectomy Family History Family History Problem Relation Name Age of Onset Heart disease Maternal Grandmother Diabetes Maternal Grandmother Diabetes Maternal Grandfather Heart disease Paternal Grandmother Diabetes Paternal Grandmother Cancer Paternal Grandfather Diabetes Paternal Grandfather Heart disease Paternal Grandfather Cancer Mother's Sister Asthma Child Heart disease Father's Brother Diabetes Father's Brother Diabetes Father's Sister Diabetes Mother's Brother Cancer Mother's Brother Objective Physical Exam HENT: Head: Normocephalic and atraumatic. Cardiovascular: Pulses: Normal pulses. Pulmonary: Effort: Pulmonary effort is normal. No respiratory distress. Abdominal: Palpations: There is no mass. Musculoskeletal: Cervical back: No rigidity. Comments: Weightbearing examination reveals pes planus morphology. She is able to perform a double heel rise test without tenderness. Right foot: No isolated or pinpoint tenderness. Generalized soreness to the plantar medial calcaneal tubercle as well as along the medial and central bands of the plantar fascia. Muscle strength 5/5 for all quadrants. Ankle dorsiflexion 0 degrees with the knee extended, flexed Left foot: No isolated or pinpoint tenderness. Generalized soreness to the plantar medial calcanealtubercle as well as along the medial and central bands of the plantar fascia. Muscle strength 5/5 for all quadrants. Ankle dorsiflexion 0 degrees with the knee extended, flexed Skin: Capillary Refill: Capillary refill takes less than 2 seconds. Findings: No lesion or rash. Comments: Bilateral toes exhibit violaceous petechial patches. No blistering or tissue loss currently although there is some small areas of erythematous color change. Slightly tender with manipulation. Mild hyperkeratosis plantar medial IPJ of bilateral hallux and plantar 5th metatarsal head bilaterally. Neurological: Mental Status: She is alert. Comments: No loss of protective sensation, gross sensation intact. Psychiatric: Mood and Affect: Mood normal. Behavior: Behavior normal. Assessment/Plan ICD-10-CM 1. Plantar fasciitis M72.2 meloxicam (Mobic) 15 MG tablet 2. Pain in both feet M79.671 M79.672 3. Pernio, initial encounter T69.1XXA nitroglycerin (Juan Jose-Bid) 2 % ointment 4. Equinus contracture of right ankle M24.571 5. Equinus contracture of left ankle M24.572 6. Corns and callosities L84 ammonium lactate (Amlactin) 12 % cream Patient examined and evaluated. Symptomatology on the plantar aspect of her feet seems to be consistent with plantar fasciitis. She has no isolated or point tenderness today and I elected not to get radiographs. I discussed treatment options for plantar fasciitis and recommended power step orthotics and physical therapy exercises. Patient trialed power steps today but decided not to purchase them. I recommend stretching exercises targeting the gastrocnemius complex. Home exercise program was printed off and given to her today. Complete daily as instructed. Lastly I recommend meloxicam daily for 1 month to help reduce symptomatology and inflammation along the plantar fascia. Prescription wassent to her pharmacy. Follow up in 1 month. In regards to the sensations that she is experiencing at the toes her clinical exam seems to be consistent with pernio. She does not have any other symptoms of any autoimmune condition and for now I will not obtain any blood work although I will consider this in the future. Discussed treatment options for pernio and recommend keeping the toes as warm as possible. Recommend wool socks and winter boots when she is not at home. She can continue to use the heating blanket when she has a home. Lastly I discussed oral nifedipine or topical nitroglycerin. Patient elects for topical route which was sent to her pharmacy. We will follow up as needed for this issue. In regards to the calluses that she has on her feet I recommend ammonium lactate cream and regular pumice stone debridement. Prescription for ammonium lactate cream was sent to her pharmacy. Discussed that they could require debridement in the office if they become significantly buildup. Follow up as needed for this issue. This note was created with the assistance of a speech recognition program. While intending to generate a timely document that accurately reflects the content of the visit, no guarantee can be provided that every grammatical or spelling mistake has been or will be identified or corrected. Thank you for your understanding. Aly Santa DPM documented in this encounterCitizens Memorial [id number] Evaluation note* Diagnosis Onset Date Resolution Status Admit Date Abnormal weight gain acuteJanuary 2024 9:18amBMI 32.0-32.9,adultacuteJanuary 2024 9:18am Dietary surveillance and counselingacuteJanuary 2024 9:18amExercise counselingacuteJanuary 2024 9:18amH/O gastric sleeveacuteJanuary 2024 9:18amH/O partial thyroidectomyacuteJanuary 2024 9:18amHistory of hysterectomyJuly 2015acuteJanuary 2024 9:18amHistory of malignant neuroendocrine tumoracuteJanuary 2024 9:18amMixed hyperlipidemiaacute Yuki 2024 9:18amObesity, Class I, BMI 30-34.9acuteJanuary 2024 9:18amAbnormal weight gainacuteMarch 2024 9:18amBMI 32.0-32.9,adultacute April 15, 2024 9:18amDietary surveillance and counselingacuteMarch 2024 9:18amExercise counselingacuteMarch 2024 9:18amH/O gastric sleeveacute April 15, 2024 9:18amH/O partial thyroidectomyacuteMarch 2024 9:18am History of hysterectomyJuly 2015acuteMarch 2024 9:18amHistory of malignant neuroendocrine tumoracuteMarch 2024 9:18amMixed hyperlipidemia acuteMarch 2024 9:18amObesity, Class I, BMI 30-34.9acuteMarch 2024 9:18amAbnormal weight gainacuteApril 2024 9:20amBMI 32.0-32.9,adultacute May 27, 2024 9:20amDietary surveillance and counselingacuteApril 2024 9:20amExercise counselingacuteApril 2024 9:20amH/O gastric sleeveacute May 27, 2024 9:20amH/O partial thyroidectomyacuteApril 2024 9:20am History of hysterectomyJuly 2015acuteApril 2024 9:20amHistory of malignant neuroendocrine tumoracuteApril 2024 9:20amMixed hyperlipidemia acuteApril 2024 9:20amObesity, Class I, BMI 30-34.9acuteApril 2024 9:20am [facility] Work Phone: 1(398) 284-991212-16-2024 Evaluation note* Diagnosis Onset Date Resolution Status Admit Date Abnormal weight gain acuteDecember 2023 9:25amBMI 32.0-32.9,adultacuteDecember 2023 9:25amDietary surveillance and counselingacuteDecember 2023 9:25amExercise counselingacuteDecember 2023 9:25amH/O gastric sleeveacuteDecember 2023 9:25amH/O partial thyroidectomyacuteDecember 2023 9:25amHistory of hysterectomyJuly 2015acuteDecember 2023 9:25amHistory of malignant neuroendocrine tumoracuteDecember 2023 9:25amMixed hyperlipidemiaacute January 22, 2024 9:25amObesity, Class I, BMI 30-34.9acuteDecember 2023 9:25amAbnormal weight gainacuteJanuary 2024 9:18amBMI 32.0-32.9,adultacute March 04, 2024 9:18amDietary surveillance and counselingacuteJanuary 2024 9:18amExercise counselingacuteJanuary 2024 9:18amH/O gastric sleeve acuteJanuary 2024 9:18amH/O partial thyroidectomyacuteJanuary 2024 9:18amHistory of hysterectomyJuly 2015acuteJanuary 2024 9:18am History of malignant neuroendocrine tumoracuteJanuary 2024 9:18amMixed hyperlipidemiaacuteJanuary 2024 9:18amObesity, Class I, BMI 30-34.9acute March 04, 2024 9:18amAbnormal weight gainacuteMarch 2024 9:18amBMI 32.0-32.9,adultacuteMarch 2024 9:18amDietary surveillance and counseling acuteMarch 2024 9:18amExercise counselingacuteMarch 2024 9:18amH/O gastric sleeveacuteMarch 2024 9:18amH/O partial thyroidectomyacuteMarch 2024 9:18amHistory of hysterectomyJuly 2015acuteMarch 2024 9:18amHistory of malignant neuroendocrine tumoracuteMarch 2024 9:18amMixed hyperlipidemiaacuteMarch 2024 9:18amObesity, Class I, BMI 30-34.9acute April 15, 2024 9:18am [facility] Work Phone: 1(119) 232-926911-04-2024 Evaluation note* Diagnosis Onset Date Resolution Status Admit Date BMI 33.0-33.9,adult acuteNovember 2023 9:23amDietary surveillance and counselingacuteNovember 2023 9:23amExercise counselingacuteNovember 2023 9:23amH/O gastric sleeveacuteNovember 2023 9:23amH/O partial thyroidectomyacuteNovember 2023 9:23amHistory of hysterectomyJuly 2015acuteNovember 2023 9:23am History of malignant neuroendocrine tumoracuteNovember 2023 9:23amObesity, Class I, BMI 30-34.9acuteNovember 2023 9:23amAbnormal weight gainacute January 22, 2024 9:25amBMI 32.0-32.9,adultacuteDecember 2023 9:25am Dietary surveillance and counselingacuteDecember 2023 9:25amExercise counselingacuteDecember 2023 9:25amH/O gastric sleeveacuteDecember 2023 9:25amH/O partial thyroidectomyacuteDecember 2023 9:25amHistory of hysterectomyJuly 2015acuteDecember 2023 9:25amHistory of malignant neuroendocrine tumoracuteDecember 2023 9:25amMixed hyperlipidemiaacute January 22, 2024 9:25amObesity, Class I, BMI 30-34.9acuteDecember 2023 9:25amAbnormal weight gainacuteJanuary 2024 9:18amBMI 32.0-32.9,adultacute March 04, 2024 9:18amDietary surveillance and counselingacuteJanuary 2024 9:18amExercise counselingacuteJanuary 2024 9:18amH/O gastric sleeve acuteJanuary 2024 9:18amH/O partial thyroidectomyacuteJanuary 2024 9:18amHistory of hysterectomyJuly 2015acuteJanuary 2024 9:18am History of malignant neuroendocrine tumoracuteFebuary 2024 9:18amMixed hyperlipidemiaacuteFebuary 2024 9:18amObesity, Class I, BMI 30-34.9acute March 04, 2024 9:18am [facility] Work Phone: 1([phone]) 971-838810-23-2024 History of Present illness Narrative* Melissa Serrano MD - 11/29/2023 3:45 PM EDT Images from the original note were not included. [address] [place] [address] [address] [facility] [address] Patient: Jake Arevalo Date of : [...] a colonoscopy completed at the same time [facility] revealed hemorrhoids. -patient obtains PET scan every 3 months to follow carcinoid. Gastric sleave bypass. - 5 years ago, dec 2016 At peak was 260bs originally At lowest after was 198lbs 3 children, al c-sections Ages 13, 12, 8 All pregnancies went to term. No gestational diabetes or HTN disorders. 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 Musculoskeletal: Cervical back: Normal range of [...] partial thyroidectomy BMI 35.0-35.9,adult H/O section MELISSA SERRANO MD Family Medicine Physician [facility] Medicine / [facility] 11/29/23 This note was completed with voice recognition software. The document was reviewed for errors however some may still be present. Please do not hesitate to contact/Epic gag the author to verify any questions/concerns. documented in [facility] Chief complaint+Reason for visit Narrative* Chief [facility] Reason for Visit BMI 35.0-35.9,adult Dietary surveillance and counseling Exercise counseling H/O gastric sleeve H/O partial thyroidectomy History of hysterectomy History of malignant neuroendocrine tumor Obesity, Class II, BMI 35-39.9 [facility] Work Phone: 1(667) 443-516407-30-2024 Chief complaint+Reason for visit Narrative * Chief Complaint Referral Chelsie garcia [facility] ( 09/05/23) D49.2Reason for VisitBMI 35.0-35.9,adult Dietary surveillance and counseling Exercise counseling H/O gastric sleeve H/O partial thyroidectomy History of hysterectomy History of malignant neuroendocrine tumor Obesity, Class II, BMI 35-39.9 [facility] Work Phone: 1(964) 542-741307-30-2024 Chief complaint+Reason for visit Narrative * Chief Complaint Referral Chelsie Hankins [facility] ( 09/05/23) D49.2 6 week f/uReason for VisitBMI 35.0-35.9,adult Dietary surveillance and counseling Exercise counseling H/O gastric sleeve H/O partial thyroidectomy History of hysterectomy History of malignant neuroendocrine tumor Obesity, Class II, BMI 35-39.9 BMI 35.0-35.9,adult Dietary surveillance and counseling Exercise counseling H/O gastric sleeve H/O partial thyroidectomy History of hysterectomy History of malignant neuroendocrine tumor Obesity, Class II, BMI 35-39.9 [facility] Work Phone: 1(884) 944-739507-30-2024 Chief complaint+Reason for visit Narrative * Chief Complaint Referral Chelsie Hankins [facility] ( 09/05/23) D49.2 6 week f/u wm 1st after classReason for VisitBMI 35.0-35.9,adult Dietary surveillance and counseling Exercise counseling H/O gastric sleeve H/O partial thyroidectomy History of hysterectomy History of malignant neuroendocrine tumor Obesity, Class II, BMI 35-39.9 BMI 35.0-35.9,adult Dietary surveillance and counseling Exercise counseling H/O gastric sleeve H/O partial thyroidectomy History of hysterectomy History of malignant neuroendocrine tumor Obesity, Class II, BMI 35-39.9 [facility] Work Phone: 1([phone]) 224-115005-06-2024 NoteXR FOOT RT MIN 3 VWS Procedure: Right foot radiographs performed Number of views:3 History:Pain and swelling Comparison:None Findings: There is no fracture, dislocation, or destructive lesion. Impression: No acute findings. Finalized by Xena Schaffer DO on 06/12/2023 12:07 [facility] 04-28-2023 Hospital Discharge instructions* Discharge Instructions* Etta Ramachandran MD - 04/28/2023 3:53 PM EDT [facility] POST-ENDOSCOPY INSTRUCTIONS 1. 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 documented in this encounter [facility] note* Diagnosis Primary malignant neuroendocrine tumor of duodenum (HCC) documented in this encounter [facility] note* Diagnosis Onset Date Resolution Status BMI 35.0-35.9,adult acuteDietary surveillance and counselingacuteExercise counselingacuteH/O gastric sleeveacuteH/O partial thyroidectomyacuteHistory of hysterectomyJuly 2015 acuteHistory of malignant neuroendocrine tumoracuteObesity, Class II, [facility]: Evaluation note* Diagnosis Onset Date Resolution Status BMI 35.0-35.9,adult acuteDietary surveillance and counselingacuteExercise counselingacuteH/O gastric sleeveacuteH/O partial thyroidectomyacuteHistory of hysterectomyJuly 2015 acuteHistory of malignant neuroendocrine tumoracuteObesity, Class II, BMI 35-39.9acuteBMI 35.0-35.9,adultacuteDietary surveillance and counselingacute Exercise counselingacuteH/O gastric sleeveacuteH/O partial thyroidectomyacute History of hysterectomyJuly 2015acuteHistory of malignant neuroendocrine tumoracuteObesity, Class II, BMI 35-39.9[facility] Work Phone: Evaluation note* Diagnosis Immunization due- Primary History of benign carcinoid tumor Peritoneal cyst Other specified disorder of peritoneum H/O gastric sleeve H/O partial thyroidectomy BMI 35.0-35.9,adult H/O section documented [facility] this encounter [facility]* Diagnosis Plantar fasciitis- Primary Plantar fascial fibromatosis Pain in both feet Pernio, initial encounter Equinus contracture of right ankle Equinus contracture of left ankle Corns and callosities [facility] Diagnosis Acne vulgaris- Primary Other acne Other allergic contact dermatitis [facility]* Diagnosis Plantar fasciitis Plantar fascial fibromatosis [facility]* Diagnosis Acne vulgaris- Primary Other acne [facility]* Diagnosis Acne vulgaris- Primary Other acne [facility]* Diagnosis Acne vulgaris Other acne [facility]* Diagnosis Acne vulgaris- Primary Other acne documented in this encounter [facility] HealthcareInstructionsNot on filedocumented in this encounterProTuscarawas Hospital SystemInstructionsNot on filedocumented in this encounterProTuscarawas Hospital SystemReason for referral (narrative)No reason for referral information availableTrihealth Good [facility] Work Phone: Summary Purpose Family History No Family History Records Found Relationship Condition Age at Onset Recorded Date/T ananth son Asthma Unknown Advance Directives No Advanced Directives Records Found Advance Directive Response Recorded Date/ Time Advance Directives No May 30 10:24am Advance Directive Response Recorded Date/ Time Advance Directives No May 30 9:24am Chief Complaint and Reason for Visit Chief Complaint Admit Date 6 week April 15, 2024 9:1 8am Reason for Visit Admit Date Abnormal weight gain March 04, 2024 9:18am BMI 32.0-32.9,adult March 04, 2024 9 :18am Dietary surveillance and counseling Bam hernandez 2024 9:18am Exercise counseling March 04, 2024 9 :18am H/O gastric sleeve March 04, 2024 9 :18am H/O partial thyroidectomy March 04, 2024 9:18am History of hysterectomy March 04 9:18am History of malignant neuroendocrine tumo r March 04, 2024 9:18am Mixed hyperlipidemia March 04, 2024 9:18am Obesity, Class I, BMI 30-34.9 March 042024 9:18am Abnormal weight gain April 15, 2024 9: 18am BMI 32.0-32.9,adult April 15, 2024 9:1 8am Dietary surveillance and counseling Rodolfo 2024 9:18am Exercise counseling April 15, 2024 9:1 8am H/O gastric sleeve April 15, 2024 9:1 8am H/O partial thyroidectomy April 15 9:18am History of hysterectomy April 15, 2024 9:18am History of malignant neuroendocrine tumo r April 15, 2024 9:18am Mixed hyperlipidemia April 15, 2024 9: 18am Obesity, Class I, BMI 30-34.9 April 9:18am Abnormal weight gain May 27, 2024 9: 20am BMI 32.0-32.9,adult May 27, 2024 9:2 0am Dietary surveillance and counseling Apri 2024 9:20am Exercise counseling May 27, 2024 9:2 0am H/O gastric sleeve May 27, 2024 9:2 0am H/O partial thyroidectomy May 27 9:20am History of hysterectomy May 27, 2024 9:20am History of malignant neuroendocrine tumo r May 27, 2024 9:20am Mixed hyperlipidemia May 27, 2024 9: 20am Obesity, Class I, BMI 30-34.9 May 9:20am Chief Complaint z20.822 Reason for Visit Admit Date BMI 33.0-33.9,adult December 11, 2023 9 :23am Dietary surveillance and counseling Lorie pulido 2023 9:23am Exercise counseling December 11, 2023 9 :23am H/O gastric sleeve December 11, 2023 9 :23am H/O partial thyroidectomy December 11, 2023 9:23am History of hysterectomy December 10 9:23am History of malignant neuroendocrine tumo r December 11, 2023 9:23am Obesity, Class I, BMI 30-34.9 December 102023 9:23am Abnormal weight gain January 22, 2024 9:25am BMI 32.0-32.9,adult January 22, 2024 9:25am Dietary surveillance and counseling [facility] 2023 9:25am Exercise counseling January 22, 2024 9:25am H/O gastric sleeve January 22, 2024 9:25am H/O partial thyroidectomy January 22, 2024 9:25am History of hysterectomy January 21 9:25am History of malignant neuroendocrine tumo r January 22, 2024 9:25am Mixed hyperlipidemia January 22, 2024 9:25am Obesity, Class I, BMI 30-34.9 January 062023 9:25am Abnormal weight gain March 04, 2024 9:18am BMI 32.0-32.9,adult March 04, 2024 9 :18am Dietary surveillance and counseling Bam hernandez 2024 9:18am Exercise counseling March 04, 2024 9 :18am H/O gastric sleeve March 04, 2024 9 :18am H/O partial thyroidectomy March 04, 2024 9:18am History of hysterectomy March 04 9:18am History of malignant neuroendocrine tumo r March 04, 2024 9:18am Mixed hyperlipidemia March 04, 2024 9:18am Obesity, Class I, BMI 30-34.9 March 042024 9:18am Reason for Visit Admit Date Abnormal weight gain January 22, 2024 9:25am BMI 32.0-32.9,adult January 22, 2024 9:25am Dietary surveillance and counseling [facility] 2023 9:25am Exercise counseling January 22, 2024 9:25am H/O gastric sleeve January 22, 2024 9:25am H/O partial thyroidectomy January 22, 2024 9:25am History of hysterectomy January 21 9:25am History of malignant neuroendocrine tumo r January 22, 2024 9:25am Mixed hyperlipidemia January 22, 2024 9:25am Obesity, Class I, BMI 30-34.9 January 062023 9:25am Abnormal weight gain March 04, 2024 9:18am BMI 32.0-32.9,adult March 04, 2024 9 :18am Dietary surveillance and counseling Bam mary 2024 9:18am Exercise counseling March 04, 2024 9 :18am H/O gastric sleeve March 04, 2024 9 :18am H/O partial thyroidectomy March 04, 2024 9:18am History of hysterectomy March 04 9:18am History of malignant neuroendocrine tumo r March 04, 2024 9:18am Mixed hyperlipidemia March 04, 2024 9:18am Obesity, Class I, BMI 30-34.9 March 042024 9:18am Abnormal weight gain April 15, 2024 9: 18am BMI 32.0-32.9,adult April 15, 2024 9:1 8am Dietary surveillance and counseling Rodolfo 2024 9:18am Exercise counseling April 15, 2024 9:1 8am H/O gastric sleeve April 15, 2024 9:1 8am H/O partial thyroidectomy April 15 9:18am History of hysterectomy April 15, 2024 9:18am History of malignant neuroendocrine tumo r April 15, 2024 9:18am Mixed hyperlipidemia April 15, 2024 9: 18am Obesity, Class I, BMI 30-34.9 April 9:18am Chief Complaint Admit Date 6 week July 15, 2024 11:41 am Reason for Visit Admit Date Abnormal weight gain May 27, 2024 9: 20am BMI 32.0-32.9,adult May 27, 2024 9:2 0am Dietary surveillance and counseling Apri l 2024 9:20am Exercise counseling May 27, 2024 9:2 0am H/O gastric sleeve May 27, 2024 9:2 0am H/O partial thyroidectomy May 27 9:20am History of hysterectomy May 27, 2024 9:20am History of malignant neuroendocrine tumo r May 27, 2024 9:20am Mixed hyperlipidemia May 27, 2024 9: 20am Obesity, Class I, BMI 30-34.9 May 9:20am Abnormal weight gain July 15, 2024 11:4 1am BMI 32.0-32.9,adult July 15, 2024 11:41 am Dietary surveillance and counseling July 15, 2024 11:41am Exercise counseling July 15, 2024 11:41 am H/O gastric sleeve July 15, 2024 11:41 am H/O partial thyroidectomy July 15, 2024 11:41am History of hysterectomy July 15, 2024 1 1:41am History of malignant neuroendocrine tumo r July 15, 2024 11:41am Mixed hyperlipidemia July 15, 2024 11:4 1am Obesity, Class I, BMI 30-34.9 July 15, 2024 11:41am Chief Complaint Admit Date 6 week July 15, 2024 11:41 am 8 week September 09, 2024 9:0 4am Reason for Visit Admit Date Abnormal weight gain July 15, 2024 11:4 1am BMI 32.0-32.9,adult July 15, 2024 11:41 am Dietary surveillance and counseling July 15, 2024 11:41am Exercise counseling July 15, 2024 11:41 am H/O gastric sleeve July 15, 2024 11:41 am H/O partial thyroidectomy July 15, 2024 11:41am History of hysterectomy July 15, 2024 1 1:41am History of malignant neuroendocrine tumo r July 15, 2024 11:41am Mixed hyperlipidemia July 15, 2024 11:4 1am Obesity, Class I, BMI 30-34.9 July 15, 2024 11:41am Abnormal weight gain September 09, 2024 9: 04am BMI 33.0-33.9,adult September 09, 2024 9:0 4am Dietary surveillance and counseling Aug2024 9:04am Exercise counseling September 09, 2024 9:0 4am H/O gastric sleeve September 09, 2024 9:0 4am H/O partial thyroidectomy September 09 9:04am History of hysterectomy September 09, 2024 9:04am History of malignant neuroendocrine tumo r September 09, 2024 9:04am Mixed hyperlipidemia September 09, 2024 9: 04am Obesity, Class I, BMI 30-34.9 September 9:04am Additional Source Comments INFORMATION SOURCE (unrecogn ized section and content) DATE CREATED AUTHOR 01/27/2022 [facility] DATE CREATED AUTHOR AUTHOR'S ORGANIZ ATION 04/07/2023 [facility] DATE CREATED AUTHOR AUTHOR'S ORGANIZ ATION 05/05/2023 [facility] DATE CREATED AUTHOR AUTHOR'S ORGANIZ ATION 10/17/2023 [facility] DATE CREATED AUTHOR AUTHOR'S ORGANIZ ATION 12/01/2023 [facility] DATE CREATED AUTHOR AUTHOR'S ORGANIZ ATION 05/17/2024 [facility] DATE CREATED AUTHOR AUTHOR'S ORGANIZ ATION 05/31/2024 [facility] DATE CREATED AUTHOR AUTHOR'S ORGANIZ ATION 11/21/2024 [facility] EPIC Care Teams (unrecognized sec tion and content) Team Status: Active Member Role Status Dates NON STAFF Primary Care Provider Active Team Status: Inactive Member Role Status Dates NON STAFF Primary Care Provider, Attending Provider Active Team MemberRelationshipSpecialtyStart DateEnd Date Christine Alarcon MD [address] [place] [address] PCP - GeneralHematology and Oncology04/18/23Team MemberRelationshipSpecialtyStart DateEnd Date Christine Alarcon MD [address] [place] [address] PCP - GeneralHematology and Oncology04/18/23Team MemberRelationshipSpecialtyStart DateEnd Date Christine Alarcon MD [address] [place] [address] PCP - GeneralHematology and Oncology04/18/23 Team Status: Active Member Role Status Dates Chelsie Acuña MD Primary Care Provider Active Team Status: Inactive Member Role Status Dates Chelsie Acuña MD Primary Care Provider Active Start: September 19, 2023 End: September 19, 2023Mariza Sotelo DNPAttending ProviderActiveStart: September 19, 2023 End: September 19, 2023 Team Status: Inactive Member Role Status Dates Carlos Champagne MD Attending Provider Active Start: October 04, 2023 End: October 04, 2023 Team Status: Active Member Role Status Dates Mariza Sotelo DNP Primary Care Provider Active Team Status: Inactive Member Role Status Dates Stefani Macias RD LD Attending Provider Active Start: October 11, 2023 End: October 11, 2023Mariza Sotelo DNPPrimary Care ProviderActiveStart: October 11, 2023 End: October 11, 2023 Team Status: Inactive Member Role Status Dates Mariza Sotelo DNP Primary Care Provid er, Attending Provider Active Start: October 30, 2023 End: October 30, 2023 Team Status: Inactive Member Role Status Dates Mariza Sotelo DNP Primary Care Provider Active Start: November 27, 2023 End: November 26ndliz Prasad RD LDAttending ProviderActiveStart: November 27, 2023 End: November 27, 2023 Team Status: Active Member Role Status Dates Melissa Serrano MD Primary Care Provider Active Team Status: Inactive Member Role Status Dates Mariza Sotelo DNP Primary Care Provid er, Attending Provider Active Start: December 11, 2023 End: December 11, 2023 Team Status: Inactive Member Role Status Dates Mariza Sotelo DNP Primary Care Provid er, Attending Provider Active Start: January 22, 2024 End: January 22, 2024 Team Status: Inactive Member Role Status Dates Mariza Sotelo DNP Primary Care Provid er, Attending Provider Active Start: March 04, 2024 End: March 04, 2024Team MemberRelationshipSpecialtyStart DateEnd Date [facility], [facility] [address] [place], [place] [facility] Jxkhpxkh19/16/17 Team Status: Inactive Member Role Status Dates Mariza Sotelo DNP Primary Care Provid er, Attending Provider Active Start: April 15, 2024 End: April 15, 2024 Team Status: Inactive Member Role Status Dates Mariza Sotelo DNP Primary Care Provid er, Attending Provider Active Start: May 27, 2024 End: May 27, 2024 Team Status: Inactive Member Role Status Dates Mariza Sotelo DNP Primary Care Provid er, Attending Provider Active Start: July 15, 2024 End: July 15, 2024 Team Status: Inactive Member Role Status Dates Mariza Sotelo DNP Primary Care Provider Active Start: July 15, 2024 End: July 15, 2024Mariza Sotelo DNPAttending ProviderActiveStart: July 15, 2024 End: July 15, 2024 Team Status: Inactive Member Role Status Dates Mariza Sotelo DNP Primary Care Provider Active Start: September 09, 2024 End: September 09, 2024Mariza Sotelo DNPAttending ProviderActiveStart: September 09, 2024 End: September 09, 2024Team MemberRelationshipSpecialtyStart DateEnd Date Melissa Serrano MD [address] [place] [address] PCP - GeneralFamily Medicine05/13/24 Goals (unrecognized section and content) Goals may be documented in a n alternate sectionGoals may be documented in an alternate sectionGoals may be documented in an alternate sectionGoals may be documented in an alternate sectionGoals may be documented in an alternate sectionGoals may be documented in an alternate sectionGoals may be documented in an alternate sectionNot on filedocumented as of this encounterGoals may be documented in an alternate sectionGoals may be documented in an alternate sectionGoals may be documented in an alternate sectionGoals may be documented in an alternate sectionNot on filedocumented as of this encounter Reason for Visit (unrecogniz ed section and content) SpecialtyDiagnoses / ProceduresReferred By ContactReferred To ContactRadiology Diagnoses Cyst of peritoneal cavity Procedures PET CT TUMOR IMAGE SKULL THIGH DOTATATE [facility]c [address] [place] [address] Referral IDStatusReasonStart DateExpiration DateVisits RequestedVisits [id number]/12/20244/[id number] / Procedures Referred By ContactReferred To Contact 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 Pain ongoing for about a month, as well as the numbness coldness. Pt has tried soaking feet, topical foot pain cream,insoles. SS: 8.5-9ReasonCommentsAcneReason CommentsMed RefillReasonCommentsAcneChemical peelReasonCommentsAcneReasonOnset OnbbYrhtzebdYbuzagmovbf15/02/2025ReasonCommentsFollow-up Scheduled Active and Recently Administ ered Medications (unrecognized section and content) Medication Order// sodium chloride flush 0.9 % injection 5-40 mL 5-40 mL, IntraVENous, EVERY 12 HOURS SCHEDULED (2 times per day), First dose on Mon04/28/23 at 2100, Until Discontinued, For Line Patency: Peripheral IV = 5 mL; Midline or Central Line = 10 mL/lumen.If following IV push medication, administer flush at same rate as the IV push. Flush volume is determined by type of infusion therapy being given. For non-viscous solutions use: Peripheral IV = 5 mL Midline or Central Line = 10 mL/lumen For viscous solutions (i.e. blood components, parenteral nutrition, contrast media, or after obtaining blood sample) use: Peripheral IV = 10 mL Midline or CentralLine = 20 mL/lumen, Pre-op (day of surgery) * 2100 (Due) Medication Order// lactated ringers IV soln infusion IntraVENous, at 125 mL/hr, CONTINUOUS, Starting on Mon04/28/23 at 1330, Pre-op (day of surgery) * 1323 (New Bag - Provider: Lou Holcomb RN) * 1437 (Paused - Provider: QUYEN Sumner CRNA - Comment: Switch to gravity) * 1438 (Restarted - Provider: QUYEN Sumner CRNA) * 1600 (Stopped - Provider: QUYEN Henderson CRNA) Medication Order04/25//// 0.9 % sodium chloride infusion IntraVENous, at [...] less into rate field of order., Pre-op (dayof surgery) lidocaine PF 1 % injection 1 mL 1 mL, IntraDERmal, ONCE PRN, 1 dose, Starting on Mon04/28/23 at 1303, Until 04/29/23 at 1303, IVstart, Pre-op (day of surgery) sodium chloride flush [...] For viscous solutions (i.e. blood components, parenteral nutrition,contrast media, or after obtaining blood sample) use: Peripheral IV = 10 mL Midline or Central Line= 20 mL/lumen, Pre-op (day of surgery) FOR [...] BE BASED ON THE PRIMARY CLINICAL RECORDS. [facility]. provides no warranty or guarantee of the accuracy or completeness of information in this document.
--- OUTSIDE RECORDS SUMMARY | 2024-12-15 00:15 | XMS_ITS | Patient Health Record ---
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 She is going to call her insurance and see which office is in network, and see if a referral is needed. Then call us back., Debbie Ulloa 05/16/2024 11:04:03 AM >2nd attempt - spoke to patient. She states that she is not looking to get scheduled as of yet as she has alot of things going on right now. I advised pt that referral is good until Jan, and to let us know when she is ready. Pt voiced understanding Referral Priority Routine Medications Medication SIG (Take, Route, Frequency, Duration) Notes Start Date End Date Status Omeprazole 40 MG 1 capsule 30 minutes before morning meal Orally Once a day; Duration: 30 day(s) 02/21/2022Not-TakingCyclobenzaprine HCl 5 MG1-2 tablet at bedtime as needed Orally Once a day; Duration: 30 days03/28/20225253Arg-IccegkNhfoiy-EBouiqlKprwtfj Citrate 150 MG2 capsules Orally Once a dayNot-TakingMinocycline HCl 50 MGTAKE 1 CAPSULE BY MOUTH EVERY DAY Oral; Duration: 30 DaysNot-TakingPolyethylene Glycol -as directedNot-TakingVitamin D3 10 MCG (400 UNIT)1 tablet Orally Once a day ActiveMultivitamin -1 tablet Orally Once a dayActive Immunizations Vaccine Route Administration Date Status Comme nts *Rysllbnta-Knbvxyjon-Zyqorpy Unknown 11/10/2018 Adminis tered *Kdtpkrgji-Xpkpwdiwu-WszpjjpFkyxlmq95/30/2023Administered*Tdap (Adacel)-Private IM Utokinrlbnacz62/08/2024dministeredCOVID-19 (Pfizer)-YanphamVfltitf76/12/2021 AdministeredCOVID-19 (Pfizer)-OvqqhchHuxnvqi98/04/2021dministeredCOVID-19 (Pfizer)-SuywghzBscyghx28/31/2021Administered Influ,recombi,quadrival,injectable,preserv ipbqOiunofn20/02/2022dministered Influenza (split), 3 yrs and taleiNjhrxqm66/14/2019AdministeredInfluenza Vaccine-ZlxegccGceemto01/06/2018AdministeredInfluenza Vaccine-PrivateUnknown 12/06/2019AdministeredInfluenza Vaccine-CauhrxcDlwlgsq18/05/2021Administered Influenza, seasonal, injectable, preservative free, 3 yrs and aboveIM Fbsihjgdakdde27/06/2015dministeredStatus:Complete ,Reason:Given or N/A Social History Tobacco Use: Social History Observation Description Date Details (start date - stop date) Never Smoker NA - NA Sex Assigned At : Social History Observation Description Sex Assigned At Female Household Question Answer Notes Number of adults in household: 1 Number of children in household:3Alcohol Screen (Audit-C) Question Answer Notes Did you have a drink containing alcohol in the p ast year? No Wbtqnr1KiaxcouvgmwycgScsdxcpmZKJY-KJP Questionnaire (2018 Edition) Question Answer Notes Have you ever felt that you ought to cut down on your drinking or drug use? No patient entered data Have people annoyed you by claire ayalazing your drinking or drug use? No patient entered data Have you ever felt bad or gu ilty about your drinking or drug use? No Have you ever had a drink or used drugs first thing in the morning to steady your nerves or to get rid of a hangover?NoCAGE-AID Rrusl3QgvvmayzzxhumsEbjzdzzl PRAPARE Question Answer Notes Date Completed/Updated: 08/16/2023 amadoe nt entered data What is your current housing situation? I have housing patient entered data Are you worried about losing your housing? No patient entered data What is the highest level of school that you have finished? More than high school patient entered data What is your current work situation? [employer] work patient entered data In the past year, have you o r any family members you live with been unable to get any of the following when it was really needed? Check all that apply I do not have problems meeting my needs Has lack of transportation kept you from medical appointments, meetings, work or from getting things needed for daily living?NoHow often do you see or talk to people that you care about and feel close to? (For example: talkingto friends on the phone, visiting friends or family, going to yazdanism or club meetings)1 or 2 times a weekpatient entered dataHow stressed are you? Stress is when someone feels tense, nervous, anxious, or can't sleep at nightbecause their mind is troubledA little bitpatient entered dataIn the past year have you spent more than 2 nights in a row in a retirement, chcf, penitentiary center, orjuvenile correctional facility?Nopatient entered dataAre you a refugee?Nopatient entered dataWhat country are you from?[place] Statespatient entered dataDo you feel physically and emotionally safe where you currently live?Yespatient entered dataIn the past year, have you been afraid of your partner or ex-partner?Nopatient entered dataPRAPARE Score:4Tobacco Control (Standard) Question Answer Notes Tobacco use: Nonsmoker Section Notes: Nutrition counseling focusin g on a low sodium and low sugar diet discussed with the patient, as well as appropriate weekly exercise and increased activity as tolerated to work towards a more optimal body mass index for improved overall health. Nutrition counseling focusin g on a low sodium and low sugar diet discussed with the patient, as well as appropriate weekly exercise and increased activity as tolerated to work towards a more optimal body mass index for improved overall health. Problems Problem Type SNOMED Code ICD Code Onset Dates Problem Status W/U Status Risk Notes Problem Obese class II (273818740911651) BMI 36.0 -36.9,adult (Z68.36) ActiveconfirmedProblemObese class I (476553451939348)BMI 33.0-33.9,adult (Z68.33)ActiveconfirmedProblemBody mass index 30.00 to 34.99 (917116960877541) BMI 34.0-34.9,adult (Z68.34)ActiveconfirmedProblemHistory of bypass of stomach (427067517)H/O gastric bypass (Z98.84)ActiveconfirmedProblemDehydration (78801716)Dehydration (E86.0)ActiveconfirmedComment:encouraged po hydration, ProblemMetabolic syndrome (641226295)Metabolic syndrome (E88.81)Activeconfirmed Comment:Improving. Meets 3/5 criteria: FBS of 105, Waist measurement of >35, Hyperlipidemia (LDL) Stopped taking metformin in June due to lack of refills., ProblemAnxiety (23538147)Anxiety (F41.9)Activeconfirmed Comment:Has been on Bupropion but no major benefit will change to LexaPRO 10 MG, ProblemViral syndrome (075476911)Viral syndrome (B34.9)Activeconfirmed Comment:WITH FLU-LIKE SYMPTOMS, RESOLVING. REASSURED; RECOMMEND SYMPTOMATIC TREATMENT, REST.,ProblemAntenatal screening (203894356)First trimester screening (Z36.9)ActiveconfirmedProblemThyroid nodule (355122484)Thyroid nodule (E04.1) ActiveconfirmedComment:One functional lobe remains.,Story:dx in 2014 and surgerical removal 2016. Benign,ProblemPregnancy-related examination (737058564) Encounter for related examination (Z34.90)Activeconfirmed Comment:29 yo at 5.5 weeks gestation, initiating pnc - pnv, ProblemCervical high risk HPV (human papillomavirus) test positive (767867669) Cervical high risk HPV (human papillomavirus) test positive (R87.810)Active confirmedComment:papsmear negative, repeat papsmear in 2-3 years,Problem Gastroesophageal reflux disease (166479683)GERD (gastroesophageal reflux disease) (K21.9)Activeconfirmed Comment:Can take Tums as needed for heartburn/GERD sypmtoms Start tracking use of Tums/week; if more than 2-3 times/week; can consider Pepcid daily Keep exercising and more weight loss will help GERD symptoms, ProblemAcute sinusitis (64343002)Sinusitis, acute (J01.90)Activeconfirmed Comment:Abx until gone. Continue with home mucinex and nasocort. Increase fluids and rest. F/u if no better., ProblemDepression screening (851100995)Screening for depression (Z13.31)Active confirmedDescription:Depression screeningProblemAnemia (227844870)Anemia (D64.9) ActiveconfirmedProblemHypothyroidism (08205167)Hypothyroidism (E03.9)Active confirmedComment:TSH normal; continue with upper trimmer for evaluation of hypothyroidism,ProblemShoulder joint pain (906658383)Bilateral shoulder pain, unspecified chronicity (M25.511)Activeconfirmed Comment:Continue with ice and moist heat as needed Can continue with Motrin or Aleve as needed Refer to general surgeon for discussion of possible breast reduction, ProblemObesity (541254266)Class 1 obesity in adult (E66.9)Activeconfirmed Description:Class 1 Obesity in Adult (BMI 30.0-34.9)ProblemGynecological examination normal (138569026272384)Well woman exam with routine gynecological exam (Z01.419)Activeconfirmed Comment:encourged self breast exams declined std testing, ProblemObesity (303326630)Obesity (E66.9)ActiveconfirmedProblemPain in right arm (967216609)Right arm pain (M79.601)Activeconfirmed Comment:Can continue with moist heat and ice as needed Can continue with Naproxen as needed for pain and inflammation, ProblemHypochromic anemia (90096238)Hypochromic anemia (D50.9)Activeconfirmed Story:peripheral smear normal, Ferritin normal, serum iron normal. Low iron saturation),ProblemAdult health examination (820640150)Well adult health check (Z00.00)ActiveconfirmedStory:needs form completed for work by 01/06/16,Problem Antepartum thyroid dysfunction in second trimester (O99.282)Activeconfirmed Comment:pt was scheduled for thyroid surgery, has a nodular goider, then found out she was , surgeon delayed surgery until after delivery discussed risks of , size discrepancies, preeclampsia will monitor tft's during preg APT at 32 weeks s/p mfm growth US q4 weeks starting at 24 weeks pt has follow up with upper trimmer in nov, ProblemShingles (7118817)Shingles (B02.9)ActiveconfirmedComment:pt exposed at work, Ig M positive,ProblemRoutine gynecologic examination done (41852529084858) 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 Encouraged continued use of heat, topicals, and anti-inflammatory to aid in pain reduction. Will f/u in 1 month or sooner if needed.,ProblemHigh risk (17863780) High risk , antepartum (O09.90)Activeconfirmed Comment:29 yo at 27.4 weeks gestation s/b 8.5wk US, pt unsure of lmp, initiating pnc - pnv - first TM screening - unable to be done due to position - possible radiation exposure to fetus, pt to bring in dates of thyroid studies to determine date of conception - based on dates, pt was at time of CT scan - pt complains of feeling like food gets stuck, pt has goiter, has follow up with her upper trimmer - has appt in nov, pt to eat smaller sized meals - quad screen - negative - anatomy scan to be done by mfm , not all structures cleared, cleared by mfm, scheduled 11/23/14 - sign btl consents at 28 weeks - signed - 1 hr gtt neg - s/p flu shot, ProblemObesity (955846731)Obesity (BMI 35.0-39.9 without comorbidity) (E66.9) Activeconfirmed Comment:Increase exercise and healthy eating patterns as able Need to lose at least 3 pounds a month to stay on medication, ProblemNon-toxic nodular goiter (368853151)Nontoxic nodular goiter (E04.9)Active confirmed Comment:Referral to Multiple Resaw Operator. Update labs., ProblemAcute upper respiratory infection (06915888)Viral URI (J06.9)Active confirmed Comment:vs Allergic Rhinitis. in either case, symptoms are Improving, REASSURED that it is unlikely she has a bacterial or serious viral infection. Continue PRN symptomatic Rx as needed for now, continue fluids. IF SYMPTOMS CONTINUE (CLEAR NASAL DRAINAGE, POST NASAL DRIP) THEN TRY DAILY loratadine or cetirizine to see if those help., ProblemGoiter (6427059)Enlarged thyroid (E04.9)ActiveconfirmedComment:FOLLOWUP WITH ELIGIO, AFTER LABS.,ProblemInjury of left foot (disorder) (06734992628100441)Foot injury, left, initial encounter (S97.712A)Active confirmed Comment:Will call with X Ray results and treat as needed Use ice, elevation, and compression until results seen, ProblemMorbid obesity (245505574)Morbid obesity (E66.01)Activeconfirmed Comment:Pt to start contraception as this med is contraindicated in . - pt stopped nuvaring, will use condoms Pt to notify us of any side effects. Will need to be monitored monthly for weight checks. pt states qsymia gave her severe constipation, weaning self off currently, now taking every 3 days,to continue to 2 times per week, then 1 time per week then off. Pt to do regular diet, exercise, declines contraception, ProblemObesity in , antepartum (O99.210)Activeconfirmed Comment:monitor weight gain early 1 hr gtt - normal, ProblemAdult health examination (111874474)Encounter for wellness examination in adult (Z00.00)ActiveconfirmedProblemSprain of left knee (disorder) (74333328981970023)Knee strain, left, initial encounter (C46.072A)Active confirmed Comment:No obvious abnormalities to the knee joint. Likely a strain. RICE. If sx persist f/u in 2 weeks., ProblemConstipation (12758290)Constipation (K59.00)ActiveconfirmedComment:pt weaning self off of qsymia, taking stool softners, pt to increase po hydration and fiberin diet,ProblemPregnancy, status unknown (V49.89)ActiveconfirmedProblem Contraceptive use education (32791548)Contraceptive use education (Z30.09)Active confirmed Comment:discussed short term and shelter options, risks and side effects of each pt desires to try nuvaring for now as previously used ocp, depo, pt will think about iud, ProblemHistory of bariatric surgical procedure (723321829)Gastric bypass status for obesity (Z98.84)ActiveconfirmedComment:Medically cleared for bypass surgery; need PAT results and then can fill out paperwork and [facility] to [facility],ProblemSkin abscess (59289428)Skin abscess (L02.91)Activeconfirmed Comment:on left inner thigh clsoe to groin, patient does shave in that area Possible infected hair follicle treat with topical F/U in not improved after treatment PVU, ProblemHistory of section (735141102)Previous delivery affecting (O34.219)Activeconfirmed Comment:repeat at 39 weeks pt desires btl, sign consents at 28 weeks. - signed,Story:c/s x 2, ProblemRight lower quadrant pain (204031652)Bilateral lower abdominal pain (R10.31)Activeconfirmed Comment:-10 days hx of lower abdomen pain with cramping and dull pain -hx of adhesions and uterine scar tissue d/t C-Sections x 3 -had complete hysterectomy in 2016 (less one ovary, she does not remember which one was spared), she had similar sxs / pain before hysterectomy in 2016 -she denies n/v/d, constipation, bloody stool, fever or pain radiation -CT abdomen was ordered on 01/06/12 during last clinic visit here but she went to ER on 01/06/18 d/t exacerbation of abdominal pain -abdominal US (transabdominal / transvaginal) and CT done at the [facility] ER on 01/06/18 which showed Rt pelvic complexed cystic mass next to cecum with internal blood flow measuring about 12.8 x 7.8 x 6.7 cm -have appointment with REJECT OPENER AND FILLER on 01/09/18, she is encouraged to keep appointment with her REJECT OPENER AND FILLER and keepus updated -f/u as needed, if pain becomes sharp or out of control then go to ER, ProblemLumbar strain (572200688)Lumbar strain (S39.012A)Activeconfirmed Comment:Will do some steroids and naprosyn. Heat and rest. Continue stretching. F/u if no better in 2 weeks., ProblemShoulder joint pain (853997506)Bilateral shoulder pain (M25.511)Active confirmed Comment:Need for letter for medical necessity for breast reduction Pt. to write one as well and then, referral can be made to plastic surgery consult, ProblemExposure to the flu (Z20.828)ActiveconfirmedProblemSkin sensation disturbance (75923257)Tingling of left upper extremity (R20.2)Activeconfirmed Comment:Continue with ice and moist heat as needed Can continue with Naproxen as needed, ProblemNeck pain (65611604)Neck pain (M54.2)ActiveconfirmedProblemPregnancy test positive (318455252)Positive test (Z32.01)ActiveconfirmedProblem Shoulder joint pain (565263960)Left anterior shoulder pain (M25.512)Active confirmed Comment:Can use ice and moist heat as needed Can use Motrin or Aleve as needed for pain and inflammation Can use Tylenol Arthritis as needed for breakthrough pain, ProblemExposure to varicella (155550429)Exposure to varicella zoster virus (VZV) (Z20.820)Activeconfirmed Comment: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 will order titers, Vital Signs Heart Rate 79 /min 07/29/2024 Height-cm161.29 cm07/29/2024lood pressure pkahwhkom58 mm Hg07/29/2024Weight-kg 86.18 kg07/29/20242447Auvmkk83.50 in07/29/2024lood pressure mm Hg 07/29/20248891Tfnfbv972 lbs07/29/2024BMI33.13 kg/m207/29/2024 Encounters Encounter Location Date Provider Diagnosis [facility] [address] [place] [id number] 01/15/2024 Tamara Owusu BMI 33.0-33.9,adul t Z68.33 ; Dietary counseling Z71.3 ; Exercise counseling Z71.82 ; Encounter for screening for dental disorders Z13.84 and Encounter for dental examination and cleaning without abnormal findings Z01.20 [facility] [address] [place], [place] [id number] 07/29/2024 Tamara Owusu BMI 33.0-33.9,adul t Z68.33 ; Encounter for dental examination and cleaning without abnormal findings Z01.20 ; Dietary counseling Z71.3 and Exercise counseling Z71.82 Assessments Encounter Date Diagnosis (ICD Code) Assessment Notes Treatment Notes Treatment Clinical Notes Section Notes 01/15/2024 BMI 33.0-33.9,adult (ICD-10 - Z6 8.33) 07/29/2024MI 33.0-33.9,adult (ICD-10 - Z68.33)01/15/2024ietary counseling (ICD-10 - Z71.3)07/29/2024Encounter for dental examination and cleaning without abnormal findings (ICD-10 - Z01.20)07/29/2024Dietary counseling (ICD-10 - Z71.3) 01/15/2024Exercise counseling (ICD-10 - Z71.82)07/29/2024Exercise counseling (ICD-10 - Z71.82)01/15/2024Encounter for screening for dental disorders (ICD-10 - Z13.84)01/15/2024Encounter for dental examination and cleaning without abnormal findings (ICD-10 - Z01.20) Plan Of Treatment Next Appt Details Provider Name:Tamara Palacios ord, 02/10/2025 07:45:00 AM, [address] [place], [place], [phone], Insurance Providers Payer Name Payer Address Payer Phone Subscriber Number Group Number Insured Name Patient Relationship to Insured Coverage Start Date Coverage End Date Aiyana [facility] [address] [place] [address] [id number] Bree Breen - patient is the [id number] 2021[employer] [place]CD[place] [address] [address] [place] [id number] Bree - patient is the [id number] 2021Medicaid CFC after [address] [place], [place] [id number] Bree - patient is the [id number] 2019 DMedicaid CFC after [place] Advantage Env[address] [place], [place] [id number] - patient is the [id number] 2021 Medical (General) History Medical History History ICD Code Alpha Thalassemia AnxietyThyroid IssuesVertigomalignant carcinoid duodenum dx'd 02/2023Surgical History Surgery Date(Month/Year) Delivery, X3 Otssvqtgzbxb8419Pzwyipwfgmekb8750VwjsffrgzcnajGappnxacm Hbjowiu3008Gemdg Ncgunzxc2644NQYKJNTYE HYSTERECTOMY
[2024-12-15 00:24] LABS: Hematocrit 36.7 % (36.0-48.0); Hemoglobin 11.8 g/dL (12.0-16.0); Immature Granulocytes Abs Auto 0.06 10^3/uL (0.00-0.03); Immature Granulocytes Pct Auto 0.4 % (0.0-0.5); Lymphocytes Absolute Auto 4.9 10^3/uL (1.2-3.8); Mean Corpuscular HGB Conc 32.2 g/dL (29.9-35.2); Mean Corpuscular Hemoglobin 26.7 pg (26.7-34.0); Mean Corpuscular Volume 83.0 fL (81.0-99.0); Platelet Count 432 10^3/uL (150-450); Red Blood Count 4.42 10^6/uL (4.20-5.40); White Blood Count 14.1 10^3/uL (4.0-11.0)
[2024-12-15 00:41] LABS: Alanine Aminotransferase 25 U/L (14-59); Albumin Globulin Ratio 0.9; Albumin Level 3.1 g/dL (3.4-5.0); Alkaline Phosphatase 83 U/L (46-116); Anion Gap 8.7; Aspartate Amino Transferase 11 U/L (15-37); Blood Urea Nitrogen 11.0 mg/dL (7.0-18.0); Calcium 8.4 mg/dL (8.5-10.1); Carbon Dioxide 29.6 mmol/L (21.0-32.0); Chloride 106 mmol/L (98-107); Estimated GFR (African America >60 (>=60 mL/min/1.73m^2); Estimated GFR (Non-African Ame >60 (>=60 mL/min/1.73m^2); Globulin 3.5 g/dL; Glucose 106 mg/dL (74-106); Lactate/Lactic Acid 1.5 mmol/L (0.4-2.0); Lipase 46.0 U/L (16.0-77.0); Potassium 3.3 mmol/L (3.5-5.1); Sodium 141 mmol/L (136-145); Total Protein 6.6 g/dL (6.4-8.2)
--- NOTE | 2024-12-15 23:54 | ECG_ITS ---
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 Measurements Intervals [place] Rate: 70 P: 61 OR: 170 QRS: 21 QRSD: 88 T: 30 QT: 388 QTc: 408 Interpretive Statements 1100 Sinus rhythm 9110 normal ECG Compared to ECG 01/18/2022 22:56:28 No significant changes Electronically Signed On 12-15-2024 9:29:36 EST by ERIN HAMMER M.D.
== END 2024-12-15 03:03 | disposition home or self-care (01) ==
PROVIDERS: Emergency Provider Internal Medicine; PCP Student in an Organized Health Care Education/Training Program
DX: R07.89 Other chest pain (principal); Z85.068 Personal history of other malignant neoplasm of small intestine
CPT/HCPCS: 36415; 71046; 80053; 83605; 83690; 84484; 85025; 85378; 93005; 99285